=== PATIENT | female | born 1945 | race Caucasian/White ===

== ENCOUNTER 2018-06-10 01:47 | Inpatient (IN) | payer OTHER, MEDICARE ==
--- NOTE | 2018-06-04 13:11 | PN- Neurosurgical ---
Surgical Brief Attending Note Brief Attending Note: Narda carrington is seen back pain and bilateral sacroiliac areas worse with activity bending standing and walking improved a complaint of weakness in her leg. She cannot walk associated block. His a positive shopping cart sign. She has had physical therapy without improvement. 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 She does not have sleep apnea smoking 20 years ago. She drinks oh. Family history arthritis hypertension neuropathy cardiac is examination she stands with a was 197 pounds She is nontender patient back. Sacroiliac she is increased with bending but some limitation of hyperextension. Within normal limits and she is a pleasant posterior no sensory changes.Knee jerks absent. Toes are downgoing. She has negative straight leg raise Last MRI confirms space collapse at L3 4 L4 5 stenosis L3 4 L4 plan diagnosis is status post plan decompression L3 4 L4 5 L5-S1, hardware, insertion,
[~2018-06-10] VITALS: Ht 175.3 cm; Wt 86.2 kg
[~2018-06-10 01:47] MED LIST: AMLODIPINE BESYL5 M1 PO; ATORVASTATIN CA10 M1 PO; LEVOTHYROXINE100 MC1 PO; OMEPRAZOLE40 M1 PO; SERTRALINE HCL50 MG PO
[2018-06-10 13:40] LABS: ABSOLUTE BASOPHIL COUNT 0 /CUMM (0.0-0.2); ABSOLUTE EOSINOPHIL COUNT 0 /CUMM (0.0-0.7); ABSOLUTE GRANULOCYTE CT 6.7 /CUMM (1.4-6.5); ABSOLUTE LYMPH COUNT 1.2 /CUMM (1.2-3.4); ABSOLUTE MONOCYTE COUNT 0.1 /CUMM (0.10-0.60); BASOPHIL % 0.3 % (0.0-2.0); EOSINOPHIL % 0.4 % (0-5); HEMATOCRIT 33.6 % (37-47); MEAN CORPUSCULAR HGB 27.7 PG (27.0-31.0); MEAN CORPUSCULAR HGB CONC 33.8 G/DL (33.0-37.0); MEAN CORPUSCULAR VOLUME 81.8 FL (81.0-99.0); MEAN PLATELET VOLUME 9.3 FL (7.4-10.4); PLATELET COUNT 236 /CUMM (130-400); RBC DISTRIBUTION WIDTH 13.8 % (11.5-14.5); RED BLOOD CELL CT 4.11 /CUMM (4.20-5.40); WHITE BLOOD CELL COUNT 8.1 /CUMM (4.8-10.8)
[2018-06-10 13:47] LABS: GRANULOCYTE % 82.6 % (42.2-75.2)
--- NOTE | 2018-06-10 15:04 | Admission Core Measures ---
Acute Coronary Syndrome (CM) ACS Core Measures Acute Coronary Syndrome Diagnosis No Congestive Heart Failure (NEW) CHF Core Measures Congestive Heart Failure Diagnosis No Cerebrovascular Accident CVA Core Measures CVA/TIA Diagnosis No Venous Thromboembolism VTE Core Norm (View Protocol) VTE Risk Factors Surgery No Mechanical VTE Prophylaxis d/t N/A MechProphylax Ordered No VTE Pharm Prophylaxis d/t NA PharmProphylax ordered Problem List As ranked by this Provider includes Assessment & Plan 1. Spinal stenosis of lumbar region at multiple levels HOME MEDS Home Med List Amlodipine Besylate 5 MG TABLET 1 TAB PO DAILY HTN (Reported) Atorvastatin Calcium 10 MG TABLET 1 TAB PO DAILY CHOLESTEROL (Reported) Docusate Sodium 100 MG CAPSULE 100 MG PO BID PRN CONSTIPATION Gabapentin 100 MG CAPSULE 1 TAB PO QHS PRN neuropathy Levothyroxine Sodium 100 MCG TABLET 1 TAB PO DAILY REPLACEMENT (Reported) Nephro-Vitamins (Nephro-Mainor Tablet) 0.8 MG TABLET 1 TAB PO DAILY NEPHRO VITAMIN Nystatin 100,000 UNIT/GRAM CREAM..G. 1 KERLINE TOP BID rash Omeprazole 40 MG CAPSULE.DR 1 CAP PO DAILY GERD (Reported) Oxycodone HCl/Acetaminophen (Percocet 5-325 MG Tablet) 5 MG-325 MG TABLET 1 TAB PO Q6P PRN PAIN SCALE 7-10 (SEVERE) Sertraline HCl 50 MG TABLET 1 TAB PO DAILY MOOD (Reported) Sevelamer Carbonate (Renvela) 800 MG TABLET 800 MG PO QHS PHOS BINDER
--- NOTE | 2018-06-10 15:04 | Patient Discharge Instructions ---
Discharge Instructions General Discharge Information You were seen/treated for: Back pain, spinal stenosis You had these procedures: L3-S1 hardware removal Revision L3-S1 hemilaminotomies, decompression lumbar soco L3-5 Watch for these problems: Fever over 100.4 Numbness and tingling in lower extremities Sudden increase in pain Drainage from wound Redness and swelling around wound Chest pain or shortness of breath No bath, but you may shower: Yes Other wound care: Keep incision clean and dry Special Instructions: Daily dry dressing change Diet Continue normal diet: Yes Activity Pounds, do NOT lift more than: 5 Other activity limits: No bending or twisting Acute Coronary Syndrome Inclusion Criteria At DC or during hospital stay patient has or had the following: ACS DIAGNOSIS No Discharge Core Measures Meds if any: Prescribed or Continued at Discharge Meds if any: NOT Prescribed or Continued at Discharge Congestive Heart Failure Inclusion Criteria At DC or during hospital stay patient has or had the following: CHF DIAGNOSIS No Discharge Core Measures Meds if any: Prescribed or Continued at Discharge Meds if any: NOT Prescribed or Continued at Discharge Cerebrovascular accident Inclusion Criteria At DC or during hospital stay patient has or had the following: CVA/TIA Diagnosis No Discharge Core Measures Meds if any: Prescribed or Continued at Discharge Meds if any: NOT Prescribed or Continued at Discharge Venous thromboembolism Inclusion Criteria VTE Diagnosis No VTE Type NONE VTE Confirmed by (Test) NONE Discharge Core Measures - Per Current guidelines, there needs to be overlap - treatment for the first 5 days of Warfarin therapy. - If discharged on Warfarin prior to 5 days of - overlap therapy, the patient will need to be - assessed for post discharge needs including - *Post discharge parental anticoagulation - *Warfarin and/or parental anticoagulation education - *Follow up date to check INR post discharge At least 5 days overlap therapy as Inpatient No Meds if any: Prescribed or Continued at Discharge Note: Overlap Therapy is Warfarin and Anticoagulant Meds if any: NOT Prescribed or Continued at Discharge
--- NOTE | 2018-06-10 15:41 | RADIOLOGY REPORT ---
EXAMINATION: X-RAY LUMBAR SPINE IN THE OR CLINICAL INFORMATION: L3-S1 laminectomies and fusion. COMPARISON: CT scan of the lumbar spine 11/23/2017. TECHNIQUE: 6 intraprocedural views of the lumbar spine were obtained. FINDINGS: AP and lateral views demonstrate placement of intervertebral disc devices at the levels of L3-L4, L4-L5 and L5-S1. The interspinous devices seen at L4 and L5 on the prior study are not visualized on the current study and have likely been removed. Number of images: 6. Fluoroscopy time: 1.04 minutes. IMPRESSION: 1. Multiple images during L3-S1 laminectomies and fusion. 2. Please see operative notes for further details.
--- NOTE | 2018-06-10 16:31 | RADIOLOGY REPORT ---
EXAMINATION: XR LUMBAR SPINE IN OR CLINICAL INDICATION: L3-S1 laminectomy and fusion in the OR. COMPARISON: Lumbar spine radiograph 06/10/2018. TECHNIQUE/FINDINGS: O-arm equipment was dedicated to the operating room for the performance of an intraoperative procedure. FLUOROSCOPY TIME: 15.9 seconds TOTAL DLP: 1372.64 mGy-cm2 IMPRESSION: Administrative dictation for intraoperative imaging guidance and image archiving in PACS. Please refer to operative notes for details.
[2018-06-10 16:40] LABS: ABSOLUTE BASOPHIL COUNT 0 /CUMM (0.0-0.2); ABSOLUTE EOSINOPHIL COUNT 0 /CUMM (0.0-0.7); ABSOLUTE GRANULOCYTE CT 11.4 /CUMM (1.4-6.5); ABSOLUTE LYMPH COUNT 0.7 /CUMM (1.2-3.4); ABSOLUTE MONOCYTE COUNT 0.3 /CUMM (0.10-0.60); BASOPHIL % 0 % (0.0-2.0); EOSINOPHIL % 0.2 % (0-5); GRANULOCYTE % 91.9 % (42.2-75.2); MEAN PLATELET VOLUME 9.6 FL (7.4-10.4); PLATELET COUNT 131 /CUMM (130-400); RBC DISTRIBUTION WIDTH 13.9 % (11.5-14.5)
[2018-06-10 16:48] LABS: WHITE BLOOD CELL COUNT 12.4 /CUMM (4.8-10.8)
[2018-06-10 17:50] LABS: HEMATOCRIT 30 % (37-47)
--- NOTE | 2018-06-10 18:25 | Operative Report ---
Operative/Inv Procedure Report Surgery Date: 06/10/18 Name of Procedure: As primary #1 right hemilaminotomy L4 5 L5-S1 with medial facetectomy and foraminotomy #2 preparation of space for fusion L4 5 L5-S1 #3 graft reconstruction DBF graft on #4 TL ORIF F USD cage insertion L4 5 right #5 TL ORIF fuse cage insertion L5-S1 right As secondary #6 removal of X-Stop hardware L3 4 L4 5 and #7 left hemilaminotomy L3 4 with foraminotomy and facetectomy #8 preparation of space for fusion L3 4 left #9 insertion of TL ORIF fuse cage L3 4 left #10 left hemilaminotomy L4 5 with medial facetectomy and foraminotomy #11 installation of Depo-Medrol left L4 5 #12 stealth registration #13 pedicle screw insertion L3-L4 L5-S1 bilateral #14 arthrodesis O2 and allograft bilateral L3-L4 L5-S1 Pre-Operative Diagnosis: #1 status post X-Stop insertion L3 4 L4 5 #2 lumbar spinal stenosis L3 4 L4 5 L5-S1 Post-Operative Diagnosis: Same Estimated Blood Loss: 3500 mL Surgeon/Barrel Assembler Helper: Mohan HAN,Jonathan Guo (cosurgeon) Damien Palmer Anesthesia: general endotracheal tube Monitors: Neurophysiology IV Fluids: See anesthesia note Implants: At L4 5 fuse cage 10 x 24 x 8 At L5-S1 fuse cage 10 x 24 x 8 At L3 4 fuse cage 9 x 24 x 4 Pedicle screws as per Jonathan Preston MD's note Urine Output: See anesthesia note Drains: 2 Ion-Collins Specimens: Disc Microbiology: None Tourniquet: None Complications: Blood loss as mentioned above Intermittent presence and then absence of left anterior tibial recordings Condition: Stable Operative Indication: 73-year-old woman with long-standing history of spinal stenosis who did well for approximately 5 years with X-Stop devices but whose symptoms worsened over time. Indication for surgery alternative risks and possible complication were discussed at length once was cleared of physical and subcutaneous conservative measures where insufficient patient elected to have surgery performed O guarantees given all questions answered risks including disfigurement and paralysis Operative/Procedure Note Note: Patient was brought into the operating room supine intubated and then placed prone on the Ion table with all surfaces padded. 2 g of intravenous antibiotics were given and the back was prepped in usual standard fashion and infiltrated with Xylocaine and epinephrine Sharp dissection was carried down to the aponeurosis which was taken down on both sides of the midline and onto the lamina and onto the transverse processes of 34 and 5 and the alae of the sacrum The to X-Stop devices were quite readily identified and using a 2.5 screwdriver where released and removed. The supraspinous ligament had been preserved Starting on the right side after C-arm verified position a hemilaminotomy was accomplished on at L4 5 and L5-S1 with medial facetectomy and foraminotomy and takedown of ligamentum flavum On the left side the same procedure was accomplished L3 4 Following this the spaces were identified and entered and starting at L5-S1 annulus being openly digging disc material being removed with straight and up- biting pituitary and the remainder of the space prepared with aggressive curettes. The dilators were brought up and enlarged to 10 mm and felt to be stable. This was accomplished as well as L4 5 IV disc material was removed with the space appeared to be more spondylotic The contralateral L3 4 space was likewise prepared in stable fashion Following this under the direct imaging of C-arm and continuous SSEP monitoring a 10 x 24 x 8 cage was inserted first at L5-S1 without any changes a recording then at L4 5 with transient changes in recording which normalized apart from a persistent anterior tibial loss which had been absent prior to the case but had appeared secondarily before cage insertion Attention was then directed towards the left-hand side and a smaller cage was inserted after the same procedure Given the changes in the anterior tibial recordings was decided then to perform a hemilaminotomy on the left side at L4 5 with a medial facetectomy and foraminotomy and verified that indeed the nerve roots were actually decompressed Following this the O arm was brought in and stealth registration was accomplished. Following this the pedicle screws were inserted at L3 L4 L5 and S1 bilaterally and the details on this will be followed Jonathan Preston MD's note Following this the soft tissue and bone was prepared for fusion bilaterally and a combination of autologous bone and DBF graft on and pro Genex were placed in the gutters Is to be noted that the disc spaces were filled with DBF and autologous bone and both L3 cages were filled with autologous bone Significant amount of time was then spent controlling bleeding with Gelfoam and thrombin FloSeal and hydrogen peroxide Following this 500 mg of vancomycin were placed over the graft material 2 Ion Isiah were left in the epidural space muscle and aponeurosis were sutured closed with 0 Dexon onto this spinous processes subcutaneous tissue was closed with 2-0 Dexon and subcuticular tissue with 3-0 Dexon and cliff were used to close skin Findings: Severe spondylosis Bleeding from the venous channels Discharge Disposition: Critical Care Unit Additional Comments: Neurophysiological monitoring was back to baseline considering that the baseline recording had a loss of T8 on the left originally CC: Mohan HAN,Jonathan Guo
[2018-06-10 18:49] LABS: ABSOLUTE EOSINOPHIL COUNT 0 /CUMM (0.0-0.7); ABSOLUTE LYMPH COUNT 1.6 /CUMM (1.2-3.4); MEAN CORPUSCULAR VOLUME 83.5 FL (81.0-99.0); MEAN PLATELET VOLUME 9.1 FL (7.4-10.4)
[2018-06-10 18:55] LABS: ABSOLUTE BASOPHIL COUNT 0.1 /CUMM (0.0-0.2); ABSOLUTE MONOCYTE COUNT 1.1 /CUMM (0.10-0.60); BASOPHIL % 0.3 % (0.0-2.0); EOSINOPHIL % 0.1 % (0-5); MEAN CORPUSCULAR HGB CONC 33.6 G/DL (33.0-37.0); PLATELET COUNT 153 /CUMM (130-400); RBC DISTRIBUTION WIDTH 14.1 % (11.5-14.5); RED BLOOD CELL CT 4.48 /CUMM (4.20-5.40)
[2018-06-10 18:56] LABS: HEMATOCRIT 37.4 % (37-47); WHITE BLOOD CELL COUNT 18.7 /CUMM (4.8-10.8)
[2018-06-10 19:11] LABS: GRANULOCYTE % 85.4 % (42.2-75.2)
--- NOTE | 2018-06-10 20:27 | Cons- CRCU ---
Deb HAN,Estrella [birth year]1950: General Information and HPI Consulting Request Date of Consult: 06/10/18 Requested By: Tiara HAN,Damien Antonio Reason for Consult: Postop management Source of Information: old records Exam Limitations: clinical condition History of Present Illness: Patient is a 73-year-old female, admitted to the ICU for postop care.She underwent X-Stop insertion L3 4 L4 5, on 06/10/2018. Because of pain in back she is not active since 5 yrs; long standing and bending movements. She had surgery in 2012 and spacers were putted without much benefit. Denies for any incontinence of the stool in the urine or any kind of weakness in the leg. Past medical history- Hyperlipidemia Hypothyroidism Lumber fusion surgery 2012 Gastritis 2001 History of tonsillectomy History of D&C 2000 Hysterectomy Allergies-no known drug allergies Personal history -She can do all her household work with difficulty especially in the bending and lifting, she quit smoking around 20 years ago, drinks wine 1- 2 glasses a day. Lives with the family including . Allergies/Medications Allergies: Coded Allergies: No Known Allergies (06/04/18) Home Med List: Amlodipine Besylate 5 MG TABLET 1 TAB PO DAILY HTN (Reported) Atorvastatin Calcium 10 MG TABLET 1 TAB PO DAILY CHOLESTEROL (Reported) Levothyroxine Sodium 100 MCG TABLET 1 TAB PO DAILY REPLACEMENT (Reported) Omeprazole 40 MG CAPSULE.DR 1 CAP PO DAILY GERD (Reported) Sertraline HCl 50 MG TABLET 1 TAB PO DAILY MOOD (Reported) Review of Systems Review of Systems Constitutional: Reports: no symptoms. Comments Cannot comment as patient is under sedation Past History Surgical History Surgical History: unobtainable Psychosocial History Smoking Status: Unknown If Ever Smoked Exam & Diagnostic Data Last 24 Hrs of Vital Signs/I&O Vital Signs Date Time Temp Pulse Resp B/P B/P Pulse O2 O2 Flow FiO2 Mean Ox Delivery Rate 06/10 2000 99 Nasal 4.0L Cannula Physical Exam General Appearance: sedated Respiratory: wheezing Cardiovascular: regular rate/rhythm Peripheral Pulses: 2+ brachial (L), 2+ radial (R), 2+ radial (L), 2+ ulnar (L), 2+ femoral (R), 2+ femoral (L), 2+ dorsalis pedis (R), 2+ dorsalis pedis (L) Gastrointestinal: soft, non-tender Extremities: normal inspection, normal capillary refill, no edema Other Physical Findings: Patient was in under sedation. Her face looked very puffy with swollen eyes and the lids. Pupils were dilated 5 mm bilaterally partially reactive. Lungs bilaterally air entry present with slight wheezing. She was having unpurposeful movement and upper limbs and slight in the left lower limb. Plantar reflex is indeterminate. Last 48 Hrs of Labs/Simone: Laboratory Tests 06/10/18 1920: PT 14.0 H, INR 1.28 H, D-Dimer High Sensitivty 09981 H 06/10/18 1835: CBC w Diff NO MAN DIFF REQ, RBC 4.48, MCV 83.5, MCH 28.0, MCHC 33.6, RDW 14.1, MPV 9.1, Gran % 85.4 H, Lymphocytes % 8.6 L, Monocytes % 5.6, Eosinophils % 0.1, Basophils % 0.3, Absolute Granulocytes 16.0 H, Absolute Lymphocytes 1.6, Absolute Monocytes 1.1 H, Absolute Eosinophils 0, Absolute Basophils 0.1 06/10/18 1628: CBC w Diff NO MAN DIFF REQ, RDW 13.9, MPV 9.6, Gran % 91.9 H, Lymphocytes % 5.5 L, Monocytes % 2.4, Eosinophils % 0.2, Basophils % 0, Absolute Granulocytes 11.4 H, Absolute Lymphocytes 0.7 L, Absolute Monocytes 0.3, Absolute Eosinophils 0, Absolute Basophils 0 06/10/18 1319: CBC w Diff NO MAN DIFF REQ, RBC 4.11 L, MCV 81.8, MCH 27.7, MCHC 33.8, RDW 13.8 , MPV 9.3, Gran % 82.6 H, Lymphocytes % 15.2 L, Monocytes % 1.5 L, Eosinophils % 0.4, Basophils % 0.3, Absolute Granulocytes 6.7 H, Absolute Lymphocytes 1.2, Absolute Monocytes 0.1, Absolute Eosinophils 0, Absolute Basophils 0 Assessment/Plan CRCU Impression/Plan: Patient is a 73-year-old female, admitted to the ICU for postop care.She underwent X-Stop insertion L3 4 L4 5, on 06/10/2018. Procedure was around 9 hour long during which patient lost around 3600 cc of blood, and her blood pressure dropped down to 80. She was given, 4 L of Ringer lactate, 3200 cc of Cell Saver and 2 units of PRBC.Hemovac was placed at the site. It drained around 250CC. She had 400 cc of urine output during procedure. She was resuscitated and was extubated successfully. Postoperatively, her blood pressure was 120/80. Preop blood workup showed - 05/31/2018- WBC 6.5, hemoglobin 13.5, hematocrit 42.3, MCV 84, sodium 142, potassium 4.2, carbon dioxide 27, BUN 14, creatinine 0.8,PT/INR-10.7/0.98, PTT 30, EKG showed-normal sinus rhythm, heart rate 114, no ST-T wave changes. Postop blood workup -WBC 18.7, hemoglobin 12.6, hematocrit 37.4, granulocyte 85.4, d-dimer-12,505, PT/INR 14.0/1.20. Intake -4000+ 3200+2 x 350 = 7900 output-400 cc Assessment and plan- Status post laminectomy;removal of X-Stop hardware L3 4 L4 5 and left hemilaminotomy L3 4, L4-L5 with foraminotomy and facetectomy; decompression L3/ S1, multi-columner instrumentation fusion L3 through S1 - * Admitted to ICU * CRC consult * Neuro check every shift * Watch for the bleeding * CBC and ICU bundle every 4 hourly until stabilize * Target hemoglobin more than 8. * TRC/nebulization * IV fluid normal saline 50 cc/h * Inj pantoprazole 40 mg IV OD * Continue inj Encef 1 g IV daily as per surgery * Continue Hurley catheter * Strict intake output charting * PT/OT after discussing with the surgical * Keep n.p.o. till tomorrow Hypothyroidism - * Inj levothyroxine 50 mcg IV daily until patient start oral intake. Chronic medical condition-hypertension, hyperlipidemia * We will hold amlodipine and atorvastatin for now. CODE STATUS-full code DVT prophylaxis-ALP S; hold the heparin for now as patient is bleeding Diet-keep n.p.o. till further surgical recommendations Problem List: 1. Status post laminectomy Consult Acknowledgment - Thank you for your consult request. Hussain HAN,Diana Long 06/11/18 7543: General Information and HPI Allergies/Medications Current Medications: Current Medications Sig/Kristin Start time Last Medication Dose Route Stop Time Status Admin Acetaminophen 0 .STK-MED ONE 06/11 0030 DC IV Acetaminophen 1,000 MG Q6P PRN 06/11 0015 AC 06/11 N/A 1 UNIT IV 0030 Cefazolin Sodium 2 GM IQ8 06/11 0000 AC 06/11 N/A 1 UNIT IV 0837 Ceftriaxone Sodium 1,000 MG DAILY 06/11 900 CAN IV Hydromorphone HCl 0 .STK-MED ONE 06/10 1720 DC .ROUTE Lactated Ringer's 1,000 ML Q6H 06/11 08 AC 06/11 IV 0754 Levothyroxine Sodium 50 MCG DAILY 06/11 900 AC IV Magnesium Sulfate 1 GM Q2H 06/11 0030 DC 06/11 Dextrose/Water 100 ML IV 06/11 0429 0229 Morphine Sulfate 2 MG Q6P PRN 06/11 0015 AC 06/11 IV 0441 Morphine Sulfate 4 MG Q6P PRN 06/11 0015 AC IV Pantoprazole Sodium 40 MG DAILY 06/11 900 AC IV Sodium Chloride 1,000 ML Q20H 06/10 2015 DC 06/10 IV 2025 Assessment/Plan CRCU Other Findings/Comments: I have personally seen and examined the patient, and agree with the resident's assessment and plan as detailed above. I discussed the case and plan of care with Dr. Noble, anesthesia. Briefly, the patient is a 73-year-old female with a past medical history significant for hyperlipidemia, hypothyroidism, gastritis, and chronic back pain status post lumbar fusion surgery in 2012. The patient underwent a X-Stop insertion L3-4, L4-5, 4 severe lumbar spinal stenosis on 06/10/2018. The patient's intraoperative course was complicated by significant blood loss anemia, and hemodynamic instability. The patient was resuscitated in the OR by surgery and anesthesia. The patient was extubated postprocedure without issue. The patient was transferred to the critical care unit for monitoring and supportive care. The patient was sedated postoperatively, comfortable, and hemodynamically stable. She is not able to answer questions due to sedation. For now, we will continue all postoperative supportive care. We will monitor the patient in the critical care unit overnight and make changes as necessary. I asked the housestaff to contact me should the patient's condition change or if they have any questions about the patient. Consult Acknowledgment - Thank you for your consult request.
[2018-06-10 22:52] LABS: ABSOLUTE BASOPHIL COUNT 0 /CUMM (0.0-0.2); ABSOLUTE EOSINOPHIL COUNT 0 /CUMM (0.0-0.7); ABSOLUTE GRANULOCYTE CT 15.2 /CUMM (1.4-6.5); ABSOLUTE LYMPH COUNT 1.5 /CUMM (1.2-3.4); ABSOLUTE MONOCYTE COUNT 1.3 /CUMM (0.10-0.60); BASOPHIL % 0 % (0.0-2.0); EOSINOPHIL % 0 % (0-5); GRANULOCYTE % 84.8 % (42.2-75.2); HEMATOCRIT 36.1 % (37-47); MEAN CORPUSCULAR HGB 27.7 PG (27.0-31.0); MEAN CORPUSCULAR HGB CONC 32.9 G/DL (33.0-37.0); MEAN CORPUSCULAR VOLUME 84.2 FL (81.0-99.0); MEAN PLATELET VOLUME 9.3 FL (7.4-10.4); PLATELET COUNT 165 /CUMM (130-400); RED BLOOD CELL CT 4.28 /CUMM (4.20-5.40); WHITE BLOOD CELL COUNT 17.9 /CUMM (4.8-10.8)
[2018-06-10 23:11] LABS: PT 12.5 SEC (9.4-12.5); PTT 33 SEC (25-37)
[2018-06-11] VITALS: BP 120/80
[2018-06-11 05:29] LABS: ABSOLUTE BASOPHIL COUNT 0 /CUMM (0.0-0.2); ABSOLUTE EOSINOPHIL COUNT 0 /CUMM (0.0-0.7); BASOPHIL % 0 % (0.0-2.0); EOSINOPHIL % 0 % (0-5); RBC DISTRIBUTION WIDTH 14.1 % (11.5-14.5)
--- NOTE | 2018-06-11 05:30 | Operative Report ---
Operative/Inv Procedure Report Surgery Date: 06/10/18 Name of Procedure: 1) L3-L4 And L4-L5 Removal Of Two Distinct And Separate Level Interspinous Distractive Stabilization And Arthrodesis Devices (Mohan/Tiara) 2) L3-L5 Posterior Midline And Posterobilateral Lumbar Region Fusion Mass Exploration With Visual, Palpation And Mechanical Evaluation To Evaluate For And Ultimately Confirm Pseudoarthrosis Which Could Not Be Otherwise Definitively Determined By Other Noninvasive Methods (Faithner/Amrikk) 3) L3-L4 Single Column Osteotomy Of Midline And Left Posterolateral Pseudoarthrosis Required To Safely Achieve Clinically Necessary Left Posterolateral Lateral Recess And Unroofing Foraminal Decompression And Without Which The Remainder Of The Procedure Could Not Have Been Performed. (Mohan/ Amrikk) 4) L4-L5 Single Column Osteotomy Of Midline And Right Posterolateral Pseudoarthrosis Required To Safely Achieve Clinically Necessary Right Posterolateral Lateral Recess And Unroofing Foraminal Decompression And Without Which The Remainder Of The Procedure Could Not Have Been Performed. (Bleandrewner/ Amrikk) 5) L3 Left Hemilaminotomy With L3-L4 Decompressive Posterolateral Osseous Element Resection (Including Decompressive Subtotal Facetectomy And Decompressive Unroofing Foraminotomy), Intraforaminal Osteophytectomies, Epidural Neurolysis, Neurodecompressive Discectomy Of Extruded Intracanal And Intraforaminal Herniated Disk Fragment And 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 ([place]/Blechner) 6) L4 Bilateral Hemilaminotomies With L4-L5 Decompressive Posterolateral Osseous Element Resection (Including Decompressive Right Subtotal And Left Partial Medial Facetectomies As Well As Decompressive Right Unroofing And Left Medial Expanding Foraminotomies), Intraforaminal Osteophytectomies, Moderate Epidural Neurolysis, Neurodecompressive Discectomy Of Bilateral Extruded And Impinging Intracanal And Intraforaminal Herniated Disk Fragment And 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 ([place]/Blechner ) 7) L5 Right Hemilaminotomy With L5-S1 Decompressive Posterolateral Osseous Element Resection (Including Decompressive Subtotal Facetectomy And Decompressive Unroofing Foraminotomy), Intraforaminal Osteophytectomies, Epidural Neurolysis, Neurodecompressive Discectomy Of Extruded Intracanal And Intraforaminal Herniated Disk Fragment And 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 (Tiara/Mohan) 8) L3-L4 Revision Multicolumn (New Anterior Column Interbody And Revision Posterobilateral Column Osteoarticular Element And Intertransverse Process) Instrumented Fusion (Mohan-[facility]) 9) L4-L5 Revision Multicolumn (New Anterior Column Interbody And Revision Posterobilateral Column Osteoarticular Element And Intertransverse Process) Instrumented Fusion ([facility]) 10) L5-S1 Multicolumn (Anterior Column Interbody And Posterobilateral Column Osteoarticular Element And Intertransverse Process) Instrumented Fusion ( [facility]) 11) L3-L4 Left Posterolateral Implantation Of Left Paramedian To Midline Oblique Interbody Cage Instrumentation (Mohan/Tiara) 12) L4-L5 Right Posterolateral Implantation Of Right Paramedian To Left Paramedian Midline Oblique Interbody Cage Instrumentation (Mohan/Tiara) 13) L5-S1 Right Posterolateral Implantation Of Right Paramedian To Midline Oblique Interbody Cage Instrumentation (Mohan/Amrikk) 14) L3-S1 Implantation Of Posterobilateral Cfyztug-Lfwmd-Hma Segmental Instrumentation (Mohan/Amrikk) 15) L3-S1 Stealth Frameless Stereotactic Computer-Assisted Spinal Navigational Placement Of Posterobilateral Pedicle Screw Instrumentation (Mohan) 16) Preparation, Reconstitution And Implantation Of L3-S1 Interbody And Posterobilateral Intertransverse Process Nonstructural Allograft Substitute Osteopromotive Material (Mohan) 17) [place], Preparation, Reconstitution And Implantation Of L3-S1 Interbody And Posterobilateral Intertransverse Process Nonstructural Morselized Local Autograft (Faithner) Pre-Operative Diagnosis: 1) 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 2) L5-S1 Bilateral Lumbosacral Intervertebral Disc Disorder With Radiculopathy 3) L3-L4 And L4-L5 Bilateral Lumbar Spondylosis With Radiculopathy 4) L5-S1 Bilateral Lumbosacral Spondylosis With Radiculopathy 5) L3-L4 And L4-L5 Bilateral Lumbar Region Foraminal Spinal Stenosis 6) L5-S1 Bilateral Lumbosacral Region Foraminal Spinal Stenosis 7) L5 Bilateral Midlumbar Distribution Radiculopathy 8) L3-L4 And L4-L5 Bilateral Broad Based Central And Intraforaminal Neurocompressive Intraforaminal Displacement Of Lumbar Intervertebral Discs 9) L3-L4 And L4-L5 Degeneration Of Lumbar Intervertebral Discs 10) L5-S1 Degeneration Of Lumbosacral Intervertebral Disc 11) L3-L4 And L4-L5 Lumbar Spondylosis 12) L5-S1 Lumbosacral Spondylosis 13) L3-L4 And L4-L5 Pseudoarthrosis 14) L3-S1 Diffuse Multi-Segmental Lumbar And Lumbosacral Spinal Degenerative Arthritis (Spondyloarthropathy) 15) L3-S1 Bilateral Degenerative Lumbar And Lumbosacral Spinal Facet Arthropathy 16) Severe, Activity And Functionally Limiting Lumbar And Lumbosacral Region Lower Back Pain 17) Presence Of L3-L4 And L4-L5 Retained Interspinous Lumbar Spinal Stabilization Instrumentation Implants 18) Status Post L3-L4 And L4-L5 Midline Lumbar Attempted Surgical Arthrodesis Procedure With Suggestion Of Nonunion 19) Borderline Obesity Based On World Health Organization (WHO) Criteria 20) Very High Body Mass Index (BMI = 30.4) Potentially Adversely Affecting Acute And Skilled Nursing Lumbar And Lumbosacral Spine General And Surgical Orthopaedic Treatment As Well As Spine Surgical And Overall Health Outcomes Post-Operative Diagnosis: Same as preop Estimated Blood Loss: 3600 cc EBL, 3000 cell saver and PRBC (4U) return Surgeon/Faculty Instructor: KEVIN LAMB MD - Primary Admitting Orthopaedic Spine Co-Surgeon DAMIEN MENJIVAR MD - Primary Consulting Neurological Spine Co-Surgeon Surgical Providers: Regarding Orthopaedic Spine Portion Of Procedure Dictated Here: Kevin Lamb M.D. - Orthopaedic Spine Surgeon (Co-Surgeon/Primary Admitting Surgeon) Damien Menjivar M.D. - Neurosurgeon (Co-Surgeon/Faculty Instructor Surgeon) See Neurosurgical Operative Report Regarding Surgical Provider Designation For Neurosurgical Spine Portion Of Procedure Anesthesia: general endotracheal tube Operative/Procedure Note Note: Preoperative Holding Area Assessment/Preparation: The patient was evaluated in the preoperative holding area prior to the administration of any preoperative sedating medications and shortly prior to transporting her to the operating room for surgery. No significant clinical changes or contraindications to the scheduled surgical procedure were documented compared to the stable longstanding preoperative baseline mechanical axial and radicular lumbar painful symptoms and reported exacerbation with provocative activity without gross physiologic examination deficit or abnormality which was documented on primary orthopaedic office, neurosurgical consultation and medical clearance general, neurovascular and musculoskeletal evaluations. Specifically, her preoperative moderate lower back pain and lower extremity anterolateral thigh radiation are unchanged from preoperative orthopaedic spine service admission and primary care clearance examinations. As in the office, the patient was otherwise grossly neurovascularly and musculoskeletally intact in both lower extremities at the time of immediate preoperative assessment and standard testing. The surgical plan and site were confirmed with the patient and preoperative paperwork was finalized. The region of the intended surgical site was cleansed, prepped and marked per protocol. The surgeons, anesthesia care team members and operating room staff verified the patient identity, surgical procedure, and operative site as well as other clinical details with the patient in an initial documented preoperative confirmation (awake time out) prior to the administration of significant sedation or anesthesia. Prior to receiving any preoperative medications, she also confirmed her NPO status since midnight. Surgical Procedure: Dr. Lamb and Dr. Menjivar were both present for and participated equally as co-surgeons in all clinically significant phases of the surgical procedure documented below as well as for all critical intraoperative and perioperative decisions and interventions. The set-up, positioning, frameless CT-referenced stereotactic analysis and guidance, disk space and posterobilateral osseous element fusion surface preparation and decortication, stabilization with implantation of multicolumn (interbody cage and posterobilateral pedicle-screw- darleen construct) instrumentation, multicolumn (interbody and posterobilateral intertransverse-process space) arthrodesis and closure portions of the procedure are described in greatest detail in this operative report. Refer to Dr. Menjivar s Neurosurgical operative report for additional details particularly regarding the electrophysiological monitoring, exposure, osseous and soft tissue decompressive hemilaminotomies, facetectomies and foraminotomies, discectomies, and neural element decompression portions of the procedure. The patient's body habitus and borderline obesity (based on World Health Organization criteria with BMI = 30.4) with very deep soft tissue layers increased the complexity, duration , difficulty and risk of the procedure and intraoperative care as well as all perioperative (pre-operative and post-operative, inpatient and outpatient) care. This increase was significant but estimated to be less than 50% and slightly less than two standard deviations from the mean in all categories even for similar clinical presentations in the more complex range for this type of procedure. This additional care was not felt to yet warrant distinct and separate procedural services related to this procedure as designated by modifier coding but may require additional separately designated services later depending on her postoperative course. Set-Up/Positioning/Exposure - The patient was brought to the operating room in stable condition and underwent uncomplicated induction of general anesthesia, intubation, and placement of all appropriate monitors, lines, tubes and catheters without difficulty. Administration of 2 grams of IV Ancef based on patient body mass was given for surgical prophylaxis and was completed at least 30 and less than 60 minutes prior to making an incision. This antibiotic dose was repeated at four hour intervals throughout the procedure per standard operative protocols. The patient was positioned prone on the Ion operating table in standard fashion for a lower and mid-lumbar decompression, discectomy and multicolumn instrumented fusion procedure taking care to protect and stabilize the spine during transfer, avoid positions of nerve stretch, pad all pressure points, and support the head without any pressure on the eyes using a foam head rest and head-holding frame. The patient's obese body habitus required several areas of additional foam padding to minimize pressure both at the chest, iliac crest and thigh supports as well as between these supports particularly at the lower chest wall and abdomen where there was some unavoidable contact with the frame of the Ion table. This additional padding was successful in minimizing pressure in these areas as much as was possible in this circumstance. Electrophysiological monitoring electrodes were applied per standard neuromonitoring protocol. The arms were abducted less than 90 degrees at the shoulders, flexed less than 90 degrees at the elbows and supported on well-padded arm-boards with additional foam padding from the axillary regions to the hands. All pressure points were either fully padded or suspended without any contact at all between pads. Baseline preoperative electrophysiological monitoring readings were obtained and no gross abnormalities were noted with no asymmetry or other finding identified, however baseline amplitudes were found to be difficult to detect and inconsistent in certain distributions. These limitations were minimized as much as possible with anesthetic and lead modifications but, despite optimized conditions, persisted throughout the procedure. There was no indication that postponement or change of operative plan would improve monitoring in this case, nor any suggestion that improved monitoring, even if it could be achieved, would likely change overall prognosis for the procedure. Once conditions were optimized, this suboptimal monitoring condition was still felt to provide adequate beneficial information and overall improved prognosis to continue monitoring and surgery as planned. A cross-table lateral fluoroscopic image was obtained with a skin marker in place to determine the optimal level for incision , to document optimized intraoperative lumbar alignment, and to confirm acceptable radiologic visualization as well as definitive numerical identification of the intended operative levels with sufficient detail down to the lumbosacral junction region throughout the procedure. The approach, exposure, hemostasis and retractor placement are dictated in greatest detail by Dr. Menjivar in his Neurosurgery operative report and are only briefly summarized here. The exploration of previous fusion and mechanical testing at the L3-L4 and L4-L5 levels as well as the unilateral posterolateral fusion mass osteotomies at those levels on the sides of decompression (to provide safe access to the canal for wide decompression, discectomy and interbody instrumentation) are detailed in this operative report. The fluoroscopic identification of intended operative levels, laminar and posterolateral osseous and soft tissue resection, epidural neurolysis (as needed ), decompressive discectomy and final central canal, lateral recess and foraminal neural element decompression portions of the procedure are then also described in greatest detail in the Neurosurgery operative report. Refer to that document for additional details. The surgical field was prepped and draped using standard sterile technique with Duraprep, sterile towels, an Ioband incise drape and an edge-adhesive rectangular surgical field drape. Prior to beginning the procedure, the surgeons, anesthesia care team, and operating room staff again documented the patient identity, surgical procedure, and operative site in a final confirmation ("final time out") per standard hospital and [facility] protocol. In brief summary of the primary neurosurgical portion of the procedure, after sterile prep and drape using standard technique as described above, the patient's previous midline surgical site incision was marked with a sterile surgical marker, infiltrated with local anesthetic and opened using a #10 scalpel blade extending longitudinally from the palpated superior tip of the L2 spinous process to the inferior tip of the S1 spinous process overlying the intended L3-L4, L4-L5 and L5-S1 operative interlaminar levels and L3-S1 operative arthrodesis structures as well as the entire S1 spinous process for optimal safe and stable revision dissection, exposure and reference frame fixation. Hemostasis was achieved using Bovie and Bipolar electrocautery as well as Aquamantys bipolar radiofrequency hydrothermal hemostatic vascular cautery beginning with the incision and continuing throughout the procedure with settings appropriate to each progressive level. The lumbosacral fascia was divided on both sides of the previously palpated and preoperatively fluoroscopically localized presumptive L3, L4 and L5 spinous process tips as well as the bridging [place] or reconstituted interspinous ligament segments between them using the Bovie electrocautery which was also used to maintain hemostasis throughout the exposure. Care was taken to preserve the midline interspinous ligamentous tissue complexes as much as possible at all levels so as to maintain postoperative ligamentous tension and overall stability for optimal support of fusion formation This dissection was then carried down both sides of the presumptive L3, L4 and L5 spinous processes to expose the distractive devices at the L3-L4 and L4-L5 interspinous spaces. Identification of these devices correlated with preoperative radiologic findings and therefore adequately confirmed the numeric identification of operative levels for this initial phase of the procedure. These devices were fully exposed and removed per their design by releasing distraction and sliding the implant out of the interspinous interval toward the side of the locking mechanism which allowed preservation of the interspinous ligament segments above. Both level implant devices were sent to pathology for documentation per hospital protocol. With the implants removed and operative levels confirmed by preoperative radiograph correlation, the dissection was continued down both sides of the spinous processes to the medial laminar interface at the base of each process and finally extended laterally to expose the corresponding L3, L4 and L5 lamina as well as the intervening bilateral L3-L4, L4-L5 and L5-S1 interlaminar spaces.This interlaminar dissection was extended laterally out to the medial margin of the facet capsules which were preserved initially on each side at each level. This dissection in the paraspinous and retrolaminar space was made somewhat more difficult by the revision nature of this portion of the procedure which was associated with moderately adherent fibrous scar tissue. Ultimately this dissection was uncomplicated and could be performed with techniques, skill level and time similar to and within two standard deviations of a non-revision decompression and therefore did not warrant separate or modified procedural service designation. Since the previous surgical procedure had not involved a laminar or sublaminar dissection, once the more superficial paraspinal fibrosis had been addressed, the remainder of the procedure could be performed without requirement for revision techniques. Once the lamina and interlaminar intervals were fully exposed and before laminotomy and sublaminar intracanal dissection and decompression was performed, the posterobilateral dissection was extended over the facet complex, down the lateral faceteal wall and along the dorsal surfaces of the L3, L4 and L5 transverse processes as well as the sacral ala out to their most lateral extent to fully expose and prepare the multilevel posterolateral gutters for fusion. These bilateral areas were packed with moist counted sponges and attention was then returned to the canal region where the level was confirmed prior to beginning the decompression. Superior and inferior deep Gelpi retractors were placed with the deep retractor ends placed beneath the deep muscular layer just superficial to the transverse processes in the posterolateral spaces so as to provide optimal retraction and visualization. With the posterior elements exposed optimally, the L3-L4 and L4-L5 levels were mechanically tested and found to have toggling motion at both levels confirming pseudoarthrosis of the attempted arthrodeses at both levels. Unilateral hemilaminotomies and posterolateral osseous resections (subtotal facetectomies and foraminotomies) were performed on the right at L5-S1 and L4-L5 and on the left at L3-L4 with side chosen at each level in an attempt to optimize the decompression of the most stenotic nerve root exit zones while also optimizing fusion alignment so that the L3 upper endplate alignment was at least partially corrected to the horizontal alignment. These osseous decompressions were performed using standard techniques and without complication or abnormal electrophysiological signals. In order to place the interbody cages and distract the disk spaces for optimal foraminal decompression and correction, each osseous opening was expanded laterally and an osteotomy was required of the pseudoarthrosed posterior elements at L3-L4 and L4-L5. Once the posterolateral canal osseous resections and osteotomies were completed , the neural elements were found to be fully decompressed within the lateral recess and foraminal zones with only mild epidural fibrosis secondary to the severe dorsal and ventral degenerative changes on those sides at those levels. This epidural fibrosis required a significantly greater degree of epidural neurolysis than is typically associated with an intracanal space that has not been previously dissected but was still overall consistent with (and within two standard deviations of) the extent of dissection which can be required for severely degenerative but previously unoperated levels. Therefore no distinct and additional procedural service was designated for neurolysis. The nerve at each level on the exposed sides (noted above) were thus safely mobilized and retracted to expose the compressive disk herniations below. There herniations were resected using standard technique and the central portions of the corresponding disk spaces were removed using pituitary rongeurs. The disk material was found to be extremely degenerative at each level. All disk material was sent to pathology for documentation per hospital protocols. The endplates at each level were decorticated using standard technique with rotating samir followed by serrated curettes down to punctate bleeding subchondral bone. Medtronic FUSE Titanium cages were placed at each level using standard technique of templating, selecting appropriate sized implant, packing the anterior, medial and lateral disk space with autograft and DBF allograft, filling the central implant chamber with morselized autograft, impacting the implant into the disk space and rotating it into lordotic position per its design. 10 mm height x 24 mm depth x 8 degree lordotic cages were placed on the right at L5-S1 and L4-L5 followed by placement of 9 mm height x 24 mm depth x 4 degree lordotic cage at L3-L4. All cages achieved optimal stabilization of their respective level. Shortly after the L4-L5 cage was placed and before proceeding to the L3-L4 level, the left sided anterior tibialis electrophysiological motor evoked potential monitoring signals were lost. Although they had been inconsistent throughout the case in this distribution, their change warranted further exploration. The cage at that level was rigidly fixed in place and, despite multiple attempts, the impacting handle could not be reapplied to attempt any change of position. The signal change opposite to the side of interbody implantation was difficult to explain with no sign of L3-L4 level traversing thecal sac impingement to account for any change and so a left L4-L5 hemilaminotomy and complete exiting and traversing neural element decompression was performed. Shortly after this decompression the left anterior tibialis signal partially returned but was not maintained and was lost again on future MEP runs. After careful consideration by both surgeons, no further intervention was felt to be potentially beneficial in this case. The L3-L4 cage was then placed without any further electrophysiologic change. Following decompression and cage placement epidural bleeding was noted from several of the hemilaminotomy openings which took serial placement of FloSeal and packing with thrombinized Gelfoam to control. This resulted in a moderate increase in blood loss from the lower to the upper range for this extent of underlying pathology and revision multilevel procedure. The bleeding appeared to be from the severely degenerative disk spaces which is frequently the case upon distraction by the interbody implant. The bleeding was well controlled without further breakthrough bleeding and the remainder of the procedure was completed without notable bleeding until just prior to closure as discussed below. With the cages in place attention was turned to posterobilateral pedicle screw fixation. Standard stereotactic techniques were used for pedicle screw navigation and placement. Initial O-Arm scan performed using standard technique with registration grid in place and localized showed good placement of the anterior cages and full osseous decompression of the lateral recess and foraminal openings. There was nothing found on this intraoperative scan to account for the left sided anterior tibialis electrophysiological asymmetry and signal loss. No additional decompression was felt to be needed based on these findings. Appropriately sized pedicle screws were placed at each site ( bilateral S1, L5, L4 and L3) using standard stereotactic technique with the navigated awl, pedicle dissector and tap to prepare each screw site. Prior to screw placement the posterolateral structures were decorticated for optimal arthrodesis graft ingrowth. The posterolateral spaces were well irrigated with 500 cc of antibiotic irrigant prior to screw and graft placement. The navigating screwdriver was then used to place all screws of appropriate length (based on multiple correlating measurement techniques) in optimal position. Each screw was well fixed with excellent insertional and final torque as well as no motion detectable on application of moderate posteriorly directed "pull-out" force. Each screw was tested electrophysiologically with very low conductance to the nearby neural structures well within appropriate levels confirming intact pedicle cortex surrounding the screws at each site. Secondary O-Arm scan confirmed optimal placement of all screws with no change in the findings form the initial scan otherwise. The posterolateral spaces and entire surgical site (including the side edwards behind the retractors) were again thoroughly irrigated and graft was placed lateral to the screw and compressed against the decorticated osseous surfaces of the posterior elements. Morselized autograft was placed first, followed by DBF and finally Progenix. Interconnecting rods of appropriate length were placed within the screw heads on each side and fixed to the screws using cap nuts per implant system design. Vaybee implants were used for the posterobilateral instrumentation. The cap nuts were tightened maximally and once final preset torque was reached they sheared off flush with the saddle of the screw head per the implant design. Two large bore drains were carried out through the upper side wall of the surgical site on each side. Standard layered closure was performed and sterile dressing was placed. During closure there was some increased bleeding from all superficial soft tissues which was controlled with Bovie electrocautery but appeared to be spontaneous without significant tissue manipulation and was most consistent with an early DIC picture. There was no sign of epidural bleeding which had remained well controlled throughout screw placement, final instrumentation and grafting. Once closure was completed, the drains were activated by bulb suction and moderate early output was noted. This output began to slow down in the recovery room. DIC lab panel was drawn. The patient has been autotransfused throughout the procedure using cell saver and additional banked blood was given as needed to maintain adequate hematocrit without anemia. Both surgeons and the anesthesia team all agreed that the patient's age, medical issues and the extent of surgery with extensive but adequately replaced blood loss and some hypotension requiring some pressor support at the end of the procedure warranted ICU observation. The patient will follow standard postoperative protocols otherwise. Discharge Disposition: PACU CC: Mohan HAN,Kevin Guo; Tiara HAN,Damien Antonio
--- NOTE | 2018-06-11 05:46 | PN- Orthopedic ---
See Addendum Subjective Subjective: Patient sleeping but arousable. Answers questions and feels comfortable. Her pain is controlled she is able to turn side to side with minimal help. She has good sensation of her lower extremities Objective Vital Signs and I&Os Vital Signs Date Time Temp Pulse Resp B/P B/P Pulse O2 O2 Flow FiO2 Mean Ox Delivery Rate 06/11 0000 95 Nasal 4.0L Cannula 06/11 0000 96.6 106 19 120/80 95 Nasal 4.0L Cannula 06/10 2142 99 Nasal 4.0L Cannula 06/10 2000 99 Nasal 4.0L Cannula Intake & Output 06/11 0806/11 0000 06/10 1600 06/10 0806/10 0000 06/09 1600 Intake Total 100 Output Total 270 Balance -170 Intake, IV 100 Output, 240 Drainage Output, Urine 30 Patient 207 lb Weight Weight Bed scale Measurement Method Physical Exam: On physical exam patient is lying comfortably on her side without complaints of pain Chest is clear to auscultation symmetric without rales rhonchi or wheeze Heart tachy, regular rhythm without murmurs rubs gallops Abdomen is soft nontender no guarding no rebound Lumbar spine dressing is clean without saturation 2 TRINIDAD drains are placed, the first TIRNIDAD drain had 80 cc of blood loss the second had minimal Examination of her lower extremities shows good range of motion sensory is intact motor is 5 out of 5 except for left anterior tibialis. She is showing signs of a foot drop Calves are soft without edema alps are in place Current Medications: Current Medications Sig/Kristin Start time Last Medication Dose Route Stop Time Status Admin Acetaminophen 0 .STK-MED ONE 06/11 0030 DC IV Acetaminophen 1,000 MG Q6P PRN 06/11 0015 AC 06/11 N/A 1 UNIT IV 0030 Cefazolin Sodium 2 GM IQ8 06/11 0000 AC 06/11 N/A 1 UNIT IV 0057 Ceftriaxone Sodium 1,000 MG DAILY 06/11 09 CAN IV Fentanyl Citrate 0 .STK-MED ONE 06/10 0720 DC .ROUTE Hydromorphone HCl 0 .STK-MED ONE 06/10 1720 DC .ROUTE Levothyroxine Sodium 50 MCG DAILY 06/11 900 AC IV Magnesium Sulfate 1 GM Q2H 06/11 0030 DC 06/11 Dextrose/Water 100 ML IV 06/11 0429 0229 Midazolam HCl 0 .STK-MED ONE 06/10 0720 DC .ROUTE Morphine Sulfate 2 MG Q6P PRN 06/11 0015 AC 06/11 IV 0441 Morphine Sulfate 4 MG Q6P PRN 06/11 001 AC IV Pantoprazole Sodium 40 MG DAILY 06/11 09 AC IV Sodium Chloride 1,000 ML Q20H 06/10 2015 AC 06/10 IV 2025 Results Last 48 Hours of Labs: Laboratory Tests 06/11 06/10 06/10 0431 2240 1920 Chemistry Sodium (137 - 145 mmol/L) Pending 139 Potassium (3.5 - 5.1 mmol/L) Pending 4.4 Chloride (98 - 107 mmol/L) Pending 115 H Carbon Dioxide (22 - 30 mmol/L) Pending 15 L Anion Gap (5 - 16) Pending 9 BUN (7 - 17 mg/dL) Pending 17 Creatinine (0.5 - 1.0 mg/dL) Pending 1.4 H Estimated GFR (>60 ml/min) 37 L BUN/Creatinine Ratio (7 - 25 %) 12.1 Glucose (65 - 99 mg/dL) Pending 168 H Calcium (8.4 - 10.2 mg/dL) Pending 7.1 L Phosphorus (2.5 - 4.5 mg/dL) Pending 5.4 H Magnesium (1.6 - 2.3 mg/dL) Pending 1.4 L Total Bilirubin (0.2 - 1.3 mg/dL) Pending 1.0 AST (14 - 36 U/L) Pending 100 H ALT (9 - 52 U/L) Pending 36 Albumin (3.5 - 5.0 g/dL) Pending 2.4 L Coagulation PT (9.4 - 12.5 SEC) 12.5 14.0 H INR (0.90 - 1.19) 1.15 1.28 H APTT (25 - 37 SEC) 33 D-Dimer High Sensitivty (0 - 243 ng/ml) 35812 H Hematology CBC w Diff Pending MAN DIFF ORDERED WBC (4.8 - 10.8 /CUMM) Pending 17.9 H RBC (4.20 - 5.40 /CUMM) Pending 4.28 Hgb (12.0 - 16.0 G/DL) Pending 11.9 L Hct (37 - 47 %) Pending 36.1 L MCV (81.0 - 99.0 FL) Pending 84.2 MCH (27.0 - 31.0 PG) Pending 27.7 MCHC (33.0 - 37.0 G/DL) Pending 32.9 L RDW (11.5 - 14.5 %) Pending 14.0 Plt Count (130 - 400 /CUMM) Pending 165 MPV (7.4 - 10.4 FL) Pending 9.3 Gran % (42.2 - 75.2 %) 84.8 H Lymphocytes % (20.5 - 51.1 %) 8.2 L Monocytes % (1.7 - 9.3 %) 7.0 Eosinophils % (0 - 5 %) 0 Basophils % (0.0 - 2.0 %) 0 Absolute Granulocytes (1.4 - 6.5 /CUMM) 15.2 H Segmented Neutrophils (42.2 - 75.2 %) 82 H Absolute Lymphocytes (1.2 - 3.4 /CUMM) 1.5 Lymphocytes (20.5 - 51.1 %) 9 L Monocytes (1.7 - 9.3 %) 6 Absolute Monocytes (0.10 - 0.60 /CUMM) 1.3 H Absolute Eosinophils (0.0 - 0.7 /CUMM) 0 Absolute Basophils (0.0 - 0.2 /CUMM) 0 Metamyelocytes (0.0 - 1.0 %) 3 H Platelet Estimate (ADEQUATE) ADEQUATE Normocytic RBCs VERIFIED Normochromic RBCs VERIFIED 06/10 06/10 4110 6700 Hematology CBC w Diff NO MAN DIFF REQ NO MAN DIFF REQ WBC (4.8 - 10.8 /CUMM) 18.7 H 12.4 H RBC (4.20 - 5.40 /CUMM) 4.48 Hgb (12.0 - 16.0 G/DL) 12.6 8.9 L Hct (37 - 47 %) 37.4 30 L MCV (81.0 - 99.0 FL) 83.5 MCH (27.0 - 31.0 PG) 28.0 MCHC (33.0 - 37.0 G/DL) 33.6 RDW (11.5 - 14.5 %) 14.1 13.9 Plt Count (130 - 400 /CUMM) 153 131 MPV (7.4 - 10.4 FL) 9.1 9.6 Gran % (42.2 - 75.2 %) 85.4 H 91.9 H Lymphocytes % (20.5 - 51.1 %) 8.6 L 5.5 L Monocytes % (1.7 - 9.3 %) 5.6 2.4 Eosinophils % (0 - 5 %) 0.1 0.2 Basophils % (0.0 - 2.0 %) 0.3 0 Absolute Granulocytes (1.4 - 6.5 /CUMM) 16.0 H 11.4 H Absolute Lymphocytes (1.2 - 3.4 /CUMM) 1.6 0.7 L Absolute Monocytes (0.10 - 0.60 /CUMM) 1.1 H 0.3 Absolute Eosinophils (0.0 - 0.7 /CUMM) 0 0 Absolute Basophils (0.0 - 0.2 /CUMM) 0.1 0 06/10 1319 Hematology CBC w Diff NO MAN DIFF REQ WBC (4.8 - 10.8 /CUMM) 8.1 RBC (4.20 - 5.40 /CUMM) 4.11 L Hgb (12.0 - 16.0 G/DL) 11.4 L Hct (37 - 47 %) 33.6 L MCV (81.0 - 99.0 FL) 81.8 MCH (27.0 - 31.0 PG) 27.7 MCHC (33.0 - 37.0 G/DL) 33.8 RDW (11.5 - 14.5 %) 13.8 Plt Count (130 - 400 /CUMM) 236 MPV (7.4 - 10.4 FL) 9.3 Gran % (42.2 - 75.2 %) 82.6 H Lymphocytes % (20.5 - 51.1 %) 15.2 L Monocytes % (1.7 - 9.3 %) 1.5 L Eosinophils % (0 - 5 %) 0.4 Basophils % (0.0 - 2.0 %) 0.3 Absolute Granulocytes (1.4 - 6.5 /CUMM) 6.7 H Absolute Lymphocytes (1.2 - 3.4 /CUMM) 1.2 Absolute Monocytes (0.10 - 0.60 /CUMM) 0.1 Absolute Eosinophils (0.0 - 0.7 /CUMM) 0 Absolute Basophils (0.0 - 0.2 /CUMM) 0 Assessment/Plan Assessment/Plan Postop day 1 after L3-S1 hardware removal, revision laminectomy, TLIF Her pain is controlled and she feels well Moderate blood loss Intra-Op we are waiting postop labs this morning Urine output was low overnight she received continuous IV fluids we will continue to monitor Advance diet this morning Continue on Ancef until drains are removed Alps for DVT prophylaxis Core Measures Venous Thromboembolism VTE Risk Factors Surgery No Mechanical VTE Prophylaxis d/t N/A MechProphylax Ordered No VTE Pharm Prophylaxis d/t Other
[2018-06-11 05:49] LABS: ABSOLUTE GRANULOCYTE CT 11.4 /CUMM (1.4-6.5); ABSOLUTE MONOCYTE COUNT 1.1 /CUMM (0.10-0.60); MEAN CORPUSCULAR HGB 27.7 PG (27.0-31.0); MEAN CORPUSCULAR HGB CONC 33.2 G/DL (33.0-37.0); MEAN CORPUSCULAR VOLUME 83.6 FL (81.0-99.0); MEAN PLATELET VOLUME 10.2 FL (7.4-10.4); RED BLOOD CELL CT 3.59 /CUMM (4.20-5.40); WHITE BLOOD CELL COUNT 13.6 /CUMM (4.8-10.8)
[2018-06-11 06:07] LABS: GRANULOCYTE % 84.2 % (42.2-75.2); PLATELET COUNT 131 /CUMM (130-400)
--- NOTE | 2018-06-11 07:54 | RADIOLOGY REPORT ---
EXAMINATION: XR PORTABLE CHEST CLINICAL INFORMATION: Postoperative. Evaluate for fluid overload. Patient reports shortness of breath. COMPARISON: CT of the chest 07/27/2012. TECHNIQUE: Portable AP 85 degree upright view of the chest was obtained. FINDINGS: The heart is normal in size. The lungs are hypoexpanded. There is minor right base atelectasis. There is no congestion, edema, or consolidation. IMPRESSION: Hypoexpanded lungs with minor right base atelectasis. No evidence of congestion or edema.
[2018-06-11 08:00] VITALS: BP 110/52
--- NOTE | 2018-06-11 08:01 | PN- Resident CRCU ---
Subjective HPI/CRCU Issues: Patient was admitted to the ICU last evening after a 9 hour surgery complicated by blood loss and hypertension. This morning, she feels okay but was tired. She has some pain in her back but no chest pain or shortness of breath or abdominal issues. Objective Vital Signs & I&O Last 8 Hrs of Vitals and I&O: Intake & Output 06/11 0800 Intake Total 875 Output Total 160 Balance 715 Intake, IV 875 Output, 110 Drainage Output, Urine 50 Exam General Appearance: well developed/nourished, no apparent distress, comfortable Respiratory: normal breath sounds, no respiratory distress, lungs clear Cardiovascular: tachycardia Gastrointestinal: normal bowel sounds, soft, non-tender Extremities: no edema Cranial Nerves: normal hearing, normal speech, PERRL, Left foot has decreased sensation compared to right Back: bandage over lumbar spine with 2 TRINIDAD drains draining serosanguinous fluid Current Medications: Current Medications Sig/Kristin Start time Last Medication Dose Route Stop Time Status Admin Acetaminophen 0 .STK-MED ONE 06/11 003 DC IV Acetaminophen 1,000 MG Q6P PRN 06/11 0015 AC 06/11 N/A 1 UNIT IV 0030 Cefazolin Sodium 2 GM IQ8 06/11 0000 AC 06/11 N/A 1 UNIT IV 0057 Ceftriaxone Sodium 1,000 MG DAILY 06/11 09 CAN IV Hydromorphone HCl 0 .STK-MED ONE 06/10 1720 DC .ROUTE Levothyroxine Sodium 50 MCG DAILY 06/11 900 AC IV Magnesium Sulfate 1 GM Q2H 06/11 0030 DC 06/11 Dextrose/Water 100 ML IV 06/11 0429 0229 Morphine Sulfate 2 MG Q6P PRN 06/11 0015 AC 06/11 IV 0441 Morphine Sulfate 4 MG Q6P PRN 06/11 0015 AC IV Pantoprazole Sodium 40 MG DAILY 06/11 900 AC IV Sodium Chloride 1,000 ML Q20H 06/10 2015 AC 06/10 IV 2025 Impression/Plan Impression/Problem List Impression: Ms. Thornton is a 73-year-old female with past medical history of spinal stenosis, hypothyroidism, and hypertension who is postop day 1 laminectomy lasting 9 hours complicated by 3600 cc of blood loss, hypotension to 80 systolic, and postoperative oliguria. She was extubated successfully postoperatively and has remained stable overnight. Plan: Neurology: -Status post laminectomy, decreased sensation on left foot noted on exam -Neurochecks every shift -PT/OT -Pain control with morphine Pulmonology: -Patient was extubated successfully postoperatively -Patient is currently on 4 L oxygen nasal cannula and saturating well -Taper oxygen as needed -TRC/nebulization Cardiology: -Patient has sinus tachycardia, [id number] -No chest pain or EKG changes -Add troponin to morning labs -Noted to have hypotension to 80 systolic during the operation, postoperatively has been hemodynamically stable -Currently holding home amlodipine and atorvastatin GI: -Abdomen soft and nontender -Continue IV pantoprazole 40 mg daily Renal/Urology: -Patient with Hurley catheter -Strict intake and output measurements -Patient noted to have postoperative oliguria -10 cc/h -Fluids increased to 125 L/h LR -Postoperative TIFFANIE, creatinine 2.1, likely prerenal azotemia -Nephrology will consult today -Can consider renal ultrasound if fails to improve ID: -No fevers, leukocytosis likely related to stress of surgery -Patient receiving prophylactic cefazolin Hematology: -Patient lost 3.6 L of blood during the surgery -Postoperative hemoglobin has been downtrending status post 2 units PRBC transfusion -Continue to monitor CBC Endo: -History of hypothyroidism, continue levothyroxine DVT prophylaxis with Alps Heart healthy diet Full code Problem List: 1. Status post laminectomy Pain Ratin Tomorrow's Labs & Rationales: icu panel Plan DVT/Prophylaxis: mechanical
--- NOTE | 2018-06-11 09:13 | PN- CRCU ---
Subjective HPI/Critical Care Issues: The patient is awake and alert, and appears comfortable. She is in no distress. She reports that her pain is well controlled. She denies any shortness of breath, chest pain, chest congestion, abdominal pain, fever or chills. Her oxygen saturations are ranging between 90 and 100% on 2 L nasal cannula. Her only complaint at present is that she is feeling fatigued. Overnight, the patient had low urine output despite IV fluid administration. The patient was changed to lactated Ringer's at 125 mL/h. Because of her low urine output and worsening BUN and creatinine, a renal consult was requested and is pending. Objective Current Medications: Current Medications Sig/Kristin Start time Last Medication Dose Route Stop Time Status Admin Acetaminophen 0 .STK-MED ONE 06/11 003 DC IV Acetaminophen 1,000 MG Q6P PRN 06/11 0015 AC 06/11 N/A 1 UNIT IV 0030 Cefazolin Sodium 2 GM IQ8 06/11 0000 AC 06/11 N/A 1 UNIT IV 0837 Ceftriaxone Sodium 1,000 MG DAILY 06/11 09 CAN IV Hydromorphone HCl 0 .STK-MED ONE 06/10 1720 DC .ROUTE Lactated Ringer's 1,000 ML Q6H 06/11 08 AC 06/11 IV 0754 Levothyroxine Sodium 50 MCG DAILY 06/11 09 AC IV Magnesium Sulfate 1 GM Q2H 06/11 0030 DC 06/11 Dextrose/Water 100 ML IV 06/11 0429 0229 Morphine Sulfate 2 MG Q6P PRN 06/11 0015 AC 06/11 IV 0441 Morphine Sulfate 4 MG Q6P PRN 06/11 0015 AC IV Pantoprazole Sodium 40 MG DAILY 06/11 09 AC IV Sodium Chloride 1,000 ML Q20H 06/10 2015 DC 06/10 IV 2026 Vital Signs & I&O Last 24 Hrs of Vitals and I&O: Vital Signs Date Time Temp Pulse Resp B/P B/P Pulse O2 O2 Flow FiO2 Mean Ox Delivery Rate 06/11 08 97.3 99 20 110/52 100 Nasal 4.0L Cannula 06/11 0400 96 Nasal 4.0L Cannula 06/11 0000 95 Nasal 4.0L Cannula 06/11 0000 96.6 106 19 120/80 95 Nasal 4.0L Cannula 08/30 2142 99 Nasal 4.0L Cannula 06/10 2000 99 Nasal 4.0L Cannula Intake & Output 06/11 1600 06/11 0800 06/11 0000 Intake Total 875 100 Output Total 160 270 Balance 715 -170 Intake, IV 875 100 Output, 110 240 Drainage Output, Urine 50 30 Patient 207 lb Weight Weight Bed scale Measurement Method Physical Exam General Appearance: awake and alert, no distress, comfortable Respiratory: few faint wheezes scattered at the lung bases Cardiovascular: regular rate/rhythm Gastrointestinal: soft, non-tender, bowel sounds present Extremities: normal inspection, normal capillary refill, no edema, skin intact, warm and dry Results Last 24 Hrs of Lab Results: Laboratory Tests 06/11/18 0431: Anion Gap 7, Estimated GFR 23 L, Glucose 138 H, Calcium 7.1 L, Phosphorus 4.6 H, Magnesium 2.2, Total Bilirubin 0.3, AST 133 H, ALT 46, Troponin I 0.20 *H, Albumin 2.3 L, CBC w Diff NO MAN DIFF REQ, RBC 3.59 L, MCV 83.6, MCH 27.7, MCHC 33.2, RDW 14.1, MPV 10.2, Gran % 84.2 H, Lymphocytes % 7.4 L, Monocytes % 8.4, Eosinophils % 0, Basophils % 0, Absolute Granulocytes 11.4 H, Absolute Lymphocytes 1.0 L, Absolute Monocytes 1.1 H, Absolute Eosinophils 0, Absolute Basophils 0 06/10/18 2240: Anion Gap 9, Estimated GFR 37 L, BUN/Creatinine Ratio 12.1, Glucose 168 H, Calcium 7.1 L, Phosphorus 5.4 H, Magnesium 1.4 L, Total Bilirubin 1.0, AST 100 H, ALT 36, Albumin 2.4 L, PT 12.5, INR 1.15, APTT 33, CBC w Diff MAN DIFF ORDERED, RBC 4.28, MCV 84.2, MCH 27.7, MCHC 32.9 L, RDW 14.0, MPV 9.3, Gran % 84.8 H, Lymphocytes % 8.2 L, Monocytes % 7.0, Eosinophils % 0, Basophils % 0, Absolute Granulocytes 15.2 H, Segmented Neutrophils 82 H, Absolute Lymphocytes 1.5, Lymphocytes 9 L, Monocytes 6, Absolute Monocytes 1.3 H, Absolute Eosinophils 0, Absolute Basophils 0, Metamyelocytes 3 H, Platelet Estimate ADEQUATE, Normocytic RBCs VERIFIED, Normochromic RBCs VERIFIED 06/10/18 1920: PT 14.0 H, INR 1.28 H, D-Dimer High Sensitivty 55314 H 06/10/18 1835: CBC w Diff NO MAN DIFF REQ, RBC 4.48, MCV 83.5, MCH 28.0, MCHC 33.6, RDW 14.1, MPV 9.1, Gran % 85.4 H, Lymphocytes % 8.6 L, Monocytes % 5.6, Eosinophils % 0.1, Basophils % 0.3, Absolute Granulocytes 16.0 H, Absolute Lymphocytes 1.6, Absolute Monocytes 1.1 H, Absolute Eosinophils 0, Absolute Basophils 0.1 06/10/18 1628: CBC w Diff NO MAN DIFF REQ, RDW 13.9, MPV 9.6, Gran % 91.9 H, Lymphocytes % 5.5 L, Monocytes % 2.4, Eosinophils % 0.2, Basophils % 0, Absolute Granulocytes 11.4 H, Absolute Lymphocytes 0.7 L, Absolute Monocytes 0.3, Absolute Eosinophils 0, Absolute Basophils 0 06/10/18 1319: CBC w Diff NO MAN DIFF REQ, RBC 4.11 L, MCV 81.8, MCH 27.7, MCHC 33.8, RDW 13.8 , MPV 9.3, Gran % 82.6 H, Lymphocytes % 15.2 L, Monocytes % 1.5 L, Eosinophils % 0.4, Basophils % 0.3, Absolute Granulocytes 6.7 H, Absolute Lymphocytes 1.2, Absolute Monocytes 0.1, Absolute Eosinophils 0, Absolute Basophils 0 Impression/Plan Impression/Plan Impression/Plan: 1. Acute intraoperative blood loss anemia. 2. Acute kidney injury/ATN in the setting of hypotension. 3. Status post lumbar surgery on 06/10/2018 with an estimated blood loss of 3600 mL an intraoperative hypotension. The patient received 4 L of Ringer's lactate, 3200 mL of Cell Saver, and 2 units of packed red blood cells. Hemostasis has been obtained and there is no current evidence of bleeding at the present time. 4. History of hypothyroidism. 5. Mild elevation in troponin in the setting of hypotension and tachycardia. Recommendations: * Check renal ultrasound. * Continue IVFs per nephrology. * Strict I's and O's, continue Hurley catheter monitoring. * Monitor for signs of infection. * Panculture today. * Continue Keflex per surgery. * Wean oxygen down to off if able. * Agree with continuing nebulizer treatments as needed. * Advance to a regular diet. * Restart home dose of levothyroxine. * Antihypertensives on hold due to low blood pressure over the past 24 hours. * Check CBC q 8 hours today. Keep HCT > 27. * Trend troponin. Cardiology input if any abnormalities. * Monitor neurochecks. * DVT prophylaxis with Alps, avoid subcu heparin for now. * Continue to monitor in the critical care unit. * I discussed the plan of care with the house staff and asked them to contact me should they have any questions or if the patient's condition changes.
--- NOTE | 2018-06-11 09:21 | PN- Neurosurgical ---
Surgical Brief Attending Note Brief Attending Note: Postoperative day #2 Postoperative day #2Still complaining of significant back pain Still complaining of significant back pain There Is no sciatica Still needs some assistance for ambulating Incision clean and dry. Drains removed May well need rehabilitation Possible discharge or transfer tomorrowPossible discharge or transfer tomorrow
--- NOTE | 2018-06-11 09:37 | Cons- Nephrology ---
General Information and HPI Consulting Request Date of Consult: 06/11/18 Requested By: Mohan HAN,Jonathan Guo Reason for Consult: TIFFANIE History of Present Illness: 73 yo female with history of hypothyroidism, hyperlipidemia, hypertension, prior lumbar x-stop insertion. She underwent removal of the hardware yesterday and extensive reconstructive back surgery. EBL was over 3.5 liters and intraoperatively BP dropped into the 80s, she became oliguric. She is now in the ICU and remain oliguric although she has been volume resussitated and is no longer hypotensive. Serum creatinine which was 0.7 in October 2017 was 1.4 last night and 2.1 today. PMH: as above SH: ex-smoker, no ethanol abuse FH: negative for kidney disease. Allergies/Medications Allergies: Coded Allergies: No Known Allergies (06/04/18) Home Med List: Amlodipine Besylate 5 MG TABLET 1 TAB PO DAILY HTN (Reported) Atorvastatin Calcium 10 MG TABLET 1 TAB PO DAILY CHOLESTEROL (Reported) Levothyroxine Sodium 100 MCG TABLET 1 TAB PO DAILY REPLACEMENT (Reported) Omeprazole 40 MG CAPSULE.DR 1 CAP PO DAILY GERD (Reported) Sertraline HCl 50 MG TABLET 1 TAB PO DAILY MOOD (Reported) Current Medications: Current Medications Sig/Kristin Start time Last Medication Dose Route Stop Time Status Admin Acetaminophen 0 .STK-MED ONE 06/11 003 DC IV Acetaminophen 1,000 MG Q6P PRN 06/11 0015 AC 06/11 N/A 1 UNIT IV 0030 Cefazolin Sodium 2 GM IQ8 06/11 0000 AC 06/11 N/A 1 UNIT IV 0837 Ceftriaxone Sodium 1,000 MG DAILY 06/11 09 CAN IV Hydromorphone HCl 0 .STK-MED ONE 06/10 1720 DC .ROUTE Lactated Ringer's 1,000 ML Q6H 06/11 08 AC 06/11 IV 0754 Levothyroxine Sodium 50 MCG DAILY 06/11 900 AC IV Magnesium Sulfate 1 GM Q2H 06/11 0030 DC 06/11 Dextrose/Water 100 ML IV 06/11 0429 0229 Morphine Sulfate 2 MG Q6P PRN 06/11 0015 AC 06/11 IV 0441 Morphine Sulfate 4 MG Q6P PRN 06/11 0015 AC IV Pantoprazole Sodium 40 MG DAILY 06/11 900 AC IV Sodium Chloride 1,000 ML Q20H 06/10 2015 DC 06/10 IV 2025 Review of Systems Review of Systems: negative exept as noted above. Past History Medical History Blood Transfusion Hx: Yes Neurological: NONE EENT: NONE Cardiovascular: hypertension, hyperlipidemia Respiratory: NONE Gastrointestinal: NONE Hepatic: NONE Renal: NONE Musculoskeletal: chronic back pain, osteoarthritis, spinal stenosis Psychiatric: NONE Endocrine: hypothyroidism Blood Disorders: NONE Cancer(s): NONE MEAT SELECTOR/Reproductive: NONE Surgical History Surgical History: unobtainable Psychosocial History Where Do You Live? Home Services at Home: None Smoking Status: Unknown If Ever Smoked Exam & Diagnostic Data Vital Signs and I&O Vital Signs Date Time Temp Pulse Resp B/P B/P Pulse O2 O2 Flow FiO2 Mean Ox Delivery Rate 06/11 0800 97.3 99 20 110/52 100 Nasal 4.0L Cannula 06/11 0400 96 Nasal 4.0L Cannula 06/11 0000 95 Nasal 4.0L Cannula 06/11 0000 96.6 106 19 120/80 95 Nasal 4.0L Cannula 06/10 2142 99 Nasal 4.0L Cannula 06/10 2000 99 Nasal 4.0L Cannula Intake & Output 06/11 1600 06/11 0400 06/10 1600 06/10 0400 06/09 1600 06/09 0400 Intake Total 875 100 Output Total 160 270 Balance 715 -170 Intake, IV 875 100 Output, 110 240 Drainage Output, Urine 50 30 Patient 207 lb Weight Weight Bed scale Measurement Method Physical Exam: NAD VS as above. Eyes: anicteric, PERRLA Neck: no mass or thyromegally Nodes: negative cervical/inguinal Skin: no rash or induration CV: no rub or murmur Lungs: clear P&A Abd: non-tender, no organomegaly, BS positive, Exts: no edema , 1+ pedal pulses Neuro: A&O, CN intact, no asterixis. Results Imaging/Other Studies: CXR: Hypoexpanded lungs with minor right base atelectasis. No evidence of congestion or edema. Assessment/Plan Assessment/Recommendations Assessment: TIFFANIE from hypotension, volume loss during surgery. BP up but still oliguirc and may have ATN at this point. Recommendations: Needs UA, renal ultrasound. Continue LR at 100 cc per hour for now. Daily labs, avoid further nephrotoxic insults. Will follow.
[2018-06-11 10:29] LABS: ABSOLUTE BASOPHIL COUNT 0 /CUMM (0.0-0.2); ABSOLUTE EOSINOPHIL COUNT 0 /CUMM (0.0-0.7); ABSOLUTE GRANULOCYTE CT 9.7 /CUMM (1.4-6.5); ABSOLUTE LYMPH COUNT 1.5 /CUMM (1.2-3.4); ABSOLUTE MONOCYTE COUNT 1.5 /CUMM (0.10-0.60); BASOPHIL % 0 % (0.0-2.0); EOSINOPHIL % 0 % (0-5); GRANULOCYTE % 76.4 % (42.2-75.2); HEMATOCRIT 27.3 % (37-47); MEAN CORPUSCULAR HGB 27.8 PG (27.0-31.0); MEAN CORPUSCULAR HGB CONC 33.6 G/DL (33.0-37.0); MEAN CORPUSCULAR VOLUME 82.8 FL (81.0-99.0); MEAN PLATELET VOLUME 9.7 FL (7.4-10.4); PLATELET COUNT 128 /CUMM (130-400); RBC DISTRIBUTION WIDTH 14.4 % (11.5-14.5); WHITE BLOOD CELL COUNT 12.7 /CUMM (4.8-10.8)
[2018-06-11 10:38] LABS: PT 11.5 SEC (9.4-12.5)
--- NOTE | 2018-06-11 11:31 | PN- Neurosurgical ---
Surgical Brief Attending Note Brief Attending Note: Postoperative day #1 Still in intensive care Hematocrit 30 Urinary output is very poor Patient however is awake and alert Expected back pain no leg pain Strength in all areas except left anterior tibial which is 2 to 3 minus/ 5 Ion-Collins drainage decreasing Stable overall I encouraged to exercise her left foot as much as possible Agree with Nephrology consult and discussed with Dr. Lovell I will be no benefit including her on steroids at this point given the complexity of the medical picture and the results shown in literature in this matter Patient Seen and discussed with Jonathan Preston MD
[2018-06-11 16:00] VITALS: BP 126/74
--- NOTE | 2018-06-11 16:15 | ULTRASOUND REPORT ---
EXAMINATION: US RETROPERITONEAL COMPLETE (RENAL) CLINICAL INFORMATION: Acute kidney injury. COMPARISON: None TECHNIQUE: Real-time imaging of the kidneys and bladder. FINDINGS: RIGHT KIDNEY: 12.2 x 5.5 x 5.1 cm (SAG x AP x TRV). The kidney is normal in size, contour, and echogenicity. Renal cortical thickness is normal. No calculi or focal parenchymal lesions. No hydronephrosis. LEFT KIDNEY: 4.1 x 6.7 x 6.3 cm (SAG x AP x TRV). The kidney is normal in size, contour, and echogenicity. Renal cortical thickness is normal. No calculi or focal parenchymal lesions. No hydronephrosis. BLADDER: Hurley catheter present within the bladder. Ureteral jets are not identified. IMPRESSION: Unremarkable exam..
[2018-06-11 20:20] LABS: ABSOLUTE BASOPHIL COUNT 0 /CUMM (0.0-0.2); ABSOLUTE EOSINOPHIL COUNT 0 /CUMM (0.0-0.7); ABSOLUTE GRANULOCYTE CT 8.5 /CUMM (1.4-6.5); ABSOLUTE LYMPH COUNT 1.7 /CUMM (1.2-3.4); ABSOLUTE MONOCYTE COUNT 1.1 /CUMM (0.10-0.60); BASOPHIL % 0.3 % (0.0-2.0); EOSINOPHIL % 0.1 % (0-5); HEMATOCRIT 22.9 % (37-47); MEAN CORPUSCULAR HGB 27.6 PG (27.0-31.0); MEAN CORPUSCULAR HGB CONC 33.1 G/DL (33.0-37.0); MEAN CORPUSCULAR VOLUME 83.3 FL (81.0-99.0); MEAN PLATELET VOLUME 9.5 FL (7.4-10.4); PLATELET COUNT 116 /CUMM (130-400); RBC DISTRIBUTION WIDTH 14.4 % (11.5-14.5); RED BLOOD CELL CT 2.75 /CUMM (4.20-5.40); WHITE BLOOD CELL COUNT 11.4 /CUMM (4.8-10.8)
[2018-06-12] VITALS: BP 146/76
[2018-06-12 05:58] LABS: ABSOLUTE BASOPHIL COUNT 0 /CUMM (0.0-0.2); ABSOLUTE EOSINOPHIL COUNT 0.1 /CUMM (0.0-0.7); ABSOLUTE GRANULOCYTE CT 7.6 /CUMM (1.4-6.5); ABSOLUTE LYMPH COUNT 1.5 /CUMM (1.2-3.4); ABSOLUTE MONOCYTE COUNT 1.1 /CUMM (0.10-0.60); BASOPHIL % 0.3 % (0.0-2.0); EOSINOPHIL % 0.7 % (0-5); HEMATOCRIT 25.1 % (37-47); MEAN CORPUSCULAR HGB 28.3 PG (27.0-31.0); MEAN CORPUSCULAR HGB CONC 33.7 G/DL (33.0-37.0); MEAN CORPUSCULAR VOLUME 83.9 FL (81.0-99.0); MEAN PLATELET VOLUME 9.4 FL (7.4-10.4); PLATELET COUNT 111 /CUMM (130-400); RBC DISTRIBUTION WIDTH 14.5 % (11.5-14.5); WHITE BLOOD CELL COUNT 10.2 /CUMM (4.8-10.8)
[2018-06-12 08:00] VITALS: BP 140/80
--- NOTE | 2018-06-12 09:18 | PN- CRCU ---
Subjective HPI/Critical Care Issues: The patient is awake and alert. She is feeling much improved. She participated in physical therapy this morning without significant issue. She is doing incentive spirometry and is over 2000 mL. Overnight, she received 1 unit of packed red blood cells due to worsening hemoglobin level. She tolerated the transfusion well and has no evidence of active bleeding at present. She continues to have low urine output however this has increased over the last shift. The patient remains afebrile. Objective Current Medications: Current Medications Sig/Kristin Start time Last Medication Dose Route Stop Time Status Admin Acetaminophen 0 .STK-MED ONE 06/11 1511 DC IV Acetaminophen 1,000 MG Q6P PRN 06/11 0015 AC 06/11 N/A 1 UNIT IV 1511 Cefazolin Sodium 2 GM IQ8 06/11 0000 AC 06/12 N/A 1 UNIT IV 0805 Lactated Ringer's 1,000 ML Q6H 06/11 08 AC 06/12 IV 0136 Levothyroxine Sodium 50 MCG DAILY 06/11 09 AC 06/11 IV 1009 Morphine Sulfate 2 MG Q6P PRN 06/11 0015 AC 06/12 IV 0806 Morphine Sulfate 4 MG Q6P PRN 06/11 0015 AC IV Pantoprazole Sodium 40 MG DAILY 06/11 09 AC 06/12 IV 0805 Simethicone 80 MG Q4P PRN 06/11 1445 AC 06/11 PO 1454 Vital Signs & I&O Last 24 Hrs of Vitals and I&O: Vital Signs Date Time Temp Pulse Resp B/P B/P Pulse O2 O2 Flow FiO2 Mean Ox Delivery Rate 06/12 08 97.3 96 20 140/80 98 Nasal 2.0L Cannula 06/12 0400 96 Nasal 2.0L Cannula 06/12 0000 94 Nasal 2.0L Cannula 06/12 0000 97.6 108 16 146/76 94 Nasal 2.0L Cannula 06/11 2000 98 Nasal 2.0L Cannula 06/11 1757 Nasal 2.0L Cannula 06/11 1600 97.6 108 20 126/74 98 Nasal 2.0L Cannula 06/11 1600 98 Nasal 2.0L Cannula 06/11 1200 96 Nasal 2.0L Cannula 06/11 1056 Nasal 4.0L Cannula Intake & Output 06/12 1600 06/12 0806/12 0000 Intake Total 825 1240 Output Total 110 108 Balance 715 1132 Intake, IV 825 1150 Intake, Oral 90 Output, 50 90 Drainage Output, Urine 60 18 Patient 207 lb Weight Physical Exam General Appearance: awake and alert, no distress, comfortable Respiratory: few faint wheezes scattered at the lung bases Cardiovascular: regular rate/rhythm Gastrointestinal: soft, non-tender, bowel sounds present Extremities: normal inspection, normal capillary refill, no edema, skin intact, warm and dry Results Last 24 Hrs of Lab Results: Laboratory Tests 06/12/18 0530: Anion Gap 6, Estimated GFR 9 L, Glucose 107 H, Calcium 7.6 L, Phosphorus 5.0 H, Magnesium 2.1, Total Bilirubin 0.1 L, AST 138 H, ALT 25, Albumin 2.4 L, CBC w Diff NO MAN DIFF REQ, RBC 3.00 L, MCV 83.9, MCH 28.3, MCHC 33.7, RDW 14.5 , MPV 9.4, Gran % 74.0, Lymphocytes % 14.4 L, Monocytes % 10.6 H, Eosinophils % 0.7, Basophils % 0.3, Absolute Granulocytes 7.6 H, Absolute Lymphocytes 1.5, Absolute Monocytes 1.1 H, Absolute Eosinophils 0.1, Absolute Basophils 0 06/12/18 0330: Urinalysis MOD H, Urine Color YEL, Urine Clarity TURBD H, Urine pH 6.5, Ur Specific [place] 1.025, Urine Protein >=300 H, Urine Ketones NEG, Urine Nitrite POS H, Urine Bilirubin NEG@ICTO, Urine Urobilinogen 0.2, Ur Leukocyte Esterase TRACE H, Ur Microscopic SEDIMENT EXAMINED, Urine RBC 10-15 H, Urine WBC 1-3 H , Ur Epithelial Cells FEW, Urine Bacteria MOD H, Urine Hemoglobin LARGE H, Urine Glucose 100 H 06/11/18 1905: Troponin I 0.14 *H, CBC w Diff NO MAN DIFF REQ, RBC 2.75 L, MCV 83.3, MCH 27.6, MCHC 33.1, RDW 14.4, MPV 9.5, Gran % 75.0, Lymphocytes % 14.6 L, Monocytes % 10.0 H, Eosinophils % 0.1, Basophils % 0.3, Absolute Granulocytes 8.5 H, Absolute Lymphocytes 1.7, Absolute Monocytes 1.1 H, Absolute Eosinophils 0, Absolute Basophils 0 06/11/18 1000: Anion Gap 7, Estimated GFR 18 L, Glucose 122 H, Calcium 7.4 L, Phosphorus 4.7 H, Magnesium 2.0, Total Bilirubin 0.1 L, AST 158 H, ALT 46, Troponin I 0.22 * H, Albumin 2.3 L, PT 11.5, INR 1.05, CBC w Diff NO MAN DIFF REQ, RBC 3.30 L, MCV 82.8, MCH 27.8, MCHC 33.6, RDW 14.4, MPV 9.7, Gran % 76.4 H, Lymphocytes % 11.6 L, Monocytes % 12.0 H, Eosinophils % 0, Basophils % 0, Absolute Granulocytes 9.7 H, Absolute Lymphocytes 1.5, Absolute Monocytes 1.5 H, Absolute Eosinophils 0, Absolute Basophils 0 Impression/Plan Impression/Plan Impression/Plan: 1. Acute intraoperative blood loss anemia. 2. Acute kidney injury/ATN in the setting of hypotension with worsening renal function, noting the Cr has increased to 4.7. 3. S/P lumbar surgery on 06/10/2018 with an estimated blood loss of 3600 mL an intraoperative hypotension. The patient received 4 L of Ringer's lactate, 3200 mL of Cell Saver, and 2 units of packed red blood cells. Hemostasis has been obtained and there is no current evidence of bleeding at the present time. 4. History of hypothyroidism. 5. Mild elevation in troponin in the setting of hypotension and tachycardia. 6. Thrombocytopenia. Recommendations: * Monitor CBC and ICU bundle every 12 hours today. * Will transfuse as necessary. * Continue to follow nephrology's recommendations for fluid management and recommendations on ATN management. * Will continue lactated Ringer's at 100 mL/h for now. * Follow-up cultures, monitor for signs of infection. * Continue cefazolin pending results. * Morphine and Tylenol needed for pain control. Avoid oversedation. * DVT prophylaxis at all times with Alps. * I discussed the plan of care with the housestaff at the bedside. The patient' s was also updated. We will continue to follow the patient closely in the critical care unit today.
--- NOTE | 2018-06-12 09:29 | PN- Resident CRCU ---
Subjective HPI/CRCU Issues: Minimal urine output 20ccs overnight POD#1 s/p laminectomy requiring transfusions and intraoperative hypotension 24 Hour Events: POD#1, creatinine trended up to 4s today from 2.2, 20cc of urine overnight. S/p 1U pRBC transfused overnight. Subjectively feels better, denies back pain but complains of gas and bloating as well as heartburn. Feels like simethicone is helping but asks for maalox as well. Denies fevers/chills/night sweats/chest pain/sob/LE swelling Objective Vital Signs & I&O Last 8 Hrs of Vitals and I&O: No hypotension overnight, NSR+ST on monitor, saturating well on 2L NC Exam General Appearance: well developed/nourished, no apparent distress, alert, awake , comfortable Head: atraumatic Respiratory: normal breath sounds, lungs clear Cardiovascular: regular rate/rhythm Gastrointestinal: soft, non-tender Extremities: normal inspection, no edema Skin: intact, j/p drains in place serosanguinous drainage Skin Temp/Moisture Exam: Warm/Dry Sepsis Skin Exam (color): Normal for Ethnicity Back: bandage c/d/i Current Medications: Current Medications Sig/Kristin Start time Last Medication Dose Route Stop Time Status Admin Acetaminophen 0 .STK-MED ONE 06/11 1511 DC IV Acetaminophen 1,000 MG Q6P PRN 06/11 001 AC 06/11 N/A 1 UNIT IV 1511 Al Hydroxide/Mg 0 .STK-MED ONE 06/12 0931 DC Hydroxide PO Al Hydroxide/Mg 30 ML Q4-6 PRN PRN 06/12 0930 AC 06/12 Hydroxide PO 0932 Cefazolin Sodium 2 GM IQ8 06/11 0000 AC 06/12 N/A 1 UNIT IV 0805 Lactated Ringer's 1,000 ML Q6H 06/11 08 DC 06/12 IV 0932 Levothyroxine Sodium 50 MCG DAILY 06/11 900 AC 06/12 IV 0933 Morphine Sulfate 2 MG Q6P PRN 06/11 0015 AC 06/12 IV 0806 Morphine Sulfate 4 MG Q6P PRN 06/11 0015 AC IV Pantoprazole Sodium 40 MG DAILY 06/11 09 AC 06/12 IV 0805 Simethicone 80 MG Q4P PRN 08/31 1445 AC 06/11 PO 1454 Impression/Plan Impression/Problem List Impression: Ms. Thornton is a 73-year-old female with past medical history of spinal stenosis, hypothyroidism, and hypertension who is postop day 2 laminectomy lasting 9 hours complicated by 3600 cc of blood loss, hypotension to 80 systolic, and postoperative oliguria. She was extubated successfully postoperatively and has remained stable overnight. Plan: Neurology: -Status post laminectomy, decreased sensation on left foot noted on exam -Neurochecks every shift -PT/OT -Pain control with morphine Pulmonology: stable -Patient was extubated successfully postoperatively -Patient is currently on 2 L oxygen nasal cannula and saturating well -Taper oxygen as needed -TRC/nebulization Cardiology: stable -Patient has NSR + sinus tachycardia, [id number] -No chest pain or EKG changes -Trops trending down, likely demand ischemia -Noted to have hypotension to 80 systolic during the operation, postoperatively has been hemodynamically stable -Currently holding home amlodipine and atorvastatin GI: stable -Abdomen soft and nontender -Continue IV pantoprazole 40 mg daily -Maalox and Simethicone added on given complaints of gas -Antiemetics as needed Renal/Urology: creatinine increased today, likely ATN -Patient with Hurley catheter -Strict intake and output measurements -Patient noted to have postoperative oliguria -20cc total overnight, brown urine. -Renal US shows no abnormality. -Fluids decreased to 100 L/h LR -Postoperative TIFFANIE, creatinine 4.7 trending up from 2.6 yesterday, ?ATN given intraoperative hypotension -Appreciate nephro input ID: -No fevers, leukocytosis likely related to stress of surgery -Patient receiving prophylactic cefazolin, Day 3, received Vanco on day of surgery Hematology: recieved 1unit pRBC overnight -Patient lost 3.6 L of blood during the surgery -Postoperative hemoglobin downtrending status post 2 units PRBC transfusion -Continue to monitor CBC; currently 8.5/25.1 up from 7.6/22.9 yesterday appropriately s/p 1U pRBC transfusion Endo: stable -History of hypothyroidism, continue levothyroxine DVT prophylaxis with Alps Heart healthy diet Full code Problem List: 1. Status post laminectomy Pain Ratin Tomorrow's Labs & Rationales: ICU Bundle, CBC Plan DVT/Prophylaxis: mechanical
--- NOTE | 2018-06-12 12:47 | PN- Nephrology ---
Assessment/Plan Nephrology Assessment: TIFFANIE: ATN after major hemodynamic insult & surg. No recovery despite volume resuscitation but w/o dialysis need yet Suggestion: 1. stop IV fluids 2. two gram K diet restriction 3. limit narcotics 4. recheck labs in AM Subjective Subjective: No SOB Nausea --> on narcotics Hemodynamics improved but oliguric Objective Vital Signs and I&Os Vital Signs Date Time Temp Pulse Resp B/P B/P Pulse O2 O2 Flow FiO2 Mean Ox Delivery Rate 06/12 08 97.3 96 20 140/80 98 Nasal 2.0L Cannula 06/12 0800 98 Nasal 2.0L Cannula 06/12 0400 96 Nasal 2.0L Cannula 06/12 0000 94 Nasal 2.0L Cannula 06/12 0000 97.6 108 16 146/76 94 Nasal 2.0L Cannula 06/11 2000 98 Nasal 2.0L Cannula 06/11 1757 Nasal 2.0L Cannula 06/11 1600 97.6 108 20 126/74 98 Nasal 2.0L Cannula 06/11 1600 98 Nasal 2.0L Cannula Intake & Output 06/12 1600 06/12 0400 06/11 1600 06/11 0400 06/10 1600 06/10 0400 Intake Total 825 1240 2245 100 Output Total 110 108 175 270 Balance 715 1132 2070 -170 Intake, IV 825 1150 1885 100 Intake, Oral 90 360 Output, 50 90 110 240 Drainage Output, Urine 60 18 65 30 Patient 207 lb 207 lb Weight Weight Bed scale Measurement Method Physical Exam General Appearance: well developed/nourished, no apparent distress, alert Head: atraumatic, normal appearance Neck: normal inspection Respiratory: quiet respiration, lungs clear Cardiovascular: regular rate/rhythm, friction rub (none) Abdomen: soft, non-tender, no organomegaly Extremities: no edema Neurologic/Psychiatric: awake, alert, 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 Skin: intact, normal color Current Medications: Current Medications Sig/Kristin Start time Last Medication Dose Route Stop Time Status Admin Acetaminophen 0 .STK-MED ONE 06/11 1511 DC IV Acetaminophen 1,000 MG Q6P PRN 06/11 0015 AC 06/11 N/A 1 UNIT IV 1511 Al Hydroxide/Mg 0 .STK-MED ONE 06/12 931 DC Hydroxide PO Al Hydroxide/Mg 30 ML Q4-6 PRN PRN 06/12 930 AC 06/12 Hydroxide PO 0932 Cefazolin Sodium 2 GM IQ8 06/11 0000 AC 06/12 N/A 1 UNIT IV 0805 Lactated Ringer's 1,000 ML Q6H 06/11 0800 DC 06/12 IV 0932 Levothyroxine Sodium 50 MCG DAILY 06/11 900 AC 06/12 IV 0933 Morphine Sulfate 2 MG Q6P PRN 06/11 0015 AC 06/12 IV 0806 Morphine Sulfate 4 MG Q6P PRN 06/11 0015 AC IV Pantoprazole Sodium 40 MG DAILY 06/11 900 AC 06/12 IV 0805 Simethicone 80 MG Q4P PRN 06/11 1445 AC 06/11 PO 1454 Results Pertinent Lab Results: Laboratory Tests 06/12 06/12 0530 0330 Chemistry Sodium (137 - 145 mmol/L) 136 L Potassium (3.5 - 5.1 mmol/L) 4.7 Chloride (98 - 107 mmol/L) 108 H Carbon Dioxide (22 - 30 mmol/L) 22 Anion Gap (5 - 16) 6 BUN (7 - 17 mg/dL) 35 H Creatinine (0.5 - 1.0 mg/dL) 4.7 H Estimated GFR (>60 ml/min) 9 L Glucose (65 - 99 mg/dL) 107 H Calcium (8.4 - 10.2 mg/dL) 7.6 L Phosphorus (2.5 - 4.5 mg/dL) 5.0 H Magnesium (1.6 - 2.3 mg/dL) 2.1 Total Bilirubin (0.2 - 1.3 mg/dL) 0.1 L AST (14 - 36 U/L) 138 H ALT (9 - 52 U/L) 25 Albumin (3.5 - 5.0 g/dL) 2.4 L Hematology CBC w Diff NO MAN DIFF REQ WBC (4.8 - 10.8 /CUMM) 10.2 RBC (4.20 - 5.40 /CUMM) 3.00 L Hgb (12.0 - 16.0 G/DL) 8.5 L Hct (37 - 47 %) 25.1 L MCV (81.0 - 99.0 FL) 83.9 MCH (27.0 - 31.0 PG) 28.3 MCHC (33.0 - 37.0 G/DL) 33.7 RDW (11.5 - 14.5 %) 14.5 Plt Count (130 - 400 /CUMM) 111 L MPV (7.4 - 10.4 FL) 9.4 Gran % (42.2 - 75.2 %) 74.0 Lymphocytes % (20.5 - 51.1 %) 14.4 L Monocytes % (1.7 - 9.3 %) 10.6 H Eosinophils % (0 - 5 %) 0.7 Basophils % (0.0 - 2.0 %) 0.3 Absolute Granulocytes (1.4 - 6.5 /CUMM) 7.6 H Absolute Lymphocytes (1.2 - 3.4 /CUMM) 1.5 Absolute Monocytes (0.10 - 0.60 /CUMM) 1.1 H Absolute Eosinophils (0.0 - 0.7 /CUMM) 0.1 Absolute Basophils (0.0 - 0.2 /CUMM) 0 Urines Urinalysis MOD H Urine Color (YEL,AMB,STR) YEL Urine Clarity (CLEAR) TURBD H Urine pH (5.0 - 8.0) 6.5 Ur Specific [place] (1.001 - 1.035) 1.025 Urine Protein (NEG,<30 MG/DL) >=300 H Urine Ketones (NEG) NEG Urine Nitrite (NEG) POS H Urine Bilirubin (NEG) NEG@ICTO Urine Urobilinogen (0.1 - 1.0 EU/dl) 0.2 Ur Leukocyte Esterase (NEG) TRACE H Ur Microscopic SEDIMENT EXAMINED Urine RBC (0 - 5 /HPF) 10-15 H Urine WBC (0 - 2 /HPF) 1-3 H Ur Epithelial Cells (NONE,FEW) FEW Urine Bacteria (NEG/NONE) MOD H Urine Hemoglobin (NEG) LARGE H Urine Glucose (N MG/DL) 100 H 06/11 06/11 1905 1000 Chemistry Sodium (137 - 145 mmol/L) 139 Potassium (3.5 - 5.1 mmol/L) 4.5 Chloride (98 - 107 mmol/L) 110 H Carbon Dioxide (22 - 30 mmol/L) 22 Anion Gap (5 - 16) 7 BUN (7 - 17 mg/dL) 27 H Creatinine (0.5 - 1.0 mg/dL) 2.6 H Estimated GFR (>60 ml/min) 18 L Glucose (65 - 99 mg/dL) 122 H Calcium (8.4 - 10.2 mg/dL) 7.4 L Phosphorus (2.5 - 4.5 mg/dL) 4.7 H Magnesium (1.6 - 2.3 mg/dL) 2.0 Total Bilirubin (0.2 - 1.3 mg/dL) 0.1 L AST (14 - 36 U/L) 158 H ALT (9 - 52 U/L) 46 Troponin I (< 0.11 ng/ml) 0.14 *H 0.22 *H Albumin (3.5 - 5.0 g/dL) 2.3 L Coagulation PT (9.4 - 12.5 SEC) 11.5 INR (0.90 - 1.19) 1.05 Hematology CBC w Diff NO MAN DIFF REQ NO MAN DIFF REQ WBC (4.8 - 10.8 /CUMM) 11.4 H 12.7 H RBC (4.20 - 5.40 /CUMM) 2.75 L 3.30 L Hgb (12.0 - 16.0 G/DL) 7.6 L 9.2 L Hct (37 - 47 %) 22.9 L 27.3 L MCV (81.0 - 99.0 FL) 83.3 82.8 MCH (27.0 - 31.0 PG) 27.6 27.8 MCHC (33.0 - 37.0 G/DL) 33.1 33.6 RDW (11.5 - 14.5 %) 14.4 14.4 Plt Count (130 - 400 /CUMM) 116 L 128 L MPV (7.4 - 10.4 FL) 9.5 9.7 Gran % (42.2 - 75.2 %) 75.0 76.4 H Lymphocytes % (20.5 - 51.1 %) 14.6 L 11.6 L Monocytes % (1.7 - 9.3 %) 10.0 H 12.0 H Eosinophils % (0 - 5 %) 0.1 0 Basophils % (0.0 - 2.0 %) 0.3 0 Absolute Granulocytes (1.4 - 6.5 /CUMM) 8.5 H 9.7 H Absolute Lymphocytes (1.2 - 3.4 /CUMM) 1.7 1.5 Absolute Monocytes (0.10 - 0.60 /CUMM) 1.1 H 1.5 H Absolute Eosinophils (0.0 - 0.7 /CUMM) 0 0 Absolute Basophils (0.0 - 0.2 /CUMM) 0 0 06/11 06/10 0431 2240 Chemistry Sodium (137 - 145 mmol/L) 138 139 Potassium (3.5 - 5.1 mmol/L) 4.3 4.4 Chloride (98 - 107 mmol/L) 113 H 115 H Carbon Dioxide (22 - 30 mmol/L) 18 L 15 L Anion Gap (5 - 16) 7 9 BUN (7 - 17 mg/dL) 22 H 17 Creatinine (0.5 - 1.0 mg/dL) 2.1 H 1.4 H Estimated GFR (>60 ml/min) 23 L 37 L BUN/Creatinine Ratio (7 - 25 %) 12.1 Glucose (65 - 99 mg/dL) 138 H 168 H Calcium (8.4 - 10.2 mg/dL) 7.1 L 7.1 L Phosphorus (2.5 - 4.5 mg/dL) 4.6 H 5.4 H Magnesium (1.6 - 2.3 mg/dL) 2.2 1.4 L Total Bilirubin (0.2 - 1.3 mg/dL) 0.3 1.0 AST (14 - 36 U/L) 133 H 100 H ALT (9 - 52 U/L) 46 36 Troponin I (< 0.11 ng/ml) 0.20 *H Albumin (3.5 - 5.0 g/dL) 2.3 L 2.4 L Coagulation PT (9.4 - 12.5 SEC) 12.5 INR (0.90 - 1.19) 1.15 APTT (25 - 37 SEC) 33 Hematology CBC w Diff NO MAN DIFF REQ MAN DIFF ORDERED WBC (4.8 - 10.8 /CUMM) 13.6 H 17.9 H RBC (4.20 - 5.40 /CUMM) 3.59 L 4.28 Hgb (12.0 - 16.0 G/DL) 9.9 L 11.9 L Hct (37 - 47 %) 30.0 L 36.1 L MCV (81.0 - 99.0 FL) 83.6 84.2 MCH (27.0 - 31.0 PG) 27.7 27.7 MCHC (33.0 - 37.0 G/DL) 33.2 32.9 L RDW (11.5 - 14.5 %) 14.1 14.0 Plt Count (130 - 400 /CUMM) 131 165 MPV (7.4 - 10.4 FL) 10.2 9.3 Gran % (42.2 - 75.2 %) 84.2 H 84.8 H Lymphocytes % (20.5 - 51.1 %) 7.4 L 8.2 L Monocytes % (1.7 - 9.3 %) 8.4 7.0 Eosinophils % (0 - 5 %) 0 0 Basophils % (0.0 - 2.0 %) 0 0 Absolute Granulocytes (1.4 - 6.5 /CUMM) 11.4 H 15.2 H Segmented Neutrophils (42.2 - 75.2 %) 82 H Absolute Lymphocytes (1.2 - 3.4 /CUMM) 1.0 L 1.5 Lymphocytes (20.5 - 51.1 %) 9 L Monocytes (1.7 - 9.3 %) 6 Absolute Monocytes (0.10 - 0.60 /CUMM) 1.1 H 1.3 H Absolute Eosinophils (0.0 - 0.7 /CUMM) 0 0 Absolute Basophils (0.0 - 0.2 /CUMM) 0 0 Metamyelocytes (0.0 - 1.0 %) 3 H Platelet Estimate (ADEQUATE) ADEQUATE Normocytic RBCs VERIFIED Normochromic RBCs VERIFIED 06/10 06/10 1920 1835 Coagulation PT (9.4 - 12.5 SEC) 14.0 H INR (0.90 - 1.19) 1.28 H D-Dimer High Sensitivty (0 - 243 ng/ml) 24480 H Hematology CBC w Diff NO MAN DIFF REQ WBC (4.8 - 10.8 /CUMM) 18.7 H RBC (4.20 - 5.40 /CUMM) 4.48 Hgb (12.0 - 16.0 G/DL) 12.6 Hct (37 - 47 %) 37.4 MCV (81.0 - 99.0 FL) 83.5 MCH (27.0 - 31.0 PG) 28.0 MCHC (33.0 - 37.0 G/DL) 33.6 RDW (11.5 - 14.5 %) 14.1 Plt Count (130 - 400 /CUMM) 153 MPV (7.4 - 10.4 FL) 9.1 Gran % (42.2 - 75.2 %) 85.4 H Lymphocytes % (20.5 - 51.1 %) 8.6 L Monocytes % (1.7 - 9.3 %) 5.6 Eosinophils % (0 - 5 %) 0.1 Basophils % (0.0 - 2.0 %) 0.3 Absolute Granulocytes (1.4 - 6.5 /CUMM) 16.0 H Absolute Lymphocytes (1.2 - 3.4 /CUMM) 1.6 Absolute Monocytes (0.10 - 0.60 /CUMM) 1.1 H Absolute Eosinophils (0.0 - 0.7 /CUMM) 0 Absolute Basophils (0.0 - 0.2 /CUMM) 0.1 06/10 06/10 1628 1319 Hematology CBC w Diff NO MAN DIFF REQ NO MAN DIFF REQ WBC (4.8 - 10.8 /CUMM) 12.4 H 8.1 RBC (4.20 - 5.40 /CUMM) 4.11 L Hgb (12.0 - 16.0 G/DL) 8.9 L 11.4 L Hct (37 - 47 %) 30 L 33.6 L MCV (81.0 - 99.0 FL) 81.8 MCH (27.0 - 31.0 PG) 27.7 MCHC (33.0 - 37.0 G/DL) 33.8 RDW (11.5 - 14.5 %) 13.9 13.8 Plt Count (130 - 400 /CUMM) 131 236 MPV (7.4 - 10.4 FL) 9.6 9.3 Gran % (42.2 - 75.2 %) 91.9 H 82.6 H Lymphocytes % (20.5 - 51.1 %) 5.5 L 15.2 L Monocytes % (1.7 - 9.3 %) 2.4 1.5 L Eosinophils % (0 - 5 %) 0.2 0.4 Basophils % (0.0 - 2.0 %) 0 0.3 Absolute Granulocytes (1.4 - 6.5 /CUMM) 11.4 H 6.7 H Absolute Lymphocytes (1.2 - 3.4 /CUMM) 0.7 L 1.2 Absolute Monocytes (0.10 - 0.60 /CUMM) 0.3 0.1 Absolute Eosinophils (0.0 - 0.7 /CUMM) 0 0 Absolute Basophils (0.0 - 0.2 /CUMM) 0 0 Imaging/Other Studies: CXR: Hypoexpanded lungs with minor right base atelectasis. No evidence of congestion or edema. Renal US: RIGHT KIDNEY: 12.2 x 5.5 x 5.1 cm (SAG x AP x TRV). The kidney is normal in size, contour, and echogenicity. Renal cortical thickness is normal. No calculi or focal parenchymal lesions. No hydronephrosis. LEFT KIDNEY: 4.1 x 6.7 x 6.3 cm (SAG x AP x TRV). The kidney is normal in size, contour, and echogenicity. Renal cortical thickness is normal. No calculi or focal parenchymal lesions. No hydronephrosis.
[2018-06-12 16:00] VITALS: BP 148/68
[2018-06-13] VITALS: BP 160/60
[2018-06-13 05:26] LABS: ABSOLUTE BASOPHIL COUNT 0 /CUMM (0.0-0.2); ABSOLUTE EOSINOPHIL COUNT 0.1 /CUMM (0.0-0.7); ABSOLUTE GRANULOCYTE CT 6.6 /CUMM (1.4-6.5); ABSOLUTE LYMPH COUNT 1.2 /CUMM (1.2-3.4); ABSOLUTE MONOCYTE COUNT 0.8 /CUMM (0.10-0.60); BASOPHIL % 0.3 % (0.0-2.0); EOSINOPHIL % 1.7 % (0-5); GRANULOCYTE % 74.9 % (42.2-75.2); HEMATOCRIT 22.1 % (37-47); MEAN CORPUSCULAR HGB 28.2 PG (27.0-31.0); MEAN PLATELET VOLUME 9.3 FL (7.4-10.4); PLATELET COUNT 110 /CUMM (130-400); RBC DISTRIBUTION WIDTH 14.7 % (11.5-14.5); RED BLOOD CELL CT 2.66 /CUMM (4.20-5.40); WHITE BLOOD CELL COUNT 8.8 /CUMM (4.8-10.8)
--- NOTE | 2018-06-13 06:07 | PN- Neurosurgical ---
See Addendum Gavin Alcantar 06/13/18 0559: Subjective Subjective: pod#3 s/p lumbar fusion awake alert, in good spirits deneis cp, sob, no mild nausea no vomiting does c/o agida(PPI started by icu team), h/o gerd primary issues cont with worsening pilar now ATN per renal, with additional clinical adjustment to care of note now c/o new onseet of lower abdominal pain slow with PT yesterday with minimal ambulation due to dizziness Objective Vital Signs and I&Os Vital Signs Date Time Temp Pulse Resp B/P B/P Pulse O2 O2 Flow FiO2 Mean Ox Delivery Rate 06/13 0000 97 Nasal 2.0L Cannula 06/13 0000 98.8 100 20 160/60 97 Nasal 2.0L Cannula 06/12 2000 96 Nasal 2.0L Cannula 06/12 1600 96 Nasal 2.0L Cannula 06/12 1600 97.8 107 14 148/68 96 Nasal 2.0L Cannula 06/12 1200 97 Nasal 2.0L Cannula 06/12 0800 97.3 96 20 140/80 98 Nasal 2.0L Cannula 06/12 0800 98 Nasal 2.0L Cannula Intake & Output 06/13 0800 06/13 0000 06/12 1600 06/12 0800 06/12 0000 06/11 1600 Intake Total 170 214 956 8451 1370 Output Total 85 95 110 108 15 Balance 85 725 840 1576 1355 Intake, IV 50 617 951 8318 1010 Intake, Oral 120 240 90 360 Output, 75 65 50 90 Drainage Output, Urine 10 30 60 18 15 Patient 214 lb 207 lb Weight Weight Bed scale Measurement Method Physical Exam: cv: rrr lungs: good air movement abd: soft, ND low abd tenderness to deep palp, midline active bs no bm ext: warm, palp dp/pt pulses cms intact Assessment/Plan Assessment/Plan neuro stable plan f/u am labs oob with pt cont icu team care f/u with renal recs advance diet as tolerated Core Measures Venous Thromboembolism VTE Risk Factors Surgery No Mechanical VTE Prophylaxis d/t N/A MechProphylax Ordered Tita Mckeon 06/13/18 1240: Assessment/Plan Assessment/Plan Patient was seen and examined at bedside by Dr. Bergman and myself. Neurologic status appropriate at this point in recovery. Recommends continue ICU management, patient can get oob from neurosurg standpoint. Core Measures Venous Thromboembolism No VTE Pharm Prophylaxis d/t Surgical Contraindication Arjun HAN,Ignati 06/13/186: Subjective Subjective: agree with above Objective Vital Signs and I&Os Vital Signs Date Time Temp Pulse Resp B/P B/P Pulse O2 O2 Flow FiO2 Mean Ox Delivery Rate 06/13 1600 97.9 105 24 146/70 95 Room Air 06/13 08 98 Nasal 2.0L Cannula 06/13 08 97.5 94 16 144/70 98 Nasal 2.0L Cannula 06/13 0400 96 Nasal 2.0L Cannula 06/13 0000 97 Nasal 2.0L Cannula 06/13 0000 98.8 100 20 160/60 97 Nasal 2.0L Cannula 06/12 2000 96 Nasal 2.0L Cannula Intake & Output 06/13 1600 06/13 0800 06/13 0000 06/12 1600 06/12 0800 06/12 0000 Intake Total 1070 150 170 609 449 2286 Output Total 108 80 85 95 110 108 Balance 962 70 85 433 537 1495 Intake, Blood 400 Product Intake, IV 70 150 50 483 998 8275 Intake, Oral 600 120 240 90 Number 0 0 Bowel Movements Output, 60 45 75 65 50 90 Drainage Output, Urine 48 35 10 30 60 18 Patient 215 lb 214 lb 207 lb Weight Weight Bed scale Bed scale Measurement Method Assessment/Plan Assessment/Plan as above med/renal plan mobilize per plan
--- NOTE | 2018-06-13 07:25 | PN- Nephrology ---
Assessment/Plan Nephrology Assessment: TIFFANIE: ATN after major hemodynamic insult & surg. Still w/o recovery but no dialysis imperative yet Suggestion: OK to remove Hurley from renal perspective w strict I/O Recheck renal function in AM Subjective Subjective: No SOb No gross uremic sx this AM Still ologuric Objective Vital Signs and I&Os Vital Signs Date Time Temp Pulse Resp B/P B/P Pulse O2 O2 Flow FiO2 Mean Ox Delivery Rate 06/13 040 96 Nasal 2.0L Cannula 06/13 0000 97 Nasal 2.0L Cannula 06/13 0000 98.8 100 20 160/60 97 Nasal 2.0L Cannula 06/12 2000 96 Nasal 2.0L Cannula 06/12 1600 96 Nasal 2.0L Cannula 06/12 1600 97.8 107 14 148/68 96 Nasal 2.0L Cannula 06/12 1200 97 Nasal 2.0L Cannula 06/12 0800 97.3 96 20 140/80 98 Nasal 2.0L Cannula 06/12 0800 98 Nasal 2.0L Cannula Intake & Output 06/13 1600 06/13 0400 06/12 1600 06/12 0400 06/11 1600 06/11 0400 Intake Total 271 263 9090 1240 2245 100 Output Total 80 85 205 108 175 270 Balance 70 85 1525 1132 2070 -170 Intake, IV 813 02 5002 1150 1885 100 Intake, Oral 120 240 90 360 Number 0 Bowel Movements Output, 45 75 115 90 110 240 Drainage Output, Urine 35 10 90 18 65 30 Patient 214 lb 207 lb 207 lb Weight Weight Bed scale Bed scale Measurement Method Physical Exam General Appearance: no apparent distress, alert Head: atraumatic Ears, Nose, Throat: normal ENT inspection Neck: normal inspection Respiratory: quiet respiration, lungs clear Cardiovascular: regular rate/rhythm Abdomen: soft, non-tender Extremities: no edema Neurologic/Psychiatric: awake, alert, 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 Skin: intact, normal color Current Medications: Current Medications Sig/Kristin Start time Last Medication Dose Route Stop Time Status Admin Acetaminophen 0 .STK-MED ONE 06/13 31 DC IV Acetaminophen 1,000 MG Q6P PRN 06/11 0015 AC 06/13 N/A 1 UNIT IV 0034 Al Hydroxide/Mg 0 .STK-MED ONE 06/12 931 DC Hydroxide PO Al Hydroxide/Mg 30 ML Q4-6 PRN PRN 06/12 930 AC 06/12 Hydroxide PO 0932 Cefazolin Sodium 2 GM IQ8 06/11 0000 AC 06/12 N/A 1 UNIT IV 2345 Lactated Ringer's 1,000 ML Q6H 06/11 08 DC 06/12 IV 0932 Levothyroxine Sodium 50 MCG DAILY 06/11 900 AC 06/12 IV 0933 Morphine Sulfate 2 MG Q6P PRN 06/11 0015 AC 06/12 IV 1511 Morphine Sulfate 4 MG Q6P PRN 06/11 0015 AC IV Ondansetron HCl 0 .STK-MED ONE 06/12 1348 DC .ROUTE Ondansetron HCl 4 MG ONCE ONE 06/12 1345 DC 06/12 IV 06/12 1346 1350 Pantoprazole Sodium 40 MG ONCE ONE 06/13 0515 DC 06/13 IV 06/13 0516 0523 Pantoprazole Sodium 40 MG DAILY 06/11 09 AC 06/12 IV 0805 Simethicone 80 MG Q4P PRN 06/11 1445 AC 06/11 PO 1454 Results Pertinent Lab Results: Laboratory Tests 06/13 06/13 0530 0440 Chemistry Sodium (137 - 145 mmol/L) 133 L Potassium (3.5 - 5.1 mmol/L) 4.7 Chloride (98 - 107 mmol/L) 106 Carbon Dioxide (22 - 30 mmol/L) 19 L Anion Gap (5 - 16) 9 BUN (7 - 17 mg/dL) 48 H Creatinine (0.5 - 1.0 mg/dL) 6.5 *H Estimated GFR (>60 ml/min) 6 L Glucose (65 - 99 mg/dL) 96 Lactic Acid (0.7 - 2.1 mmol/L) 0.6 L Calcium (8.4 - 10.2 mg/dL) 7.5 L Phosphorus (2.5 - 4.5 mg/dL) 5.8 H Magnesium (1.6 - 2.3 mg/dL) 2.2 Total Bilirubin (0.2 - 1.3 mg/dL) < 0.1 L AST (14 - 36 U/L) 79 H ALT (9 - 52 U/L) 23 Albumin (3.5 - 5.0 g/dL) 2.2 L Hematology CBC w Diff NO MAN DIFF REQ WBC (4.8 - 10.8 /CUMM) 8.8 RBC (4.20 - 5.40 /CUMM) 2.66 L Hgb (12.0 - 16.0 G/DL) 7.5 L Hct (37 - 47 %) 22.1 L MCV (81.0 - 99.0 FL) 83.0 MCH (27.0 - 31.0 PG) 28.2 MCHC (33.0 - 37.0 G/DL) 34.0 RDW (11.5 - 14.5 %) 14.7 H Plt Count (130 - 400 /CUMM) 110 L MPV (7.4 - 10.4 FL) 9.3 Gran % (42.2 - 75.2 %) 74.9 Lymphocytes % (20.5 - 51.1 %) 14.0 L Monocytes % (1.7 - 9.3 %) 9.1 Eosinophils % (0 - 5 %) 1.7 Basophils % (0.0 - 2.0 %) 0.3 Absolute Granulocytes (1.4 - 6.5 /CUMM) 6.6 H Absolute Lymphocytes (1.2 - 3.4 /CUMM) 1.2 Absolute Monocytes (0.10 - 0.60 /CUMM) 0.8 H Absolute Eosinophils (0.0 - 0.7 /CUMM) 0.1 Absolute Basophils (0.0 - 0.2 /CUMM) 0 06/12 06/12 0530 0330 Chemistry Sodium (137 - 145 mmol/L) 136 L Potassium (3.5 - 5.1 mmol/L) 4.7 Chloride (98 - 107 mmol/L) 108 H Carbon Dioxide (22 - 30 mmol/L) 22 Anion Gap (5 - 16) 6 BUN (7 - 17 mg/dL) 35 H Creatinine (0.5 - 1.0 mg/dL) 4.7 H Estimated GFR (>60 ml/min) 9 L Glucose (65 - 99 mg/dL) 107 H Calcium (8.4 - 10.2 mg/dL) 7.6 L Phosphorus (2.5 - 4.5 mg/dL) 5.0 H Magnesium (1.6 - 2.3 mg/dL) 2.1 Total Bilirubin (0.2 - 1.3 mg/dL) 0.1 L AST (14 - 36 U/L) 138 H ALT (9 - 52 U/L) 25 Albumin (3.5 - 5.0 g/dL) 2.4 L Hematology CBC w Diff NO MAN DIFF REQ WBC (4.8 - 10.8 /CUMM) 10.2 RBC (4.20 - 5.40 /CUMM) 3.00 L Hgb (12.0 - 16.0 G/DL) 8.5 L Hct (37 - 47 %) 25.1 L MCV (81.0 - 99.0 FL) 83.9 MCH (27.0 - 31.0 PG) 28.3 MCHC (33.0 - 37.0 G/DL) 33.7 RDW (11.5 - 14.5 %) 14.5 Plt Count (130 - 400 /CUMM) 111 L MPV (7.4 - 10.4 FL) 9.4 Gran % (42.2 - 75.2 %) 74.0 Lymphocytes % (20.5 - 51.1 %) 14.4 L Monocytes % (1.7 - 9.3 %) 10.6 H Eosinophils % (0 - 5 %) 0.7 Basophils % (0.0 - 2.0 %) 0.3 Absolute Granulocytes (1.4 - 6.5 /CUMM) 7.6 H Absolute Lymphocytes (1.2 - 3.4 /CUMM) 1.5 Absolute Monocytes (0.10 - 0.60 /CUMM) 1.1 H Absolute Eosinophils (0.0 - 0.7 /CUMM) 0.1 Absolute Basophils (0.0 - 0.2 /CUMM) 0 Urines Urinalysis MOD H Urine Color (YEL,AMB,STR) YEL Urine Clarity (CLEAR) TURBD H Urine pH (5.0 - 8.0) 6.5 Ur Specific [place] (1.001 - 1.035) 1.025 Urine Protein (NEG,<30 MG/DL) >=300 H Urine Ketones (NEG) NEG Urine Nitrite (NEG) POS H Urine Bilirubin (NEG) NEG@ICTO Urine Urobilinogen (0.1 - 1.0 EU/dl) 0.2 Ur Leukocyte Esterase (NEG) TRACE H Ur Microscopic SEDIMENT EXAMINED Urine RBC (0 - 5 /HPF) 10-15 H Urine WBC (0 - 2 /HPF) 1-3 H Ur Epithelial Cells (NONE,FEW) FEW Urine Bacteria (NEG/NONE) MOD H Urine Hemoglobin (NEG) LARGE H Urine Glucose (N MG/DL) 100 H 06/11 06/11 1905 1000 Chemistry Sodium (137 - 145 mmol/L) 139 Potassium (3.5 - 5.1 mmol/L) 4.5 Chloride (98 - 107 mmol/L) 110 H Carbon Dioxide (22 - 30 mmol/L) 22 Anion Gap (5 - 16) 7 BUN (7 - 17 mg/dL) 27 H Creatinine (0.5 - 1.0 mg/dL) 2.6 H Estimated GFR (>60 ml/min) 18 L Glucose (65 - 99 mg/dL) 122 H Calcium (8.4 - 10.2 mg/dL) 7.4 L Phosphorus (2.5 - 4.5 mg/dL) 4.7 H Magnesium (1.6 - 2.3 mg/dL) 2.0 Total Bilirubin (0.2 - 1.3 mg/dL) 0.1 L AST (14 - 36 U/L) 158 H ALT (9 - 52 U/L) 46 Troponin I (< 0.11 ng/ml) 0.14 *H 0.22 *H Albumin (3.5 - 5.0 g/dL) 2.3 L Coagulation PT (9.4 - 12.5 SEC) 11.5 INR (0.90 - 1.19) 1.05 Hematology CBC w Diff NO MAN DIFF REQ NO MAN DIFF REQ WBC (4.8 - 10.8 /CUMM) 11.4 H 12.7 H RBC (4.20 - 5.40 /CUMM) 2.75 L 3.30 L Hgb (12.0 - 16.0 G/DL) 7.6 L 9.2 L Hct (37 - 47 %) 22.9 L 27.3 L MCV (81.0 - 99.0 FL) 83.3 82.8 MCH (27.0 - 31.0 PG) 27.6 27.8 MCHC (33.0 - 37.0 G/DL) 33.1 33.6 RDW (11.5 - 14.5 %) 14.4 14.4 Plt Count (130 - 400 /CUMM) 116 L 128 L MPV (7.4 - 10.4 FL) 9.5 9.7 Gran % (42.2 - 75.2 %) 75.0 76.4 H Lymphocytes % (20.5 - 51.1 %) 14.6 L 11.6 L Monocytes % (1.7 - 9.3 %) 10.0 H 12.0 H Eosinophils % (0 - 5 %) 0.1 0 Basophils % (0.0 - 2.0 %) 0.3 0 Absolute Granulocytes (1.4 - 6.5 /CUMM) 8.5 H 9.7 H Absolute Lymphocytes (1.2 - 3.4 /CUMM) 1.7 1.5 Absolute Monocytes (0.10 - 0.60 /CUMM) 1.1 H 1.5 H Absolute Eosinophils (0.0 - 0.7 /CUMM) 0 0 Absolute Basophils (0.0 - 0.2 /CUMM) 0 0 06/11 06/10 0431 2240 Chemistry Sodium (137 - 145 mmol/L) 138 139 Potassium (3.5 - 5.1 mmol/L) 4.3 4.4 Chloride (98 - 107 mmol/L) 113 H 115 H Carbon Dioxide (22 - 30 mmol/L) 18 L 15 L Anion Gap (5 - 16) 7 9 BUN (7 - 17 mg/dL) 22 H 17 Creatinine (0.5 - 1.0 mg/dL) 2.1 H 1.4 H Estimated GFR (>60 ml/min) 23 L 37 L BUN/Creatinine Ratio (7 - 25 %) 12.1 Glucose (65 - 99 mg/dL) 138 H 168 H Calcium (8.4 - 10.2 mg/dL) 7.1 L 7.1 L Phosphorus (2.5 - 4.5 mg/dL) 4.6 H 5.4 H Magnesium (1.6 - 2.3 mg/dL) 2.2 1.4 L Total Bilirubin (0.2 - 1.3 mg/dL) 0.3 1.0 AST (14 - 36 U/L) 133 H 100 H ALT (9 - 52 U/L) 46 36 Troponin I (< 0.11 ng/ml) 0.20 *H Albumin (3.5 - 5.0 g/dL) 2.3 L 2.4 L Coagulation PT (9.4 - 12.5 SEC) 12.5 INR (0.90 - 1.19) 1.15 APTT (25 - 37 SEC) 33 Hematology CBC w Diff NO MAN DIFF REQ MAN DIFF ORDERED WBC (4.8 - 10.8 /CUMM) 13.6 H 17.9 H RBC (4.20 - 5.40 /CUMM) 3.59 L 4.28 Hgb (12.0 - 16.0 G/DL) 9.9 L 11.9 L Hct (37 - 47 %) 30.0 L 36.1 L MCV (81.0 - 99.0 FL) 83.6 84.2 MCH (27.0 - 31.0 PG) 27.7 27.7 MCHC (33.0 - 37.0 G/DL) 33.2 32.9 L RDW (11.5 - 14.5 %) 14.1 14.0 Plt Count (130 - 400 /CUMM) 131 165 MPV (7.4 - 10.4 FL) 10.2 9.3 Gran % (42.2 - 75.2 %) 84.2 H 84.8 H Lymphocytes % (20.5 - 51.1 %) 7.4 L 8.2 L Monocytes % (1.7 - 9.3 %) 8.4 7.0 Eosinophils % (0 - 5 %) 0 0 Basophils % (0.0 - 2.0 %) 0 0 Absolute Granulocytes (1.4 - 6.5 /CUMM) 11.4 H 15.2 H Segmented Neutrophils (42.2 - 75.2 %) 82 H Absolute Lymphocytes (1.2 - 3.4 /CUMM) 1.0 L 1.5 Lymphocytes (20.5 - 51.1 %) 9 L Monocytes (1.7 - 9.3 %) 6 Absolute Monocytes (0.10 - 0.60 /CUMM) 1.1 H 1.3 H Absolute Eosinophils (0.0 - 0.7 /CUMM) 0 0 Absolute Basophils (0.0 - 0.2 /CUMM) 0 0 Metamyelocytes (0.0 - 1.0 %) 3 H Platelet Estimate (ADEQUATE) ADEQUATE Normocytic RBCs VERIFIED Normochromic RBCs VERIFIED 06/10 06/10 1920 1835 Coagulation PT (9.4 - 12.5 SEC) 14.0 H INR (0.90 - 1.19) 1.28 H D-Dimer High Sensitivty (0 - 243 ng/ml) 49380 H Hematology CBC w Diff NO MAN DIFF REQ WBC (4.8 - 10.8 /CUMM) 18.7 H RBC (4.20 - 5.40 /CUMM) 4.48 Hgb (12.0 - 16.0 G/DL) 12.6 Hct (37 - 47 %) 37.4 MCV (81.0 - 99.0 FL) 83.5 MCH (27.0 - 31.0 PG) 28.0 MCHC (33.0 - 37.0 G/DL) 33.6 RDW (11.5 - 14.5 %) 14.1 Plt Count (130 - 400 /CUMM) 153 MPV (7.4 - 10.4 FL) 9.1 Gran % (42.2 - 75.2 %) 85.4 H Lymphocytes % (20.5 - 51.1 %) 8.6 L Monocytes % (1.7 - 9.3 %) 5.6 Eosinophils % (0 - 5 %) 0.1 Basophils % (0.0 - 2.0 %) 0.3 Absolute Granulocytes (1.4 - 6.5 /CUMM) 16.0 H Absolute Lymphocytes (1.2 - 3.4 /CUMM) 1.6 Absolute Monocytes (0.10 - 0.60 /CUMM) 1.1 H Absolute Eosinophils (0.0 - 0.7 /CUMM) 0 Absolute Basophils (0.0 - 0.2 /CUMM) 0.1 06/10 06/10 1628 1319 Hematology CBC w Diff NO MAN DIFF REQ NO MAN DIFF REQ WBC (4.8 - 10.8 /CUMM) 12.4 H 8.1 RBC (4.20 - 5.40 /CUMM) 4.11 L Hgb (12.0 - 16.0 G/DL) 8.9 L 11.4 L Hct (37 - 47 %) 30 L 33.6 L MCV (81.0 - 99.0 FL) 81.8 MCH (27.0 - 31.0 PG) 27.7 MCHC (33.0 - 37.0 G/DL) 33.8 RDW (11.5 - 14.5 %) 13.9 13.8 Plt Count (130 - 400 /CUMM) 131 236 MPV (7.4 - 10.4 FL) 9.6 9.3 Gran % (42.2 - 75.2 %) 91.9 H 82.6 H Lymphocytes % (20.5 - 51.1 %) 5.5 L 15.2 L Monocytes % (1.7 - 9.3 %) 2.4 1.5 L Eosinophils % (0 - 5 %) 0.2 0.4 Basophils % (0.0 - 2.0 %) 0 0.3 Absolute Granulocytes (1.4 - 6.5 /CUMM) 11.4 H 6.7 H Absolute Lymphocytes (1.2 - 3.4 /CUMM) 0.7 L 1.2 Absolute Monocytes (0.10 - 0.60 /CUMM) 0.3 0.1 Absolute Eosinophils (0.0 - 0.7 /CUMM) 0 0 Absolute Basophils (0.0 - 0.2 /CUMM) 0 0 Imaging/Other Studies: CXR: Hypoexpanded lungs with minor right base atelectasis. No evidence of congestion or edema. Renal US: RIGHT KIDNEY: 12.2 x 5.5 x 5.1 cm (SAG x AP x TRV). The kidney is normal in size, contour, and echogenicity. Renal cortical thickness is normal. No calculi or focal parenchymal lesions. No hydronephrosis. LEFT KIDNEY: 4.1 x 6.7 x 6.3 cm (SAG x AP x TRV). The kidney is normal in size, contour, and echogenicity. Renal cortical thickness is normal. No calculi or focal parenchymal lesions. No hydronephrosis.
[2018-06-13 08:00] VITALS: BP 144/70
--- NOTE | 2018-06-13 09:15 | PN- Resident [facility] ---
Impression/Plan Plan DVT/Prophylaxis: mechanical
--- NOTE | 2018-06-13 09:40 | PN- Resident CRCU ---
Subjective HPI/CRCU Issues: Afebrile overnight. Patient was having some nausea and reflux and received pantoprazole orally this morning. Otherwise, she denies any chest pain or shortness of breath. Objective Vital Signs & I&O Last 8 Hrs of Vitals and I&O: Vital Signs Date Time Temp Pulse Resp B/P B/P Pulse O2 O2 Flow FiO2 Mean Ox Delivery Rate 06/13 08 98 Nasal 2.0L Cannula 06/13 08 97.5 94 16 144/70 98 Nasal 2.0L Cannula 06/13 0400 96 Nasal 2.0L Cannula 06/13 0000 97 Nasal 2.0L Cannula 06/13 0000 98.8 100 20 160/60 97 Nasal 2.0L Cannula 06/12 2000 96 Nasal 2.0L Cannula 06/12 1600 96 Nasal 2.0L Cannula 06/12 1600 97.8 107 14 148/68 96 Nasal 2.0L Cannula 06/12 1200 97 Nasal 2.0L Cannula Intake & Output 06/13 1600 06/13 0800 06/13 0000 Intake Total 150 170 Output Total 80 85 Balance 70 85 Intake, IV 150 50 Intake, Oral 120 Number 0 Bowel Movements Output, 45 75 Drainage Output, Urine 35 10 Patient 97.664 kg 96.87 kg Weight Weight Bed scale Bed scale Measurement Method Intake & Output 06/13 1600 Intake Total Output Total Balance Patient 97.664 kg Weight Weight Bed scale Measurement Method Exam General Appearance: well developed/nourished, no apparent distress, alert Respiratory: normal breath sounds, chest non-tender Cardiovascular: regular rate/rhythm Gastrointestinal: normal bowel sounds, soft, non-tender Extremities: no edema, Left ankle has foot drop Current Medications: Current Medications Sig/Kristin Start time Last Medication Dose Route Stop Time Status Admin Acetaminophen 0 .STK-MED ONE 06/13 003 DC IV Acetaminophen 1,000 MG Q6P PRN 06/11 0015 AC 06/13 N/A 1 UNIT IV 0034 Al Hydroxide/Mg 30 ML Q4-6 PRN PRN 06/12 930 AC 06/12 Hydroxide PO 32 Cefazolin Sodium 2 GM IQ8 06/11 0000 AC 06/13 N/A 1 UNIT IV 0802 Lactated Ringer's 1,000 ML Q6H 06/11 800 DC 06/12 IV 931 Levothyroxine Sodium 50 MCG DAILY 06/11 900 AC 06/13 IV 0927 Morphine Sulfate 2 MG Q6P PRN 06/11 0015 AC 06/12 IV 1511 Morphine Sulfate 4 MG Q6P PRN 06/11 0015 AC IV Omeprazole 40 MG 1/2H B/BREAKF/DINNER 06/13 1630 AC PO Ondansetron HCl 0 .STK-MED ONE 06/12 1348 DC .ROUTE Ondansetron HCl 4 MG ONCE ONE 06/12 1345 DC 06/12 IV 06/12 1346 1350 Pantoprazole Sodium 40 MG ONCE ONE 06/13 0515 DC 06/13 IV 06/13 0516 0523 Pantoprazole Sodium 40 MG DAILY 06/11 0900 DC 06/12 IV 0805 Simethicone 80 MG Q4P PRN 06/11 1445 AC 06/11 PO 1454 Impression/Plan Impression/Problem List Impression: Ms. Thornton is a 73-year-old female with past medical history of spinal stenosis, hypothyroidism, and hypertension who is postop day 3 laminectomy lasting 9 hours complicated by 3600 cc of blood loss, hypotension to 80 systolic, and postoperative acute tubular necrosis secondary to hypotension. His creatinine function is worsening but she remains hemodynamically stable. Plan: Neurology: -Status post laminectomy, has footdrop on the left -Neurochecks every shift -PT/OT -Pain control with morphine -TRINIDAD drains draining about 10-35 mL per shift serosanguineous fluid Pulmonology: -Patient was extubated successfully postoperatively -Patient is currently on 2 L oxygen nasal cannula and saturating well -Taper oxygen -TRC/nebulization Cardiology: -No chest pain or EKG changes -Postoperative type II ND in the setting of ATN and blood loss, troponin trended down with no EKG changes -Noted to have hypotension to 80 systolic during the operation, postoperatively has been hemodynamically stable -Currently holding home amlodipine and atorvastatin GI: -Abdomen soft and nontender -Omeprazole 40 mg twice daily Renal/Urology: -Patient with Hurley catheter -Strict intake and output measurements -Patient noted to have postoperative oliguria that is persistent -10 cc/h -Postoperative ATN secondary to hypotension, creatinine 6.5 uptrending -Nephrology following -Renal ultrasound normal -May need dialysis if kidneys failed to improve ID: -No fevers, leukocytosis likely related to stress of surgery -Patient receiving prophylactic cefazolin while drains are in Hematology: -Patient lost 3.6 L of blood during the surgery -Postoperative hemoglobin has been downtrending status post 2 units PRBC transfusion -Continue to monitor CBC -We will transfuse another unit of PRBC today for hemoglobin 7.5 Endo: -History of hypothyroidism, continue levothyroxine DVT prophylaxis with Alps Heart healthy diet Full code Problem List: 1. Status post laminectomy Pain Ratin Tomorrow's Labs & Rationales: icu panel Plan DVT/Prophylaxis: mechanical
--- NOTE | 2018-06-13 11:18 | PN- CRCU ---
Subjective HPI/Critical Care Issues: The patient is awake and alert. She reports feeling improved overall. Her pain is better controlled. She continues to have poor urine output. Her creatinine has increased to 6.5. She has no signs of congestive heart failure, noting her saturations are in the high 90s on room air. There were no overnight events reported. Objective Current Medications: Current Medications Sig/Kristin Start time Last Medication Dose Route Stop Time Status Admin Acetaminophen 0 .STK-MED ONE 06/13 0031 DC IV Acetaminophen 1,000 MG Q6P PRN 06/11 0015 AC 06/13 N/A 1 UNIT IV 0034 Al Hydroxide/Mg 30 ML Q4-6 PRN PRN 06/12 0930 AC 06/12 Hydroxide PO 0932 Cefazolin Sodium 2 GM IQ8 06/11 0000 AC 06/13 N/A 1 UNIT IV 0802 Lactated Ringer's 1,000 ML Q6H 06/11 08 DC 06/12 IV 0932 Levothyroxine Sodium 50 MCG DAILY 06/11 09 AC 06/13 IV 0927 Morphine Sulfate 2 MG Q6P PRN 06/11 0015 AC 06/12 IV 1511 Morphine Sulfate 4 MG Q6P PRN 06/11 0015 AC IV Omeprazole 40 MG 1/2H B/BREAKF/DINNER 06/13 1630 AC PO Ondansetron HCl 0 .STK-MED ONE 06/12 1348 DC .ROUTE Ondansetron HCl 4 MG ONCE ONE 06/12 1345 DC 06/12 IV 06/12 1346 1350 Pantoprazole Sodium 40 MG ONCE ONE 06/13 0515 DC 06/13 IV 06/13 0516 0523 Pantoprazole Sodium 40 MG DAILY 06/11 09 DC 06/12 IV 0805 Simethicone 80 MG Q4P PRN 06/11 1445 AC 06/11 PO 1454 Vital Signs & I&O Last 24 Hrs of Vitals and I&O: Vital Signs Date Time Temp Pulse Resp B/P B/P Pulse O2 O2 Flow FiO2 Mean Ox Delivery Rate 06/13 800 98 Nasal 2.0L Cannula 06/13 800 97.5 94 16 144/70 98 Nasal 2.0L Cannula 06/13 0400 96 Nasal 2.0L Cannula 06/13 0000 97 Nasal 2.0L Cannula 06/13 0000 98.8 100 20 160/60 97 Nasal 2.0L Cannula 06/12 2000 96 Nasal 2.0L Cannula 06/12 1600 96 Nasal 2.0L Cannula 06/12 1600 97.8 107 14 148/68 96 Nasal 2.0L Cannula 06/12 1200 97 Nasal 2.0L Cannula Intake & Output 06/13 1600 06/13 0800 06/13 0000 Intake Total 150 170 Output Total 80 85 Balance 70 85 Intake, IV 150 50 Intake, Oral 120 Number 0 Bowel Movements Output, 45 75 Drainage Output, Urine 35 10 Patient 215 lb 214 lb Weight Weight Bed scale Bed scale Measurement Method Physical Exam General Appearance: awake and alert, no distress, comfortable Respiratory: few faint wheezes scattered at the lung bases Cardiovascular: regular rate/rhythm Gastrointestinal: soft, non-tender, bowel sounds present Extremities: normal inspection, normal capillary refill, no edema, skin intact, warm and dry Results Last 24 Hrs of Lab Results: Laboratory Tests 06/13/18 0530: Lactic Acid 0.6 L 06/13/18 0440: Anion Gap 9, Estimated GFR 6 L, Glucose 96, Calcium 7.5 L, Phosphorus 5.8 H, Magnesium 2.2, Total Bilirubin < 0.1 L, AST 79 H, ALT 23, Albumin 2.2 L, CBC w Diff NO MAN DIFF REQ, RBC 2.66 L, MCV 83.0, MCH 28.2, MCHC 34.0, RDW 14.7 H, MPV 9.3, Gran % 74.9, Lymphocytes % 14.0 L, Monocytes % 9.1, Eosinophils % 1.7, Basophils % 0.3, Absolute Granulocytes 6.6 H, Absolute Lymphocytes 1.2, Absolute Monocytes 0.8 H, Absolute Eosinophils 0.1, Absolute Basophils 0 Impression/Plan Impression/Plan Impression/Plan: 1. Acute intraoperative blood loss anemia. 2. ATN in the setting of hypotension with worsening renal function, Cr. 6.5 today. 3. S/P lumbar surgery on 06/10/2018. 4. History of hypothyroidism. 5. Mild elevation in troponin in the setting of hypotension and tachycardia. 6. Thrombocytopenia. Recommendations: * Monitor CBC and ICU bundle every 12 hours today. * Will transfuse as necessary. * Continue to follow nephrology's recommendations for fluid management and recommendations on ATN management. Dialysis soon? * Avoid all nephrotoxic agents. * Follow-up cultures, monitor for signs of infection. * Continue cefazolin pending results. * Morphine and Tylenol needed for pain control. Avoid oversedation. * DVT prophylaxis at all times with Alps. * Physical therapy, out of bed to chair. * I discussed the plan of care with the housestaff. We will continue to follow the patient closely in the critical care unit today.
[2018-06-13 16:00] VITALS: BP 146/70
[2018-06-13 16:33] LABS: ABSOLUTE BASOPHIL COUNT 0 /CUMM (0.0-0.2); ABSOLUTE EOSINOPHIL COUNT 0.2 /CUMM (0.0-0.7); ABSOLUTE GRANULOCYTE CT 7.2 /CUMM (1.4-6.5); ABSOLUTE MONOCYTE COUNT 0.8 /CUMM (0.10-0.60); BASOPHIL % 0.1 % (0.0-2.0); EOSINOPHIL % 1.7 % (0-5); GRANULOCYTE % 78.2 % (42.2-75.2); HEMATOCRIT 24.7 % (37-47); MEAN CORPUSCULAR HGB 28.2 PG (27.0-31.0); MEAN CORPUSCULAR HGB CONC 33.6 G/DL (33.0-37.0); MEAN CORPUSCULAR VOLUME 84.1 FL (81.0-99.0); PLATELET COUNT 131 /CUMM (130-400); RBC DISTRIBUTION WIDTH 15.1 % (11.5-14.5); RED BLOOD CELL CT 2.94 /CUMM (4.20-5.40); WHITE BLOOD CELL COUNT 9.2 /CUMM (4.8-10.8)
[2018-06-14] VITALS: BP 136/72
[2018-06-14 05:01] LABS: ABSOLUTE BASOPHIL COUNT 0 /CUMM (0.0-0.2); ABSOLUTE EOSINOPHIL COUNT 0.3 /CUMM (0.0-0.7); ABSOLUTE GRANULOCYTE CT 6.1 /CUMM (1.4-6.5); ABSOLUTE LYMPH COUNT 1.2 /CUMM (1.2-3.4); ABSOLUTE MONOCYTE COUNT 0.8 /CUMM (0.10-0.60); BASOPHIL % 0.2 % (0.0-2.0); EOSINOPHIL % 3.1 % (0-5); HEMATOCRIT 24.3 % (37-47); MEAN CORPUSCULAR HGB 28.5 PG (27.0-31.0); MEAN PLATELET VOLUME 8.9 FL (7.4-10.4); PLATELET COUNT 136 /CUMM (130-400); RBC DISTRIBUTION WIDTH 14.9 % (11.5-14.5); RED BLOOD CELL CT 2.89 /CUMM (4.20-5.40); WHITE BLOOD CELL COUNT 8.3 /CUMM (4.8-10.8)
--- NOTE | 2018-06-14 05:53 | PN- Neurosurgical ---
Subjective Subjective: No acute overnight events reported. Pain has been fairly well controlled. Pt has been mainily in bed but has been able to roll from side to side with assistance, continues to have left LLE weakness but states that was present preoperatively, no new symptoms reported. Patient denies flank pain but does acknowlege some abdominal discomfort. States that she has not passed any flatus. Denies nausea and vomitting, has been tolerating diet, but notes that she has been belching on occasion. Objective Vital Signs and I&Os Vital Signs Date Time Temp Pulse Resp B/P B/P Pulse O2 O2 Flow FiO2 Mean Ox Delivery Rate 06/14 0400 Room Air 06/14 0000 97.6 82 16 136/72 92 Room Air 06/13 2000 Room Air 06/13 1600 97.9 105 24 146/70 95 Room Air 06/13 0800 98 Nasal 2.0L Cannula 06/13 08 97.5 94 16 144/70 98 Nasal 2.0L Cannula Intake & Output 06/14 0800 06/14 0000 06/13 1600 06/13 0800 06/13 0000 06/12 1600 Intake Total 510 1070 150 170 905 Output Total 72 108 80 85 95 Balance 438 962 70 85 810 Intake, Blood 400 Product Intake, IV 150 70 150 50 665 Intake, Oral 360 600 120 240 Number 0 0 Bowel Movements Output, 50 60 45 75 65 Drainage Output, Urine 22 48 35 10 30 Patient 215 lb 214 lb Weight Weight Bed scale Bed scale Measurement Method Physical Exam: General: Alert and oriented x3, no acute distress Cards: RRR, s1s2 Pulm: C T A bilaterally, diminished at bases, nonlabored respiratory effort Abdomen: Obese, softly distended, hypoactive bowel sounds auscultated, diffuse tenderness with palpaiton Extremities: Moves all extremities, lle limited due to foot drop, distal sensation grossly intact, skin warm and well perfused. Bilateral calves non- tender Surgical site: Low back, dressing changed one day ago, dry and intact, TRINIDAD x2 holding suction. Serosanguinous output. Assessment/Plan Assessment/Plan This is a 73 year old female POD 4 s/p L3-S1 hardware removal, revision laminectomy, TLIF. Intraoperative course noted to have acute blood loss, post operative course complicated byoligouria as well as a rising creatinine, 8.8 this morning. Now having decreased bowel function concerning for early post op ileus. -Appreciate nephrology recommendations, anticiapte possibilty for dialysis -Avoid nephrotoxic medications -Abdominal xray this am, begin bowel regimen, colace and miralax added -From surgical stand point can get oob, mobility encouraged -ALPS at all times for dvt ppx -Recommend discontinuing ancef due to poor renal performance, will discuss with Dr. Preston as med is in place for abx prophylaxis Core Measures Venous Thromboembolism VTE Risk Factors Surgery No Mechanical VTE Prophylaxis d/t N/A MechProphylax Ordered No VTE Pharm Prophylaxis d/t Surgical Contraindication
--- NOTE | 2018-06-14 06:13 | RADIOLOGY REPORT ---
EXAMINATION: ABDOMEN 1 VIEW CLINICAL INFORMATION: Abdominal distention. COMPARISON: None. TECHNIQUE: A supine view of the abdomen is provided. The examination is suboptimal in that the lateral aspect of the right hemiabdomen is excluded from view. FINDINGS: There are no dilated loops of small bowel. There are no air-fluid levels. There is no appendicolith. There is atelectasis demonstrable at the left lung base. Posterior spinal fusion hardware is intact within the lower lumbar spine. IMPRESSION: Unremarkable bowel gas pattern. Left lower lobe atelectasis.
[2018-06-14 08:00] VITALS: BP 150/74
--- NOTE | 2018-06-14 08:12 | PN- Resident CRCU ---
Subjective HPI/CRCU Issues: L3-S1 hardware removal, revision laminectomy, TLIF ATN 24 Hour Events: No overnight events reported. This morning patient's complains of mild lower abdominal discomfort. Feels like she would feel better after having a bowel movement. Reports no other complaints Objective Vital Signs & I&O Last 8 Hrs of Vitals and I&O: Intake & Output 06/14 1600 06/14 0800 06/14 0000 Intake Total 310 510 Output Total 80 72 Balance 230 438 Intake, IV 70 150 Intake, Oral 240 360 Output, 45 50 Drainage Output, Urine 35 22 Laboratory Tests 06/14 06/13 0420 1603 Chemistry Sodium (137 - 145 mmol/L) 134 L 133 L Potassium (3.5 - 5.1 mmol/L) 4.7 4.7 Chloride (98 - 107 mmol/L) 104 104 Carbon Dioxide (22 - 30 mmol/L) 17 L 17 L Anion Gap (5 - 16) 13 13 BUN (7 - 17 mg/dL) 64 H 56 H Creatinine (0.5 - 1.0 mg/dL) 8.8 *H 7.7 *H Estimated GFR (>60 ml/min) 4 L 5 L Glucose (65 - 99 mg/dL) 86 92 Calcium (8.4 - 10.2 mg/dL) 7.6 L 7.5 L Phosphorus (2.5 - 4.5 mg/dL) 7.2 H 6.0 H Magnesium (1.6 - 2.3 mg/dL) 2.4 H 2.3 Total Bilirubin (0.2 - 1.3 mg/dL) 0.2 0.1 L AST (14 - 36 U/L) 58 H 70 H ALT (9 - 52 U/L) 23 18 Albumin (3.5 - 5.0 g/dL) 2.4 L 2.4 L Hematology CBC w Diff NO MAN DIFF REQ NO MAN DIFF REQ WBC (4.8 - 10.8 /CUMM) 8.3 9.2 RBC (4.20 - 5.40 /CUMM) 2.89 L 2.94 L Hgb (12.0 - 16.0 G/DL) 8.2 L 8.3 L Hct (37 - 47 %) 24.3 L 24.7 L MCV (81.0 - 99.0 FL) 84.0 84.1 MCH (27.0 - 31.0 PG) 28.5 28.2 MCHC (33.0 - 37.0 G/DL) 34.0 33.6 RDW (11.5 - 14.5 %) 14.9 H 15.1 H Plt Count (130 - 400 /CUMM) 136 131 MPV (7.4 - 10.4 FL) 8.9 9.0 Gran % (42.2 - 75.2 %) 73.0 78.2 H Lymphocytes % (20.5 - 51.1 %) 14.4 L 11.4 L Monocytes % (1.7 - 9.3 %) 9.3 8.6 Eosinophils % (0 - 5 %) 3.1 1.7 Basophils % (0.0 - 2.0 %) 0.2 0.1 Absolute Granulocytes (1.4 - 6.5 /CUMM) 6.1 7.2 H Absolute Lymphocytes (1.2 - 3.4 /CUMM) 1.2 1.0 L Absolute Monocytes (0.10 - 0.60 /CUMM) 0.8 H 0.8 H Absolute Eosinophils (0.0 - 0.7 /CUMM) 0.3 0.2 Absolute Basophils (0.0 - 0.2 /CUMM) 0 0 Exam General Appearance: alert, awake, comfortable Respiratory: normal breath sounds Cardiovascular: regular rate/rhythm Gastrointestinal: soft, mild discomfort to palpation in lower abdomen Current Medications: Current Medications Sig/Kristin Start time Last Medication Dose Route Stop Time Status Admin Acetaminophen 1,000 MG Q6P PRN 06/11 0015 AC 06/13 N/A 1 UNIT IV 1835 Al Hydroxide/Mg 30 ML Q4-6 PRN PRN 06/12 930 AC 06/12 Hydroxide PO 0932 Bisacodyl 0 .STK-MED ONE 06/14 800 DC AZ Cefazolin Sodium 1,000 MG EVERY 24 HRS 06/14 2100 AC IV 06/15 2059 Cefazolin Sodium 2 GM IQ8 06/11 0000 DC 06/13 N/A 1 UNIT IV 2342 Docusate Sodium 100 MG BID 06/14 900 AC 06/14 PO 0806 Levothyroxine Sodium 0.1 MG DAILY AC 06/14 0700 AC 06/14 PO 0601 Levothyroxine Sodium 50 MCG DAILY 06/11 900 DC 06/13 IV 09 Morphine Sulfate 2 MG Q6P PRN 06/11 0015 AC 06/12 IV 1511 Morphine Sulfate 4 MG Q6P PRN 06/11 0015 DC IV Omeprazole 40 MG 1/2H B/BREAKF/DINNER 06/13 1630 AC 06/14 PO 0601 Polyethylene Glycol 17 GM DAILY 06/14 0900 AC 06/14 PO 0808 Simethicone 80 MG Q4P PRN 06/11 1445 AC 06/11 PO 1454 Impression/Plan Impression/Problem List Impression: 73-year-old woman with past medical history of spinal stenosis, hypothyroidism, and hypertension who is postop day 4 laminectomy complicated by 3600 cc of blood loss, intraoperative hypotension to 80 systolic,e acute tubular necrosis secondary to hypotension. plan: Respiratory: Stable on room air Infectious: Afebrile, currently on cefazolin Cardiology: -Currently holding home amlodipine and atorvastatin Hematology: - lost 3.6 L of blood during the surgery -status post 3 units PRBC transfusion -Continue to monitor CBC -h/h 8.2/24.3 today Metabolic: Worsening kidney function BUN 64, creatinine 8.8 -Nephrology following -Renal ultrasound normal -May need dialysis if kidneys failed to improve -History of hypothyroidism, continue levothyroxine Alimentary -Abdomen soft and nontender -Omeprazole 40 mg twice daily -Currently on Colace, MiraLAX -on renal dialysis diet Neurology: -Status post laminectomy, has footdrop on the left -Neurochecks every shift -PT/OT -Pain control with morphine -TRINIDAD drains draining about 45mL per shift serosanguineous fluid DVT prophylaxis with Alps Heart healthy diet Full code Problem List: 1. H/O laminectomy 2. Status post laminectomy Pain Ratin Tomorrow's Labs & Rationales: cbc/icu Plan DVT/Prophylaxis: mechanical
--- NOTE | 2018-06-14 11:16 | PN- CRCU ---
Subjective HPI/Critical Care Issues: Patient is awake and alert. She is oriented 3. She has no orthopnea or lower extremity swelling. She is feeling well overall. Unfortunately however she continues to have no significant urine output. Her creatinine continues to rise , and is now 8.8. Objective Current Medications: Current Medications Sig/Kristin Start time Last Medication Dose Route Stop Time Status Admin Acetaminophen 1,000 MG Q6P PRN 06/11 0015 AC 06/13 N/A 1 UNIT IV 1835 Al Hydroxide/Mg 30 ML Q4-6 PRN PRN 06/12 09 AC 06/12 Hydroxide PO 0932 Bisacodyl 0 .STK-MED ONE 06/14 08 DC CA Cefazolin Sodium 1,000 MG EVERY 24 HRS 06/14 2100 AC IV 06/15 205 Cefazolin Sodium 2 GM IQ8 06/11 0000 DC 06/13 N/A 1 UNIT IV 2342 Docusate Sodium 100 MG BID 06/14 09 AC 06/14 PO 0806 Levothyroxine Sodium 0.1 MG DAILY AC 06/14 0700 AC 06/14 PO 0601 Levothyroxine Sodium 50 MCG DAILY 06/11 0900 DC 06/13 IV 0927 Morphine Sulfate 2 MG Q6P PRN 06/11 0015 AC 06/12 IV 1511 Morphine Sulfate 4 MG Q6P PRN 06/11 0015 DC IV Omeprazole 40 MG 1/2H B/BREAKF/DINNER 06/13 1630 AC 06/14 PO 0601 Polyethylene Glycol 17 GM DAILY 06/14 0900 AC 06/14 PO 0808 Simethicone 80 MG Q4P PRN 06/11 1445 AC 06/11 PO 1454 Vital Signs & I&O Last 24 Hrs of Vitals and I&O: Vital Signs Date Time Temp Pulse Resp B/P B/P Pulse O2 O2 Flow FiO2 Mean Ox Delivery Rate 06/14 08 94 Room Air Room Air 06/14 0800 97.3 80 14 150/74 94 Room Air Room Air 06/14 0400 Room Air 06/14 0000 97.6 82 16 136/72 92 Room Air 06/13 2000 Room Air 06/13 1600 97.9 105 24 146/70 95 Room Air Intake & Output 06/14 1600 06/14 0800 06/14 0000 Intake Total 310 510 Output Total 80 72 Balance 230 438 Intake, IV 70 150 Intake, Oral 240 360 Output, 45 50 Drainage Output, Urine 35 22 Physical Exam General Appearance: awake and alert, no distress, comfortable Respiratory: few faint wheezes scattered at the lung bases Cardiovascular: regular rate/rhythm Gastrointestinal: soft, non-tender, bowel sounds present Extremities: normal inspection, normal capillary refill, no edema, skin intact, warm and dry Impression/Plan Impression/Plan Impression/Plan: 1. Acute intraoperative blood loss anemia. 2. ATN in the setting of hypotension with worsening renal function, Cr. 6.5 today. 3. S/P lumbar surgery on 06/10/2018. 4. History of hypothyroidism. 5. Mild elevation in troponin in the setting of hypotension and tachycardia. 6. Thrombocytopenia - resolved. Recommendations: * Monitor CBC daily. * Continue to follow nephrology's recommendations for fluid management and recommendations on ATN management. * Avoid all nephrotoxic agents. * Monitor for signs of infection. * Continue cefazolin per surgery. * Morphine and Tylenol needed for pain control. Avoid oversedation. * DVT prophylaxis at all times with Alps. * Physical therapy, out of bed to chair. * I discussed the plan of care with the housestaff. We will continue to follow the patient closely in the critical care unit today.
--- NOTE | 2018-06-14 12:39 | PN- Nephrology ---
Assessment/Plan Nephrology Assessment: 1. Acute oliguric renal failure. She is without uremic symptoms. She will not require dialysis today. This being said, it is of great concern that the creatinine continues to rise. We will ask interventional radiology to place an Roby catheter tomorrow. We will then plan to dialyze thereafterwards. She does not require a catheter today. She does not require dialysis today. 2. hyperphosphatemia please begin Renvela 2 with each meal. 3. Constipation. Please do not use any Phospho-Soda cathartics or magnesium containing cathartics. In addition, no Phospho-Soda enemas. MiraLAX, sorbitol, lactulose, Dulcolax and Colace are all safe to use in patients with renal failure. Suggestion: 1. I have obtained consent for dialytic intervention. The alternatives as well as the likelihood that she will become ill without dialysis were discussed in detail. She is agreeable to initiating dialytic intervention. 2. Would ask IR to place an Roby catheter tomorrow. Obviously she needs to be n.p.o. after midnight. 3. Also obtain hepatitis B surface antigen and surface antibody. Subjective Subjective: Patient sitting up in a chair with her visiting. We long discussion about dialysis and renal replacement therapy. She is remarkably without uremic symptoms. This being said, with a creatinine of 8.8, it is certain that unless she starts making urine within the next 24-48 hrs, she will certainly become uremic. Otherwise she denies any nausea or vomiting. She does not have a funny taste in her mouth. The only thing of which she complains is constipation. Objective Vital Signs and I&Os Vital Signs Date Time Temp Pulse Resp B/P B/P Pulse O2 O2 Flow FiO2 Mean Ox Delivery Rate 06/14 08 94 Room Air Room Air 06/14 0800 97.3 80 14 150/74 94 Room Air Room Air 06/14 0400 Room Air 06/14 0000 97.6 82 16 136/72 92 Room Air 06/13 2000 Room Air 06/13 1600 97.9 105 24 146/70 95 Room Air Intake & Output 06/14 1600 06/14 0400 06/13 1600 06/13 0400 06/12 0400 Intake Total 171 403 0275 170 1730 1240 Output Total 80 72 188 85 205 108 Balance 408 507 1841 85 1525 1132 Intake, Blood 400 Product Intake, IV 70 150 377 81 7202 1150 Intake, Oral 240 360 600 120 240 90 Number 0 Bowel Movements Output, 45 50 105 75 115 90 Drainage Output, Urine 35 22 83 10 90 18 Patient 215 lb 214 lb 207 lb Weight Weight Bed scale Bed scale Measurement Method Physical Exam General Appearance: well developed/nourished, no apparent distress, alert, awake Head: atraumatic Neck: normal inspection Respiratory: normal breath sounds, lungs clear Cardiovascular: regular rate/rhythm, edema Abdomen: normal bowel sounds, soft, non-tender Extremities: normal inspection, normal capillary refill Neurologic/Psychiatric: awake, alert, oriented x 3 Current Medications: Current Medications Sig/Kristin Start time Last Medication Dose Route Stop Time Status Admin Acetaminophen 0 .STK-MED ONE 06/14 1324 DC IV Acetaminophen 1,000 MG Q6P PRN 06/11 0015 AC 06/14 N/A 1 UNIT IV 1322 Al Hydroxide/Mg 30 ML Q4-6 PRN PRN 06/12 09 AC 06/12 Hydroxide PO 0932 Bisacodyl 0 .STK-MED ONE 06/14 0800 DC NE Cefazolin Sodium 1,000 MG EVERY 24 HRS 06/14 2100 AC IV 06/15 2059 Cefazolin Sodium 2 GM IQ8 06/11 0000 DC 06/13 N/A 1 UNIT IV 2342 Docusate Sodium 100 MG BID 06/14 09 AC 06/14 PO 0806 Levothyroxine Sodium 0.1 MG DAILY AC 06/14 0700 AC 06/14 PO 0601 Morphine Sulfate 2 MG Q6P PRN 06/11 0015 AC 06/12 IV 1511 Omeprazole 40 MG 1/2H B/BREAKF/DINNER 06/13 1630 AC 06/14 PO 0601 Polyethylene Glycol 17 GM DAILY 06/14 0900 AC 06/14 PO 0808 Simethicone 80 MG Q4P PRN 06/11 1445 AC 06/11 PO 1454 Results Pertinent Lab Results: Laboratory Tests 06/14 06/13 0420 1603 Chemistry Sodium (137 - 145 mmol/L) 134 L 133 L Potassium (3.5 - 5.1 mmol/L) 4.7 4.7 Chloride (98 - 107 mmol/L) 104 104 Carbon Dioxide (22 - 30 mmol/L) 17 L 17 L Anion Gap (5 - 16) 13 13 BUN (7 - 17 mg/dL) 64 H 56 H Creatinine (0.5 - 1.0 mg/dL) 8.8 *H 7.7 *H Estimated GFR (>60 ml/min) 4 L 5 L Glucose (65 - 99 mg/dL) 86 92 Calcium (8.4 - 10.2 mg/dL) 7.6 L 7.5 L Phosphorus (2.5 - 4.5 mg/dL) 7.2 H 6.0 H Magnesium (1.6 - 2.3 mg/dL) 2.4 H 2.3 Total Bilirubin (0.2 - 1.3 mg/dL) 0.2 0.1 L AST (14 - 36 U/L) 58 H 70 H ALT (9 - 52 U/L) 23 18 Albumin (3.5 - 5.0 g/dL) 2.4 L 2.4 L Hematology CBC w Diff NO MAN DIFF REQ NO MAN DIFF REQ WBC (4.8 - 10.8 /CUMM) 8.3 9.2 RBC (4.20 - 5.40 /CUMM) 2.89 L 2.94 L Hgb (12.0 - 16.0 G/DL) 8.2 L 8.3 L Hct (37 - 47 %) 24.3 L 24.7 L MCV (81.0 - 99.0 FL) 84.0 84.1 MCH (27.0 - 31.0 PG) 28.5 28.2 MCHC (33.0 - 37.0 G/DL) 34.0 33.6 RDW (11.5 - 14.5 %) 14.9 H 15.1 H Plt Count (130 - 400 /CUMM) 136 131 MPV (7.4 - 10.4 FL) 8.9 9.0 Gran % (42.2 - 75.2 %) 73.0 78.2 H Lymphocytes % (20.5 - 51.1 %) 14.4 L 11.4 L Monocytes % (1.7 - 9.3 %) 9.3 8.6 Eosinophils % (0 - 5 %) 3.1 1.7 Basophils % (0.0 - 2.0 %) 0.2 0.1 Absolute Granulocytes (1.4 - 6.5 /CUMM) 6.1 7.2 H Absolute Lymphocytes (1.2 - 3.4 /CUMM) 1.2 1.0 L Absolute Monocytes (0.10 - 0.60 /CUMM) 0.8 H 0.8 H Absolute Eosinophils (0.0 - 0.7 /CUMM) 0.3 0.2 Absolute Basophils (0.0 - 0.2 /CUMM) 0 0 06/13 06/13 0530 0440 Chemistry Sodium (137 - 145 mmol/L) 133 L Potassium (3.5 - 5.1 mmol/L) 4.7 Chloride (98 - 107 mmol/L) 106 Carbon Dioxide (22 - 30 mmol/L) 19 L Anion Gap (5 - 16) 9 BUN (7 - 17 mg/dL) 48 H Creatinine (0.5 - 1.0 mg/dL) 6.5 *H Estimated GFR (>60 ml/min) 6 L Glucose (65 - 99 mg/dL) 96 Lactic Acid (0.7 - 2.1 mmol/L) 0.6 L Calcium (8.4 - 10.2 mg/dL) 7.5 L Phosphorus (2.5 - 4.5 mg/dL) 5.8 H Magnesium (1.6 - 2.3 mg/dL) 2.2 Total Bilirubin (0.2 - 1.3 mg/dL) < 0.1 L AST (14 - 36 U/L) 79 H ALT (9 - 52 U/L) 23 Albumin (3.5 - 5.0 g/dL) 2.2 L Hematology CBC w Diff NO MAN DIFF REQ WBC (4.8 - 10.8 /CUMM) 8.8 RBC (4.20 - 5.40 /CUMM) 2.66 L Hgb (12.0 - 16.0 G/DL) 7.5 L Hct (37 - 47 %) 22.1 L MCV (81.0 - 99.0 FL) 83.0 MCH (27.0 - 31.0 PG) 28.2 MCHC (33.0 - 37.0 G/DL) 34.0 RDW (11.5 - 14.5 %) 14.7 H Plt Count (130 - 400 /CUMM) 110 L MPV (7.4 - 10.4 FL) 9.3 Gran % (42.2 - 75.2 %) 74.9 Lymphocytes % (20.5 - 51.1 %) 14.0 L Monocytes % (1.7 - 9.3 %) 9.1 Eosinophils % (0 - 5 %) 1.7 Basophils % (0.0 - 2.0 %) 0.3 Absolute Granulocytes (1.4 - 6.5 /CUMM) 6.6 H Absolute Lymphocytes (1.2 - 3.4 /CUMM) 1.2 Absolute Monocytes (0.10 - 0.60 /CUMM) 0.8 H Absolute Eosinophils (0.0 - 0.7 /CUMM) 0.1 Absolute Basophils (0.0 - 0.2 /CUMM) 0 06/12 06/12 0530 0330 Chemistry Sodium (137 - 145 mmol/L) 136 L Potassium (3.5 - 5.1 mmol/L) 4.7 Chloride (98 - 107 mmol/L) 108 H Carbon Dioxide (22 - 30 mmol/L) 22 Anion Gap (5 - 16) 6 BUN (7 - 17 mg/dL) 35 H Creatinine (0.5 - 1.0 mg/dL) 4.7 H Estimated GFR (>60 ml/min) 9 L Glucose (65 - 99 mg/dL) 107 H Calcium (8.4 - 10.2 mg/dL) 7.6 L Phosphorus (2.5 - 4.5 mg/dL) 5.0 H Magnesium (1.6 - 2.3 mg/dL) 2.1 Total Bilirubin (0.2 - 1.3 mg/dL) 0.1 L AST (14 - 36 U/L) 138 H ALT (9 - 52 U/L) 25 Albumin (3.5 - 5.0 g/dL) 2.4 L Hematology CBC w Diff NO MAN DIFF REQ WBC (4.8 - 10.8 /CUMM) 10.2 RBC (4.20 - 5.40 /CUMM) 3.00 L Hgb (12.0 - 16.0 G/DL) 8.5 L Hct (37 - 47 %) 25.1 L MCV (81.0 - 99.0 FL) 83.9 MCH (27.0 - 31.0 PG) 28.3 MCHC (33.0 - 37.0 G/DL) 33.7 RDW (11.5 - 14.5 %) 14.5 Plt Count (130 - 400 /CUMM) 111 L MPV (7.4 - 10.4 FL) 9.4 Gran % (42.2 - 75.2 %) 74.0 Lymphocytes % (20.5 - 51.1 %) 14.4 L Monocytes % (1.7 - 9.3 %) 10.6 H Eosinophils % (0 - 5 %) 0.7 Basophils % (0.0 - 2.0 %) 0.3 Absolute Granulocytes (1.4 - 6.5 /CUMM) 7.6 H Absolute Lymphocytes (1.2 - 3.4 /CUMM) 1.5 Absolute Monocytes (0.10 - 0.60 /CUMM) 1.1 H Absolute Eosinophils (0.0 - 0.7 /CUMM) 0.1 Absolute Basophils (0.0 - 0.2 /CUMM) 0 Urines Urinalysis MOD H Urine Color (YEL,AMB,STR) YEL Urine Clarity (CLEAR) TURBD H Urine pH (5.0 - 8.0) 6.5 Ur Specific [place] (1.001 - 1.035) 1.025 Urine Protein (NEG,<30 MG/DL) >=300 H Urine Ketones (NEG) NEG Urine Nitrite (NEG) POS H Urine Bilirubin (NEG) NEG@ICTO Urine Urobilinogen (0.1 - 1.0 EU/dl) 0.2 Ur Leukocyte Esterase (NEG) TRACE H Ur Microscopic SEDIMENT EXAMINED Urine RBC (0 - 5 /HPF) 10-15 H Urine WBC (0 - 2 /HPF) 1-3 H Ur Epithelial Cells (NONE,FEW) FEW Urine Bacteria (NEG/NONE) MOD H Urine Hemoglobin (NEG) LARGE H Urine Glucose (N MG/DL) 100 H 06/11 1905 Chemistry Troponin I (< 0.11 ng/ml) 0.14 *H Hematology CBC w Diff NO MAN DIFF REQ WBC (4.8 - 10.8 /CUMM) 11.4 H RBC (4.20 - 5.40 /CUMM) 2.75 L Hgb (12.0 - 16.0 G/DL) 7.6 L Hct (37 - 47 %) 22.9 L MCV (81.0 - 99.0 FL) 83.3 MCH (27.0 - 31.0 PG) 27.6 MCHC (33.0 - 37.0 G/DL) 33.1 RDW (11.5 - 14.5 %) 14.4 Plt Count (130 - 400 /CUMM) 116 L MPV (7.4 - 10.4 FL) 9.5 Gran % (42.2 - 75.2 %) 75.0 Lymphocytes % (20.5 - 51.1 %) 14.6 L Monocytes % (1.7 - 9.3 %) 10.0 H Eosinophils % (0 - 5 %) 0.1 Basophils % (0.0 - 2.0 %) 0.3 Absolute Granulocytes (1.4 - 6.5 /CUMM) 8.5 H Absolute Lymphocytes (1.2 - 3.4 /CUMM) 1.7 Absolute Monocytes (0.10 - 0.60 /CUMM) 1.1 H Absolute Eosinophils (0.0 - 0.7 /CUMM) 0 Absolute Basophils (0.0 - 0.2 /CUMM) 0
[2018-06-14 16:00] VITALS: BP 150/62
--- NOTE | 2018-06-14 21:14 | Transfer of Care Summary ---
Hospital Course Course Hospital Course: Ms. Thornton is a 73-year-old female with past medical history of spinal stenosis, hypothyroidism, and hypertension who is postop day 3 laminectomy lasting 9 hours complicated by 3600 cc of blood loss, hypotension to 80 systolic, and postoperative acute tubular necrosis secondary to hypotension. Her anemia has been stable after receiving blood but her creatinine function continues to worsen likely secondary to ATN in the setting of hypotension. She was extubated successfully postoperatively and her oxygen was subsequently tapered. The patient does have a persistent foot drop on the left is working with physical therapy. Her pain is being well controlled with morphine. TRINIDAD drains have low output at this time but will remain per surgery. She was receiving cefazolin for prophylaxis. Follow-up surgery recommendations. Patient was noted to have a postoperative type II KS in the setting of ATN and blood loss. Troponins were trended down and there were no EKG changes. We are currently holding her amlodipine and atorvastatin. Cardiology is consulting. Patient has complained of heartburn and she is on omeprazole twice daily. Patient has Hurley catheter and we are monitoring her intake and output measurements strictly. She does have oliguria postoperatively with ATN secondary to hypotension. Creatinine is uptrending. Renal ultrasound was normal. Follow nephrology recommendations regarding dialysis depending on clinical course. DVT prophylaxis with Alps Heart healthy diet Full code Assessment/Plan: See progress notes
[2018-06-14 23:28] VITALS: BP 150/80
[2018-06-15 05:09] LABS: ABSOLUTE BASOPHIL COUNT 0.1 /CUMM (0.0-0.2); ABSOLUTE EOSINOPHIL COUNT 0.3 /CUMM (0.0-0.7); BASOPHIL % 1.2 % (0.0-2.0); EOSINOPHIL % 3.5 % (0-5); GRANULOCYTE % 73.8 % (42.2-75.2); HEMATOCRIT 25.8 % (37-47); MEAN CORPUSCULAR HGB 28.5 PG (27.0-31.0); MEAN CORPUSCULAR HGB CONC 34.3 G/DL (33.0-37.0); MEAN PLATELET VOLUME 8.8 FL (7.4-10.4); PLATELET COUNT 171 /CUMM (130-400); RBC DISTRIBUTION WIDTH 14.6 % (11.5-14.5); WHITE BLOOD CELL COUNT 9.4 /CUMM (4.8-10.8)
--- NOTE | 2018-06-15 07:38 | PN- Neurosurgical ---
See Addendum Subjective Subjective: Patient doing fairly well this morning. She reports only taking Tylenol for pain. She has been out of bed to chair and the commode but reports getting very fatigued. She also complains of fogginess and slight confusion. She persists with weakness in the left foot. She otherwise denies any chest pain, shortness of breath, or palpitations. Objective Vital Signs and I&Os Vital Signs Date Time Temp Pulse Resp B/P B/P Pulse O2 O2 Flow FiO2 Mean Ox Delivery Rate 06/15 0000 92 Room Air 06/14 2328 97.3 86 14 150/80 92 Room Air 06/14 2000 95 Room Air 06/14 1600 94 Room Air Room Air 06/14 1600 97.8 78 18 150/62 94 Room Air Room Air 06/14 1200 93 Room Air Room Air 06/14 0800 94 Room Air Room Air 06/14 0800 97.3 80 14 150/74 94 Room Air Room Air Intake & Output 06/15 0800 06/15 0000 06/14 1600 06/14 0800 06/14 0000 06/13 1600 Intake Total 0 370 200 716 731 5866 Output Total 75 45 80 80 72 108 Balance -75 325 120 230 438 962 Intake, Blood 400 Product Intake, IV 70 150 70 Intake, Oral 0 370 200 240 360 600 Number 0 Bowel Movements Output, 35 35 55 45 50 60 Drainage Output, Urine 40 10 25 35 22 48 Patient 215 lb Weight Weight Bed scale Measurement Method Physical Exam: Gen.: Alert, awake, no acute distress Back: Dressing is clean, dry, and intact without any noted strikethrough, no surrounding signs of hematoma, seroma, edema, erythema, or ecchymosis, TRINIDAD drains Extremities: Right lower extremity motor and sensory intact, left lower extremity sensory intact 1 out of 5 strength with dorsiflexion Current Medications: Current Medications Sig/Kristin Start time Last Medication Dose Route Stop Time Status Admin Acetaminophen 650 MG Q4P PRN 06/14 1400 AC PO Acetaminophen 0 .STK-MED ONE 06/14 1324 DC IV Acetaminophen 1,000 MG Q6P PRN 06/11 0015 AC 06/14 N/A 1 UNIT IV 1322 Al Hydroxide/Mg 30 ML Q4-6 PRN PRN 06/12 0930 DC 06/12 Hydroxide PO 0932 Bisacodyl 0 .STK-MED ONE 06/14 0800 DC SD Cefazolin Sodium 1,000 MG EVERY 24 HRS 06/14 2100 AC 06/14 IV 06/15 Cefazolin Sodium 2 GM IQ8 06/11 0000 DC 06/13 N/A 1 UNIT IV 234 Docusate Sodium 100 MG BID 06/14 09 AC 06/14 PO 212 Levothyroxine Sodium 0.1 MG DAILY AC 06/14 0700 AC 06/15 PO 0606 Morphine Sulfate 2 MG Q6P PRN 06/11 0015 AC 06/12 IV 1511 Omeprazole 40 MG 1/2H B/BREAKF/DINNER 06/13 1630 AC 06/15 PO 0606 Polyethylene Glycol 17 GM DAILY 06/14 09 AC 06/14 PO 0808 Sevelamer Carbonate 1,600 MG WM 06/14 1700 AC 06/14 PO 1750 Simethicone 80 MG Q4P PRN 06/11 1445 AC 06/11 PO 1454 Results Last 48 Hours of Labs: Laboratory Tests 06/15 06/14 0403 1730 Chemistry Sodium (137 - 145 mmol/L) 132 L Potassium (3.5 - 5.1 mmol/L) 4.9 Chloride (98 - 107 mmol/L) 103 Carbon Dioxide (22 - 30 mmol/L) 13 L Anion Gap (5 - 16) 17 H BUN (7 - 17 mg/dL) 80 H Creatinine (0.5 - 1.0 mg/dL) 10.6 *H Estimated GFR (>60 ml/min) 4 L Glucose (65 - 99 mg/dL) 91 Calcium (8.4 - 10.2 mg/dL) 7.6 L Phosphorus (2.5 - 4.5 mg/dL) 9.1 H Magnesium (1.6 - 2.3 mg/dL) 2.5 H Total Bilirubin (0.2 - 1.3 mg/dL) 0.2 AST (14 - 36 U/L) 49 H ALT (9 - 52 U/L) 18 Albumin (3.5 - 5.0 g/dL) 2.5 L Hematology CBC w Diff NO MAN DIFF REQ WBC (4.8 - 10.8 /CUMM) 9.4 RBC (4.20 - 5.40 /CUMM) 3.10 L Hgb (12.0 - 16.0 G/DL) 8.8 L Hct (37 - 47 %) 25.8 L MCV (81.0 - 99.0 FL) 83.0 MCH (27.0 - 31.0 PG) 28.5 MCHC (33.0 - 37.0 G/DL) 34.3 RDW (11.5 - 14.5 %) 14.6 H Plt Count (130 - 400 /CUMM) 171 MPV (7.4 - 10.4 FL) 8.8 Gran % (42.2 - 75.2 %) 73.8 Lymphocytes % (20.5 - 51.1 %) 10.9 L Monocytes % (1.7 - 9.3 %) 10.6 H Eosinophils % (0 - 5 %) 3.5 Basophils % (0.0 - 2.0 %) 1.2 Absolute Granulocytes (1.4 - 6.5 /CUMM) 7.0 H Absolute Lymphocytes (1.2 - 3.4 /CUMM) 1.0 L Absolute Monocytes (0.10 - 0.60 /CUMM) 1.0 H Absolute Eosinophils (0.0 - 0.7 /CUMM) 0.3 Absolute Basophils (0.0 - 0.2 /CUMM) 0.1 Serology Hep Bs Antigen Pending Hep Bs Antibody Pending Hepatitis C Antibody Pending 06/14 06/13 0420 1603 Chemistry Sodium (137 - 145 mmol/L) 134 L 133 L Potassium (3.5 - 5.1 mmol/L) 4.7 4.7 Chloride (98 - 107 mmol/L) 104 104 Carbon Dioxide (22 - 30 mmol/L) 17 L 17 L Anion Gap (5 - 16) 13 13 BUN (7 - 17 mg/dL) 64 H 56 H Creatinine (0.5 - 1.0 mg/dL) 8.8 *H 7.7 *H Estimated GFR (>60 ml/min) 4 L 5 L Glucose (65 - 99 mg/dL) 86 92 Calcium (8.4 - 10.2 mg/dL) 7.6 L 7.5 L Phosphorus (2.5 - 4.5 mg/dL) 7.2 H 6.0 H Magnesium (1.6 - 2.3 mg/dL) 2.4 H 2.3 Total Bilirubin (0.2 - 1.3 mg/dL) 0.2 0.1 L AST (14 - 36 U/L) 58 H 70 H ALT (9 - 52 U/L) 23 18 Albumin (3.5 - 5.0 g/dL) 2.4 L 2.4 L Hematology CBC w Diff NO MAN DIFF REQ NO MAN DIFF REQ WBC (4.8 - 10.8 /CUMM) 8.3 9.2 RBC (4.20 - 5.40 /CUMM) 2.89 L 2.94 L Hgb (12.0 - 16.0 G/DL) 8.2 L 8.3 L Hct (37 - 47 %) 24.3 L 24.7 L MCV (81.0 - 99.0 FL) 84.0 84.1 MCH (27.0 - 31.0 PG) 28.5 28.2 MCHC (33.0 - 37.0 G/DL) 34.0 33.6 RDW (11.5 - 14.5 %) 14.9 H 15.1 H Plt Count (130 - 400 /CUMM) 136 131 MPV (7.4 - 10.4 FL) 8.9 9.0 Gran % (42.2 - 75.2 %) 73.0 78.2 H Lymphocytes % (20.5 - 51.1 %) 14.4 L 11.4 L Monocytes % (1.7 - 9.3 %) 9.3 8.6 Eosinophils % (0 - 5 %) 3.1 1.7 Basophils % (0.0 - 2.0 %) 0.2 0.1 Absolute Granulocytes (1.4 - 6.5 /CUMM) 6.1 7.2 H Absolute Lymphocytes (1.2 - 3.4 /CUMM) 1.2 1.0 L Absolute Monocytes (0.10 - 0.60 /CUMM) 0.8 H 0.8 H Absolute Eosinophils (0.0 - 0.7 /CUMM) 0.3 0.2 Absolute Basophils (0.0 - 0.2 /CUMM) 0 0 Assessment/Plan Assessment/Plan This is a 73 year old female POD#5 s/p L3-S1 hardware removal, revision laminectomy, and TLIF. Intraoperative course complicated by acute blood loss, post operative course complicated by oligouria as well as a rising creatinine, this morning. Now having decreased bowel function concerning for early post op ileus. -Appreciate nephrology recommendations, dialysis catheter today ?HD today vs tomorrow -Avoid nephrotoxic medications -Continue renal diet -PRN analgesics/antiemetics -Continue bowel regimen; colace and miralax -From a surgical stand point can get oob, mobility encouraged with PT likely will need STR at time of discharge -Back brace encouraged -Boot for Left lower extremity -ALPS at all times for dvt ppx, GI Px w/ PPI -Recommend discontinuing ancef due to poor renal performance, will discuss with Dr. Preston as med is in place for abx prophylaxis Core Measures Venous Thromboembolism VTE Risk Factors Surgery No Mechanical VTE Prophylaxis d/t N/A MechProphylax Ordered No VTE Pharm Prophylaxis d/t Surgical Contraindication
--- NOTE | 2018-06-15 07:55 | PN- Resident CRCU ---
Subjective HPI/CRCU Issues: L3-S1 hardware removal, revision laminectomy, TLIF ATN 24 Hour Events: Seen and examined patient. Complaining of heaviness in her legs. She had a small bowel movement yesterday however still continues to have some abdominal discomfort. Appears to be a bit short of breath. Objective Vital Signs & I&O Last 8 Hrs of Vitals and I&O: Intake & Output 06/15 1600 06/15 0800 06/15 0000 Intake Total 0 370 Output Total 75 45 Balance -75 325 Intake, Oral 0 370 Output, 35 35 Drainage Output, Urine 40 10 Laboratory Tests 06/15 06/14 0403 1730 Chemistry Sodium (137 - 145 mmol/L) 132 L Potassium (3.5 - 5.1 mmol/L) 4.9 Chloride (98 - 107 mmol/L) 103 Carbon Dioxide (22 - 30 mmol/L) 13 L Anion Gap (5 - 16) 17 H BUN (7 - 17 mg/dL) 80 H Creatinine (0.5 - 1.0 mg/dL) 10.6 *H Estimated GFR (>60 ml/min) 4 L Glucose (65 - 99 mg/dL) 91 Calcium (8.4 - 10.2 mg/dL) 7.6 L Phosphorus (2.5 - 4.5 mg/dL) 9.1 H Magnesium (1.6 - 2.3 mg/dL) 2.5 H Total Bilirubin (0.2 - 1.3 mg/dL) 0.2 AST (14 - 36 U/L) 49 H ALT (9 - 52 U/L) 18 Albumin (3.5 - 5.0 g/dL) 2.5 L Hematology CBC w Diff NO MAN DIFF REQ WBC (4.8 - 10.8 /CUMM) 9.4 RBC (4.20 - 5.40 /CUMM) 3.10 L Hgb (12.0 - 16.0 G/DL) 8.8 L Hct (37 - 47 %) 25.8 L MCV (81.0 - 99.0 FL) 83.0 MCH (27.0 - 31.0 PG) 28.5 MCHC (33.0 - 37.0 G/DL) 34.3 RDW (11.5 - 14.5 %) 14.6 H Plt Count (130 - 400 /CUMM) 171 MPV (7.4 - 10.4 FL) 8.8 Gran % (42.2 - 75.2 %) 73.8 Lymphocytes % (20.5 - 51.1 %) 10.9 L Monocytes % (1.7 - 9.3 %) 10.6 H Eosinophils % (0 - 5 %) 3.5 Basophils % (0.0 - 2.0 %) 1.2 Absolute Granulocytes (1.4 - 6.5 /CUMM) 7.0 H Absolute Lymphocytes (1.2 - 3.4 /CUMM) 1.0 L Absolute Monocytes (0.10 - 0.60 /CUMM) 1.0 H Absolute Eosinophils (0.0 - 0.7 /CUMM) 0.3 Absolute Basophils (0.0 - 0.2 /CUMM) 0.1 Serology Hep Bs Antigen (NONREACTIVE) NONREACTIVE Hep Bs Antibody (NONREACTIVE) NONREACTIVE Hepatitis C Antibody (NONREACTIVE) NONREACTIVE Exam General Appearance: well developed/nourished, alert, awake, mild distress Respiratory: quiet respiration Cardiovascular: regular rate/rhythm Gastrointestinal: soft, non-tender Extremities: no edema Current Medications: Current Medications Sig/Kristin Start time Last Medication Dose Route Stop Time Status Admin Acetaminophen 650 MG Q4P PRN 06/14 1400 AC 06/15 PO 1201 Acetaminophen 1,000 MG Q6P PRN 06/11 0015 AC 06/14 N/A 1 UNIT IV 1322 Cefazolin Sodium 1,000 MG EVERY 24 HRS 06/14 2100 DC 06/14 IV 06/15 2059 2124 Docusate Sodium 100 MG BID 06/14 0900 AC 06/14 PO 2124 Epoetin Jayce 2,000 UNIT ONCE ONE 06/15 1530 DC 06/15 IV 06/15 1531 1530 Fentanyl Citrate 0 .STK-MED ONE 06/15 1020 DC .ROUTE Fentanyl Citrate 0 .STK-MED ONE 06/15 1005 DC .ROUTE Flumazenil 0 .STK-MED ONE 06/15 1005 DC IV Heparin Sodium 0 .STK-MED ONE 06/15 956 DC (Porcine) IV Levothyroxine Sodium 0.1 MG DAILY AC 06/14 0700 AC 06/15 PO 0606 Lidocaine 0 .STK-MED ONE 06/15 956 DC .ROUTE Lidocaine/Epinephrine 0 .STK-MED ONE 09/04 0956 DC .ROUTE Midazolam HCl 0 .STK-MED ONE 06/15 1019 DC .ROUTE Midazolam HCl 0 .STK-MED ONE 06/15 1005 DC .ROUTE Morphine Sulfate 2 MG Q6P PRN 06/11 0015 AC 06/12 IV 1511 Multivitamins 1 TAB DAILY 06/15 1536 AC 06/15 PO 1844 Naloxone HCl 0 .STK-MED ONE 06/15 1005 DC .ROUTE Omeprazole 40 MG 1/2H B/BREAKF/DINNER 06/13 1630 AC 06/15 PO 1843 Polyethylene Glycol 17 GM DAILY 06/14 0900 AC 06/14 PO 0808 Senna/Docusate Sodium 2 TAB DAILY 06/15 1700 AC PO Sevelamer Carbonate 1,600 MG WM 06/14 1700 AC 06/15 PO 1843 Simethicone 80 MG Q4P PRN 06/11 1445 AC 06/11 PO 1454 Sodium Chloride 1,000 ML Q13H 06/15 0815 DC IV Impression/Plan Impression/Problem List Impression: 73-year-old woman with past medical history of spinal stenosis, hypothyroidism, and hypertension who is postop day 4 laminectomy complicated by 3600 cc of blood loss, intraoperative hypotension to 80 systolic,e acute tubular necrosis secondary to hypotension. plan: Respiratory: Stable on room air Infectious: Afebrile, per surgery ok to dc cefazolin hepatitis serology unreactive Cardiology: -Currently holding home amlodipine and atorvastatin Hematology: - lost 3.6 L of blood during the surgery -status post 3 units PRBC transfusion -Continue to monitor CBC -h/h 8.2/24.3 Metabolic: Worsening kidney function BUN 64, creatinine 8.8 , trending up 10.6/80 today -Nephro on board, appreciate recomendations -Renal ultrasound normal -Roby-cath to be placed today. -History of hypothyroidism, continue levothyroxine Alimentary -Abdomen soft and nontender -Omeprazole 40 mg twice daily -Currently on Colace, MiraLAX will add senna S -on renal dialysis diet Neurology: -Status post laminectomy, has footdrop on the left -Neurochecks every shift -PT/OT -Pain control with morphine -TRINIDAD drain removed today DVT prophylaxis with Alps Heart healthy diet Full code Problem List: 1. H/O laminectomy 2. Status post laminectomy Pain Ratin Tomorrow's Labs & Rationales: cbc/icu panel Plan DVT/Prophylaxis: mechanical
[2018-06-15 08:00] VITALS: BP 165/68
--- NOTE | 2018-06-15 08:48 | PN- CRCU ---
Subjective HPI/Critical Care Issues: The patient is awake and alert. She feels more short of breath with exerion this morning. The patient remains on room air. She is also complaining of ongoing constipation. She continues to have very low urine output. Patient is n.p.o. awaiting Roby cath placement this morning. Objective Current Medications: Current Medications Sig/Kristin Start time Last Medication Dose Route Stop Time Status Admin Acetaminophen 650 MG Q4P PRN 06/14 1400 AC PO Acetaminophen 0 .STK-MED ONE 06/14 1324 DC IV Acetaminophen 1,000 MG Q6P PRN 06/11 0015 AC 06/14 N/A 1 UNIT IV 1322 Al Hydroxide/Mg 30 ML Q4-6 PRN PRN 06/12 0930 DC 06/12 Hydroxide PO 0932 Cefazolin Sodium 1,000 MG EVERY 24 HRS 06/14 2100 AC 06/14 IV 06/15 2059 2124 Docusate Sodium 100 MG BID 06/14 0900 AC 06/14 PO 2124 Levothyroxine Sodium 0.1 MG DAILY AC 06/14 0700 AC 06/15 PO 0606 Morphine Sulfate 2 MG Q6P PRN 06/11 0015 AC 06/12 IV 1511 Omeprazole 40 MG 1/2H B/BREAKF/DINNER 06/13 1630 AC 06/15 PO 0606 Polyethylene Glycol 17 GM DAILY 06/14 0900 AC 06/14 PO 0808 Senna/Docusate Sodium 2 TAB DAILY 06/15 1700 AC PO Sevelamer Carbonate 1,600 MG WM 06/14 1700 AC 06/14 PO 1750 Simethicone 80 MG Q4P PRN 06/11 1445 AC 06/11 PO 1454 Sodium Chloride 1,000 ML Q13H 06/15 0815 AC IV Vital Signs & I&O Last 24 Hrs of Vitals and I&O: Vital Signs Date Time Temp Pulse Resp B/P B/P Pulse O2 O2 Flow FiO2 Mean Ox Delivery Rate 06/15 0758 Room Air 06/15 0000 92 Room Air 06/14 2328 97.3 86 14 150/80 92 Room Air 06/14 2000 95 Room Air 06/14 1600 94 Room Air Room Air 06/14 1600 97.8 78 18 150/62 94 Room Air Room Air 06/14 1200 93 Room Air Room Air Intake & Output 06/15 1600 06/15 0800 06/15 0000 Intake Total 0 370 Output Total 75 45 Balance -75 325 Intake, Oral 0 370 Output, 35 35 Drainage Output, Urine 40 10 Physical Exam General Appearance: awake and alert, no distress, comfortable Respiratory: few crackles scattered at the lung bases Cardiovascular: regular rate/rhythm Gastrointestinal: soft, non-tender, bowel sounds present Extremities: normal inspection, normal capillary refill, no edema, skin intact, warm and dry Results Last 24 Hrs of Lab Results: Laboratory Tests 06/15/18 0403: Anion Gap 17 H, Estimated GFR 4 L, Glucose 91, Calcium 7.6 L, Phosphorus 9.1 H, Magnesium 2.5 H, Total Bilirubin 0.2, AST 49 H, ALT 18, Albumin 2.5 L, CBC w Diff NO MAN DIFF REQ, RBC 3.10 L, MCV 83.0, MCH 28.5, MCHC 34.3, RDW 14.6 H, MPV 8.8, Gran % 73.8, Lymphocytes % 10.9 L, Monocytes % 10.6 H, Eosinophils % 3.5, Basophils % 1.2, Absolute Granulocytes 7.0 H, Absolute Lymphocytes 1.0 L, Absolute Monocytes 1.0 H, Absolute Eosinophils 0.3, Absolute Basophils 0.1 06/14/18 1730: Hep Bs Antigen Pending, Hep Bs Antibody NONREACTIVE, Hepatitis C Antibody Pending Impression/Plan Impression/Plan Impression/Plan: 1. Acute intraoperative blood loss anemia. 2. ATN in the setting of hypotension with worsening renal function. 3. S/P lumbar surgery on 06/10/2018. 4. History of hypothyroidism. 5. Mild elevation in troponin in the setting of hypotension and tachycardia. 6. Increased shortness of breath likely related to volume overload. 7. Constipation. 8. Electrolyte abnormalities. Recommendations: * Await tunneled catheter placement this morning. * Check a chest x-ray post catheter insertion to rule out CHF. * Will follow up nephrology recommendations regarding timing of possible dialysis. * Avoid all nephrotoxic agents. * Continue to follow I's and O's. * Follow-up hepatitis serologies. * Bowel regimen for relief of constipation. * Continue to monitor electrolytes and replace as necessary. * Also, continue Renvela for hyperphosphatemia. * Complete course of ceftezole and as per surgery. * DVT prophylaxis at all times. * Continue all supportive care.
--- NOTE | 2018-06-15 09:31 | PN- Neurosurgical ---
Surgical Brief Attending Note Brief Attending Note: Postoperative day #5 Vital signs are stable Persists with left foot drop and does appear to have grossly a weaker left leg compared to right but that motor testing of the little bit difficult at this point Creatinine of 8.8 Undergoing placement of Roby cath today Appreciate nephrology input an ICU care We will be needing rehabilitation for her
--- NOTE | 2018-06-15 12:43 | PN- Nephrology ---
Assessment/Plan Nephrology Assessment: 1. Acute oliguric kidney injury secondary to ATN - no recovery as yet 2. Hyperphosphatemia 3. Metabolic acidosis 4. Status post lumbar surgery 06/10/18 with significant intraoperative blood loss and resultant anemia Suggestion: 1. Hemodialysis later today for 2 hours with 1-2 L ultrafiltration as tolerated 2. Will hemodialyze daily for several days while monitoring closely for renal recovery 3. Continue sevelamer; start Nephro-Mainor 1 po daily 4. EPO ordered with dialysis Subjective Subjective: Patient continues to be free of uremic symptoms despite oliguria and creatinine being up to 10.6 today with a bicarbonate of only 13. She now has a right IJ tunneled dialysis catheter in place and is awaiting hemodialysis later today. Objective Vital Signs and I&Os Vital Signs Date Time Temp Pulse Resp B/P B/P Pulse O2 O2 Flow FiO2 Mean Ox Delivery Rate 06/15 0800 97.3 87 22 165/68 96 Room Air 06/15 0758 Room Air 06/15 0000 92 Room Air 06/14 2328 97.3 86 14 150/80 92 Room Air 06/14 2000 95 Room Air 06/14 1600 94 Room Air Room Air 06/14 1600 97.8 78 18 150/62 94 Room Air Room Air Intake & Output 06/15 1600 06/15 0400 06/14 1600 06/14 0400 06/13 1600 06/13 0400 Intake Total 0 370 711 105 7122 170 Output Total 75 45 160 72 188 85 Balance -75 325 449 356 5490 85 Intake, Blood 400 Product Intake, IV 70 150 220 50 Intake, Oral 0 370 440 360 600 120 Number 0 Bowel Movements Output, 35 35 100 50 105 75 Drainage Output, Urine 40 10 60 22 83 10 Patient 215 lb 214 lb Weight Weight Bed scale Bed scale Measurement Method Physical Exam: General: Well-developed, well-nourished white female in NAD Skin: No rash or jaundice HEENT: Conjunctivae pale, sclerae anicteric, mucous membranes moist Neck: Without masses or thyromegaly, no supraclavicular or cervical adenopathy Chest: Clear anterolaterally Heart: Regular rate and rhythm without S3 or rub Abdomen: Soft and nontender without palpable masses or organomegaly Extremities: Without cyanosis or edema Neuro: Cognitively intact, left foot drop, no asterixis or myoclonus Current Medications: Current Medications Sig/Kristin Start time Last Medication Dose Route Stop Time Status Admin Acetaminophen 650 MG Q4P PRN 06/14 1400 AC 06/15 PO 1201 Acetaminophen 0 .STK-MED ONE 06/14 1324 DC IV Acetaminophen 1,000 MG Q6P PRN 06/11 0015 AC 06/14 N/A 1 UNIT IV 1322 Al Hydroxide/Mg 30 ML Q4-6 PRN PRN 06/12 0930 DC 06/12 Hydroxide PO 0932 Cefazolin Sodium 1,000 MG EVERY 24 HRS 06/14 2100 DC 06/14 IV 06/15 2059 212 Docusate Sodium 100 MG BID 06/14 0900 AC 06/14 PO 2124 Fentanyl Citrate 0 .STK-MED ONE 06/15 1020 DC .ROUTE Fentanyl Citrate 0 .STK-MED ONE 06/15 1005 DC .ROUTE Flumazenil 0 .STK-MED ONE 06/15 1005 DC IV Heparin Sodium 0 .STK-MED ONE 06/15 0956 DC (Porcine) IV Levothyroxine Sodium 0.1 MG DAILY AC 06/14 0700 AC 06/15 PO 0606 Lidocaine 0 .STK-MED ONE 06/15 0956 DC .ROUTE Lidocaine/Epinephrine 0 .STK-MED ONE 06/15 0956 DC .ROUTE Midazolam HCl 0 .STK-MED ONE 06/15 1019 DC .ROUTE Midazolam HCl 0 .STK-MED ONE 06/15 1005 DC .ROUTE Morphine Sulfate 2 MG Q6P PRN 06/11 0015 AC 06/12 IV 1511 Naloxone HCl 0 .STK-MED ONE 06/15 1005 DC .ROUTE Omeprazole 40 MG 1/2H B/BREAKF/DINNER 06/13 1630 AC 06/15 PO 0606 Polyethylene Glycol 17 GM DAILY 06/14 0900 AC 06/14 PO 0808 Senna/Docusate Sodium 2 TAB DAILY 06/15 1700 AC PO Sevelamer Carbonate 1,600 MG WM 06/14 1700 AC 06/15 PO 1232 Simethicone 80 MG Q4P PRN 06/11 1445 AC 06/11 PO 1454 Sodium Chloride 1,000 ML Q13H 06/15 0815 DC IV Results Pertinent Lab Results: Laboratory Tests 06/15 06/14 0403 1730 Chemistry Sodium (137 - 145 mmol/L) 132 L Potassium (3.5 - 5.1 mmol/L) 4.9 Chloride (98 - 107 mmol/L) 103 Carbon Dioxide (22 - 30 mmol/L) 13 L Anion Gap (5 - 16) 17 H BUN (7 - 17 mg/dL) 80 H Creatinine (0.5 - 1.0 mg/dL) 10.6 *H Estimated GFR (>60 ml/min) 4 L Glucose (65 - 99 mg/dL) 91 Calcium (8.4 - 10.2 mg/dL) 7.6 L Phosphorus (2.5 - 4.5 mg/dL) 9.1 H Magnesium (1.6 - 2.3 mg/dL) 2.5 H Total Bilirubin (0.2 - 1.3 mg/dL) 0.2 AST (14 - 36 U/L) 49 H ALT (9 - 52 U/L) 18 Albumin (3.5 - 5.0 g/dL) 2.5 L Hematology CBC w Diff NO MAN DIFF REQ WBC (4.8 - 10.8 /CUMM) 9.4 RBC (4.20 - 5.40 /CUMM) 3.10 L Hgb (12.0 - 16.0 G/DL) 8.8 L Hct (37 - 47 %) 25.8 L MCV (81.0 - 99.0 FL) 83.0 MCH (27.0 - 31.0 PG) 28.5 MCHC (33.0 - 37.0 G/DL) 34.3 RDW (11.5 - 14.5 %) 14.6 H Plt Count (130 - 400 /CUMM) 171 MPV (7.4 - 10.4 FL) 8.8 Gran % (42.2 - 75.2 %) 73.8 Lymphocytes % (20.5 - 51.1 %) 10.9 L Monocytes % (1.7 - 9.3 %) 10.6 H Eosinophils % (0 - 5 %) 3.5 Basophils % (0.0 - 2.0 %) 1.2 Absolute Granulocytes (1.4 - 6.5 /CUMM) 7.0 H Absolute Lymphocytes (1.2 - 3.4 /CUMM) 1.0 L Absolute Monocytes (0.10 - 0.60 /CUMM) 1.0 H Absolute Eosinophils (0.0 - 0.7 /CUMM) 0.3 Absolute Basophils (0.0 - 0.2 /CUMM) 0.1 Serology Hep Bs Antigen (NONREACTIVE) NONREACTIVE Hep Bs Antibody (NONREACTIVE) NONREACTIVE Hepatitis C Antibody (NONREACTIVE) NONREACTIVE 06/14 06/13 0420 1603 Chemistry Sodium (137 - 145 mmol/L) 134 L 133 L Potassium (3.5 - 5.1 mmol/L) 4.7 4.7 Chloride (98 - 107 mmol/L) 104 104 Carbon Dioxide (22 - 30 mmol/L) 17 L 17 L Anion Gap (5 - 16) 13 13 BUN (7 - 17 mg/dL) 64 H 56 H Creatinine (0.5 - 1.0 mg/dL) 8.8 *H 7.7 *H Estimated GFR (>60 ml/min) 4 L 5 L Glucose (65 - 99 mg/dL) 86 92 Calcium (8.4 - 10.2 mg/dL) 7.6 L 7.5 L Phosphorus (2.5 - 4.5 mg/dL) 7.2 H 6.0 H Magnesium (1.6 - 2.3 mg/dL) 2.4 H 2.3 Total Bilirubin (0.2 - 1.3 mg/dL) 0.2 0.1 L AST (14 - 36 U/L) 58 H 70 H ALT (9 - 52 U/L) 23 18 Albumin (3.5 - 5.0 g/dL) 2.4 L 2.4 L Hematology CBC w Diff NO MAN DIFF REQ NO MAN DIFF REQ WBC (4.8 - 10.8 /CUMM) 8.3 9.2 RBC (4.20 - 5.40 /CUMM) 2.89 L 2.94 L Hgb (12.0 - 16.0 G/DL) 8.2 L 8.3 L Hct (37 - 47 %) 24.3 L 24.7 L MCV (81.0 - 99.0 FL) 84.0 84.1 MCH (27.0 - 31.0 PG) 28.5 28.2 MCHC (33.0 - 37.0 G/DL) 34.0 33.6 RDW (11.5 - 14.5 %) 14.9 H 15.1 H Plt Count (130 - 400 /CUMM) 136 131 MPV (7.4 - 10.4 FL) 8.9 9.0 Gran % (42.2 - 75.2 %) 73.0 78.2 H Lymphocytes % (20.5 - 51.1 %) 14.4 L 11.4 L Monocytes % (1.7 - 9.3 %) 9.3 8.6 Eosinophils % (0 - 5 %) 3.1 1.7 Basophils % (0.0 - 2.0 %) 0.2 0.1 Absolute Granulocytes (1.4 - 6.5 /CUMM) 6.1 7.2 H Absolute Lymphocytes (1.2 - 3.4 /CUMM) 1.2 1.0 L Absolute Monocytes (0.10 - 0.60 /CUMM) 0.8 H 0.8 H Absolute Eosinophils (0.0 - 0.7 /CUMM) 0.3 0.2 Absolute Basophils (0.0 - 0.2 /CUMM) 0 0 /06/13 0530 0440 Chemistry Sodium (137 - 145 mmol/L) 133 L Potassium (3.5 - 5.1 mmol/L) 4.7 Chloride (98 - 107 mmol/L) 106 Carbon Dioxide (22 - 30 mmol/L) 19 L Anion Gap (5 - 16) 9 BUN (7 - 17 mg/dL) 48 H Creatinine (0.5 - 1.0 mg/dL) 6.5 *H Estimated GFR (>60 ml/min) 6 L Glucose (65 - 99 mg/dL) 96 Lactic Acid (0.7 - 2.1 mmol/L) 0.6 L Calcium (8.4 - 10.2 mg/dL) 7.5 L Phosphorus (2.5 - 4.5 mg/dL) 5.8 H Magnesium (1.6 - 2.3 mg/dL) 2.2 Total Bilirubin (0.2 - 1.3 mg/dL) < 0.1 L AST (14 - 36 U/L) 79 H ALT (9 - 52 U/L) 23 Albumin (3.5 - 5.0 g/dL) 2.2 L Hematology CBC w Diff NO MAN DIFF REQ WBC (4.8 - 10.8 /CUMM) 8.8 RBC (4.20 - 5.40 /CUMM) 2.66 L Hgb (12.0 - 16.0 G/DL) 7.5 L Hct (37 - 47 %) 22.1 L MCV (81.0 - 99.0 FL) 83.0 MCH (27.0 - 31.0 PG) 28.2 MCHC (33.0 - 37.0 G/DL) 34.0 RDW (11.5 - 14.5 %) 14.7 H Plt Count (130 - 400 /CUMM) 110 L MPV (7.4 - 10.4 FL) 9.3 Gran % (42.2 - 75.2 %) 74.9 Lymphocytes % (20.5 - 51.1 %) 14.0 L Monocytes % (1.7 - 9.3 %) 9.1 Eosinophils % (0 - 5 %) 1.7 Basophils % (0.0 - 2.0 %) 0.3 Absolute Granulocytes (1.4 - 6.5 /CUMM) 6.6 H Absolute Lymphocytes (1.2 - 3.4 /CUMM) 1.2 Absolute Monocytes (0.10 - 0.60 /CUMM) 0.8 H Absolute Eosinophils (0.0 - 0.7 /CUMM) 0.1 Absolute Basophils (0.0 - 0.2 /CUMM) 0
[2018-06-15 16:00] VITALS: BP 152/70
--- NOTE | 2018-06-15 16:29 | INTERVENTIONAL RADIOLOGY RPT ---
PROCEDURE: ULTRASOUND AND FLUOROSCOPICALLY GUIDED RIGHT INTERNAL JUGULAR VEIN TUNNELED PERMACATHETER PLACEMENT Interventional radiologist: Jairo Bryant M.D. CLINICAL HISTORY: 73-year-old female with ATN with worsening creatinine. COMPARISON: Chest x-ray 06/14/2018 SEDATION: Intravenous conscious sedation was performed with full clinical nurse monitoring. An independent third-green party monitor nurse was utilized for full clinical nurse monitoring. The total sedation time was 15 minutes. A total of 0.5 mg of Versed and 25 mcg of fentanyl was utilized. FLUOROSCOPY TIME: 51 seconds DOSE AREA PRODUCT: 3 Gy-cm2 (sage-centimeter squared) TECHNIQUE: Informed consent was obtained from the patient prior to the procedure. During this process, the procedure and potential alternatives were explained along with the intended outcome and benefits. The risks of the procedure, including the possibility of an unsuccessful procedure, as well as the risk of not doing the procedure were discussed. The patient was given the opportunity to ask questions regarding the procedure and appeared competent to make medical decisions. A signed consent form which documents this discussion was placed in the medical record. A timeout procedure was performed. Following informed consent the patient was placed supine on the fluoroscopic table. The right neck and chest were prepped and draped in usual sterile fashion. All elements of maximal sterile barrier technique were followed including use of cap, mask, sterile gown, sterile gloves, a sterile full body drape and hand hygiene. The skin was prepared with 2% chlorhexidine for cutaneous antisepsis and sterile ultrasound preparation with sterile gel and probe cover was performed when applicable. Using ultrasound guidance the right internal jugular vein was localized. Ultrasound was utilized to assess the vascular structures for access. A standard puncture into the right internal jugular vein was performed with a Micro-Stick system. Measurements were taken and the wire advanced down the IVC to confirm venous placement. 1% lidocaine with epinephrine was placed along the anterior chest wall tunneling site. A linear incision was made. The 23 cm tip to cuff tunneled hemodialysis catheter was tunneled in the subcutaneous tissues, exiting at the venotomy site. Serial dilatation was performed over the 0.035 inches wire. A peel-away sheath was placed over the wire and the catheter advanced down the peel-away sheath. The peel-away sheath was removed. Fluoroscopic imaging confirmed location of the catheter tip within the right atrium. Dermabond was utilized to close the venotomy site. Silk suture was utilized for catheter securement. The catheter was flushed with 500 units of heparin split between the 2 lumens for dwell. The patient tolerated the procedure well. The patient was transferred to the recovery room in good condition. ULTRASOUND-GUIDED VASCULAR ACCESS: Ultrasound was used to identify the right internal jugular vein. The right internal jugular vein was confirmed to be patent. Real time imaging confirmed needle access into the right internal jugular vein. An image was saved for permanent recording in PACS. IMPRESSION: Successful placement of 23 cm tip to cuff tunneled hemodialysis catheter using fluoroscopic and ultrasound guidance.
[2018-06-16] VITALS: BP 134/80
--- NOTE | 2018-06-16 07:18 | PN- Resident CRCU ---
Subjective HPI/CRCU Issues: L3-S1 hardware removal, revision laminectomy, TLIF ATN 24 Hour Events: Seen and examined patient. had a bowel movement yesterday and another one today. no overnight events reported Objective Vital Signs & I&O Last 8 Hrs of Vitals and I&O: Intake & Output 06/16 1600 06/16 0800 06/16 0000 Intake Total 100 250 Output Total 50 Balance 100 200 Intake, IV 10 Intake, Oral 100 240 Output, Urine 50 Patient 212 lb Weight Weight Bed scale Measurement Method Exam General Appearance: alert, awake Respiratory: lungs clear Cardiovascular: regular rate/rhythm Extremities: no edema Current Medications: Current Medications Sig/Kristin Start time Last Medication Dose Route Stop Time Status Admin Acetaminophen 0 .STK-MED ONE 06/16 0730 DC PO Acetaminophen 650 MG Q4P PRN 06/14 1400 AC 06/16 PO 0731 Acetaminophen 1,000 MG Q6P PRN 06/11 0015 AC 06/14 N/A 1 UNIT IV 1322 Cefazolin Sodium 1,000 MG EVERY 24 HRS 06/14 2100 DC 06/14 IV 06/15 2059 2124 Docusate Sodium 100 MG BID PRN 06/16 0755 AC PO Docusate Sodium 100 MG BID 06/14 0900 DC 06/14 PO 2124 Epoetin Jayce 2,000 UNIT ONCE ONE 06/15 1530 DC 06/15 IV 06/15 1531 1530 Fentanyl Citrate 0 .STK-MED ONE 06/15 1020 DC .ROUTE Fentanyl Citrate 0 .STK-MED ONE 06/15 1005 DC .ROUTE Flumazenil 0 .STK-MED ONE 06/15 1005 DC IV Heparin Sodium 0 .STK-MED ONE 06/15 0956 DC (Porcine) IV Levothyroxine Sodium 0.1 MG DAILY AC 06/14 0700 AC 06/16 PO 0731 Lidocaine 0 .STK-MED ONE 06/15 0956 DC .ROUTE Lidocaine/Epinephrine 0 .STK-MED ONE 06/15 0956 DC .ROUTE Midazolam HCl 0 .STK-MED ONE 06/15 1019 DC .ROUTE Midazolam HCl 0 .STK-MED ONE 06/15 1005 DC .ROUTE Morphine Sulfate 2 MG Q6P PRN 06/11 0015 AC 06/12 IV 1511 Multivitamins 1 TAB DAILY 06/15 1536 AC 06/16 PO 0911 Naloxone HCl 0 .STK-MED ONE 06/15 1005 DC .ROUTE Omeprazole 40 MG 1/2H B/BREAKF/DINNER 06/13 1630 AC 06/16 PO 0731 Polyethylene Glycol 17 GM DAILY PRN 06/16 0755 AC PO Polyethylene Glycol 17 GM DAILY 06/14 0900 DC 06/14 PO 0808 Senna/Docusate Sodium 2 TAB DAILY PRN 06/16 0755 AC PO Senna/Docusate Sodium 2 TAB DAILY 06/15 1700 DC PO Sevelamer Carbonate 1,600 MG WM 06/14 1700 AC 06/16 PO 0731 Simethicone 80 MG Q4P PRN 06/11 1445 AC 06/11 PO 1454 Impression/Plan Impression/Problem List Impression: 73-year-old woman with past medical history of spinal stenosis, hypothyroidism, and hypertension who is postop day 4 laminectomy complicated by 3600 cc of blood loss, intraoperative hypotension to 80 systolic, acute tubular necrosis secondary to hypotension. plan: Respiratory: Stable on room air Infectious: Afebrile hepatitis serology unreactive Cardiology: Currently holding home amlodipine and atorvastatin Hematology: - lost 3.6 L of blood during the surgery -status post 3 units PRBC transfusion -Continue to monitor CBC -h/h 8.2/24.3 Metabolic: -s/p tunneled catheter placed 06/15, had dialyisis yesterday and will have dialyisis today -Nephro on board, appreciate recomendations -Renal ultrasound normal -History of hypothyroidism, continue levothyroxine Alimentary -Abdomen soft and nontender -Omeprazole 40 mg twice daily -Continue Colace, MiraLAX and senna S prn now -on renal dialysis diet Neurology: -Status post laminectomy, has footdrop on the left -Neurochecks every shift -PT/OT -Pain control with morphine -TRINIDAD drain removed 06/15 DVT prophylaxis with Alps Heart healthy diet Full code Problem List: 1. H/O laminectomy 2. Status post laminectomy Pain Ratin Tomorrow's Labs & Rationales: with dialyisis Plan DVT/Prophylaxis: mechanical
[2018-06-16 08:00] VITALS: BP 166/84
--- NOTE | 2018-06-16 08:03 | PN- Neurosurgical ---
See Addendum Subjective Subjective: Patient feeling fatigued, notes pain, but no distress. States that kim-cath placement one day ago was painful but site feels better today. She underwent 2.5 hours of HD yesterday and tolerated it well, she anticipates 2.5 additional hours today. She moved her bowels yesterday, her abdominal discomfort has resolved. She is tolerating diet, no c/o nausea or vomitting. TRINIDAD drains were removed yesterday. She still has back discomfort but no worsening of pain. She notes some continued discomfort in bilateral lower extremities but feels it is related to fluid retention, no new paresthesias, is tolerating podus boot for left footdrop. Objective Vital Signs and I&Os Vital Signs Date Time Temp Pulse Resp B/P B/P Pulse O2 O2 Flow FiO2 Mean Ox Delivery Rate 06/16 0000 95 Room Air 06/16 0000 98.0 90 20 134/80 95 Room Air 06/15 1600 Room Air 06/15 1600 97.3 90 18 152/70 98 Room Air 06/15 1200 Room Air 06/15 0800 97.3 87 22 165/68 96 Room Air 06/15 0758 Room Air Intake & Output 06/16 0800 / 0000 06/15 1600 06/15 0800 06/15 0000 06/14 1600 Intake Total 100 250 250 0 370 200 Output Total 50 80 75 45 80 Balance 100 200 170 -75 325 120 Intake, IV 10 10 Intake, Oral 100 240 240 0 370 200 Number 2 Bowel Movements Output, 35 35 55 Drainage Output, Urine 50 80 40 10 25 Patient 212 lb Weight Weight Bed scale Measurement Method Physical Exam: General: Alert and oriented x3, no acute distress Cards: RRR, s1s2 Pulm: CTA bilaterally, non-labored respiratory effort Abd: Non-tender, non-distneded Extremties: Moves all extremities, left foot drop persistes, podus boot in place, distal sensation grossly intact. Motor 5/5 in plantar/dorsiflexion of rle. Skin warm and well perfused bilaterally. 1+ pitting edema to bilateral foot/ankle, dp and pt pulses palpable bilaterally, skin warm and well perfused. Bilateral calves soft and non-tender. Surgical site: Lumbar spine, dressing dry and intact, old blood noted superior aspect, drains removed. No surrounding hematoma, no surrounding erythema. Assessment/Plan Assessment/Plan This is a 73 year old female, POD 6 s/p extensive lumbar spine surgery for stenosis. Post op course complicated by ATN likely due to hypotension/blood loss. Creatinine peaked at 10.6 one day ago, she has since received kim-cath placement and HD. Will continue to receive HD. From a neurosurgical standpoint , kidney injury aside, is physically progressing as expected. -Continue oob with brace, continue podus bood on left lower extremity while at rest -Daily dry dressing changes -Skin incision closed with cliff, they are to remain in place until POD 14 at a miniumum -Abx no longer needed -Follow up labs post HD -Continue strict I/O, watch for improved urine output -Discharge dispo when cleared from medical standpoint likely str Will discuss plan of care with Dr. Menjivar and Mohan Core Measures Venous Thromboembolism VTE Risk Factors Surgery No Mechanical VTE Prophylaxis d/t N/A MechProphylax Ordered No VTE Pharm Prophylaxis d/t Surgical Contraindication
--- NOTE | 2018-06-16 09:03 | PN- Neurosurgical ---
Surgical Brief Attending Note Brief Attending Note: POD#6 less swollen had BM yesterday and abdomen softer unchanged neuro exam,stronger L leg except foot which is in AFO dialysis today will need rehab d/w
--- NOTE | 2018-06-16 10:23 | PN- Pulmonary ---
Subjective HPI/Critical Care Issues: The patient is awake and alert. She feels fatigued. She also feels her legs continue to be heavy with increased edema. She denies shortness of breath. There were no overnight events. She is awaiting dialysis. Objective Current Medications: Current Medications Sig/Kristin Start time Last Medication Dose Route Stop Time Status Admin Acetaminophen 0 .STK-MED ONE 06/16 0730 DC PO Acetaminophen 650 MG Q4P PRN 06/14 1400 AC 06/16 PO 0731 Acetaminophen 1,000 MG Q6P PRN 06/11 0015 AC 06/14 N/A 1 UNIT IV 1322 Cefazolin Sodium 1,000 MG EVERY 24 HRS 06/14 2100 DC 06/14 IV 06/15 2059 2124 Docusate Sodium 100 MG BID PRN 06/16 0755 AC PO Docusate Sodium 100 MG BID 06/14 0900 DC 06/14 PO 2124 Epoetin Jayce 2,000 UNIT ONCE ONE 06/15 1530 DC 06/15 IV 06/15 1531 1530 Fentanyl Citrate 0 .STK-MED ONE 06/15 1020 DC .ROUTE Levothyroxine Sodium 0.1 MG DAILY AC 06/14 0700 AC 06/16 PO 0731 Midazolam HCl 0 .STK-MED ONE 06/15 1019 DC .ROUTE Morphine Sulfate 2 MG Q6P PRN 06/11 0015 AC 06/12 IV 1511 Multivitamins 1 TAB DAILY 06/15 1536 AC 06/16 PO 0911 Omeprazole 40 MG 1/2H B/BREAKF/DINNER 06/13 1630 AC 06/16 PO 0731 Polyethylene Glycol 17 GM DAILY PRN 06/16 0755 AC PO Polyethylene Glycol 17 GM DAILY 06/14 0900 DC 06/14 PO 0808 Senna/Docusate Sodium 2 TAB DAILY PRN 06/16 0755 AC PO Senna/Docusate Sodium 2 TAB DAILY 06/15 1700 DC PO Sevelamer Carbonate 1,600 MG WM 06/14 1700 AC 06/16 PO 0731 Simethicone 80 MG Q4P PRN 06/11 1445 AC 06/11 PO 1454 Vital Signs & I&O Last 24 Hrs of Vitals and I&O: Vital Signs Date Time Temp Pulse Resp B/P B/P Pulse O2 O2 Flow FiO2 Mean Ox Delivery Rate 06/16 800 97.9 86 18 166/84 95 Room Air / 0000 95 Room Air / 0000 98.0 90 20 134/80 95 Room Air 06/15 1600 Room Air 06/15 1600 97.3 90 18 152/70 98 Room Air 06/15 1200 Room Air Intake & Output 06/16 1600 / 0800 06/16 0000 Intake Total 100 250 Output Total 50 Balance 100 200 Intake, IV 10 Intake, Oral 100 240 Output, Urine 50 Patient 212 lb Weight Weight Bed scale Measurement Method Physical Exam General Appearance: awake and alert, no distress, comfortable Respiratory: few crackles scattered at the lung bases Cardiovascular: regular rate/rhythm Gastrointestinal: soft, non-tender, bowel sounds present Extremities: normal inspection, normal capillary refill, no edema, skin intact, warm and dry Results Last 24 Hrs of Lab Results: Pending Impression/Plan Impression/Plan Impression/Plan: 1. Acute intraoperative blood loss anemia. 2. ATN in the setting of hypotension with worsening renal function. 3. S/P lumbar surgery on 06/10/2018. 4. History of hypothyroidism. 5. Mild elevation in troponin in the setting of hypotension and tachycardia. 6. Increased shortness of breath likely related to volume overload. 7. Constipation. 8. Electrolyte abnormalities. Recommendations: * Continue dialysis per nephrology. * Avoid all nephrotoxic agents. * Continue to follow I's and O's. * Continue current medications. * Complete course of ceftezole and as per surgery. * DVT prophylaxis at all times. * Continue all supportive care. * Increase activity, out of bed to chair. Physical therapy for ambulation.
--- NOTE | 2018-06-16 11:07 | PN- Nephrology ---
Assessment/Plan Nephrology Assessment: Assessment: 1. Acute oliguric kidney injury secondary to ATN; no uremic symptomatology 2. Hyperphosphatemia 3. Metabolic acidosis 4. Status post lumbar surgery 06/10/18 with significant intraoperative blood loss and resultant anemia Suggestion: 1. We will dialyze again today and consider holding dialysis after today and observing 2. Today's labs to be drawn later with dialysis 3. Would discontinue Hurley tomorrow and then encourage avoiding Subjective Subjective: Patient looks and feels well. No complaints and specifically no shortness of breath, nausea or vomiting. Urine output remains poor. No labs as yet today. Objective Vital Signs and I&Os Vital Signs Date Time Temp Pulse Resp B/P B/P Pulse O2 O2 Flow FiO2 Mean Ox Delivery Rate 06/16 0800 97.9 86 18 166/84 95 Room Air 06/16 0000 95 Room Air 06/16 0000 98.0 90 20 134/80 95 Room Air 06/15 1600 Room Air 06/15 1600 97.3 90 18 152/70 98 Room Air 06/15 1200 Room Air Intake & Output 06/16 1600 06/16 0400 06/15 1600 06/15 0400 06/14 1600 06/14 0400 Intake Total 100 250 250 370 510 510 Output Total 50 155 45 160 72 Balance 100 200 95 325 350 438 Intake, IV 10 10 70 150 Intake, Oral 100 240 240 370 440 360 Number 2 Bowel Movements Output, 35 35 100 50 Drainage Output, Urine 50 120 10 60 22 Patient 212 lb Weight Weight Bed scale Measurement Method Physical Exam: General: Well-developed, well-nourished white female in NAD Skin: No rash or jaundice HEENT: Conjunctivae pale, sclerae anicteric, mucous membranes moist Neck: Without masses or thyromegaly, no supraclavicular or cervical adenopathy Chest: Clear with diminished breath sounds at bases Heart: Regular rate and rhythm without S3 or rub Abdomen: Soft and nontender without palpable masses or organomegaly Extremities: Without cyanosis or edema Neuro: Cognitively intact, left foot drop, no asterixis or myoclonus Results Pertinent Lab Results: Laboratory Tests 06/15 06/14 0403 1730 Chemistry Sodium (137 - 145 mmol/L) 132 L Potassium (3.5 - 5.1 mmol/L) 4.9 Chloride (98 - 107 mmol/L) 103 Carbon Dioxide (22 - 30 mmol/L) 13 L Anion Gap (5 - 16) 17 H BUN (7 - 17 mg/dL) 80 H Creatinine (0.5 - 1.0 mg/dL) 10.6 *H Estimated GFR (>60 ml/min) 4 L Glucose (65 - 99 mg/dL) 91 Calcium (8.4 - 10.2 mg/dL) 7.6 L Phosphorus (2.5 - 4.5 mg/dL) 9.1 H Magnesium (1.6 - 2.3 mg/dL) 2.5 H Total Bilirubin (0.2 - 1.3 mg/dL) 0.2 AST (14 - 36 U/L) 49 H ALT (9 - 52 U/L) 18 Albumin (3.5 - 5.0 g/dL) 2.5 L Hematology CBC w Diff NO MAN DIFF REQ WBC (4.8 - 10.8 /CUMM) 9.4 RBC (4.20 - 5.40 /CUMM) 3.10 L Hgb (12.0 - 16.0 G/DL) 8.8 L Hct (37 - 47 %) 25.8 L MCV (81.0 - 99.0 FL) 83.0 MCH (27.0 - 31.0 PG) 28.5 MCHC (33.0 - 37.0 G/DL) 34.3 RDW (11.5 - 14.5 %) 14.6 H Plt Count (130 - 400 /CUMM) 171 MPV (7.4 - 10.4 FL) 8.8 Gran % (42.2 - 75.2 %) 73.8 Lymphocytes % (20.5 - 51.1 %) 10.9 L Monocytes % (1.7 - 9.3 %) 10.6 H Eosinophils % (0 - 5 %) 3.5 Basophils % (0.0 - 2.0 %) 1.2 Absolute Granulocytes (1.4 - 6.5 /CUMM) 7.0 H Absolute Lymphocytes (1.2 - 3.4 /CUMM) 1.0 L Absolute Monocytes (0.10 - 0.60 /CUMM) 1.0 H Absolute Eosinophils (0.0 - 0.7 /CUMM) 0.3 Absolute Basophils (0.0 - 0.2 /CUMM) 0.1 Serology Hep Bs Antigen (NONREACTIVE) NONREACTIVE Hep Bs Antibody (NONREACTIVE) NONREACTIVE Hepatitis C Antibody (NONREACTIVE) NONREACTIVE 06/14 06/13 0420 1603 Chemistry Sodium (137 - 145 mmol/L) 134 L 133 L Potassium (3.5 - 5.1 mmol/L) 4.7 4.7 Chloride (98 - 107 mmol/L) 104 104 Carbon Dioxide (22 - 30 mmol/L) 17 L 17 L Anion Gap (5 - 16) 13 13 BUN (7 - 17 mg/dL) 64 H 56 H Creatinine (0.5 - 1.0 mg/dL) 8.8 *H 7.7 *H Estimated GFR (>60 ml/min) 4 L 5 L Glucose (65 - 99 mg/dL) 86 92 Calcium (8.4 - 10.2 mg/dL) 7.6 L 7.5 L Phosphorus (2.5 - 4.5 mg/dL) 7.2 H 6.0 H Magnesium (1.6 - 2.3 mg/dL) 2.4 H 2.3 Total Bilirubin (0.2 - 1.3 mg/dL) 0.2 0.1 L AST (14 - 36 U/L) 58 H 70 H ALT (9 - 52 U/L) 23 18 Albumin (3.5 - 5.0 g/dL) 2.4 L 2.4 L Hematology CBC w Diff NO MAN DIFF REQ NO MAN DIFF REQ WBC (4.8 - 10.8 /CUMM) 8.3 9.2 RBC (4.20 - 5.40 /CUMM) 2.89 L 2.94 L Hgb (12.0 - 16.0 G/DL) 8.2 L 8.3 L Hct (37 - 47 %) 24.3 L 24.7 L MCV (81.0 - 99.0 FL) 84.0 84.1 MCH (27.0 - 31.0 PG) 28.5 28.2 MCHC (33.0 - 37.0 G/DL) 34.0 33.6 RDW (11.5 - 14.5 %) 14.9 H 15.1 H Plt Count (130 - 400 /CUMM) 136 131 MPV (7.4 - 10.4 FL) 8.9 9.0 Gran % (42.2 - 75.2 %) 73.0 78.2 H Lymphocytes % (20.5 - 51.1 %) 14.4 L 11.4 L Monocytes % (1.7 - 9.3 %) 9.3 8.6 Eosinophils % (0 - 5 %) 3.1 1.7 Basophils % (0.0 - 2.0 %) 0.2 0.1 Absolute Granulocytes (1.4 - 6.5 /CUMM) 6.1 7.2 H Absolute Lymphocytes (1.2 - 3.4 /CUMM) 1.2 1.0 L Absolute Monocytes (0.10 - 0.60 /CUMM) 0.8 H 0.8 H Absolute Eosinophils (0.0 - 0.7 /CUMM) 0.3 0.2 Absolute Basophils (0.0 - 0.2 /CUMM) 0 0
[2018-06-16 13:42] LABS: ABSOLUTE BASOPHIL COUNT 0 /CUMM (0.0-0.2); ABSOLUTE EOSINOPHIL COUNT 0.3 /CUMM (0.0-0.7); ABSOLUTE GRANULOCYTE CT 6.4 /CUMM (1.4-6.5); ABSOLUTE LYMPH COUNT 0.9 /CUMM (1.2-3.4); ABSOLUTE MONOCYTE COUNT 1.1 /CUMM (0.10-0.60); BASOPHIL % 0.3 % (0.0-2.0); EOSINOPHIL % 3.6 % (0-5); GRANULOCYTE % 73.2 % (42.2-75.2); HEMATOCRIT 24.4 % (37-47); MEAN CORPUSCULAR HGB 28.2 PG (27.0-31.0); MEAN CORPUSCULAR HGB CONC 33.6 G/DL (33.0-37.0); MEAN CORPUSCULAR VOLUME 84.1 FL (81.0-99.0); PLATELET COUNT 205 /CUMM (130-400); RBC DISTRIBUTION WIDTH 15.1 % (11.5-14.5); WHITE BLOOD CELL COUNT 8.7 /CUMM (4.8-10.8)
[2018-06-16 16:00] VITALS: BP 152/84
[2018-06-17 02:48] VITALS: BP 151/65
[2018-06-17 06:48] VITALS: BP 140/80
--- NOTE | 2018-06-17 07:14 | PN- Housestaff ---
Iris HAN,Damien 06/17/18 0714: Subjective Follow-up For: L3-S1 hardware removal, revision laminectomy, TLIF ATN Subjective: patient was able to get out of bed with physical therapy no hemodialysis today no new complaints lower extremity swelling improved Review of Systems Constitutional: Reports: see HPI. Objective Last 24 Hrs of Vital Signs/I&O Vital Signs Date Time Temp Pulse Resp B/P B/P Pulse O2 O2 Flow FiO2 Mean Ox Delivery Rate 06/17 0800 Room Air 06/17 0648 98.5 90 20 140/80 95 Room Air 06/17 0248 98.8 88 20 151/65 96 Room Air 06/16 1600 97.5 95 18 152/84 97 Room Air Intake & Output 06/17 1600 06/17 0800 06/17 0000 Intake Total 150 50 Output Total 25 50 Balance -25 100 50 Intake, Oral 150 50 Output, Urine 25 50 Physical Exam General Appearance: Alert, Oriented X3, Cooperative, No Acute Distress Cardiovascular: Regular Rate, Normal S1, Normal S2, No Murmurs Lungs: Clear to Auscultation, Normal Air Movement Abdomen: Normal Bowel Sounds, Soft, No Tenderness, No Masses Neurological: chronic L foot drop, no new deficits or paresthesias Extremities: No Clubbing, No Cyanosis, No Edema, Normal Pulses Other Physical Findings: Back: dressing c/d/i, surgical jasvir, no drains or erythema at surgical site Current Medications: Current Medications Sig/Kristin Start time Last Medication Dose Route Stop Time Status Admin Acetaminophen 650 MG Q4P PRN 06/14 1400 AC 06/17 PO 1256 Acetaminophen 1,000 MG Q6P PRN 06/11 0015 AC 06/14 N/A 1 UNIT IV 1322 Amlodipine Besylate 5 MG 1830 06/17 1830 AC PO Amlodipine Besylate 5 MG DAILY 06/16 1625 DC 06/16 PO 1830 Atorvastatin Calcium 10 MG 1700 06/16 1625 AC 06/16 PO 1830 Docusate Sodium 100 MG BID PRN 06/16 0755 AC PO Levothyroxine Sodium 0.1 MG DAILY AC 06/14 0700 AC 06/17 PO 0632 Morphine Sulfate 2 MG Q6P PRN 06/11 0015 AC 06/12 IV 1511 Multivitamins 1 TAB DAILY 06/15 1536 AC 06/17 PO 0841 Omeprazole 40 MG 1/2H B/BREAKF/DINNER 06/13 1630 AC 06/17 PO 0632 Polyethylene Glycol 17 GM DAILY PRN 06/16 075 AC PO Senna/Docusate Sodium 2 TAB DAILY PRN 06/16 075 AC PO Sertraline HCl 50 MG DAILY 06/17 0900 AC 06/17 PO 0841 Sevelamer Carbonate 1,600 MG WM 06/14 1700 AC 06/17 PO 1254 Simethicone 80 MG Q4P PRN 06/11 1445 AC 06/16 PO 2156 Last 24 Hrs of Lab/Simone Results Last 24 Hrs of Labs/Mics: Laboratory Tests 06/17/18 0640: Anion Gap 9, Estimated GFR 5 L, Glucose 98, Calcium 8.0 L, Phosphorus 5.7 H, Magnesium 2.4 H, Total Bilirubin 0.3, AST 40 H, ALT 23, Albumin 2.5 L 06/16/18 1500: Estimated GFR 9 L, BUN/Creatinine Ratio 7.2 Assessment/Plan Assessment: 73 year old female with PMH signficant for HTN, hypothyroidism, and spinal stenosis admitted for spinal surgery (L3-S1 laminectomy with hardware removal and placement) with intraop EBL of 3500cc and hypotension, managed with peripheral phenylephrine and 3 unit pRBC transfusion, now hospital course complicated by ATN and TIFFANIE requiring hemodialysis for oliguria and volume overload. Acute blood loss anemia: CBC stable Last H/H ~8/24 s/p 2 units pRBCs Check iron studies Plan to start epogen with next hemodialysis TIFFANIE secondary to ATN from intraoperative EBL and hypotension s/p tunneled catheter placed 06/15, s/p hemodialysis 06/15, 06/16, not today Creatinine increased to ~10 at peak, worsened today without hemodialysis Patient remains oliguric, hyperphosphatemic and hypermagnesic Nephrology consulted, appreciate recomendations Renal ultrasound normal Discontinue Hurley catheter Strict I/O's Plan for hemodialysis again tomorrow Continue phosphate binders, renal dialysis diet, and nephrovitamins L3-S1 laminectomy with hardware removal and placement: Post op day 7 No evidence of surgical site infection Ambulating with PT Continue neurochecks, no new deficits Chronic left foot drop, continue AFO Continue analgesics Jasvir to remain in until at least POD 14 Follow up ortho and neurosurgical recommendations HTN: Amlodipine restarted HLD: Continue statin therapy Hypothyroidism: Continue levothyroxine Continue PO PPI and bowel regimen Renal diet DVT ppx-ALPs only Full code Problem List: 1. H/O laminectomy 2. Status post laminectomy 3. Acute blood loss anemia 4. ATN (acute tubular necrosis) 5. Delay kidney tx func d/t ATN and other reason requiring acute dialysis 6. Hyperphosphatemia 7. Hypermagnesemia Pain Ratin Pain Location: lumbar spine Pain Goal: Pain 4 or less Pain Plan: prn Tomorrow's Labs & Rationales: cbc, bep, mag, phos, calcium, iron studies Caron Fierro MD 06/17/18 1058: Attending MD Review Statement Attending Statement Attending MD Statement: examined this patient, discuss w/resident/PA/PARKING ATTENDANT, agreed w/resident/PA/PARKING ATTENDANT, reviewed EMR data (avail) Attending Assessment/Plan: 73F PMH spinal stenosis, hypothyroidism, and hypertension who is postop day 6 for laminectomy lasting 9 hours complicated by 3600 cc of blood loss with raven- operative hypotension complicated by ATN, with post-operative anemia now stable following transfusion of 3 units pRBC. Patient is now on peritoneal dialysis with oliguria. Patient also has persistent left foot drop. No complaints, doing well, vitals stable, labs reviewed. 1. ATN secondary to hypotension 2. Post-operative acute blood loss anemia 3. Spinal stenosis 4. Type 2 myocardial infarction 5. Left foot drop Plan - Discontinue telemetry - Follow nephrology, neurosurgery, orthopedic recommendations - Monitor renal function, urine output, electrolytes - Continue current medications - Continue to work with physical therapy - DVT PPx
--- NOTE | 2018-06-17 08:28 | Transfer of Care Summary ---
Hospital Course Course Hospital Course: 73 year old woman with past medical history of spinal stenosis, hypothyroidism, and hypertension status postop L3-S1 hardware removal, revision laminectomy lasting 9 hours complicated by 3600 cc of blood loss, hypotension to 80 systolic requiring pressors intraoperatively. ICU course: Acute tubular Necrosis/anuria Complicated by acute tubular necrosis and anuria secondary to hypotension. As kidney function was not improving Roby-cath was placed on placed 06/15. Dialysis Her anemia has been stable after receiving blood but her creatinine function continues to worsen likely secondary to ATN in the setting of hypotension. She was extubated successfully postoperatively and her oxygen was subsequently tapered. The patient does have a persistent foot drop on the left is working with physical therapy. Her pain is being well controlled with morphine. TRINIDAD drains have low output at this time but will remain per surgery. She was receiving cefazolin for prophylaxis. Follow-up surgery recommendations. Patient was noted to have a postoperative type II NE in the setting of ATN and blood loss. Troponins were trended down and there were no EKG changes. We are currently holding her amlodipine and atorvastatin. Cardiology is consulting. Patient has complained of heartburn and she is on omeprazole twice daily. Patient has Hurley catheter and we are monitoring her intake and output measurements strictly. She does have oliguria postoperatively with ATN secondary to hypotension. Creatinine is uptrending. Renal ultrasound was normal. Follow nephrology recommendations regarding dialysis depending on clinical course. DVT prophylaxis with Alps Heart healthy diet Full code Complications: intraoperative complications
--- NOTE | 2018-06-17 11:45 | PN- Nephrology ---
Assessment/Plan Nephrology Assessment: 1. Acute oliguric kidney injury secondary to ATN 2. Hyperphosphatemia -much improved 3. Metabolic acidosis -resolved 4. Status post lumbar surgery 06/10/18 with significant intraoperative blood loss and resultant anemia Suggestion: 1. No dialysis today but will resume tomorrow 2. Would discontinue Hurley but continue to monitor intake and output 3. Limit p.o. fluids to 1200 cc per day 4. Check iron studies 5. Will begin Epogen with dialysis sessions Subjective Subjective: Patient has no specific complaints today. She remains oliguric. Creatinine up to 8.1, electrolytes okay, phosphorus down to 5.7, hemoglobin 8.2. Objective Vital Signs and I&Os Vital Signs Date Time Temp Pulse Resp B/P B/P Pulse O2 O2 Flow FiO2 Mean Ox Delivery Rate 06/17 0800 Room Air 06/17 0648 98.5 90 20 140/80 95 Room Air 06/17 0248 98.8 88 20 151/65 96 Room Air 06/16 1600 97.5 95 18 152/84 97 Room Air 06/16 1201 Nasal 2.0L Cannula Intake & Output 06/17 0400 06/16 1600 06/16 0400 06/15 1600 06/15 0400 Intake Total 150 50 500 250 250 370 Output Total 75 2000 50 155 45 Balance 75 50 -1500 200 95 325 Intake, IV 0 10 10 Intake, Oral 150 50 500 240 240 370 Number 1 2 Bowel Movements Output, 2000 Dialysate Output, 35 35 Drainage Output, Urine 75 0 50 120 10 Patient 212 lb Weight Weight Bed scale Measurement Method Physical Exam: General: Well-developed, well-nourished white female in NAD Skin: No rash or jaundice HEENT: Conjunctivae pale, sclerae anicteric, mucous membranes moist Neck: Without masses or thyromegaly, no supraclavicular or cervical adenopathy Chest: Clear to P&A Heart: Regular rate and rhythm without S3 or rub Abdomen: Soft and nontender without palpable masses or organomegaly Extremities: Without cyanosis; trace edema LLE Neuro: Cognitively intact, left foot drop, no asterixis or myoclonus Results Pertinent Lab Results: Laboratory Tests 06/17 06/16 06/16 0640 1500 1230 Chemistry Sodium (137 - 145 mmol/L) 136 L 133 L Potassium (3.5 - 5.1 mmol/L) 4.3 4.0 Chloride (98 - 107 mmol/L) 103 103 Carbon Dioxide (22 - 30 mmol/L) 24 20 L Anion Gap (5 - 16) 9 11 BUN (7 - 17 mg/dL) 56 H 36 H 80 H Creatinine (0.5 - 1.0 mg/dL) 8.1 *H 5.0 H 10.1 *H Estimated GFR (>60 ml/min) 5 L 9 L 4 L BUN/Creatinine Ratio (7 - 25 %) 7.2 Glucose (65 - 99 mg/dL) 98 108 H Calcium (8.4 - 10.2 mg/dL) 8.0 L 7.8 L Phosphorus (2.5 - 4.5 mg/dL) 5.7 H 7.6 H Magnesium (1.6 - 2.3 mg/dL) 2.4 H 2.6 H Total Bilirubin (0.2 - 1.3 mg/dL) 0.3 0.2 AST (14 - 36 U/L) 40 H 47 H ALT (9 - 52 U/L) 23 20 Albumin (3.5 - 5.0 g/dL) 2.5 L 2.7 L Hematology CBC w Diff NO MAN DIFF REQ WBC (4.8 - 10.8 /CUMM) 8.7 RBC (4.20 - 5.40 /CUMM) 2.90 L Hgb (12.0 - 16.0 G/DL) 8.2 L Hct (37 - 47 %) 24.4 L MCV (81.0 - 99.0 FL) 84.1 MCH (27.0 - 31.0 PG) 28.2 MCHC (33.0 - 37.0 G/DL) 33.6 RDW (11.5 - 14.5 %) 15.1 H Plt Count (130 - 400 /CUMM) 205 MPV (7.4 - 10.4 FL) 9.0 Gran % (42.2 - 75.2 %) 73.2 Lymphocytes % (20.5 - 51.1 %) 9.9 L Monocytes % (1.7 - 9.3 %) 13.0 H Eosinophils % (0 - 5 %) 3.6 Basophils % (0.0 - 2.0 %) 0.3 Absolute Granulocytes (1.4 - 6.5 /CUMM) 6.4 Absolute Lymphocytes (1.2 - 3.4 /CUMM) 0.9 L Absolute Monocytes (0.10 - 0.60 /CUMM) 1.1 H Absolute Eosinophils (0.0 - 0.7 /CUMM) 0.3 Absolute Basophils (0.0 - 0.2 /CUMM) 0 06/15 06/14 0403 1730 Chemistry Sodium (137 - 145 mmol/L) 132 L Potassium (3.5 - 5.1 mmol/L) 4.9 Chloride (98 - 107 mmol/L) 103 Carbon Dioxide (22 - 30 mmol/L) 13 L Anion Gap (5 - 16) 17 H BUN (7 - 17 mg/dL) 80 H Creatinine (0.5 - 1.0 mg/dL) 10.6 *H Estimated GFR (>60 ml/min) 4 L Glucose (65 - 99 mg/dL) 91 Calcium (8.4 - 10.2 mg/dL) 7.6 L Phosphorus (2.5 - 4.5 mg/dL) 9.1 H Magnesium (1.6 - 2.3 mg/dL) 2.5 H Total Bilirubin (0.2 - 1.3 mg/dL) 0.2 AST (14 - 36 U/L) 49 H ALT (9 - 52 U/L) 18 Albumin (3.5 - 5.0 g/dL) 2.5 L Hematology CBC w Diff NO MAN DIFF REQ WBC (4.8 - 10.8 /CUMM) 9.4 RBC (4.20 - 5.40 /CUMM) 3.10 L Hgb (12.0 - 16.0 G/DL) 8.8 L Hct (37 - 47 %) 25.8 L MCV (81.0 - 99.0 FL) 83.0 MCH (27.0 - 31.0 PG) 28.5 MCHC (33.0 - 37.0 G/DL) 34.3 RDW (11.5 - 14.5 %) 14.6 H Plt Count (130 - 400 /CUMM) 171 MPV (7.4 - 10.4 FL) 8.8 Gran % (42.2 - 75.2 %) 73.8 Lymphocytes % (20.5 - 51.1 %) 10.9 L Monocytes % (1.7 - 9.3 %) 10.6 H Eosinophils % (0 - 5 %) 3.5 Basophils % (0.0 - 2.0 %) 1.2 Absolute Granulocytes (1.4 - 6.5 /CUMM) 7.0 H Absolute Lymphocytes (1.2 - 3.4 /CUMM) 1.0 L Absolute Monocytes (0.10 - 0.60 /CUMM) 1.0 H Absolute Eosinophils (0.0 - 0.7 /CUMM) 0.3 Absolute Basophils (0.0 - 0.2 /CUMM) 0.1 Serology Hep Bs Antigen (NONREACTIVE) NONREACTIVE Hep Bs Antibody (NONREACTIVE) NONREACTIVE Hepatitis C Antibody (NONREACTIVE) NONREACTIVE
[2018-06-17 15:22] VITALS: BP 154/74
[2018-06-17 22:18] VITALS: BP 162/94
[2018-06-18 06:41] VITALS: BP 156/82
[2018-06-18 08:13] LABS: ABSOLUTE BASOPHIL COUNT 0 /CUMM (0.0-0.2); ABSOLUTE EOSINOPHIL COUNT 0.5 /CUMM (0.0-0.7); ABSOLUTE GRANULOCYTE CT 8.9 /CUMM (1.4-6.5); ABSOLUTE LYMPH COUNT 1.5 /CUMM (1.2-3.4); ABSOLUTE MONOCYTE COUNT 1.4 /CUMM (0.10-0.60); BASOPHIL % 0.1 % (0.0-2.0); EOSINOPHIL % 3.8 % (0-5); GRANULOCYTE % 72.4 % (42.2-75.2); HEMATOCRIT 24.9 % (37-47); MEAN CORPUSCULAR HGB 28.4 PG (27.0-31.0); MEAN CORPUSCULAR HGB CONC 33.7 G/DL (33.0-37.0); MEAN CORPUSCULAR VOLUME 84.3 FL (81.0-99.0); PLATELET COUNT 263 /CUMM (130-400); RBC DISTRIBUTION WIDTH 15.3 % (11.5-14.5); RED BLOOD CELL CT 2.96 /CUMM (4.20-5.40); WHITE BLOOD CELL COUNT 12.3 /CUMM (4.8-10.8)
--- NOTE | 2018-06-18 08:19 | PN- Housestaff ---
Julien HAN,[place] 06/18/18 0818: Subjective Follow-up For: ATN HD Subjective: Seen at bedside josh getting ready to start dialysis session She reports "I feel fine", denies dizzines,sob, cp/palpitation. She was able to participate in PT session in the past few days. Review of Systems Constitutional: Reports: see HPI. Objective Last 24 Hrs of Vital Signs/I&O Vital Signs Date Time Temp Pulse Resp B/P B/P Pulse O2 O2 Flow FiO2 Mean Ox Delivery Rate 06/18 641 98.3 92 18 156/82 98 Room Air 06/17 2233 89 162/94 06/17 2218 98.3 89 18 162/94 96 06/17 1522 98.7 94 20 154/74 95 Room Air Intake & Output 06/18 1600 06/18 0800 06/18 0000 Intake Total 200 300 Output Total 20 Balance 180 300 Intake, Oral 200 300 Number 0 Bowel Movements Output, Urine 20 Patient 97.239 kg Weight Physical Exam General Appearance: Alert, Oriented X3, Cooperative Other Physical Findings: Respiratory: lungs clear Cardiovascular: regular rate/rhythm Extremities: no edema Current Medications: Current Medications Sig/Kristin Start time Last Medication Dose Route Stop Time Status Admin Acetaminophen 650 MG Q4P PRN 06/14 1400 AC 06/18 PO 1845 Acetaminophen 1,000 MG Q6P PRN 06/11 0015 AC 06/18 N/A 1 UNIT IV 1422 Amlodipine Besylate 5 MG 1830 06/17 1830 AC 06/18 PO 1845 Atorvastatin Calcium 10 MG 1700 06/16 1625 AC 06/18 PO 1638 Docusate Sodium 100 MG BID PRN 06/16 0755 AC PO Epoetin Jayce 2,000 UNIT MoWeFr PRN 06/18 0745 AC IV Epoetin Jayce 3,000 UNIT MoWeFr PRN 06/18 0730 AC IV Levothyroxine Sodium 0.1 MG DAILY AC 06/14 07 AC 06/18 PO 0527 Morphine Sulfate 2 MG Q6P PRN 06/11 0015 AC 06/18 IV 1549 Multivitamins 1 TAB DAILY 06/15 1536 AC 06/18 PO 1135 Omeprazole 40 MG 1/2H B/BREAKF/DINNER 06/13 1630 AC 06/18 PO 1638 Polyethylene Glycol 17 GM DAILY PRN 06/16 0755 AC PO Senna/Docusate Sodium 2 TAB DAILY PRN 06/16 0755 AC PO Sertraline HCl 50 MG DAILY 06/17 0900 AC 06/18 PO 1135 Sevelamer Carbonate 1,600 MG WM 06/14 1700 AC 06/18 PO 1638 Simethicone 80 MG Q4P PRN 06/11 1445 AC 06/16 PO 2156 Last 24 Hrs of Lab/Simone Results Last 24 Hrs of Labs/Mics: Laboratory Tests 06/18/18 0730: Anion Gap 13, Estimated GFR 4 L, BUN/Creatinine Ratio 7.2, Calcium 7.8 L, CBC w Diff NO MAN DIFF REQ, RBC 2.86 L, MCV 84.2, MCH 28.0, MCHC 33.2, RDW 15.2 H, MPV 9.4, Gran % 73.2, Lymphocytes % 10.9 L, Monocytes % 11.8 H, Eosinophils % 3.6, Basophils % 0.5, Absolute Granulocytes 8.8 H, Absolute Lymphocytes 1.3, Absolute Monocytes 1.4 H, Absolute Eosinophils 0.4, Absolute Basophils 0.1 06/18/18 0641: Anion Gap 11, Estimated GFR 4 L, BUN/Creatinine Ratio 7.1, Calcium 8.0 L, Phosphorus 6.7 H, Magnesium 2.4 H, Iron 35 L, TIBC 278, Ferritin 147.0, CBC w Diff NO MAN DIFF REQ, RBC 2.96 L, MCV 84.3, MCH 28.4, MCHC 33.7, RDW 15.3 H, MPV 9.0, Gran % 72.4, Lymphocytes % 12.1 L, Monocytes % 11.6 H, Eosinophils % 3.8, Basophils % 0.1, Absolute Granulocytes 8.9 H, Absolute Lymphocytes 1.5, Absolute Monocytes 1.4 H, Absolute Eosinophils 0.5, Absolute Basophils 0 Assessment/Plan Assessment: 73 year old female with PMH signficant for HTN, hypothyroidism, and spinal stenosis admitted for spinal surgery (L3-S1 laminectomy with hardware removal and placement) with intraop EBL of 3500cc and hypotension, managed with peripheral phenylephrine and 3 unit pRBC transfusion, now hospital course complicated by ATN and TIFFANIE requiring hemodialysis for oliguria and volume overload. Acute blood loss anemia: CBC stable Last H/H ~8.2/24 s/p 2 units pRBCs Plan to start epogen with next hemodialysis TIFFANIE secondary to ATN from intraoperative EBL and hypotension s/p tunneled catheter placed 06/15, s/p hemodialysis 06/15, 06/16, and today Creatinine increased to ~10 at peak, worsened today without hemodialysis Patient remains oliguric, hyperphosphatemic and hypermagnesic Nephrology consulted, appreciate recomendations Renal ultrasound normal Discontinue Hurley catheter Strict I/O's Plan for hemodialysis again tomorrow Continue phosphate binders, renal dialysis diet, and nephrovitamins L3-S1 laminectomy with hardware removal and placement: Post op day 8 No evidence of surgical site infection Ambulating with PT Continue neurochecks, no new deficits Chronic left foot drop, continue AFO Continue analgesics Jasvir to remain in until at least POD 14 Follow up ortho and neurosurgical recommendations HTN: Amlodipine restarted HLD: Continue statin therapy Hypothyroidism: Continue levothyroxine Continue PO PPI and bowel regimen Renal diet DVT ppx-ALPs only Problem List: 1. Delay kidney tx func d/t ATN and other reason requiring acute dialysis Pain Ratin Pain Location: back Pain Goal: Remain pain free Pain Plan: per pathway Tomorrow's Labs & Rationales: cbc bep Vadim HAN,[facility] 06/18/18 1139: Attending MD Review Statement Attending Statement Attending MD Statement: examined this patient, discuss w/resident/PA/PARTS CONSULTANT, agreed w/resident/PA/PARTS CONSULTANT, reviewed EMR data (avail) Attending Assessment/Plan: 73F PMH spinal stenosis, hypothyroidism, and hypertension who is postop day 6 for laminectomy lasting 9 hours complicated by 3600 cc of blood loss with raven- operative hypotension complicated by ATN, with post-operative anemia now stable following transfusion of 3 units pRBC. Patient is now on peritoneal dialysis with oliguria. Patient also has persistent left foot drop. No complaints, doing well, vitals stable, labs reviewed. Making slightly more urine but still oliguric. 1. ATN secondary to hypotension 2. Post-operative acute blood loss anemia 3. Spinal stenosis 4. Type 2 myocardial infarction 5. Left foot drop Plan - Discontinue telemetry - Follow nephrology, neurosurgery, orthopedic recommendations - Monitor renal function, urine output, electrolytes - Continue current medications - Continue to work with physical therapy - DVT PPx
[2018-06-18 08:53] LABS: ABSOLUTE BASOPHIL COUNT 0.1 /CUMM (0.0-0.2); ABSOLUTE EOSINOPHIL COUNT 0.4 /CUMM (0.0-0.7); ABSOLUTE GRANULOCYTE CT 8.8 /CUMM (1.4-6.5); ABSOLUTE LYMPH COUNT 1.3 /CUMM (1.2-3.4); ABSOLUTE MONOCYTE COUNT 1.4 /CUMM (0.10-0.60); BASOPHIL % 0.5 % (0.0-2.0); EOSINOPHIL % 3.6 % (0-5); GRANULOCYTE % 73.2 % (42.2-75.2); HEMATOCRIT 24.1 % (37-47); MEAN CORPUSCULAR HGB CONC 33.2 G/DL (33.0-37.0); MEAN CORPUSCULAR VOLUME 84.2 FL (81.0-99.0); MEAN PLATELET VOLUME 9.4 FL (7.4-10.4); PLATELET COUNT 267 /CUMM (130-400); RBC DISTRIBUTION WIDTH 15.2 % (11.5-14.5); RED BLOOD CELL CT 2.86 /CUMM (4.20-5.40)
--- NOTE | 2018-06-18 09:10 | PN- Neurosurgical ---
Surgical Brief Attending Note Brief Attending Note: POD#8 has ambulated feels stronger 1-2/5 AT left still needing dialysis though did urinate yesterday could go to SNF at any time as determined by Medical team
--- NOTE | 2018-06-18 11:24 | PN- Nephrology ---
Assessment/Plan Nephrology Assessment: 1. Acute oliguric kidney injury secondary to ATN -no recovery as yet 2. Hyperphosphatemia -much improved 3. Metabolic acidosis -resolved 4. Status post lumbar surgery 06/10/18 with significant intraoperative blood loss and resultant anemia Suggestion: 1. Hemodialysis today in progress with 1-2 L ultrafiltration over 3 hours as tolerated 2. Epogen with dialysis -started 3. On phosphate binder 4. Continue to monitor intake and output, chemistries 5. Next dialysis will be from Thursday 06/21 for 3.5 hours Subjective Subjective: Patient seen with hemodialysis and feeling reasonably well with no specific complaints other than wanting to go home. Appetite has improved. No nausea or vomiting and no shortness of breath or chest pain. Unfortunately, she remains oliguric with serum creatinine of 9.7. Electrolytes okay. Hemoglobin low but relatively stable. Epogen started today. Objective Vital Signs and I&Os Vital Signs Date Time Temp Pulse Resp B/P B/P Pulse O2 O2 Flow FiO2 Mean Ox Delivery Rate 06/18 641 98.3 92 18 156/82 98 Room Air 06/17 2233 89 162/94 06/17 2218 98.3 89 18 162/94 96 06/17 1522 98.7 94 20 154/74 95 Room Air Intake & Output 06/18 1600 06/18 0400 06/17 1600 06/17 0400 06/16 1600 06/16 0400 Intake Total 200 300 650 50 500 250 Output Total 20 75 2000 50 Balance 180 300 575 50 -1500 200 Intake, IV 20 0 10 Intake, Oral 200 300 630 50 500 240 Number 0 1 Bowel Movements Output, 2000 Dialysate Output, Urine 20 75 0 50 Patient 214 lb 212 lb Weight Weight Bed scale Measurement Method Physical Exam: General: Well-developed, well-nourished white female in NAD Skin: No rash or jaundice HEENT: Conjunctivae pale, sclerae anicteric, mucous membranes moist Neck: Without masses or thyromegaly, no supraclavicular or cervical adenopathy Chest: Clear to P&A Heart: Regular rate and rhythm without S3 or rub Abdomen: Soft and nontender without palpable masses or organomegaly Extremities: Without cyanosis; trace edema LLE Neuro: Cognitively intact, left foot drop, no asterixis or myoclonus Results Pertinent Lab Results: Laboratory Tests 06/18 06/18 0730 0641 Chemistry Sodium (137 - 145 mmol/L) 135 L 136 L Potassium (3.5 - 5.1 mmol/L) 4.4 4.7 Chloride (98 - 107 mmol/L) 102 102 Carbon Dioxide (22 - 30 mmol/L) 21 L 23 Anion Gap (5 - 16) 13 11 BUN (7 - 17 mg/dL) 70 H 70 H Creatinine (0.5 - 1.0 mg/dL) 9.7 *H 9.9 *H Estimated GFR (>60 ml/min) 4 L 4 L BUN/Creatinine Ratio (7 - 25 %) 7.2 7.1 Calcium (8.4 - 10.2 mg/dL) 7.8 L 8.0 L Phosphorus (2.5 - 4.5 mg/dL) 6.7 H Magnesium (1.6 - 2.3 mg/dL) 2.4 H Iron (37 - 170 ug/dL) 35 L TIBC (265 - 497 ug/dL) 278 Ferritin (11.1 - 264 ng/mL) 147.0 Hematology CBC w Diff NO MAN DIFF REQ NO MAN DIFF REQ WBC (4.8 - 10.8 /CUMM) 12.0 H 12.3 H RBC (4.20 - 5.40 /CUMM) 2.86 L 2.96 L Hgb (12.0 - 16.0 G/DL) 8.0 L 8.4 L Hct (37 - 47 %) 24.1 L 24.9 L MCV (81.0 - 99.0 FL) 84.2 84.3 MCH (27.0 - 31.0 PG) 28.0 28.4 MCHC (33.0 - 37.0 G/DL) 33.2 33.7 RDW (11.5 - 14.5 %) 15.2 H 15.3 H Plt Count (130 - 400 /CUMM) 267 263 MPV (7.4 - 10.4 FL) 9.4 9.0 Gran % (42.2 - 75.2 %) 73.2 72.4 Lymphocytes % (20.5 - 51.1 %) 10.9 L 12.1 L Monocytes % (1.7 - 9.3 %) 11.8 H 11.6 H Eosinophils % (0 - 5 %) 3.6 3.8 Basophils % (0.0 - 2.0 %) 0.5 0.1 Absolute Granulocytes (1.4 - 6.5 /CUMM) 8.8 H 8.9 H Absolute Lymphocytes (1.2 - 3.4 /CUMM) 1.3 1.5 Absolute Monocytes (0.10 - 0.60 /CUMM) 1.4 H 1.4 H Absolute Eosinophils (0.0 - 0.7 /CUMM) 0.4 0.5 Absolute Basophils (0.0 - 0.2 /CUMM) 0.1 0 06/17 06/16 06/16 0640 1500 1230 Chemistry Sodium (137 - 145 mmol/L) 136 L 133 L Potassium (3.5 - 5.1 mmol/L) 4.3 4.0 Chloride (98 - 107 mmol/L) 103 103 Carbon Dioxide (22 - 30 mmol/L) 24 20 L Anion Gap (5 - 16) 9 11 BUN (7 - 17 mg/dL) 56 H 36 H 80 H Creatinine (0.5 - 1.0 mg/dL) 8.1 *H 5.0 H 10.1 *H Estimated GFR (>60 ml/min) 5 L 9 L 4 L BUN/Creatinine Ratio (7 - 25 %) 7.2 Glucose (65 - 99 mg/dL) 98 108 H Calcium (8.4 - 10.2 mg/dL) 8.0 L 7.8 L Phosphorus (2.5 - 4.5 mg/dL) 5.7 H 7.6 H Magnesium (1.6 - 2.3 mg/dL) 2.4 H 2.6 H Total Bilirubin (0.2 - 1.3 mg/dL) 0.3 0.2 AST (14 - 36 U/L) 40 H 47 H ALT (9 - 52 U/L) 23 20 Albumin (3.5 - 5.0 g/dL) 2.5 L 2.7 L Hematology CBC w Diff NO MAN DIFF REQ WBC (4.8 - 10.8 /CUMM) 8.7 RBC (4.20 - 5.40 /CUMM) 2.90 L Hgb (12.0 - 16.0 G/DL) 8.2 L Hct (37 - 47 %) 24.4 L MCV (81.0 - 99.0 FL) 84.1 MCH (27.0 - 31.0 PG) 28.2 MCHC (33.0 - 37.0 G/DL) 33.6 RDW (11.5 - 14.5 %) 15.1 H Plt Count (130 - 400 /CUMM) 205 MPV (7.4 - 10.4 FL) 9.0 Gran % (42.2 - 75.2 %) 73.2 Lymphocytes % (20.5 - 51.1 %) 9.9 L Monocytes % (1.7 - 9.3 %) 13.0 H Eosinophils % (0 - 5 %) 3.6 Basophils % (0.0 - 2.0 %) 0.3 Absolute Granulocytes (1.4 - 6.5 /CUMM) 6.4 Absolute Lymphocytes (1.2 - 3.4 /CUMM) 0.9 L Absolute Monocytes (0.10 - 0.60 /CUMM) 1.1 H Absolute Eosinophils (0.0 - 0.7 /CUMM) 0.3 Absolute Basophils (0.0 - 0.2 /CUMM) 0
--- NOTE | 2018-06-18 14:19 | Discharge Summary ---
Visit Information Visit Dates Admission Date: 06/10/18 Hospital Course Course Attending Physician: Caron Fierro MD Primary Care Physician: Tristin Peck MD Hospital Course: 73 year old woman with past medical history of spinal stenosis, hypothyroidism, and hypertension admitted to [facility] for L3-S1 hardware removal, revision laminectomy. Her surgery was complicated by 3600 cc of blood loss and was transfused with 2 units PRBC, hypotension to 80 systolic requiring pressors intraoperatively. She was extubated successfully postoperatively and her oxygen was subsequently tapered. She was admitted to the ICU postoperatively. She remained hemodynamically stable however she had minimal to no urine output. Renal ultrasound was normal. Nephrology was consulted as her kidney function continue to worsen likely secondary to ATN in the setting of hypotension. As kidney function was not improving Roby-cath was placed on placed 06/15 and patient was started on dialysis with Epogen. Her H&H remained stable after her transfusions. Patient was noted to have a postoperative type II MS in the setting of ATN and blood loss. Troponins were trended down and there were no EKG changes. Neurologically she had left persistent foot drop on the left is working with physical therapy. Follow-up surgery recommendations is to continue with short- term rehab, and removal of cliff after postop day 14 DVT prophylaxis with Alps Heart healthy diet Full code Complications: ATN Allergies: Coded Allergies: No Known Allergies (06/04/18) Discharge Instructions Medications at Discharge Discharge Medications: Continue taking these medications: Sertraline HCl (Sertraline HCl) 50 MG TABLET 1 Tablet ORAL DAILY Levothyroxine Sodium (Levothyroxine Sodium) 100 MCG TABLET 1 Tablet ORAL DAILY Omeprazole (Omeprazole) 40 MG CAPSULE.DR 1 Capsule ORAL DAILY Atorvastatin Calcium (Atorvastatin Calcium) 10 MG TABLET 1 Tablet ORAL DAILY Amlodipine Besylate (Amlodipine Besylate) 5 MG TABLET 1 Tablet ORAL DAILY Start taking the following new medications: Sevelamer Carbonate (Renvela) 800 MG TABLET 800 Milligram ORAL WITH MEALS Qty = 30 No Refills Oxycodone HCl/Acetaminophen (Percocet 5-325 MG Tablet) 5 MG-325 MG TABLET 1 Tablet ORAL EVERY SIX HOURS NEEDED as needed for PAIN SCALE 7-10 ( SEVERE) Qty = 10 No Refills Nephro-Vitamins (Nephro-Mainor Tablet) 0.8 MG TABLET 1 Tablet ORAL DAILY Qty = 30 No Refills
[2018-06-18 14:59] VITALS: BP 150/74
[2018-06-18 22:26] VITALS: BP 140/60
[2018-06-19 06:20] VITALS: BP 148/74
--- NOTE | 2018-06-19 08:31 | PN- Housestaff ---
See Addendum Subjective Follow-up For: ATN Subjective: seen and examined at bedside. Reports no fever/chills, sob/ cp/palpitation Leukocytosis notedthat has persisted in 3 days No acute o/n event reported by nursing staff. Review of Systems Constitutional: Reports: see HPI. Objective Last 24 Hrs of Vital Signs/I&O Vital Signs Date Time Temp Pulse Resp B/P B/P Pulse O2 O2 Flow FiO2 Mean Ox Delivery Rate 06/19 800 Room Air 06/19 0620 98.4 95 18 148/74 94 Room Air 06/18 2226 98.5 99 18 140/60 95 06/18 1845 90 170/98 06/18 1459 98.3 96 18 150/74 97 Room Air Intake & Output 06/19 1600 06/19 0806/19 0000 Intake Total 300 50 Output Total 50 Balance 250 50 Intake, Oral 300 50 Output, Urine 50 Patient 97.182 kg Weight Weight Bed scale Measurement Method Physical Exam General Appearance: Alert, Oriented X3, Cooperative Other Physical Findings: Respiratory: lungs clear Cardiovascular: regular rate/rhythm Extremities: no edema Current Medications: Current Medications Sig/Kristin Start time Last Medication Dose Route Stop Time Status Admin Acetaminophen 650 MG Q4P PRN 06/14 1400 AC 06/19 PO 1049 Acetaminophen 1,000 MG Q6P PRN 06/11 0015 AC 06/18 N/A 1 UNIT IV 1422 Amlodipine Besylate 5 MG 1830 06/17 1830 AC 06/18 PO 1845 Atorvastatin Calcium 10 MG 1700 06/16 1625 AC 06/18 PO 1638 Docusate Sodium 100 MG BID PRN 06/16 0755 AC PO Epoetin Jayce 2,000 UNIT MoWeFr PRN 06/18 0745 AC IV Epoetin Jayce 3,000 UNIT MoWeFr PRN 06/18 0730 AC IV Levothyroxine Sodium 0.1 MG DAILY AC 06/14 0700 AC 06/19 PO 0515 Morphine Sulfate 2 MG Q6P PRN 06/11 0015 AC 06/19 IV 0518 Multivitamins 1 TAB DAILY 06/15 1536 AC 06/19 PO 0829 Omeprazole 40 MG 1/2H B/BREAKF/DINNER 06/13 1630 AC 06/19 PO 0515 Polyethylene Glycol 17 GM DAILY PRN 06/16 0755 AC PO Senna/Docusate Sodium 2 TAB DAILY PRN 06/16 0755 AC PO Sertraline HCl 50 MG DAILY 06/17 0900 AC 06/19 PO 08 Sevelamer Carbonate 1,600 MG WM 06/14 1700 AC 06/19 PO 0828 Simethicone 80 MG Q4P PRN 06/11 1445 AC 06/16 PO 2156 Last 24 Hrs of Lab/Simone Results Last 24 Hrs of Labs/Mics: Laboratory Tests 06/19/18 1005: Anion Gap 12, Estimated GFR 5 L, BUN/Creatinine Ratio 5.9 L, CBC w Diff NO MAN DIFF REQ, RBC 2.95 L, MCV 85.3, MCH 28.0, MCHC 32.8 L, RDW 15.1 H, MPV 8.9, Gran % 71.3, Lymphocytes % 13.5 L, Monocytes % 11.1 H, Eosinophils % 3.9, Basophils % 0.2, Absolute Granulocytes 9.2 H, Absolute Lymphocytes 1.7, Absolute Monocytes 1.4 H, Absolute Eosinophils 0.5, Absolute Basophils 0 Assessment/Plan Assessment: 73 year old female with PMH signficant for HTN, hypothyroidism, and spinal stenosis admitted for spinal surgery (L3-S1 laminectomy with hardware removal and placement) with intraop EBL of 3500cc and hypotension, managed with peripheral phenylephrine and 3 unit pRBC transfusion, now hospital course complicated by ATN and TIFFANIE requiring hemodialysis for oliguria and volume overload. Acute blood loss anemia: CBC stable Last H/H ~8.3/25.1 s/p 2 units pRBCs Now on epogen TIFFANIE secondary to ATN from intraoperative EBL and hypotension s/p tunneled catheter placed 06/15, s/p hemodialysis 06/15, 06/16, and 06/19 Creatinine increased to ~10 at peak, now improving with todays level 8.1 Patient remains oliguric, hyperphosphatemic and hypermagnesic Nephrology consulted, appreciate recomendations Renal ultrasound normal * Continue Strict I/O's Plan for hemodialysis again on [place] Continue phosphate binders, renal dialysis diet, and nephrovitamins L3-S1 laminectomy with hardware removal and placement: Post op day 9 No evidence of surgical site infection Ambulating with PT Continue neurochecks, no new deficits Chronic left foot drop, continue AFO Continue analgesics Jasvir to remain in until at least POD 14 Follow up ortho and neurosurgical recommendations HTN: Amlodipine restarted HLD: Continue statin therapy Hypothyroidism: Continue levothyroxine Continue PO PPI and bowel regimen Renal diet DVT ppx-ALPs only Problem List: 1. ATN (acute tubular necrosis) 2. Acute blood loss anemia Pain Ratin Pain Location: back Pain Goal: Remain pain free Pain Plan: per pathway Tomorrow's Labs & Rationales: cbc bep
[2018-06-19 11:10] LABS: ABSOLUTE BASOPHIL COUNT 0 /CUMM (0.0-0.2); ABSOLUTE EOSINOPHIL COUNT 0.5 /CUMM (0.0-0.7); ABSOLUTE GRANULOCYTE CT 9.2 /CUMM (1.4-6.5); ABSOLUTE LYMPH COUNT 1.7 /CUMM (1.2-3.4); ABSOLUTE MONOCYTE COUNT 1.4 /CUMM (0.10-0.60); BASOPHIL % 0.2 % (0.0-2.0); EOSINOPHIL % 3.9 % (0-5); GRANULOCYTE % 71.3 % (42.2-75.2); HEMATOCRIT 25.1 % (37-47); MEAN CORPUSCULAR HGB CONC 32.8 G/DL (33.0-37.0); MEAN CORPUSCULAR VOLUME 85.3 FL (81.0-99.0); MEAN PLATELET VOLUME 8.9 FL (7.4-10.4); PLATELET COUNT 318 /CUMM (130-400); RBC DISTRIBUTION WIDTH 15.1 % (11.5-14.5); RED BLOOD CELL CT 2.95 /CUMM (4.20-5.40); WHITE BLOOD CELL COUNT 12.9 /CUMM (4.8-10.8)
[2018-06-19 15:17] VITALS: BP 140/60
[2018-06-19 22:15] VITALS: BP 148/70
[2018-06-20 06:20] VITALS: BP 144/80
--- NOTE | 2018-06-20 08:40 | PN- Housestaff ---
Subjective Follow-up For: ATN Subjective: Seen and examined. Patient is resting comfortably. Does not report any complaints. Other than mild pain. States that pain is well controlled with morphine and Tylenol. Denies any fever chills nausea vomiting Review of Systems Constitutional: Reports: see HPI. Objective Last 24 Hrs of Vital Signs/I&O Vital Signs Date Time Temp Pulse Resp B/P B/P Pulse O2 O2 Flow FiO2 Mean Ox Delivery Rate 06/20 1217 98.4 06/20 08 Room Air 06/20 0620 98.5 93 18 144/80 94 Room Air 06/19 2215 98.3 99 19 148/70 95 Room Air 06/19 1820 100 140/60 06/19 1517 98.4 100 20 140/60 98 Intake & Output 06/20 1600 06/20 0806/20 0000 Intake Total 300 100 Output Total 100 Balance 200 100 Intake, Oral 300 100 Output, Urine 100 Patient 215 lb Weight Weight Bed scale Measurement Method Physical Exam General Appearance: Alert, Oriented X3 HEENT: Atraumatic Cardiovascular: Normal S1, Normal S2 Lungs: Clear to Auscultation Abdomen: Normal Bowel Sounds, Soft Current Medications: Current Medications Sig/Kristin Start time Last Medication Dose Route Stop Time Status Admin Acetaminophen 650 MG Q4P PRN 06/14 1400 AC 06/20 PO 1020 Acetaminophen 1,000 MG Q6P PRN 06/11 0015 AC 06/18 N/A 1 UNIT IV 1422 Amlodipine Besylate 5 MG 1830 06/17 1830 AC 06/19 PO 1820 Atorvastatin Calcium 10 MG 1700 06/16 1625 AC 06/19 PO 1628 Docusate Sodium 100 MG BID PRN 06/16 0755 PO Epoetin Jayce 2,000 UNIT MoWeFr PRN 06/18 0745 AC IV Epoetin Jayce 3,000 UNIT MoWeFr PRN 06/18 0730 AC IV Levothyroxine Sodium 0.1 MG DAILY AC 06/14 0700 AC 06/20 PO 0525 Morphine Sulfate 2 MG Q6P PRN 06/11 0015 AC 06/19 IV 1953 Multivitamins 1 TAB DAILY 06/15 1536 AC 06/20 PO 0817 Omeprazole 40 MG 1/2H B/BREAKF/DINNER 06/13 1630 AC 06/20 PO 0525 Polyethylene Glycol 17 GM DAILY PRN 06/16 0755 AC PO Senna/Docusate Sodium 2 TAB DAILY PRN 06/16 0755 AC PO Sertraline HCl 50 MG DAILY 06/17 0900 AC 06/20 PO 0817 Sevelamer Carbonate 1,600 MG WM 06/14 1700 AC 06/20 PO 1147 Simethicone 80 MG Q4P PRN 06/11 1445 AC 06/16 PO 2156 Last 24 Hrs of Lab/Simone Results Last 24 Hrs of Labs/Mics: Laboratory Tests 06/20/18 0830: Anion Gap 12, Estimated GFR 4 L, BUN/Creatinine Ratio 5.5 L, CBC w Diff NO MAN DIFF REQ, RBC 2.82 L, MCV 85.1, MCH 28.6, MCHC 33.6, RDW 15.5 H, MPV 8.7, Gran % 71.4, Lymphocytes % 15.5 L, Monocytes % 9.0, Eosinophils % 3.8, Basophils % 0.3, Absolute Granulocytes 8.7 H, Absolute Lymphocytes 1.9, Absolute Monocytes 1.1 H, Absolute Eosinophils 0.5, Absolute Basophils 0 Assessment/Plan Assessment: 73 year old female with PMH signficant for HTN, hypothyroidism, and spinal stenosis admitted for spinal surgery (L3-S1 laminectomy with hardware removal and placement) with intraop EBL of 3500cc and hypotension, managed with peripheral phenylephrine and 3 unit pRBC transfusion, now hospital course complicated by ATN and TIFFANIE requiring hemodialysis for oliguria and volume overload. #Acute blood loss anemia: -CBC stable -s/p 2 units pRBCs -Now on epogen #TIFFANIE secondary to ATN from intraoperative EBL and hypotension s/p tunneled catheter placed 06/15, s/p hemodialysis 06/15, 06/16, and 06/19 -Cr 9.8 -Continue Strict I/O's -Nephrology consulted, appreciate recomendations -Renal ultrasound normal -Plan for hemodialysis again on [place] -Continue phosphate binders, renal dialysis diet, and nephrovitamins #L3-S1 laminectomy with hardware removal and placement: -No evidence of surgical site infection -Ambulating with PT -Continue neurochecks, no new deficits -Chronic left foot drop, continue AFO -Continue analgesics -[place] to remain in until at least POD 14 -Follow up ortho and neurosurgical recommendations #Leukocytosis -Afebrile, No obvious source of infection -Monitor off antibiotic #HTN, HLD,Hypothyroidism Amlodipine, statin, levothyroxine Continue PO PPI and bowel regimen Renal diet DVT ppx-ALPs only Problem List: 1. Hypermagnesemia 2. Hyperphosphatemia 3. H/O laminectomy Pain Ratin Pain Location: back Pain Goal: Pain 4 or less Pain Plan: prn Tomorrow's Labs & Rationales: cbc bep
[2018-06-20 09:32] LABS: ABSOLUTE BASOPHIL COUNT 0 /CUMM (0.0-0.2); ABSOLUTE EOSINOPHIL COUNT 0.5 /CUMM (0.0-0.7); ABSOLUTE GRANULOCYTE CT 8.7 /CUMM (1.4-6.5); ABSOLUTE LYMPH COUNT 1.9 /CUMM (1.2-3.4); ABSOLUTE MONOCYTE COUNT 1.1 /CUMM (0.10-0.60); BASOPHIL % 0.3 % (0.0-2.0); EOSINOPHIL % 3.8 % (0-5); GRANULOCYTE % 71.4 % (42.2-75.2); MEAN CORPUSCULAR HGB 28.6 PG (27.0-31.0); MEAN CORPUSCULAR HGB CONC 33.6 G/DL (33.0-37.0); MEAN CORPUSCULAR VOLUME 85.1 FL (81.0-99.0); MEAN PLATELET VOLUME 8.7 FL (7.4-10.4); PLATELET COUNT 313 /CUMM (130-400); RBC DISTRIBUTION WIDTH 15.5 % (11.5-14.5); RED BLOOD CELL CT 2.82 /CUMM (4.20-5.40); WHITE BLOOD CELL COUNT 12.2 /CUMM (4.8-10.8)
--- NOTE | 2018-06-20 10:07 | PN- Att Addend ---
Attending Addendum Attending Brief Note Patient seen and examined, feels okay. She was combining of some pain last night therefore needed morphine and Tylenol. Vital Signs Date Time Temp Pulse Resp B/P B/P Pulse O2 O2 Flow FiO2 Mean Ox Delivery Rate 06/20 0800 Room Air 06/20 0620 98.5 93 18 144/80 94 Room Air 06/19 2215 98.3 99 19 148/70 95 Room Air 06/19 1820 100 140/60 06/19 1517 98.4 100 20 140/60 98 On exam; aox3, nad. cv; s1,s2, rrr resp; clear abd; soft, nt, bs+ ext; 2+ edema Laboratory Tests 06/20 830 Chemistry Sodium (137 - 145 mmol/L) 135 L Potassium (3.5 - 5.1 mmol/L) 4.8 Chloride (98 - 107 mmol/L) 100 Carbon Dioxide (22 - 30 mmol/L) 23 Anion Gap (5 - 16) 12 BUN (7 - 17 mg/dL) 54 H Creatinine (0.5 - 1.0 mg/dL) 9.8 *H Estimated GFR (>60 ml/min) 4 L BUN/Creatinine Ratio (7 - 25 %) 5.5 L Hematology CBC w Diff NO MAN DIFF REQ WBC (4.8 - 10.8 /CUMM) 12.2 H RBC (4.20 - 5.40 /CUMM) 2.82 L Hgb (12.0 - 16.0 G/DL) 8.1 L Hct (37 - 47 %) 24.0 L MCV (81.0 - 99.0 FL) 85.1 MCH (27.0 - 31.0 PG) 28.6 MCHC (33.0 - 37.0 G/DL) 33.6 RDW (11.5 - 14.5 %) 15.5 H Plt Count (130 - 400 /CUMM) 313 MPV (7.4 - 10.4 FL) 8.7 Gran % (42.2 - 75.2 %) 71.4 Lymphocytes % (20.5 - 51.1 %) 15.5 L Monocytes % (1.7 - 9.3 %) 9.0 Eosinophils % (0 - 5 %) 3.8 Basophils % (0.0 - 2.0 %) 0.3 Absolute Granulocytes (1.4 - 6.5 /CUMM) 8.7 H Absolute Lymphocytes (1.2 - 3.4 /CUMM) 1.9 Absolute Monocytes (0.10 - 0.60 /CUMM) 1.1 H Absolute Eosinophils (0.0 - 0.7 /CUMM) 0.5 Absolute Basophils (0.0 - 0.2 /CUMM) 0 A/P; 73 year old female with PMH signficant for HTN, hypothyroidism, and spinal stenosis admitted for spinal surgery (L3-S1 laminectomy with hardware removal and placement) with intraop EBL of 3500cc and hypotension, managed with peripheral phenylephrine and 3 unit pRBC transfusion, now hospital course complicated by ATN and TIFFANIE requiring hemodialysis for oliguria and volume overload. Next hemodialysis is planned for June 21, 2018 per nephrology. Leukocytosis remains in the 12 range. Patient remains afebrile. H&H remained stable. Patient has been washed off of antibiotics. Continue the current medications. It has not been decided if patient will require long-term dialysis or not. Once that is decided in discharge planning will be done. Patient is on mechanical DVT prophylaxis.
[2018-06-20 13:59] VITALS: BP 140/80
--- NOTE | 2018-06-20 21:18 | PN- Orthopedic ---
Surgical Brief Attending Note Brief Attending Note: 06/17/2018 - POD #7 Patient seen by Mohan Cabrera 06/17/2018 @ ~06:00 PM: Agree with medical team and PA evaluation and assessment. Primary and consultation management per general and specialty medical services greatly appreciated. Kalpana Thornton is a 73 year old white female now POD #7 S/P L3-S1 revision spinal surgery which included removal of hardware, takedown of pseudoarthrosis, neural decompression and revision multicolumn instrumented fusion (06/10/2018, Mohan/Tiara). See 06/11/2018 note, op note and preoperative documentation for additional surgical and perioperative details. Creatinine is now stable and has decreased sightly to under 10 but is still quite high. Urine output remains very low. Dialysis continues to be reasonably well tolerated. Patient is less fatigued and less swollen with each passing day. No other patient or nursing reported or observed clincal distress, instability, problem or concern overnight. Less tired and more converssational today. Less fatigued today than yesterday and less swollen in lower extremities making it easier for her to bend and move both proximally and distally. In fact, she appears to now be back to the lower extremity functional leve that she demonstrated early follwoing surgery before the swelling became a significant factor. She has made good progress with PT since yesterday. She is ambulating with a walker and moderate one person assistance. Her foot drop has not significantly impaired her progress but she is now at the stage where an AFO may improve her ambulation and, if she does not start generating at least some antigravity AT function over the next few days, we will order an AFO. Pain is reasonably well controlled on only low intermittent dose Tylenol. Back pain reported is mild at rest to moderate but still well tolerated with motion and continues to improve steadily despite significantly increased activity. The brace helps but has not been essential to control pain or accelerate functional improvement. Use is still encouraged unless it is increasing discomfort. Patient reports that her mild left foot numbness is improved and her subjective weakness (both objectively confirmed distal left and more fatigue weakness than true neurological deficit in bilateral proximal and right distal muscles) is also back to her original postoperative level and improving from there. This consistent with her decrease in swelling. Taking PO well. Tolerating meds. No N/V. More comfortable sitting for prolonged period today and has done well getting up to BR and even ambulating to a limited degree in the hallway. Will see how she progresses after dialysis addresses her acute renal changes. Plan is to ambulate and mobilize more in hallway over the next several days. AVSS. Less fatigued and more consistently awake today. Breathing unlabored. No objective manifestations of pain. No distress. Standard examination was well tolerated including comprehensive bilateral lower extremity manual motor testing without significant increase in pain or need for breakthrough medication. Left AT and EHL are back to where they were early postop (2/5 and 3+-4/5 respectively) and this appears to be directly related to decrease in lower extremity swelling. Otherwise motor strength 5/5 to detailed evaluation of IP/H /Q/AT/EHL/GS. Negative SLR. No abnormal or hyperreflexic responses. She reports less proximal subjectve weakness although she has difficulty raising legs in the seated position because she still reports the legs are "heavy" possibly still related to some residual swelling. She no longer requires encouragement to demonstrate full strength on exam. Dressing CD+I. Stable and more steadily improving now on POD #7 S/P L3-S1 removal of hardware, takedown of pseudoarthrosis, decompression and revision multicolumn instrumented fusion. Responding to dialysis although still evidence of significant ARF by urine output and lab criteria. Condition and treatment better tolerated over the last few days. Continue primary ICU team as well as general and consultation Medicine service management. Agree with plans for continued dialysis. Orthopaedic spine surgical perioperative plans unchanged except for alterations in speed of progression through the normal protocols given patient's acute medical conditions. Fluid and diet restricted per medicine recommendations. No change in plans. See 06/15/2018 note and other referenced sourced for last detailed description. Will defer to general and specialty Medicine teams re: medical management, medications and dialysis. Would be pleased to discuss these regarding perioperative orthopaedic spine considerations at any time if it would be helpful. Continue to mobilize per protocol. Likely ready to transfer to telemetry or surgical floor soon. Will defer transfer recommendations to ICU and Medicine teams. D/C planning for transfer to inpatient rehabilitation program to begin once patient stabilized and approaching criteria for transfer to floor.
--- NOTE | 2018-06-20 21:22 | PN- Orthopedic ---
Surgical Brief Attending Note Brief Attending Note: 06/18/2018 - POD #8 Patient seen by Mohan Cabrera 06/18/2018 @ ~05:30 PM: Agree with medical team and PA evaluation and assessment. Primary and consultation management per general and specialty medical services greatly appreciated. Patient now trasnferred out of ICU and on to telemetry floor without any critical care or significant acute care issues other than ARF and recent cardiac concerns which are optimally treated but warrant close monitoring. Kalpana Thornton is a 73 year old white female now POD #8 S/P L3-S1 revision spinal surgery which included removal of hardware, takedown of pseudoarthrosis, neural decompression and revision multicolumn instrumented fusion (06/10/2018, Mohan/Tiara). See 06/11/2018 note, op note and preoperative documentation for additional surgical and perioperative details. Creatinine is now stable but is still sightly under 10 without further decrease. Urine output remains very low. Dialysis continues to be reasonably well tolerated. Patient is continues to be less fatigued and less swollen since beginning of dialysis treatment. No other patient or nursing reported or observed clincal distress, instability, problem or concern overnight. Less tired and more converssational today. She has returned to her early postoperative motor and functional level and is now beginnign to progress upward from there. She has made good progress with PT including some short distance ambulation with a walker and moderate one person assistance. Her foot drop has not significantly impaired her progress but still may best be managed with early AFO if she does not start generating at least some antigravity AT function over the next few days. Pain is reasonably well controlled on only low intermittent dose Tylenol. Back pain is unchanged and is generally decreased by brace use. No leg radiation. Patient reports that her numbness is minimal, her motor fatigue is decreasing and mobilization tolerance is increasing. She is compliant with in-bed and on- chair exercises and is better able to tolerate these throughout the day with less fatigue as her swelling has decreased. Taking PO well. Tolerating meds. No N/V. Now making more rapid progress with PT and "catching up" with standard postoperative program and recovery consistent with age, overall health status, severity of preoperative conditiona and extent of surgery. Plan is to ambulate and mobilize more in hallway over the next several days particularly now that she is on the telemetry floor. Moderate anemia stable at HCT of 24. WBC elevated to 12 without clear etiology. Mild lymphocytosis, monocytosis and granulocytosis nonspecific and not, in and of themselves, concerning. AVSS. Sitting in chair. Awake, alert and quite conversational today without any fatigue or somnolence. Breathing unlabored. No objective manifestations of pain. No distress. Standard examination was well tolerated including comprehensive bilateral lower extremity manual motor testing without significant increase in pain. Left AT and EHL stable at 2/5 and 3+-4/5 respectively. Otherwise motor strength 5/5 to detailed evaluation of IP/H/Q/AT/EHL/GS. Negative SLR. No abnormal or hyperreflexic responses. She still has difficulty raising legs in the seated position but this is improving with consistent exercise and is more likely related to both pre and postoperative deconditioning than neurological deficit. She no longer requires encouragement to demonstrate full strength on exam. Dressing CD+I. Stable and more steadily improving now on POD #8 S/P L3-S1 removal of hardware, takedown of pseudoarthrosis, decompression and revision multicolumn instrumented fusion. Responding to dialysis although still evidence of significant ARF by urine output and lab criteria. Condition and treatment better tolerated over the last few days. Continue primary general and consultation Medicine service management as her reason for continued hospitalization is primarily medical. Agree with plans for continued dialysis. Orthopaedic spine surgical perioperative plans remain unchanged and can begin to accelerate back to the normal protocol level of rehabilitation for patient's at this stage following extensive fusion at her age. Patient remians fluid and diet restricted per medicine ARF and early dialysis protocols. No change in plans. See 06/15/2018 note and other referenced sources for last detailed description. Will defer to general and specialty Medicine teams re: medical management, assessment of elevated WBCC, medications and dialysis. In the abscence of fever or either systemic or surgical site symptoms or signs of infection would tend to follow closely and manage expectantly but continued need for dialysis may alter cormal considerations for evaluation and management. Would be pleased to discuss these regarding perioperative orthopaedic spine considerations at any time if it would be helpful. Continue to mobilize per protocol. D/C planning for transfer to inpatient rehabilitation program to begin today but patient will not likely be cleared for discharge by medicine until after Thursday dialysis. D/C [facility] on POD #14 which will likely be at rehab.
--- NOTE | 2018-06-20 21:24 | PN- Orthopedic ---
Surgical Brief Attending Note Brief Attending Note: 06/19/2018 - POD #9 Patient seen by Mohan Cabrera 06/19/2018 @ ~04:00 PM: Agree with medical team and PA evaluation and assessment. Primary and consultation management per general and specialty medical services greatly appreciated. Patient on telemetry per medicine recommendations. Kalpana Thornton is a 73 year old white female now POD #9 S/P L3-S1 revision spinal surgery which included removal of hardware, takedown of pseudoarthrosis, neural decompression and revision multicolumn instrumented fusion (06/10/2018, Mohan/Tiara). See 06/11/2018 note, op note and preoperative documentation for additional surgical and perioperative details. Creatinine is now stable but is still sightly under 10 without further decrease. Urine output remains low. Dialysis continues to be reasonably well tolerated. No other patient or nursing reported or observed clincal distress, instability, problem or concern overnight. No symptoms or signs to suggest infection or other cause for elevated WBCC. Energy level continues to improve. She has now rebounded and is beginning to progress beyond her early postoperative motor and functional level. She continues to make daily progress with PT and mobilization with nursing and slightly on her own (within protocols). Her foot drop has not significantly impaired her progress and she may be starting to generate slight antigravity AT function. If she continues to progress then we may hold off on AFO. Otherwise we will order it on Thursday. Pain is reasonably well controlled on only low intermittent dose Tylenol. Back pain is mild, decreasing and is generally controlled with brace use particularly when OOB and with ambulation. No leg radiation. Numbness is reportedly minimal in the left foot. Motor fatigue is decreasing even as her activity and self-directed endurance mode in-bed and on-chair exercise complaice is improving. Taking PO well. Tolerating meds. No N/V. Continues to make more rapid progress with PT and approaching standard postoperative recovery levels for her age and preoperative circumstances overcoming the slow progression imposed by some of her acute postoperative changes early in her course. Plan is to get her ready and ultimately optimize her for rehab transfer over the next several days until medicine clears her for D/C. Moderate anemia remains stable at HCT of 24. WBC still elevated to 12 without clear etiology. Mild lymphocytosis, monocytosis and granulocytosis nonspecific. Last U/A was 06/12 and may be worth repeating is elevated WBC persist even without clinical correlate. AVSS. Has been consistently afebrile throughout postoperative course. Sitting in chair. Awake, alert and quite conversational today without any fatigue or somnolence. Breathing unlabored. No objective manifestations of pain. No distress. Standard examination was well tolerated including comprehensive bilateral lower extremity manual motor testing without significant fatigue or increase in pain. Left AT and EHL are slightly improved today whic h is obviously encouraging. They are 3-/5 and 4/5 respectively. She still fatigues rapidly in these muscle groups and can only generate power in a short arc range and not through full range (e.g. active maintenance of passive positioning throughout arc even to 90 degrees at ankle). Her active power can only be generated through a few degrees from resting plantar flexed position but this may still be enough to improve ambulation and perhaps soon obviate the absolue need for AFO. Will reevaluate Thursday and decide about bracing. Otherwise motor strength 5/5 to detailed evaluation of IP/H/Q/AT/EHL/GS. Negative SLR. No abnormal or hyperreflexic responses. She is having less difficulty and fatigue with elevating thighs in the seated position and this is improving slowly with consistent exercise consistent with a deconditioned status which will require an inpatient and then a prolonged outpatient rehabilitation program. Dressing CD+I. Stable and more steadily improving now on POD #9 S/P L3-S1 removal of hardware, takedown of pseudoarthrosis, decompression and revision multicolumn instrumented fusion. Responding to dialysis although still evidence of significant ARF by urine output and lab criteria. Overall recovery otherwise returning closer to standard levels now over the last few days. Continue primary general and consultation Medicine service management as her reason for continued hospitalization is primarily medical. Agree with plans for continued dialysis. WBCC remains mildly elevated without fever or symptoms to suggest infectious etiology. U/A would certainly be reasonable. From surgical standpoint would manage this expectantly but will defer decisions about possible need fro workup from a medical standpoint to the medicine services. Orthopaedic spine surgical perioperative plans remain unchanged and can begin to accelerate back to the normal protocol level of rehabilitation for patients at this stage following extensive fusion at her age. Patient remians fluid and diet restricted per medicine ARF and early dialysis protocols. No change in plans. See 06/18/2018 and 06/15/2018 notes and other referenced sources for last detailed description. D/C planning for transfer to inpatient rehabilitation program per prtocol but patient will not likely be cleared for discharge by medicine until after Thursday dialysis. D/C [facility] on POD #14 which will likely be at rehab.
[2018-06-20 22:00] VITALS: BP 144/80
[2018-06-21 06:20] VITALS: BP 140/78
--- NOTE | 2018-06-21 07:11 | PN- Housestaff ---
Julien HAN,[place] 06/21/18 0711: Subjective Follow-up For: ATN Subjective: Seen and examined. Patient is resting comfortably. Does not report any complaints. Other than mild pain. States that pain is well controlled with morphine and Tylenol. Denies any fever chills nausea vomiting Review of Systems Constitutional: Reports: see HPI. Objective Last 24 Hrs of Vital Signs/I&O Vital Signs Date Time Temp Pulse Resp B/P B/P Pulse O2 O2 Flow FiO2 Mean Ox Delivery Rate 06/21 0620 98.6 92 18 140/78 95 Room Air 06/20 2200 98.3 96 20 144/80 94 Room Air 06/20 1829 88 140/80 06/20 1359 98.1 88 20 140/80 96 06/20 1217 98.4 Intake & Output 06/21 1600 06/21 0800 06/21 0000 Intake Total 250 100 Output Total Balance 250 100 Intake, Oral 250 100 Patient 97.551 kg Weight Weight Bed scale Measurement Method Physical Exam General Appearance: Alert, Oriented X3, Cooperative Cardiovascular: Regular Rate, Normal S1, Normal S2 Lungs: Clear to Auscultation, Normal Air Movement Abdomen: Normal Bowel Sounds, Soft, No Tenderness Assessment/Plan Assessment: 73 year old female with PMH signficant for HTN, hypothyroidism, and spinal stenosis admitted for spinal surgery (L3-S1 laminectomy with hardware removal and placement) with intraop EBL of 3500cc and hypotension, managed with peripheral phenylephrine and 3 unit pRBC transfusion, now hospital course complicated by ATN and TIFFANIE requiring hemodialysis for oliguria and volume overload. #Acute blood loss anemia: -CBC stable -s/p 2 units pRBCs -Now on epogen #TIFFANIE secondary to ATN from intraoperative EBL and hypotension s/p tunneled catheter placed 06/15, s/p hemodialysis 06/15, 06/16, and 06/19 -Cr 9.8 -Continue Strict I/O's -Nephrology consulted, appreciate recomendations -Renal ultrasound normal -Plan for hemodialysis again on [place] -Continue phosphate binders, renal dialysis diet, and nephrovitamins #L3-S1 laminectomy with hardware removal and placement: -No evidence of surgical site infection -Ambulating with PT -Continue neurochecks, no new deficits -Chronic left foot drop, continue AFO -Continue analgesics -[place] to remain in until at least POD 14 -Follow up ortho and neurosurgical recommendations #Leukocytosis -Afebrile, No obvious source of infection -Monitor off antibiotic #HTN, HLD,Hypothyroidism Amlodipine, statin, levothyroxine Continue PO PPI and bowel regimen Renal diet DVT ppx-ALPs only Problem List: 1. ATN (acute tubular necrosis) 2. Acute blood loss anemia Pain Ratin Pain Location: none Pain Goal: Remain pain free Pain Plan: per pathway Tomorrow's Labs & Rationales: destiny Cartwright MD,Vanessa 06/21/18 1438: Attending MD Review Statement Attending Statement Attending MD Statement: examined this patient, discuss w/resident/PA/ACCOUNTING SYSTEMS ANALYST, agreed w/resident/PA/ACCOUNTING SYSTEMS ANALYST, reviewed EMR data (avail), discussed with nursing, discussed with case mgmt, reviewed images, amended to note Attending Assessment/Plan: Patient seen and examined, overall doing okay. Creatinine remains in the high range. Patient is due for dialysis today. Vital Signs Date Time Temp Pulse Resp B/P B/P Pulse O2 O2 Flow FiO2 Mean Ox Delivery Rate 06/21 1428 98.0 93 20 148/80 96 06/21 0800 Room Air 06/21 0620 98.6 92 18 140/78 95 Room Air 06/20 2200 98.3 96 20 144/80 94 Room Air 06/20 1829 88 140/80 on exam; aox3, nad. cv; s1,s2, rrr resp; clear abd; soft, nt, bs+ ext; no edema back: cliff look clean. Laboratory Tests 06/21 1400 Chemistry Sodium Pending Potassium Pending Chloride Pending Carbon Dioxide Pending Anion Gap Pending BUN Pending Creatinine Pending BUN/Creatinine Ratio Pending Glucose Pending Calcium Pending Hematology CBC w Diff Pending WBC Pending RBC Pending Hgb Pending Hct Pending MCV Pending MCH Pending MCHC Pending RDW Pending Plt Count Pending MPV Pending A/P: 73 year old female with PMH signficant for HTN, hypothyroidism, and spinal stenosis admitted for spinal surgery (L3-S1 laminectomy with hardware removal and placement) with intraop EBL of 3500cc and hypotension, managed with peripheral phenylephrine and 3 unit pRBC transfusion, now hospital course complicated by ATN and TIFFANIE requiring hemodialysis for oliguria and volume overload. Hemodialysis per nephrology. Today's labs are still pending, will follow up. Continue the rest of the management. Patient work with physical therapy. Nephrology has still not decided about further plan for dialysis. Mechanical DVT prophylaxis.
--- NOTE | 2018-06-21 08:36 | PN- Nephrology ---
Assessment/Plan Nephrology Assessment: TIFFANIE: Clinically due to ischemic ATN. There is no evidence of renal recovery yet & she remains dialysis dependent. She is scheduled for dialysis this afternoon. Continue renvela for hyperphophatemia . She also receives epogen 3x/week with HD for anemia in setting of severe renal failure & recent acute blood loss. Suggestion: HD today continue inpatient monitoring avoid nephrotoxins daily renal labs, strict ins/outs, daily weights Subjective Subjective: No acute events UO remains low but she voided a couple times over the weekend, 300 cc recorded labs pending today although creat was 9 yesterday last dialyzed thursday Review of Systems: denies sob/chest pain po intake just fair Objective Vital Signs and I&Os Vital Signs Date Time Temp Pulse Resp B/P B/P Pulse O2 O2 Flow FiO2 Mean Ox Delivery Rate 06/21 620 98.6 92 18 140/78 95 Room Air 06/20 2200 98.3 96 20 144/80 94 Room Air 06/20 1829 88 140/80 06/20 1359 98.1 88 20 140/80 96 06/20 1217 98.4 Intake & Output 06/21 1600 06/21 0400 06/20 1600 06/20 0400 06/19 1600 06/19 0400 Intake Total 250 100 126 177 3576 50 Output Total 300 50 Balance 250 100 455 592 9063 50 Intake, IV 0 0 Intake, Oral 250 100 036 600 9960 50 Number 0 0 Bowel Movements Output, Urine 300 50 Patient 215 lb 215 lb 214 lb Weight Weight Bed scale Bed scale Bed scale Measurement Method Physical Exam: gen: NAD lungs: CTAB CV: S1 S2 abd: Soft NT ext: no edema neuro: no twitching/asterixis Current Medications: Current Medications Sig/Kristin Start time Last Medication Dose Route Stop Time Status Admin Acetaminophen 650 MG Q4P PRN 06/14 1400 AC 06/21 PO 0510 Acetaminophen 1,000 MG Q6P PRN 06/11 0015 AC 06/18 N/A 1 UNIT IV 1422 Amlodipine Besylate 5 MG 18306/17 1830 AC 06/20 PO 1829 Atorvastatin Calcium 10 MG 1700 06/16 1625 AC 06/20 PO 1644 Docusate Sodium 100 MG BID PRN 06/16 0755 AC PO Epoetin Jayce 2,000 UNIT MoWeFr PRN 06/18 0745 AC IV Epoetin Jayce 3,000 UNIT MoWeFr PRN 06/18 0730 AC IV Levothyroxine Sodium 0.1 MG DAILY AC 06/14 0700 AC 06/21 PO 0510 Morphine Sulfate 2 MG Q6P PRN 06/11 0015 AC 06/21 IV 0747 Multivitamins 1 TAB DAILY 06/15 1536 AC 06/20 PO 0817 Omeprazole 40 MG 1/2H B/BREAKF/DINNER 06/13 1630 AC 06/21 PO 0510 Polyethylene Glycol 17 GM DAILY PRN 06/16 0755 AC PO Senna/Docusate Sodium 2 TAB DAILY PRN 06/16 0755 AC PO Sertraline HCl 50 MG DAILY 06/17 0900 AC 06/20 PO 0817 Sevelamer Carbonate 1,600 MG WM 06/14 1700 AC 06/20 PO 1644 Simethicone 80 MG Q4P PRN 06/11 1445 AC 06/16 PO 2156 Results Pertinent Lab Results: Laboratory Tests 06/20 06/19 0830 1005 Chemistry Sodium (137 - 145 mmol/L) 135 L 136 L Potassium (3.5 - 5.1 mmol/L) 4.8 4.7 Chloride (98 - 107 mmol/L) 100 101 Carbon Dioxide (22 - 30 mmol/L) 23 24 Anion Gap (5 - 16) 12 12 BUN (7 - 17 mg/dL) 54 H 48 H Creatinine (0.5 - 1.0 mg/dL) 9.8 *H 8.1 *H Estimated GFR (>60 ml/min) 4 L 5 L BUN/Creatinine Ratio (7 - 25 %) 5.5 L 5.9 L Hematology CBC w Diff NO MAN DIFF REQ NO MAN DIFF REQ WBC (4.8 - 10.8 /CUMM) 12.2 H 12.9 H RBC (4.20 - 5.40 /CUMM) 2.82 L 2.95 L Hgb (12.0 - 16.0 G/DL) 8.1 L 8.3 L Hct (37 - 47 %) 24.0 L 25.1 L MCV (81.0 - 99.0 FL) 85.1 85.3 MCH (27.0 - 31.0 PG) 28.6 28.0 MCHC (33.0 - 37.0 G/DL) 33.6 32.8 L RDW (11.5 - 14.5 %) 15.5 H 15.1 H Plt Count (130 - 400 /CUMM) 313 318 MPV (7.4 - 10.4 FL) 8.7 8.9 Gran % (42.2 - 75.2 %) 71.4 71.3 Lymphocytes % (20.5 - 51.1 %) 15.5 L 13.5 L Monocytes % (1.7 - 9.3 %) 9.0 11.1 H Eosinophils % (0 - 5 %) 3.8 3.9 Basophils % (0.0 - 2.0 %) 0.3 0.2 Absolute Granulocytes (1.4 - 6.5 /CUMM) 8.7 H 9.2 H Absolute Lymphocytes (1.2 - 3.4 /CUMM) 1.9 1.7 Absolute Monocytes (0.10 - 0.60 /CUMM) 1.1 H 1.4 H Absolute Eosinophils (0.0 - 0.7 /CUMM) 0.5 0.5 Absolute Basophils (0.0 - 0.2 /CUMM) 0 0
[2018-06-21 14:28] VITALS: BP 148/80
[2018-06-21 14:39] LABS: ABSOLUTE BASOPHIL COUNT 0 /CUMM (0.0-0.2); ABSOLUTE EOSINOPHIL COUNT 0.5 /CUMM (0.0-0.7); ABSOLUTE GRANULOCYTE CT 10.7 /CUMM (1.4-6.5); ABSOLUTE LYMPH COUNT 1.5 /CUMM (1.2-3.4); BASOPHIL % 0.2 % (0.0-2.0); EOSINOPHIL % 3.6 % (0-5); GRANULOCYTE % 77.5 % (42.2-75.2); HEMATOCRIT 22.8 % (37-47); MEAN CORPUSCULAR HGB 28.4 PG (27.0-31.0); MEAN CORPUSCULAR HGB CONC 33.6 G/DL (33.0-37.0); MEAN CORPUSCULAR VOLUME 84.5 FL (81.0-99.0); MEAN PLATELET VOLUME 8.5 FL (7.4-10.4); PLATELET COUNT 322 /CUMM (130-400); RBC DISTRIBUTION WIDTH 15.3 % (11.5-14.5); WHITE BLOOD CELL COUNT 13.8 /CUMM (4.8-10.8)
[2018-06-21 22:07] VITALS: BP 138/80
--- NOTE | 2018-06-22 04:28 | PN- Orthopedic ---
Surgical Brief Attending Note Brief Attending Note: 06/21/2018 - POD #11 Patient seen by Mohan Cabrera 06/21/2018 @ ~06:30 PM: Agree with medical team and PA evaluation and assessment. Primary and consultation management as well as discharge planning per general and specialty medical services. Patient now on unmonitored floor after clearance by medicine team to be off telemetry. Kalpana Thornton is a 73 year old white female now POD #11 S/P L3-S1 revision spinal surgery which included removal of hardware, takedown of pseudoarthrosis, neural decompression and revision multicolumn instrumented fusion (06/10/2018, Mohan/Tiara). See 06/11/2018 note, op note and preoperative documentation for additional surgical and perioperative details. Creatinine is higher today at 11.3 with BUN also elevated at 70. WBCC slightly increased to 13.8. HCT = 22.8 although patient is sitting up and conversational without overt signs of anemia. Urine output remains low but improved over the last few days. Dialysis continues to be reasonably well tolerated. No other patient or nursing reported or observed clincal distress, instability, problem or concern overnight. No symptoms or signs to suggest infection or other cause for elevated WBCC. Energy level continues to improve. She is progressing with PT and ambulating well (lap on 1/2 floor today). Rapidly approaching normal postoperative levels for rehab from extensive spinal fusion procedure for age. Her foot drop has not significantly impaired her progress and may be improving slightly with some initial antigravity return. Will likely still benefit from AFO for ambulation but would encourage active ROM exercises without AFO throughout the day when not ambulating. Pain is well controlled on only low intermittent dose Tylenol. Back pain is mild, decreasing and is generally controlled with brace use particularly when OOB and with ambulation. No leg radiation. Numbness is reportedly minimal in the left foot. Motor fatigue is decreasing even as her activity and self-directed endurance mode in-bed and on-chair exercise complaince is improving. Taking PO well. Tolerating meds. No N/V. More independent with mobilization and able to stand at edge of bed without assistance but still requiring some upper body support. Significant new labs noted above. For trend see previous notes and EMR lab results section. Last U/A was 06/12 and may be worth repeating is elevated WBC persist even without clinical correlate. AVSS. Has been consistently afebrile throughout postoperative course. Sitting at side of bed and conversing with family while having dinner. Awake, alert and quite conversational today without any objective fatigue or somnolence. Reports subjective fatigue related to prolonged dialysis today. Breathing unlabored. No objective manifestations of pain. No distress. Standard examination was well tolerated including comprehensive bilateral lower extremity manual motor testing without significant fatigue or increase in pain. Left AT and EHL continue slight daily improvement which is encouraging although not yet sufficient to improve motor grade or overall ambulatory function. AFO will still likely be helpful. They are still 3-/5 and 4/5 respectively. She still fatigues rapidly in these muscle groups and can only generate power in a short arc range and not through full range however ankle motion is more distinct and independent of EHL motion today. Otherwise motor strength 5/5 to detailed evaluation of IP/H/Q/AT/EHL/GS. Negative SLR. No abnormal or hyperreflexic responses. She is having less difficulty and fatigue with elevating thighs in the seated position and this is improving slowly with exercise consistent with her overall improved tolernce with mobilization. Incision CD+I. Stable and steadily improving now on POD #11 S/P L3-S1 removal of hardware, takedown of pseudoarthrosis, decompression and revision multicolumn instrumented fusion. Still requiring dialysis with evidence of significant ARF by urine output and lab criteria. Overall recovery otherwise returning closer to standard levels. Continue primary general and consultation Medicine service management as her reason for continued hospitalization is primarily medical. Agree with plans for continued dialysis. WBCC remains mildly elevated without fever or symptoms to suggest infectious etiology. Straight cath U/A will be discussed with primary medical team. Given possible delayed healing due to ARF and other earlier acute postoperative medical issues, and given that the incision looks good without erythema, would keep cliff until Thursday and remove at POD #18. Orthopaedic spine surgical perioperative plans remain unchanged and can begin to accelerate back to the normal protocol level of rehabilitation for patients at this stage following extensive fusion at her age. Patient remians fluid and diet restricted per medicine ARF and early dialysis protocols. No change in plans. See 06/18/2018 and 06/15/2018 notes and other referenced sources for last detailed description. Will discuss possible W/U for elevated WBCC with primary team. D/C planning for transfer to inpatient rehabilitation program once cleared for outpatient dialysis and long-term plan made for rneal and medicine followup by primary team. D/C cliff on Thursday POD #18 which will likely be at rehab. If staple sites become significantly erythematous before that, contact Dr. Preston.
[2018-06-22 06:44] VITALS: BP 140/60
--- NOTE | 2018-06-22 07:57 | PN- Neurosurgical ---
Surgical Brief Attending Note Brief Attending Note: Postoperative day #12 Able to void small amounts today Dialysis yesterday Much more comfortable Ambulating with greater ease Jasvir probably out Thursday
--- NOTE | 2018-06-22 07:59 | PN- Housestaff ---
Julien HAN,[place] 06/22/18 0759: Subjective Follow-up For: ATN ABLA Subjective: No acute o/n events. Remains afebrile Pain adeqautely controlled with IV APAP. denies sob/cp/abdominal pain or dysuria Review of Systems Constitutional: Reports: see HPI. Objective Last 24 Hrs of Vital Signs/I&O Vital Signs Date Time Temp Pulse Resp B/P B/P Pulse O2 O2 Flow FiO2 Mean Ox Delivery Rate 06/24 1014 Nasal 2.0L Cannula 06/24 0623 98.1 87 18 132/80 94 Room Air 06/23 2219 98.5 99 18 126/60 93 06/23 1800 98.7 97 20 160/74 06/23 1700 97.8 94 20 160/74 97 Room Air Intake & Output 06/24 1600 06/24 0800 06/24 0000 Intake Total 300 350 Output Total 300 300 Balance 0 50 Intake, Oral 300 350 Output, Urine 300 300 Patient 94.943 kg Weight Weight Bed scale Measurement Method Physical Exam General Appearance: Alert, Oriented X3, Cooperative Neck: No JVD Lymphatic: Cervical nl Cardiovascular: Regular Rate, Normal S1, Normal S2 Lungs: Clear to Auscultation, Normal Air Movement Assessment/Plan Assessment: 73 year old female with PMH signficant for HTN, hypothyroidism, and spinal stenosis admitted for spinal surgery (L3-S1 laminectomy with hardware removal and placement) with intraop EBL of 3500cc and hypotension, managed with peripheral phenylephrine and 3 unit pRBC transfusion, now hospital course complicated by ATN and TIFFANIE requiring hemodialysis for oliguria and volume overload. #Acute blood loss anemia: -Hgb 7.7 today -s/p 2 units pRBCs -Now on epogen -Will continue trend and transfuse if below 7 #TIFFANIE secondary to ATN from intraoperative EBL and hypotension s/p tunneled catheter placed 06/15, last HD 06/21 -Cr 6.5 -Continue Strict I/O's -Next dilaysis session tomorrow -Continue phosphate binders, renal dialysis diet, and nephrovitamins #L3-S1 laminectomy with hardware removal and placement: -No evidence of surgical site infection -Ambulating with PT -Continue neurochecks, no new deficits -Chronic left foot drop, continue AFO -Continue analgesics -[place] to remain in until at least POD 14 -Follow up ortho and neurosurgical recommendations #Leukocytosis -Afebrile, No obvious source of infection -Will f/u on UA. -Monitor off antibiotic #HTN, HLD,Hypothyroidism Amlodipine, statin, levothyroxine Continue PO PPI and bowel regimen Renal diet DVT ppx-ALPs only Problem List: 1. ATN (acute tubular necrosis) Pain Ratin Pain Location: per pathway Pain Goal: Remain pain free Pain Plan: per pathway Tomorrow's Labs & Rationales: BEP-Vanessa Mancera MD 06/22/18 1127: Attending MD Review Statement Attending Statement Attending MD Statement: examined this patient, discuss w/resident/PA/SPOOL SALVAGER, agreed w/resident/PA/SPOOL SALVAGER, reviewed EMR data (avail), discussed with nursing, discussed with case mgmt, reviewed images, amended to note Attending Assessment/Plan: Patient seen and examined, feels okay. White blood cell count is slightly increased compared to yesterday. H&H is slightly lower compared to yesterday. Vital Signs Date Time Temp Pulse Resp B/P B/P Pulse O2 O2 Flow FiO2 Mean Ox Delivery Rate 06/22 0644 97.5 89 20 140/60 95 06/21 2207 98.4 96 20 138/80 94 Room Air 06/21 1826 93 148/80 06/21 1428 98.0 93 20 148/80 96 on exam; aox3, nad. cv; s1,s2, rrr resp; clear abd; soft, nt, bs+ ext; no edema back: cliff look clean. Laboratory Tests 06/22 06/21 0605 1400 Chemistry Sodium (137 - 145 mmol/L) 136 L 133 L Potassium (3.5 - 5.1 mmol/L) 4.8 5.1 Chloride (98 - 107 mmol/L) 101 97 L Carbon Dioxide (22 - 30 mmol/L) 27 23 Anion Gap (5 - 16) 8 13 BUN (7 - 17 mg/dL) 29 H 70 H Creatinine (0.5 - 1.0 mg/dL) 6.5 *H 11.3 *H Estimated GFR (>60 ml/min) 6 L 3 L BUN/Creatinine Ratio (7 - 25 %) 4.5 L 6.2 L Glucose (65 - 99 mg/dL) 105 H Calcium (8.4 - 10.2 mg/dL) 7.8 L Hematology CBC w Diff NO MAN DIFF REQ WBC (4.8 - 10.8 /CUMM) 13.8 H RBC (4.20 - 5.40 /CUMM) 2.70 L Hgb (12.0 - 16.0 G/DL) 7.7 L Hct (37 - 47 %) 22.8 L MCV (81.0 - 99.0 FL) 84.5 MCH (27.0 - 31.0 PG) 28.4 MCHC (33.0 - 37.0 G/DL) 33.6 RDW (11.5 - 14.5 %) 15.3 H Plt Count (130 - 400 /CUMM) 322 MPV (7.4 - 10.4 FL) 8.5 Gran % (42.2 - 75.2 %) 77.5 H Lymphocytes % (20.5 - 51.1 %) 11.2 L Monocytes % (1.7 - 9.3 %) 7.5 Eosinophils % (0 - 5 %) 3.6 Basophils % (0.0 - 2.0 %) 0.2 Absolute Granulocytes (1.4 - 6.5 /CUMM) 10.7 H Absolute Lymphocytes (1.2 - 3.4 /CUMM) 1.5 Absolute Monocytes (0.10 - 0.60 /CUMM) 1.0 H Absolute Eosinophils (0.0 - 0.7 /CUMM) 0.5 Absolute Basophils (0.0 - 0.2 /CUMM) 0 A/P; 73 year old female with PMH signficant for HTN, hypothyroidism, and spinal stenosis admitted for spinal surgery (L3-S1 laminectomy with hardware removal and placement) with intraop EBL of 3500cc and hypotension, managed with peripheral phenylephrine and 3 unit pRBC transfusion, now hospital course complicated by ATN and TIFFANIE requiring hemodialysis for oliguria and volume overload. As noted white blood cell count is slightly increased today and H&H is slightly down. Will check a urinalysis urine culture and blood cultures. The back wound looks clean. Will follow up on those cultures but for now we will watch her off of antibiotics. Further hemodialysis per nephrology. They have not decided about the future plan of care for this patient in terms of continued need for dialysis. Continue all other current medications. Patient on mechanical DVT prophylaxis secondary to anemia and history of spine surgery.
[2018-06-22 13:46] VITALS: BP 162/88
--- NOTE | 2018-06-22 14:14 | PN- Nephrology ---
Assessment/Plan Nephrology Assessment: 1. Acute oliguric kidney injury secondary to ATN -no recovery as yet 2. Hyperphosphatemia 3. Metabolic acidosis -resolved 4. Status post lumbar surgery 06/10/18 with significant intraoperative blood loss and resultant anemia Suggestion: 1. We will continue dialysis support; next hemodialysis scheduled for tomorrow and will then continue her on a MWF schedule this week. 2. If renal function does not show signs of recovery by the end of the week, I will arrange for outpatient dialysis with the designation of "TIFFANIE" (as opposed to ESRD). 3. Continue to mobilize. Subjective Subjective: Patient has no specific complaints other than wanting the cliff removed from her surgical wounds and wanting to go home (or to [facility]) as soon as feasible. She appears to still be oliguric and this is confirmed by the fact that her predialysis creatinine yesterday was still quite high (11.3) showing no signs of improvement as yet. Objective Vital Signs and I&Os Vital Signs Date Time Temp Pulse Resp B/P B/P Pulse O2 O2 Flow FiO2 Mean Ox Delivery Rate 06/22 1346 9.2 100 20 162/88 98 06/22 0644 97.5 89 20 140/60 95 06/21 2207 98.4 96 20 138/80 94 Room Air 06/21 1826 93 148/80 06/21 1428 98.0 93 20 148/80 96 Intake & Output 06/22 1600 06/22 0400 06/21 1600 06/21 0400 06/20 1600 06/20 0400 Intake Total 180 100 740 100 600 100 Output Total 100 250 0 300 Balance 80 -150 740 100 300 100 Intake, IV 0 0 Intake, Oral 180 100 740 100 600 100 Number 0 0 Bowel Movements Output, Urine 100 250 0 300 Patient 219 lb 209 lb 212 lb 215 lb Weight Weight Standing Scale Bed scale Measurement Method Physical Exam: General: Well-developed, well-nourished white female in NAD Skin: No rash or jaundice HEENT: Conjunctivae pale, sclerae anicteric, mucous membranes moist Neck: Without masses or thyromegaly, no supraclavicular or cervical adenopathy Chest: Clear to P&A Heart: Regular rate and rhythm without S3 or rub Abdomen: Soft and nontender without palpable masses or organomegaly Extremities: Without cyanosis; trace edema LLE Neuro: Cognitively intact, left foot drop, no asterixis or myoclonus Results Pertinent Lab Results: Laboratory Tests 06/22 06/22 06/21 1300 0605 1400 Chemistry Sodium (137 - 145 mmol/L) 136 L 133 L Potassium (3.5 - 5.1 mmol/L) 4.8 5.1 Chloride (98 - 107 mmol/L) 101 97 L Carbon Dioxide (22 - 30 mmol/L) 27 23 Anion Gap (5 - 16) 8 13 BUN (7 - 17 mg/dL) 29 H 70 H Creatinine (0.5 - 1.0 mg/dL) 6.5 *H 11.3 *H Estimated GFR (>60 ml/min) 6 L 3 L BUN/Creatinine Ratio (7 - 25 %) 4.5 L 6.2 L Glucose (65 - 99 mg/dL) 105 H Calcium (8.4 - 10.2 mg/dL) 7.8 L Hematology CBC w Diff NO MAN DIFF REQ WBC (4.8 - 10.8 /CUMM) 13.8 H RBC (4.20 - 5.40 /CUMM) 2.70 L Hgb (12.0 - 16.0 G/DL) 7.7 L Hct (37 - 47 %) 22.8 L MCV (81.0 - 99.0 FL) 84.5 MCH (27.0 - 31.0 PG) 28.4 MCHC (33.0 - 37.0 G/DL) 33.6 RDW (11.5 - 14.5 %) 15.3 H Plt Count (130 - 400 /CUMM) 322 MPV (7.4 - 10.4 FL) 8.5 Gran % (42.2 - 75.2 %) 77.5 H Lymphocytes % (20.5 - 51.1 %) 11.2 L Monocytes % (1.7 - 9.3 %) 7.5 Eosinophils % (0 - 5 %) 3.6 Basophils % (0.0 - 2.0 %) 0.2 Absolute Granulocytes (1.4 - 6.5 /CUMM) 10.7 H Absolute Lymphocytes (1.2 - 3.4 /CUMM) 1.5 Absolute Monocytes (0.10 - 0.60 /CUMM) 1.0 H Absolute Eosinophils (0.0 - 0.7 /CUMM) 0.5 Absolute Basophils (0.0 - 0.2 /CUMM) 0 Urines Urine Color Pending Urine Clarity Pending Urine pH Pending Ur Specific [place] Pending Urine Protein Pending Urine Ketones Pending Urine Nitrite Pending Urine Bilirubin Pending Urine Urobilinogen Pending Ur Leukocyte Esterase Pending Ur Microscopic Pending Urine Hemoglobin Pending Urine Glucose Pending 06/21 06/20 0600 0830 Chemistry Sodium (137 - 145 mmol/L) Cancelled 135 L Potassium (3.5 - 5.1 mmol/L) Cancelled 4.8 Chloride (98 - 107 mmol/L) Cancelled 100 Carbon Dioxide (22 - 30 mmol/L) Cancelled 23 Anion Gap (5 - 16) Cancelled 12 BUN (7 - 17 mg/dL) Cancelled 54 H Creatinine (0.5 - 1.0 mg/dL) Cancelled 9.8 *H Estimated GFR (>60 ml/min) 4 L BUN/Creatinine Ratio (7 - 25 %) Cancelled 5.5 L Calcium Cancelled Phosphorus Cancelled Magnesium Cancelled Albumin Cancelled Hematology CBC w Diff Cancelled NO MAN DIFF REQ WBC (4.8 - 10.8 /CUMM) Cancelled 12.2 H RBC (4.20 - 5.40 /CUMM) Cancelled 2.82 L Hgb (12.0 - 16.0 G/DL) Cancelled 8.1 L Hct (37 - 47 %) Cancelled 24.0 L MCV (81.0 - 99.0 FL) Cancelled 85.1 MCH (27.0 - 31.0 PG) Cancelled 28.6 MCHC (33.0 - 37.0 G/DL) Cancelled 33.6 RDW (11.5 - 14.5 %) Cancelled 15.5 H Plt Count (130 - 400 /CUMM) Cancelled 313 MPV (7.4 - 10.4 FL) Cancelled 8.7 Gran % (42.2 - 75.2 %) 71.4 Lymphocytes % (20.5 - 51.1 %) 15.5 L Monocytes % (1.7 - 9.3 %) 9.0 Eosinophils % (0 - 5 %) 3.8 Basophils % (0.0 - 2.0 %) 0.3 Absolute Granulocytes (1.4 - 6.5 /CUMM) 8.7 H Absolute Lymphocytes (1.2 - 3.4 /CUMM) 1.9 Absolute Monocytes (0.10 - 0.60 /CUMM) 1.1 H Absolute Eosinophils (0.0 - 0.7 /CUMM) 0.5 Absolute Basophils (0.0 - 0.2 /CUMM) 0
[2018-06-22 21:57] VITALS: BP 160/82
[2018-06-23 06:29] VITALS: BP 148/80
--- NOTE | 2018-06-23 08:36 | PN- Housestaff ---
Dayron HAN,Lizzy 06/23/18 0836: Subjective Follow-up For: ATN Subjective: saw pt at bedside this AM. No acute overnight events or complaints. She was able to go on a walk around the floors today. Eating well with good bladde and bowel mvmt. Review of Systems Constitutional: Denies: chills, malaise. EENTM: Reports: no symptoms. Cardiovascular: Denies: chest pain. Respiratory: Reports: no symptoms. Gastrointestinal: Reports: no symptoms. Genitourinary: Reports: no symptoms. Musculoskeletal: Reports: back pain, muscle stiffness. Skin: Reports: no symptoms. Objective Last 24 Hrs of Vital Signs/I&O Vital Signs Date Time Temp Pulse Resp B/P B/P Pulse O2 O2 Flow FiO2 Mean Ox Delivery Rate 06/23 0629 98.4 88 18 148/80 94 Room Air 06/22 2157 98.2 95 18 160/82 95 Room Air 06/22 1346 9.2 100 20 162/88 98 Intake & Output 06/23 1600 06/23 0800 06/23 0000 Intake Total 100 100 Output Total 200 Balance -100 100 Intake, Oral 100 100 Output, Urine 200 Patient 94.404 kg Weight Weight Bed scale Measurement Method Physical Exam General Appearance: Alert, Oriented X3, Cooperative, No Acute Distress Skin: No Significant Lesion HEENT: Atraumatic, PERRLA, EOMI Cardiovascular: Regular Rate, Normal S1, Normal S2, No Murmurs Lungs: Normal Air Movement Abdomen: Soft, No Tenderness, jasvir in back are intact. incision is clean with no drainage. no bandage placed. Extremities: No Edema Current Medications: Current Medications Sig/Kristin Start time Last Medication Dose Route Stop Time Status Admin Acetaminophen 650 MG Q4P PRN 06/14 1400 AC 06/23 PO 1105 Acetaminophen 1,000 MG Q6P PRN 06/11 0015 AC 06/18 N/A 1 UNIT IV 1422 Amlodipine Besylate 5 MG 1830 06/17 1830 AC 06/22 PO 1739 Atorvastatin Calcium 10 MG 1700 06/16 1625 AC 06/22 PO 1739 Docusate Sodium 100 MG BID PRN 06/16 0755 AC PO Epoetin Jayce 2,000 UNIT MoWeFr PRN 06/18 0745 AC IV Epoetin Jayce 3,000 UNIT MoWeFr PRN 06/18 0730 AC IV Levothyroxine Sodium 0.1 MG DAILY AC 06/14 0700 AC 06/23 PO 0503 Morphine Sulfate 2 MG Q6P PRN 06/11 0015 AC 06/22 IV 0331 Multivitamins 1 TAB DAILY 06/15 1536 AC 06/23 PO 0900 Omeprazole 40 MG 1/2H B/BREAKF/DINNER 06/13 1630 AC 06/23 PO 0503 Patient Medication 1 ED ONE ONE 06/23 1115 DC Teaching ED 06/23 1116 Polyethylene Glycol 17 GM DAILY PRN 06/16 075 AC PO Senna/Docusate Sodium 2 TAB DAILY PRN 06/16 0755 AC PO Sertraline HCl 50 MG DAILY 06/17 0900 AC 06/23 PO 0901 Sevelamer Carbonate 1,600 MG WM 06/14 1700 AC 06/23 PO 0900 Simethicone 80 MG Q4P PRN 06/11 1445 AC 06/16 PO 2156 Last 24 Hrs of Lab/Simone Results Last 24 Hrs of Labs/Mics: Laboratory Tests 06/22/18 1300: Urine Color YEL, Urine Clarity HAZY H, Urine pH 7.5, Ur Specific [place] 1.020, Urine Protein 100 H, Urine Ketones NEG, Urine Nitrite NEG, Urine Bilirubin NEG, Urine Urobilinogen 0.2, Ur Leukocyte Esterase SMALL H, Ur Microscopic SEDIMENT EXAMINED, Urine RBC 5-10 H, Urine WBC 10-15 H, Ur Epithelial Cells MANY H, Urine Bacteria MOD H, Micro UA Comment MORE INFO: H, Urine Hemoglobin LARGE H , Urine Glucose NEG Microbiology 06/22 1250 BLOOD: Blood Culture - RECD 06/22 1235 BLOOD: Blood Culture - RECD Assessment/Plan Assessment: This is a 73 year old female with PMH of HTN, hypothyroidism, and spinal stenosis admitted for spinal surgery (L3-S1 laminectomy with hardware removal and placement) on 06/10 with intraop EBL of 3500cc and subsequent hypotension. She was managed with peripheral phenylephrine and 2 unit pRBC transfusion, now hospital course complicated by ATN and TIFFANIE requiring hemodialysis for oliguria and volume overload. PLAN: Acute blood loss anemia: -Hgb PENDING -s/p 2 units pRBCs -Now on epogen -Will continue trend and transfuse if below 7 TIFFANIE secondary to ATN from intraoperative EBL and hypotension s/p tunneled catheter placed 06/15, last HD 06/21, on l. chest -Cr PENDING today -Continue Strict I/O's -Next dilaysis session today -Continue phosphate binders, renal dialysis diet, and nephrovitamins L3-S1 laminectomy with hardware removal and placement: -No evidence of surgical site infection -Ambulating with PT -Continue neurochecks, no new deficits -Chronic left foot drop, continue AFO -Continue analgesics -Jasvir to remain in until at least POD 14 -Follow up ortho and neurosurgical recommendations Leukocytosis -Afebrile, No obvious source of infection -Will f/u on UA. -Monitor off antibiotic HTN * Amlodipine HLD: * statin, Hypothyroidism * levothyroxine Continue PO PPI and bowel regimen Renal diet DVT ppx-ALPs only Problem List: 1. Acute blood loss anemia 2. ATN (acute tubular necrosis) Pain Ratin Pain Location: none Pain Goal: Remain pain free Pain Plan: current reg Tomorrow's Labs & Rationales: cbc bep DVT/Prophylaxis: mechanical Arely Valderrama 06/23/18 1000: Attending MD Review Statement Attending Statement Attending MD Statement: examined this patient, discuss w/resident/PA/[employer], agreed w/resident/PA/[employer], discussed with family, reviewed EMR data (avail), discussed with nursing, discussed with case mgmt, reviewed images, amended to note Attending Assessment/Plan: A/P; 73 year old female with PMH signficant for HTN, hypothyroidism, and spinal stenosis admitted for spinal surgery (L3-S1 laminectomy with hardware removal and placement) with intraop EBL of 3500cc and hypotension, managed with peripheral phenylephrine and 3 unit pRBC transfusion, now hospital course complicated by ATN and TIFFANIE requiring hemodialysis for oliguria and volume overload. will watch her off of antibiotics. Follow labs from today. Remained afebrile overnight. Further hemodialysis per nephrology. They have not decided about the future plan of care for this patient in terms of continued need for dialysis. Continue all other current medications. Patient on mechanical DVT prophylaxis secondary to anemia and history of spine surgery.
--- NOTE | 2018-06-23 13:37 | PN- Nephrology ---
Assessment/Plan Nephrology Assessment: 1. Acute oliguric kidney injury secondary to ATN -no recovery as yet 2. Hyperphosphatemia 3. Metabolic acidosis -resolved 4. Status post lumbar surgery 06/10/18 with significant intraoperative blood loss and resultant anemia Suggestion: 1. Hemodialysis today in progress with plan for 2.5 L fluid removal over 3.5 hours as tolerated 2. If renal function does not show signs of recovery by the end of the week, I will arrange for outpatient dialysis with the designation of "TIFFANIE" (as opposed to ESRD). 3. Continue to mobilize. Subjective Subjective: Seen with hemodialysis. Continues to do well with walking in the almanzar. No specific complaints. Urine output only 100 cc yesterday, 200 cc thus far today. Today's labs pending. Objective Vital Signs and I&Os Vital Signs Date Time Temp Pulse Resp B/P B/P Pulse O2 O2 Flow FiO2 Mean Ox Delivery Rate 06/23 0629 98.4 88 18 148/80 94 Room Air 06/22 2157 98.2 95 18 160/82 95 Room Air 06/22 1346 9.2 100 20 162/88 98 Intake & Output 06/23 1600 06/23 0400 06/22 1600 06/22 0400 06/21 1600 06/21 0400 Intake Total 100 100 780 100 740 100 Output Total 200 100 250 0 Balance -100 100 680 -150 740 100 Intake, IV 0 Intake, Oral 100 100 780 100 740 100 Number 0 Bowel Movements Output, Urine 200 100 250 0 Patient 208 lb 219 lb 209 lb 212 lb Weight Weight Bed scale Standing Scale Measurement Method Physical Exam: General: Well-developed, well-nourished white female in NAD Skin: No rash or jaundice HEENT: Conjunctivae pale, sclerae anicteric, mucous membranes moist Neck: Without masses or thyromegaly, no supraclavicular or cervical adenopathy Chest: Clear to P&A Heart: Regular rate and rhythm without S3 or rub Abdomen: Soft and nontender without palpable masses or organomegaly Extremities: Without cyanosis; 1+edema L>R Neuro: Cognitively intact, left foot drop, no asterixis or myoclonus Results Pertinent Lab Results: Laboratory Tests 06/23 06/22 06/22 0600 1300 0605 Chemistry Sodium (137 - 145 mmol/L) 136 L Potassium (3.5 - 5.1 mmol/L) 4.8 Chloride (98 - 107 mmol/L) 101 Carbon Dioxide (22 - 30 mmol/L) 27 Anion Gap (5 - 16) 8 BUN (7 - 17 mg/dL) 29 H Creatinine (0.5 - 1.0 mg/dL) 6.5 *H Estimated GFR (>60 ml/min) 6 L BUN/Creatinine Ratio (7 - 25 %) 4.5 L Hematology CBC w Diff Cancelled WBC Cancelled RBC Cancelled Hgb Cancelled Hct Cancelled MCV Cancelled MCH Cancelled MCHC Cancelled RDW Cancelled Plt Count Cancelled MPV Cancelled Urines Urine Color (YEL,AMB,STR) YEL Urine Clarity (CLEAR) HAZY H Urine pH (5.0 - 8.0) 7.5 Ur Specific [place] (1.001 - 1.035) 1.020 Urine Protein (NEG,<30 MG/DL) 100 H Urine Ketones (NEG) NEG Urine Nitrite (NEG) NEG Urine Bilirubin (NEG) NEG Urine Urobilinogen (0.1 - 1.0 EU/dl) 0.2 Ur Leukocyte Esterase (NEG) SMALL H Ur Microscopic SEDIMENT EXAMINED Urine RBC (0 - 5 /HPF) 5-10 H Urine WBC (0 - 2 /HPF) 10-15 H Ur Epithelial Cells (NONE,FEW) MANY H Urine Bacteria (NEG/NONE) MOD H Micro UA Comment MORE INFO: H Urine Hemoglobin (NEG) LARGE H Urine Glucose (N MG/DL) NEG 06/21 09 1400 0600 Chemistry Sodium (137 - 145 mmol/L) 133 L Cancelled Potassium (3.5 - 5.1 mmol/L) 5.1 Cancelled Chloride (98 - 107 mmol/L) 97 L Cancelled Carbon Dioxide (22 - 30 mmol/L) 23 Cancelled Anion Gap (5 - 16) 13 Cancelled BUN (7 - 17 mg/dL) 70 H Cancelled Creatinine (0.5 - 1.0 mg/dL) 11.3 *H Cancelled Estimated GFR (>60 ml/min) 3 L BUN/Creatinine Ratio (7 - 25 %) 6.2 L Cancelled Glucose (65 - 99 mg/dL) 105 H Calcium (8.4 - 10.2 mg/dL) 7.8 L Cancelled Phosphorus Cancelled Magnesium Cancelled Albumin Cancelled Hematology CBC w Diff NO MAN DIFF REQ Cancelled WBC (4.8 - 10.8 /CUMM) 13.8 H Cancelled RBC (4.20 - 5.40 /CUMM) 2.70 L Cancelled Hgb (12.0 - 16.0 G/DL) 7.7 L Cancelled Hct (37 - 47 %) 22.8 L Cancelled MCV (81.0 - 99.0 FL) 84.5 Cancelled MCH (27.0 - 31.0 PG) 28.4 Cancelled MCHC (33.0 - 37.0 G/DL) 33.6 Cancelled RDW (11.5 - 14.5 %) 15.3 H Cancelled Plt Count (130 - 400 /CUMM) 322 Cancelled MPV (7.4 - 10.4 FL) 8.5 Cancelled Gran % (42.2 - 75.2 %) 77.5 H Lymphocytes % (20.5 - 51.1 %) 11.2 L Monocytes % (1.7 - 9.3 %) 7.5 Eosinophils % (0 - 5 %) 3.6 Basophils % (0.0 - 2.0 %) 0.2 Absolute Granulocytes (1.4 - 6.5 /CUMM) 10.7 H Absolute Lymphocytes (1.2 - 3.4 /CUMM) 1.5 Absolute Monocytes (0.10 - 0.60 /CUMM) 1.0 H Absolute Eosinophils (0.0 - 0.7 /CUMM) 0.5 Absolute Basophils (0.0 - 0.2 /CUMM) 0
[2018-06-23 15:50] LABS: ABSOLUTE BASOPHIL COUNT 0.1 /CUMM (0.0-0.2); ABSOLUTE EOSINOPHIL COUNT 0.3 /CUMM (0.0-0.7); ABSOLUTE GRANULOCYTE CT 11.2 /CUMM (1.4-6.5); ABSOLUTE LYMPH COUNT 1.7 /CUMM (1.2-3.4); ABSOLUTE MONOCYTE COUNT 1.2 /CUMM (0.10-0.60); BASOPHIL % 0.6 % (0.0-2.0); EOSINOPHIL % 2.1 % (0-5); GRANULOCYTE % 77.3 % (42.2-75.2); HEMATOCRIT 23.3 % (37-47); MEAN CORPUSCULAR HGB 28.1 PG (27.0-31.0); MEAN CORPUSCULAR HGB CONC 32.8 G/DL (33.0-37.0); MEAN CORPUSCULAR VOLUME 85.5 FL (81.0-99.0); MEAN PLATELET VOLUME 8.7 FL (7.4-10.4); PLATELET COUNT 344 /CUMM (130-400); RBC DISTRIBUTION WIDTH 15.5 % (11.5-14.5); RED BLOOD CELL CT 2.73 /CUMM (4.20-5.40); WHITE BLOOD CELL COUNT 14.5 /CUMM (4.8-10.8)
[2018-06-23 17:00] VITALS: BP 160/74
[2018-06-23 22:19] VITALS: BP 126/60
--- NOTE | 2018-06-24 00:05 | PN- Orthopedic ---
Surgical Brief Attending Note Brief Attending Note: 06/22/2018 - POD #12 Patient seen by Mohan Cabrera 06/22/2018 @ ~06:30 PM: Primary and consultation management as well as discharge planning per general and specialty medical services. Kalpana Thornton is a 73 year old white female now POD #12 S/P L3-S1 revision spinal surgery which included removal of hardware, takedown of pseudoarthrosis, neural decompression and revision multicolumn instrumented fusion (06/10/2018, Mohan/Tiara). See 06/11/2018 note, op note and preoperative documentation for additional surgical and perioperative details. BUN and Creatinine are lower today at 29 and 6.5 respectively. WBCC and HCT pending. Patient is sitting up and conversational without overt signs of anemia. Urine output remains low but slowly improving. Dialysis continues to be reasonably well tolerated. No other patient or nursing reported or observed clincal distress, instability, problem or concern overnight. No symptoms or signs to suggest infection or other cause for elevated WBCC. Had ordered sterilely prepped cath U/A and C/S to definitively rule out (or C/S identify) UTI. Not yet performed. Will discuss with primary team. All other parameters are steadily improving including energy level, mobilization , PO intake, sleep, etc. Back pain is mild, decreasing and is generally controlled with brace use particularly when OOB and with ambulation. No leg radiation. Patient cannot yet tell whether preoperative pain is improved which is not unusual at this early stage particularly with other medical concerns slowing rehab. She is however rapidly rebounding and approaching normal rehab course. Only requiring occasional low dose narcotics. Most discomfort is adequately responding to Tylenol. No clinical changes otherwise and assessment otherise unchanged from 06/21/2018 note. See that document for details. Exam also unchanged from 06/21/2018 assessment (see note for details). AT and EHL may be slightly stronger today at 3/5 and 4+/5 respectively. Incision CD+I. Stable and steadily improving now on POD #12 S/P L3-S1 removal of hardware, takedown of pseudoarthrosis, decompression and revision multicolumn instrumented fusion. Still requiring dialysis with evidence of significant ARF by urine output and lab criteria. Overall recovery otherwise returning closer to standard levels. Continue primary general and consultation Medicine service management as her reason for continued hospitalization is primarily medical. Agree with plans for continued dialysis. WBCC remains mildly elevated without fever or symptoms to suggest infectious etiology. Straight cath U/A will again be discussed with primary medical team. Plan staple removal on Thursday POD #18. No change in other pland and protocols. See 06/18/2018 and 06/15/2018 notes and other referenced sources for last detailed description. D/C planning mostly dependent on dialysis plans and so pending nephrology clearance for transfer to rehab for which she is otherwise cleared from a surgical and perioperative medical standpoint (assuming other labs normalize and U/A/C/S is negative or findings can be treated as outpatient).
--- NOTE | 2018-06-24 00:30 | PN- Orthopedic ---
Surgical Brief Attending Note Brief Attending Note: 06/23/2018 - POD #13 Patient seen by Mohan Cabrera 06/23/2018 @ ~06:30 PM: Primary and consultation management as well as discharge planning per general and specialty medical services. Kalpana Thornton is a 73 year old white female now POD #13 S/P L3-S1 revision spinal surgery which included removal of hardware, takedown of pseudoarthrosis, neural decompression and revision multicolumn instrumented fusion (06/10/2018, Mohan/Tiara). See 06/11/2018 note, op note and preoperative documentation for additional surgical and perioperative details. BUN and Creatinine slightly increased today compared to significant drop yesterday and are now 40 and 8.6 respectively. WBCC continues to slowly climb and is now 14.5. HCT is slowly improving and is now 23.3 with no associated symptoms except perhaps early fatigue which is well tolerated overall. No obvious need for transfusion at this point. Urine output remains low but slowly improving. Dialysis continues to be reasonably well tolerated. No other patient or nursing reported or observed clincal distress, instability, problem or concern overnight. No symptoms or signs to suggest infection or other cause for elevated WBCC. Had ordered sterilely prepped cath U/A and C/S to definitively rule out (or C/S identify) UTI. It appears that a clean catch U/A was performed which showed urine protein of 100, small LE, 5-19 RBC, 10-15 WBC, many epi, moderate bacteruria, few budding yeast, large hematuria and negative glucose. Still feel strongly that definitive specimen should be obtained (particularly given oliguria) for U/A/C/S and so sterilely prepped cath urine was ordered at this point as much to minimize the risk of surgical site seeding as for workup of leukocytosis and medical management. All other parameters are steadily improving including energy level, mobilization , PO intake, sleep, etc. Back pain is well controlled for this postoperative stage. No leg radiation. Requiring occasional low dose narcotics. Most discomfort is adequately responding to Tylenol. Otherwise, no changes in clinical subjective or objective status or assessments compared to 06/22/2018 note. See that and other earlier documents for details and comparative assessment of progress. Exam also unchanged from 06/21/2018 assessment (see note for details). AT and EHL stable at 3/5 and 4+/5 respectively. AT power decreases closer to neutral plantagrade position and she does not yet have antigravity function to fully actively achieve or maintain this position. Incision CD+I. Mild staple-associated erythema. Patient also describing iincreasing pruritis. No spreading or dehiscence. Will therefore return to original plan for staple removal and application of steristrips with Benzoin or Mastisol tomorrow (POD #14) or Heladio (POD #15). Stable and steadily improving now on POD #13 S/P L3-S1 removal of hardware, takedown of pseudoarthrosis, decompression and revision multicolumn instrumented fusion. Still requiring dialysis with evidence of significant ARF by urine output and lab criteria. BUN and Creatinine have decreased overall with better urine output over the last few days although the improvement was significant yesterday and then partially worsened again today. Overall recovery otherwise returning closer to standard levels. Continue primary general and consultation Medicine service management as her reason for continued hospitalization is primarily medical. Agree with plans for continued dialysis. WBCC remains mildly elevated without fever or symptoms to suggest infectious etiology. Straight cath U/A/C/S ordered by surgical team. Plan staple removal tomorrow or Thursday. No change in other plans and protocols. D/C planning mostly dependent on dialysis plans and so pending nephrology clearance for transfer to rehab for which she is otherwise cleared from a surgical and perioperative medical standpoint (assuming no significant medical changes or lab findings).
[2018-06-24 06:23] VITALS: BP 132/80
[2018-06-24 08:30] LABS: ABSOLUTE BASOPHIL COUNT 0 /CUMM (0.0-0.2); ABSOLUTE EOSINOPHIL COUNT 0.3 /CUMM (0.0-0.7); ABSOLUTE GRANULOCYTE CT 10.3 /CUMM (1.4-6.5); ABSOLUTE MONOCYTE COUNT 1.3 /CUMM (0.10-0.60); BASOPHIL % 0.3 % (0.0-2.0); EOSINOPHIL % 2.2 % (0-5); GRANULOCYTE % 73.8 % (42.2-75.2); HEMATOCRIT 23.7 % (37-47); MEAN CORPUSCULAR HGB 28.2 PG (27.0-31.0); MEAN CORPUSCULAR HGB CONC 32.7 G/DL (33.0-37.0); MEAN CORPUSCULAR VOLUME 86.1 FL (81.0-99.0); MEAN PLATELET VOLUME 8.1 FL (7.4-10.4); PLATELET COUNT 366 /CUMM (130-400); RBC DISTRIBUTION WIDTH 15.6 % (11.5-14.5); RED BLOOD CELL CT 2.75 /CUMM (4.20-5.40); WHITE BLOOD CELL COUNT 13.9 /CUMM (4.8-10.8)
--- NOTE | 2018-06-24 12:02 | PN- Att Addend ---
Attending Addendum Attending Brief Note Patient seen and examined, doing okay. Denies any complaints. Pt did get the staright cath this am to collect the urine sample. Vital Signs Date Time Temp Pulse Resp B/P B/P Pulse O2 O2 Flow FiO2 Mean Ox Delivery Rate 06/24 1014 Nasal 2.0L Cannula 06/24 0623 98.1 87 18 132/80 94 Room Air 06/23 2219 98.5 99 18 126/60 93 06/23 1800 98.7 97 20 160/74 06/23 1700 97.8 94 20 160/74 97 Room Air on exam; aox3, nad. cv; s1,s2, rrr resp; clear abd; soft, nt, bs+ ext; no edema back: cliff look clean. Laboratory Tests 06/24 06/24 0615 0600 Chemistry Sodium (137 - 145 mmol/L) 137 Potassium (3.5 - 5.1 mmol/L) 4.8 Chloride (98 - 107 mmol/L) 101 Carbon Dioxide (22 - 30 mmol/L) 29 Anion Gap (5 - 16) 7 BUN (7 - 17 mg/dL) 18 H Creatinine (0.5 - 1.0 mg/dL) 5.3 *H Estimated GFR (>60 ml/min) 8 L BUN/Creatinine Ratio (7 - 25 %) 3.4 L Hematology CBC w Diff NO MAN DIFF REQ WBC (4.8 - 10.8 /CUMM) 13.9 H RBC (4.20 - 5.40 /CUMM) 2.75 L Hgb (12.0 - 16.0 G/DL) 7.8 L Hct (37 - 47 %) 23.7 L MCV (81.0 - 99.0 FL) 86.1 MCH (27.0 - 31.0 PG) 28.2 MCHC (33.0 - 37.0 G/DL) 32.7 L RDW (11.5 - 14.5 %) 15.6 H Plt Count (130 - 400 /CUMM) 366 MPV (7.4 - 10.4 FL) 8.1 Gran % (42.2 - 75.2 %) 73.8 Lymphocytes % (20.5 - 51.1 %) 14.5 L Monocytes % (1.7 - 9.3 %) 9.2 Eosinophils % (0 - 5 %) 2.2 Basophils % (0.0 - 2.0 %) 0.3 Absolute Granulocytes (1.4 - 6.5 /CUMM) 10.3 H Absolute Lymphocytes (1.2 - 3.4 /CUMM) 2.0 Absolute Monocytes (0.10 - 0.60 /CUMM) 1.3 H Absolute Eosinophils (0.0 - 0.7 /CUMM) 0.3 Absolute Basophils (0.0 - 0.2 /CUMM) 0 Urines Urine Color (YEL,AMB,STR) YEL Urine Clarity (CLEAR) CLEAR Urine pH (5.0 - 8.0) 7.5 Ur Specific [place] (1.001 - 1.035) 1.015 Urine Protein (NEG,<30 MG/DL) 30 H Urine Ketones (NEG) NEG Urine Nitrite (NEG) NEG Urine Bilirubin (NEG) NEG Urine Urobilinogen (0.1 - 1.0 EU/dl) 0.2 Ur Leukocyte Esterase (NEG) TRACE H Ur Microscopic SEDIMENT EXAMINED Urine RBC (0 - 5 /HPF) 10-15 H Urine WBC (0 - 2 /HPF) 3-5 H Ur Epithelial Cells (NONE,FEW) FEW Urine Bacteria (NEG/NONE) FEW H Urine Hemoglobin (NEG) MOD H Urine Glucose (N MG/DL) NEG 06/23 1308 Chemistry Sodium (137 - 145 mmol/L) 136 L Potassium (3.5 - 5.1 mmol/L) 4.5 Chloride (98 - 107 mmol/L) 99 Carbon Dioxide (22 - 30 mmol/L) 27 Anion Gap (5 - 16) 10 BUN (7 - 17 mg/dL) 40 H Creatinine (0.5 - 1.0 mg/dL) 8.6 *H Estimated GFR (>60 ml/min) 5 L BUN/Creatinine Ratio (7 - 25 %) 4.7 L Hematology CBC w Diff NO MAN DIFF REQ WBC (4.8 - 10.8 /CUMM) 14.5 H RBC (4.20 - 5.40 /CUMM) 2.73 L Hgb (12.0 - 16.0 G/DL) 7.6 L Hct (37 - 47 %) 23.3 L MCV (81.0 - 99.0 FL) 85.5 MCH (27.0 - 31.0 PG) 28.1 MCHC (33.0 - 37.0 G/DL) 32.8 L RDW (11.5 - 14.5 %) 15.5 H Plt Count (130 - 400 /CUMM) 344 MPV (7.4 - 10.4 FL) 8.7 Gran % (42.2 - 75.2 %) 77.3 H Lymphocytes % (20.5 - 51.1 %) 11.9 L Monocytes % (1.7 - 9.3 %) 8.1 Eosinophils % (0 - 5 %) 2.1 Basophils % (0.0 - 2.0 %) 0.6 Absolute Granulocytes (1.4 - 6.5 /CUMM) 11.2 H Absolute Lymphocytes (1.2 - 3.4 /CUMM) 1.7 Absolute Monocytes (0.10 - 0.60 /CUMM) 1.2 H Absolute Eosinophils (0.0 - 0.7 /CUMM) 0.3 Absolute Basophils (0.0 - 0.2 /CUMM) 0.1 A/P: 73 year old female with PMH signficant for HTN, hypothyroidism, and spinal stenosis admitted for spinal surgery (L3-S1 laminectomy with hardware removal and placement) with intraop EBL of 3500cc and hypotension, managed with peripheral phenylephrine and 3 unit pRBC transfusion, now hospital course complicated by ATN and TIFFANIE requiring hemodialysis for oliguria and volume overload. Patient still getting dialysis. Per nephrology, if renal function does not improve by the end of this week, patient will likely need outpatient dialysis. Will discuss with pourer buggy ladle about outpatient dialysis plan. Urinalysis from this morning that was obtained after the straight cath, is not significant for possible infection as there is only 3-5 WBCs. Leukocytosis is stable. Patient has been watched off of antibiotics. Patient has chronic anemia and H&H stable. Continue the rest of the management. Patient on mechanical DVT prophylaxis secondary to spine surgery as well as anemia.
--- NOTE | 2018-06-24 13:01 | PN- Housestaff ---
Subjective Follow-up For: ATN Subjective: Saw pt at bedside this AM. She stated that seh had some leg pain and didn't want to walk with PT this AM. Said she would try in the afternoon. no cute ovenight events or complaints. Review of Systems Constitutional: Denies: chills, fever. EENTM: Reports: no symptoms. Cardiovascular: Denies: chest pain, palpitations. Respiratory: Reports: no symptoms. Gastrointestinal: Reports: no symptoms. Genitourinary: Reports: no symptoms. Musculoskeletal: Reports: no symptoms. Objective Last 24 Hrs of Vital Signs/I&O Vital Signs Date Time Temp Pulse Resp B/P B/P Pulse O2 O2 Flow FiO2 Mean Ox Delivery Rate 06/24 1014 Nasal 2.0L Cannula 06/24 0623 98.1 87 18 132/80 94 Room Air 06/23 2219 98.5 99 18 126/60 93 06/23 1800 98.7 97 20 160/74 06/23 1700 97.8 94 20 160/74 97 Room Air Intake & Output 06/24 1600 06/24 0800 06/24 0000 Intake Total 300 350 Output Total 300 300 Balance 0 50 Intake, Oral 300 350 Output, Urine 300 300 Patient 94.943 kg Weight Weight Bed scale Measurement Method Physical Exam General Appearance: Alert, Oriented X3, Cooperative, No Acute Distress Skin: No Significant Lesion HEENT: Atraumatic, PERRLA Neck: Supple Cardiovascular: Regular Rate, Normal S1, Normal S2 Lungs: Normal Air Movement Abdomen: Soft, No Tenderness Extremities: cliff in back are intact. no erythema or drainage. looks to be healing well Assessment/Plan Assessment: This is a 73 year old female with PMH of HTN, hypothyroidism, and spinal stenosis admitted for spinal surgery (L3-S1 laminectomy with hardware removal and placement) on 06/10 with intraop EBL of 3500cc and subsequent hypotension. She was managed with peripheral phenylephrine and 2 unit pRBC transfusion, now hospital course complicated by ATN and TIFFANIE requiring hemodialysis for oliguria and volume overload. PLAN: Acute blood loss anemia: Stable at 9.6 today. -s/p 2 units pRBCs -Now on epogen -Will continue trend and transfuse if below 7 ATN 2/2 hemorrhagic shock and intra op blood loss: Her Cr looks good today at 5.3 but she had dialysis yesterday. Will likely have to monitor her Cr tomorrow to see if she is actually regaining kidney function or if this is just the effect of dialysis from the day before. Notably she had more Uop (500 cc recorded yesterday) and already 300 cc since this AM. s/p tunneled catheter placed 06/15. -Continue Strict I/O's -Next dilaysis session tomorrow -Continue phosphate binders, renal dialysis diet, and nephrovitamins L3-S1 laminectomy with hardware removal and placement: -No evidence of surgical site infection -Ambulating with PT -Continue neurochecks, no new deficits -Chronic left foot drop, continue AFO -Continue analgesics -[place] to remain in until tomorrow or thursday -Follow up ortho and neurosurgical recommendations Leukocytosis -Afebrile, No obvious source of infection -Straight cath done this AM is not remarkable for obvious infection. -Monitor off antibiotic HTN * Con't Amlodipine HLD: * Con't statin Hypothyroidism * Con't levothyroxine Continue PO PPI and bowel regimen Renal diet DVT ppx-ALPs only Problem List: 1. Acute blood loss anemia 2. ATN (acute tubular necrosis) Pain Ratin Pain Location: none Pain Goal: Remain pain free Pain Plan: current reg Tomorrow's Labs & Rationales: cbc bep
--- NOTE | 2018-06-24 13:04 | Patient Discharge Instructions ---
Discharge Instructions General Discharge Information You were seen/treated for: Back pain, spinal stenosis, ATN and acute renal failure You had these procedures: L3-S1 hardware removal Revision L3-S1 hemilaminotomies, decompression lumbar soco L3-5 Dialysis Watch for these problems: Fever over 100.4 Numbness and tingling in lower extremities Sudden increase in pain Drainage from wound Redness and swelling around wound Chest pain or shortness of breath No bath, but you may shower: Yes Other wound care: Keep incision clean and dry Special Instructions: Daily dry dressing change Follow up with renal doctor upon discharge Follow up with dialysis as scheduled Diet Continue normal diet: Yes Activity Pounds, do NOT lift more than: 5 Other activity limits: No bending or twisting Acute Coronary Syndrome Inclusion Criteria At DC or during hospital stay patient has or had the following: ACS DIAGNOSIS No Discharge Core Measures Meds if any: Prescribed or Continued at Discharge Meds if any: NOT Prescribed or Continued at Discharge Congestive Heart Failure Inclusion Criteria At DC or during hospital stay patient has or had the following: CHF DIAGNOSIS No Discharge Core Measures Meds if any: Prescribed or Continued at Discharge Meds if any: NOT Prescribed or Continued at Discharge Cerebrovascular accident Inclusion Criteria At DC or during hospital stay patient has or had the following: CVA/TIA Diagnosis No Discharge Core Measures Meds if any: Prescribed or Continued at Discharge Meds if any: NOT Prescribed or Continued at Discharge Venous thromboembolism Inclusion Criteria VTE Diagnosis No VTE Type NONE VTE Confirmed by (Test) NONE Discharge Core Measures - Per Current guidelines, there needs to be overlap - treatment for the first 5 days of Warfarin therapy. - If discharged on Warfarin prior to 5 days of - overlap therapy, the patient will need to be - assessed for post discharge needs including - *Post discharge parental anticoagulation - *Warfarin and/or parental anticoagulation education - *Follow up date to check INR post discharge At least 5 days overlap therapy as Inpatient No Meds if any: Prescribed or Continued at Discharge Note: Overlap Therapy is Warfarin and Anticoagulant Meds if any: NOT Prescribed or Continued at Discharge
[2018-06-24 14:53] VITALS: BP 140/80
[2018-06-24 22:35] VITALS: BP 154/60
[2018-06-25 06:24] VITALS: BP 150/88
--- NOTE | 2018-06-25 08:01 | PN- Housestaff ---
Dayron HAN,Lizzy 06/25/18 0801: Subjective Follow-up For: atn Subjective: No acute overnight events or complaints. Pt states that she feels very good adn that the burning sensation in her feet has some what decreased. She was excited to report that volume or urine has increased incrementally on a daily basis. Review of Systems Constitutional: Denies: chills. EENTM: Reports: no symptoms. Cardiovascular: Reports: no symptoms. Respiratory: Reports: no symptoms. Gastrointestinal: Reports: no symptoms. Objective Last 24 Hrs of Vital Signs/I&O Vital Signs Date Time Temp Pulse Resp B/P B/P Pulse O2 O2 Flow FiO2 Mean Ox Delivery Rate 06/25 1049 Nasal 2.0L Cannula 06/25 0624 98.3 103 20 150/88 95 Room Air 06/25 0000 103 06/24 2235 98.7 107 20 154/60 96 Room Air 06/24 1453 98.3 95 20 140/80 93 Intake & Output 06/25 1600 06/25 0800 06/25 0000 Intake Total 200 100 Output Total 200 650 301 Balance -200 -450 -201 Intake, Oral 200 100 Number 0 Bowel Movements Output, Stool 1 Output, Urine 200 650 300 Patient 93.44 kg Weight Weight Bed scale Measurement Method Physical Exam General Appearance: Oriented X3, Cooperative, No Acute Distress HEENT: Atraumatic, PERRLA, EOMI Neck: Supple Cardiovascular: Regular Rate, Normal S1, Normal S2 Lungs: Normal Air Movement Abdomen: Soft, jasvir intact in lower back. incision looks clean and healing well Current Medications: Current Medications Sig/Kristin Start time Last Medication Dose Route Stop Time Status Admin Acetaminophen 650 MG Q4P PRN 06/14 1400 AC 06/25 PO 0622 Acetaminophen 1,000 MG Q6P PRN 06/11 0015 AC 06/18 N/A 1 UNIT IV 1422 Amlodipine Besylate 5 MG 1830 06/17 1830 AC 06/24 PO 1720 Atorvastatin Calcium 10 MG 1700 06/16 1625 AC 06/24 PO 1719 Docusate Sodium 100 MG BID PRN 06/16 0755 AC PO Epoetin Jayce 2,000 UNIT MoWeFr PRN 06/18 0745 AC IV Epoetin Jayce 3,000 UNIT MoWeFr PRN 06/18 0730 AC IV Levothyroxine Sodium 0.1 MG DAILY AC 06/14 0700 AC 06/25 PO 0617 Multivitamins 1 TAB DAILY 06/15 1536 AC 06/25 PO 0805 Omeprazole 40 MG 1/2H B/BREAKF/DINNER 06/13 1630 AC 06/25 PO 0617 Oxycodone/ 1 TAB Q6P PRN 06/23 1545 AC 06/24 Acetaminophen PO 2059 Oxycodone/ 1 TAB ONCE PRN 06/23 1530 AC 06/24 Acetaminophen PO 0815 Polyethylene Glycol 17 GM DAILY PRN 06/16 0755 AC PO Senna/Docusate Sodium 2 TAB DAILY PRN 06/16 0755 AC PO Sertraline HCl 50 MG DAILY 06/17 0900 AC 06/25 PO 08 Sevelamer Carbonate 1,600 MG WM 06/14 1700 AC 06/25 PO 08 Simethicone 80 MG Q4P PRN 06/11 1445 AC 06/16 PO 2156 Last 24 Hrs of Lab/Simone Results Last 24 Hrs of Labs/Mics: Laboratory Tests 06/25/18 0607: Anion Gap 12, Estimated GFR 6 L, BUN/Creatinine Ratio 4.2 L, CBC w Diff NO MAN DIFF REQ, RBC 2.90 L, MCV 85.7, MCH 28.1, MCHC 32.8 L, RDW 15.6 H, MPV 8.1, Gran % 76.4 H, Lymphocytes % 11.9 L, Monocytes % 9.3, Eosinophils % 1.9, Basophils % 0.5, Absolute Granulocytes 10.8 H, Absolute Lymphocytes 1.7, Absolute Monocytes 1.3 H, Absolute Eosinophils 0.3, Absolute Basophils 0.1 Assessment/Plan Assessment: Assessment: This is a 73 year old female with PMH of HTN, hypothyroidism, and spinal stenosis admitted for spinal surgery (L3-S1 laminectomy with hardware removal and placement) on 06/10 with intraop EBL of 3500cc and subsequent hypotension. She was managed with peripheral phenylephrine and 2 unit pRBC transfusion, now hospital course complicated by ATN/TIFFANIE requiring hemodialysis for oliguria and volume overload. -- PLAN: Acute blood loss anemia: Hb 8.2 today. -s/p 2 units pRBCs -Now on epogen -Will continue trend and transfuse if below 7 ATN 2/2 hemorrhagic shock and intra op blood loss: Her Cr is 6.6 today from 5.3 yesterday. Due for dialysis today. Her Uop is improving with up to 850cc already today and total 700cc yesterday. s/p tunneled catheter placed 06/15. -Continue Strict I/O's -Next dilaysis session today. -Continue phosphate binders, renal dialysis diet, and nephrovitamins L3-S1 laminectomy with hardware removal and placement: -No evidence of surgical site infection -Ambulating with PT -Continue neurochecks, no new deficits -Chronic left foot drop, continue AFO -Continue analgesics -[place] to remain in until today or thursday -Follow up ortho and neurosurgical recommendations Leukocytosis -Afebrile,went up to 14.2 today. No obvious source of infection -Straight cath done this AM is not remarkable for obvious infection. -Monitor off antibiotic -Ucx is negative HTN * Con't Amlodipine HLD: * Con't statin Hypothyroidism * Con't levothyroxine Continue PO PPI and bowel regimen Renal diet DVT ppx-ALPs only Problem List: 1. ATN (acute tubular necrosis) Pain Ratin Pain Location: none Pain Goal: Remain pain free Pain Plan: current reg Tomorrow's Labs & Rationales: cbc bep Chay HAN,Vanessa 06/25/18 1051: Attending MD Review Statement Attending Statement Attending MD Statement: examined this patient, discuss w/resident/PA/HEAD WRESTLING COACH, agreed w/resident/PA/HEAD WRESTLING COACH, reviewed EMR data (avail), discussed with nursing, discussed with case mgmt, reviewed images, amended to note Attending Assessment/Plan: Patient seen and examined, doing well. States that she had a good night sleep last night and she is feeling good today. She is due for dialysis today. Vital Signs Date Time Temp Pulse Resp B/P B/P Pulse O2 O2 Flow FiO2 Mean Ox Delivery Rate 06/25 0624 98.3 103 20 150/88 95 Room Air 06/25 0000 103 06/24 2235 98.7 107 20 154/60 96 Room Air 06/24 1453 98.3 95 20 140/80 93 on exam; aox3, nad. cv; s1, s2, rrr resp; clear abd; soft, nt, bs+ ext; 1+ edema Jasvir look clean. Laboratory Tests 06/25 0607 Chemistry Sodium (137 - 145 mmol/L) 139 Potassium (3.5 - 5.1 mmol/L) 4.7 Chloride (98 - 107 mmol/L) 100 Carbon Dioxide (22 - 30 mmol/L) 27 Anion Gap (5 - 16) 12 BUN (7 - 17 mg/dL) 28 H Creatinine (0.5 - 1.0 mg/dL) 6.6 *H Estimated GFR (>60 ml/min) 6 L BUN/Creatinine Ratio (7 - 25 %) 4.2 L Hematology CBC w Diff NO MAN DIFF REQ WBC (4.8 - 10.8 /CUMM) 14.2 H RBC (4.20 - 5.40 /CUMM) 2.90 L Hgb (12.0 - 16.0 G/DL) 8.2 L Hct (37 - 47 %) 24.9 L MCV (81.0 - 99.0 FL) 85.7 MCH (27.0 - 31.0 PG) 28.1 MCHC (33.0 - 37.0 G/DL) 32.8 L RDW (11.5 - 14.5 %) 15.6 H Plt Count (130 - 400 /CUMM) 400 MPV (7.4 - 10.4 FL) 8.1 Gran % (42.2 - 75.2 %) 76.4 H Lymphocytes % (20.5 - 51.1 %) 11.9 L Monocytes % (1.7 - 9.3 %) 9.3 Eosinophils % (0 - 5 %) 1.9 Basophils % (0.0 - 2.0 %) 0.5 Absolute Granulocytes (1.4 - 6.5 /CUMM) 10.8 H Absolute Lymphocytes (1.2 - 3.4 /CUMM) 1.7 Absolute Monocytes (0.10 - 0.60 /CUMM) 1.3 H Absolute Eosinophils (0.0 - 0.7 /CUMM) 0.3 Absolute Basophils (0.0 - 0.2 /CUMM) 0.1 A/P: 73 year old female with PMH signficant for HTN, hypothyroidism, and spinal stenosis admitted for spinal surgery (L3-S1 laminectomy with hardware removal and placement) with intraop EBL of 3500cc and hypotension, managed with peripheral phenylephrine and 3 unit pRBC transfusion, now hospital course complicated by ATN and TIFFANIE requiring hemodialysis for oliguria and volume overload. Discussed with medical receptionist assistant. Patient due for dialysis today. Patient will be kept over the weekend. The medical receptionist assistant will decide if patient will require dialysis on Thursday. She does have a dialysis start for the next week. After Thursday she can likely be discharged for outpatient dialysis if she needs it. If her creatinine continues to improve and she continues to make urine, she might not even need outpatient dialysis. [place] will be coming out today per surgery. We are monitoring her white count but watching off of antibiotics. Continue the rest of the management. Patient working with physical therapy.
[2018-06-25 08:17] LABS: ABSOLUTE BASOPHIL COUNT 0.1 /CUMM (0.0-0.2); ABSOLUTE EOSINOPHIL COUNT 0.3 /CUMM (0.0-0.7); ABSOLUTE GRANULOCYTE CT 10.8 /CUMM (1.4-6.5); ABSOLUTE LYMPH COUNT 1.7 /CUMM (1.2-3.4); ABSOLUTE MONOCYTE COUNT 1.3 /CUMM (0.10-0.60); BASOPHIL % 0.5 % (0.0-2.0); EOSINOPHIL % 1.9 % (0-5); GRANULOCYTE % 76.4 % (42.2-75.2); HEMATOCRIT 24.9 % (37-47); MEAN CORPUSCULAR HGB 28.1 PG (27.0-31.0); MEAN CORPUSCULAR HGB CONC 32.8 G/DL (33.0-37.0); MEAN CORPUSCULAR VOLUME 85.7 FL (81.0-99.0); MEAN PLATELET VOLUME 8.1 FL (7.4-10.4); PLATELET COUNT 400 /CUMM (130-400); RBC DISTRIBUTION WIDTH 15.6 % (11.5-14.5); WHITE BLOOD CELL COUNT 14.2 /CUMM (4.8-10.8)
[2018-06-25] MEDS ORDERED: PERCOCET 5-3251 EACH PO (08:58)
[2018-06-25] MEDS ORDERED: NEPHRO-VITE TA0.8 MG PO (09:02)
[2018-06-25] MEDS ORDERED: RENVELA800 M1 PO (09:02)
[2018-06-25 14:04] VITALS: BP 142/90; BP 150/80
--- NOTE | 2018-06-25 15:23 | PN- Nephrology ---
Assessment/Plan Nephrology Assessment: 1. Acute kidney injury secondary to ATN -now nonoliguric with increasing urine output suggesting that she may be on the verge of recovering renal function 2. Status post lumbar surgery 06/10/18 with significant intraoperative blood loss and resultant anemia Suggestion: 1. Hemodialysis today in progress with 1 L ultrafiltration planned over 3.5 hours as tolerated 2. Will observe over the weekend and reassess dialysis need on Thursday. If no dialysis needed at that time then she can be discharged with outpatient renal follow-up 3. If she does still require dialysis on Thursday, she can be discharged after dialysis that day with plans for outpatient dialysis at [facility] to start on 07/01 at 3 PM Subjective Subjective: She feels well with no complaints and is making progress with her physical therapy sessions. Of note is the fact that her urine output was up to 700 cc yesterday, 1250 cc thus far today. Predialysis creatinine also appears to be coming down: 6.6 today compared to 8.6 predialysis 2 days ago. Today's creatinine is higher than her level of 5.3 yesterday. Objective Vital Signs and I&Os Vital Signs Date Time Temp Pulse Resp B/P B/P Pulse O2 O2 Flow FiO2 Mean Ox Delivery Rate 06/25 1404 98.1 100 20 150/80 96 Room Air 06/25 1049 Nasal 2.0L Cannula 06/25 0624 98.3 103 20 150/88 95 Room Air 06/25 0000 103 06/24 2235 98.7 107 20 154/60 96 Room Air Intake & Output 06/25 1600 06/25 0400 06/24 0400 06/23 1600 06/23 0400 Intake Total 200 100 400 350 470 100 Output Total 1250 301 400 300 200 Balance -1050 -201 0 50 270 100 Intake, IV 20 Intake, Oral 200 100 400 350 450 100 Number 0 Bowel Movements Output, Stool 1 Output, Urine 1250 300 400 300 200 Patient 206 lb 209 lb 208 lb Weight Weight Bed scale Bed scale Bed scale Measurement Method Physical Exam: General: Well-developed, well-nourished white female in NAD Skin: No rash or jaundice HEENT: Conjunctivae pale, sclerae anicteric, mucous membranes moist Neck: Without masses or thyromegaly, no supraclavicular or cervical adenopathy Chest: Clear to P&A Heart: Regular rate and rhythm without S3 or rub Abdomen: Soft and nontender without palpable masses or organomegaly Extremities: Without cyanosis; 1+edema L>R Neuro: Cognitively intact, left foot drop much improved, no asterixis or myoclonus Results Pertinent Lab Results: Laboratory Tests 06/25 06/24 0607 0615 Chemistry Sodium (137 - 145 mmol/L) 139 137 Potassium (3.5 - 5.1 mmol/L) 4.7 4.8 Chloride (98 - 107 mmol/L) 100 101 Carbon Dioxide (22 - 30 mmol/L) 27 29 Anion Gap (5 - 16) 12 7 BUN (7 - 17 mg/dL) 28 H 18 H Creatinine (0.5 - 1.0 mg/dL) 6.6 *H 5.3 *H Estimated GFR (>60 ml/min) 6 L 8 L BUN/Creatinine Ratio (7 - 25 %) 4.2 L 3.4 L Hematology CBC w Diff NO MAN DIFF REQ NO MAN DIFF REQ WBC (4.8 - 10.8 /CUMM) 14.2 H 13.9 H RBC (4.20 - 5.40 /CUMM) 2.90 L 2.75 L Hgb (12.0 - 16.0 G/DL) 8.2 L 7.8 L Hct (37 - 47 %) 24.9 L 23.7 L MCV (81.0 - 99.0 FL) 85.7 86.1 MCH (27.0 - 31.0 PG) 28.1 28.2 MCHC (33.0 - 37.0 G/DL) 32.8 L 32.7 L RDW (11.5 - 14.5 %) 15.6 H 15.6 H Plt Count (130 - 400 /CUMM) 400 366 MPV (7.4 - 10.4 FL) 8.1 8.1 Gran % (42.2 - 75.2 %) 76.4 H 73.8 Lymphocytes % (20.5 - 51.1 %) 11.9 L 14.5 L Monocytes % (1.7 - 9.3 %) 9.3 9.2 Eosinophils % (0 - 5 %) 1.9 2.2 Basophils % (0.0 - 2.0 %) 0.5 0.3 Absolute Granulocytes (1.4 - 6.5 /CUMM) 10.8 H 10.3 H Absolute Lymphocytes (1.2 - 3.4 /CUMM) 1.7 2.0 Absolute Monocytes (0.10 - 0.60 /CUMM) 1.3 H 1.3 H Absolute Eosinophils (0.0 - 0.7 /CUMM) 0.3 0.3 Absolute Basophils (0.0 - 0.2 /CUMM) 0.1 0 06/24 06/23 0600 1308 Chemistry Sodium (137 - 145 mmol/L) 136 L Potassium (3.5 - 5.1 mmol/L) 4.5 Chloride (98 - 107 mmol/L) 99 Carbon Dioxide (22 - 30 mmol/L) 27 Anion Gap (5 - 16) 10 BUN (7 - 17 mg/dL) 40 H Creatinine (0.5 - 1.0 mg/dL) 8.6 *H Estimated GFR (>60 ml/min) 5 L BUN/Creatinine Ratio (7 - 25 %) 4.7 L Hematology CBC w Diff NO MAN DIFF REQ WBC (4.8 - 10.8 /CUMM) 14.5 H RBC (4.20 - 5.40 /CUMM) 2.73 L Hgb (12.0 - 16.0 G/DL) 7.6 L Hct (37 - 47 %) 23.3 L MCV (81.0 - 99.0 FL) 85.5 MCH (27.0 - 31.0 PG) 28.1 MCHC (33.0 - 37.0 G/DL) 32.8 L RDW (11.5 - 14.5 %) 15.5 H Plt Count (130 - 400 /CUMM) 344 MPV (7.4 - 10.4 FL) 8.7 Gran % (42.2 - 75.2 %) 77.3 H Lymphocytes % (20.5 - 51.1 %) 11.9 L Monocytes % (1.7 - 9.3 %) 8.1 Eosinophils % (0 - 5 %) 2.1 Basophils % (0.0 - 2.0 %) 0.6 Absolute Granulocytes (1.4 - 6.5 /CUMM) 11.2 H Absolute Lymphocytes (1.2 - 3.4 /CUMM) 1.7 Absolute Monocytes (0.10 - 0.60 /CUMM) 1.2 H Absolute Eosinophils (0.0 - 0.7 /CUMM) 0.3 Absolute Basophils (0.0 - 0.2 /CUMM) 0.1 Urines Urine Color (YEL,AMB,STR) YEL Urine Clarity (CLEAR) CLEAR Urine pH (5.0 - 8.0) 7.5 Ur Specific [place] (1.001 - 1.035) 1.015 Urine Protein (NEG,<30 MG/DL) 30 H Urine Ketones (NEG) NEG Urine Nitrite (NEG) NEG Urine Bilirubin (NEG) NEG Urine Urobilinogen (0.1 - 1.0 EU/dl) 0.2 Ur Leukocyte Esterase (NEG) TRACE H Ur Microscopic SEDIMENT EXAMINED Urine RBC (0 - 5 /HPF) 10-15 H Urine WBC (0 - 2 /HPF) 3-5 H Ur Epithelial Cells (NONE,FEW) FEW Urine Bacteria (NEG/NONE) FEW H Urine Hemoglobin (NEG) MOD H Urine Glucose (N MG/DL) NEG
[2018-06-25 18:57] VITALS: BP 180/80
[2018-06-25 22:02] VITALS: BP 156/89
[2018-06-26 06:00] VITALS: BP 132/86
[2018-06-26 08:43] LABS: ABSOLUTE BASOPHIL COUNT 0.1 /CUMM (0.0-0.2); ABSOLUTE EOSINOPHIL COUNT 0.4 /CUMM (0.0-0.7); ABSOLUTE GRANULOCYTE CT 9.1 /CUMM (1.4-6.5); ABSOLUTE LYMPH COUNT 2.1 /CUMM (1.2-3.4); ABSOLUTE MONOCYTE COUNT 1.1 /CUMM (0.10-0.60); BASOPHIL % 0.5 % (0.0-2.0); GRANULOCYTE % 71.2 % (42.2-75.2); MEAN CORPUSCULAR HGB 28.1 PG (27.0-31.0); MEAN CORPUSCULAR HGB CONC 32.9 G/DL (33.0-37.0); MEAN CORPUSCULAR VOLUME 85.5 FL (81.0-99.0); MEAN PLATELET VOLUME 7.9 FL (7.4-10.4); PLATELET COUNT 466 /CUMM (130-400); RBC DISTRIBUTION WIDTH 16.2 % (11.5-14.5); RED BLOOD CELL CT 3.05 /CUMM (4.20-5.40); WHITE BLOOD CELL COUNT 12.8 /CUMM (4.8-10.8)
--- NOTE | 2018-06-26 08:49 | PN- Housestaff ---
Hung HAN,Magali 06/26/18 0849: Subjective Follow-up For: ATN Subjective: She is seeing examined. Resting comfortably. No acute distress noted. No overnight acute events reported. Patient denies any complaints denies fevers chills nausea vomiting or diarrhea. Reports improvement burning sensation in her feet Review of Systems Constitutional: Reports: see HPI. Objective Last 24 Hrs of Vital Signs/I&O Vital Signs Date Time Temp Pulse Resp B/P B/P Pulse O2 O2 Flow FiO2 Mean Ox Delivery Rate 06/26 06 98.3 95 20 132/86 96 Room Air 06/25 2202 98.5 100 20 156/89 96 06/25 1900 180/80 06/25 1857 98.2 80 180/80 96 Room Air 06/25 1404 98.1 100 20 150/80 96 Room Air Intake & Output 06/26 1600 06/26 0800 06/26 0000 Intake Total 120 240 Output Total 600 850 Balance -600 -730 240 Intake, Oral 120 240 Output, Urine 600 850 Patient 208 lb 201 lb Weight Weight Bed scale Measurement Method Physical Exam General Appearance: Alert, Oriented X3 Other Physical Findings: HEENT: Atraumatic, PERRLA, EOMI Neck: Supple Cardiovascular: Regular Rate, Normal S1, Normal S2 Lungs: Normal Air Movement Abdomen: Soft, jasvir intact in lower back. incision looks clean and healing well Current Medications: Current Medications Sig/Kristin Start time Last Medication Dose Route Stop Time Status Admin Acetaminophen 650 MG Q4P PRN 06/14 1400 AC 06/26 PO 0814 Acetaminophen 1,000 MG Q6P PRN 06/11 0015 AC 06/18 N/A 1 UNIT IV 1422 Amlodipine Besylate 5 MG 1830 06/17 1830 AC 06/25 PO 1900 Atorvastatin Calcium 10 MG 1700 06/16 1625 AC 06/25 PO 1859 Docusate Sodium 100 MG BID PRN 06/16 0755 AC PO Epoetin Jayce 2,000 UNIT MoWeFr PRN 06/18 0745 AC IV Epoetin Jayce 3,000 UNIT MoWeFr PRN 06/18 0730 AC IV Levothyroxine Sodium 0.1 MG DAILY AC 06/14 0700 AC 06/26 PO 0653 Multivitamins 1 TAB DAILY 06/15 1536 AC 06/26 PO 0809 Omeprazole 40 MG 1/2H B/BREAKF/DINNER 06/13 1630 AC 06/26 PO 0653 Oxycodone/ 1 TAB Q6P PRN 06/23 1545 AC 06/26 Acetaminophen PO 0216 Oxycodone/ 1 TAB ONCE PRN 06/23 1530 AC 06/24 Acetaminophen PO 0815 Polyethylene Glycol 17 GM DAILY PRN 06/16 0755 AC PO Senna/Docusate Sodium 2 TAB DAILY PRN 06/16 0755 AC PO Sertraline HCl 50 MG DAILY 06/17 0900 AC 06/26 PO 0810 Sevelamer Carbonate 1,600 MG WM 06/14 1700 AC 06/26 PO 0809 Simethicone 80 MG Q4P PRN 06/11 1445 AC 06/16 PO 2156 Last 24 Hrs of Lab/Simone Results Last 24 Hrs of Labs/Mics: Laboratory Tests 06/26/18 0730: Anion Gap 11, Estimated GFR 11 L, BUN/Creatinine Ratio 3.4 L, CBC w Diff NO MAN DIFF REQ, RBC 3.05 L, MCV 85.5, MCH 28.1, MCHC 32.9 L, RDW 16.2 H, MPV 7.9, Gran % 71.2, Lymphocytes % 16.4 L, Monocytes % 8.9, Eosinophils % 3.0, Basophils % 0.5, Absolute Granulocytes 9.1 H, Absolute Lymphocytes 2.1, Absolute Monocytes 1.1 H, Absolute Eosinophils 0.4, Absolute Basophils 0.1 Assessment/Plan Assessment: This is a 73 year old female with PMH of HTN, hypothyroidism, and spinal stenosis admitted for spinal surgery (L3-S1 laminectomy with hardware removal and placement) on 06/10 with intraop EBL of 3500cc and subsequent hypotension. She was managed with peripheral phenylephrine and 2 unit pRBC transfusion, now hospital course complicated by ATN/TIFFANIE requiring hemodialysis for oliguria and volume overload. -- PLAN: Acute blood loss anemia: Hb 8.2 today. -s/p 2 units pRBCs -Now on epogen -Will continue trend and transfuse if below 7 ATN 2/2 hemorrhagic shock and intra op blood loss: Her Cr is 6.6 today from 5.3 yesterday. Due for dialysis today. Her Uop is improving with up to 850cc already today and total 700cc yesterday. s/p tunneled catheter placed 06/15. -Continue Strict I/O's -Next dilaysis session -Continue phosphate binders, renal dialysis diet, and nephrovitamins L3-S1 laminectomy with hardware removal and placement: -No evidence of surgical site infection -Ambulating with PT -Continue neurochecks, no new deficits -Chronic left foot drop, continue AFO -Continue analgesics -[place]as[place] to remain in until today or thursday -Follow up ortho and neurosurgical recommendations Leukocytosis -Afebrile,went up to 14.2 today. No obvious source of infection -Straight cath done this AM is not remarkable for obvious infection. -Monitor off antibiotic -Ucx is negative HTN * Con't Amlodipine HLD: * Con't statin Hypothyroidism * Con't levothyroxine Continue PO PPI and bowel regimen Renal diet DVT ppx-ALPs only Problem List: 1. Acute blood loss anemia 2. ATN (acute tubular necrosis) Pain Ratin Pain Location: PRN Pain Goal: Pain 4 or less Pain Plan: ORDERD Tomorrow's Labs & Rationales: NIMA Armando MD,Taylor 06/26/18 0944: Attending MD Review Statement Attending Statement Attending MD Statement: examined this patient, discuss w/resident/PA/FACETER, agreed w/resident/PA/FACETER, reviewed EMR data (avail), discussed with nursing, reviewed images Attending Assessment/Plan: Overall patient is doing okay. She is a 73-year-old status post spinal surgery who is here with Tiffanie secondary to ATN in the setting of shock and volume loss. At this point the thought is that she is becoming nonoliguric and may recover her renal function. We are watching her BUN and creatinine closely. Following her urine output. Her white count is coming down to 12 and follow-up.
[2018-06-26 13:42] VITALS: BP 160/90
[2018-06-26 22:16] VITALS: BP 140/70
[2018-06-27 06:20] VITALS: BP 154/68
--- NOTE | 2018-06-27 08:44 | PN- Housestaff ---
Antonia HAN,Concepcion 06/27/18 0844: Subjective Follow-up For: MARISOL on dialysis Subjective: Resting comfortably in her chair. No acute distress noted. No overnight acute events reported. Reports signfiicant urine output and sleepy. Review of Systems Constitutional: Reports: see HPI. Objective Last 24 Hrs of Vital Signs/I&O Vital Signs Date Time Temp Pulse Resp B/P B/P Pulse O2 O2 Flow FiO2 Mean Ox Delivery Rate 06/27 06 98.0 101 20 154/68 96 Room Air 06/26 2216 98.9 100 20 140/70 95 06/26 1834 98.8 95 20 160/90 06/26 1342 98.8 95 20 160/90 96 Room Air Intake & Output 06/27 1600 06/27 0800 06/27 0000 Intake Total 240 240 Output Total 1000 400 Balance -760 -160 Intake, Oral 240 240 Output, Urine 1000 400 Patient 93.468 kg Weight Weight Bed scale Measurement Method Physical Exam General Appearance: Alert, Oriented X3, Cooperative Skin: No Rashes, No Breakdown Skin Temp/Moisture Exam: Warm/Dry HEENT: Atraumatic, PERRLA, EOMI Neck: Supple, No JVD Cardiovascular: Regular Rate, Normal S1, Normal S2 Lungs: Clear to Auscultation, Normal Air Movement Current Medications: Current Medications Sig/Kristin Start time Last Medication Dose Route Stop Time Status Admin Acetaminophen 650 MG Q4P PRN 06/14 1400 AC 06/27 PO 0233 Acetaminophen 1,000 MG Q6P PRN 06/11 0015 AC 06/18 N/A 1 UNIT IV 1422 Amlodipine Besylate 5 MG 1830 06/17 1830 AC 06/27 PO 1854 Atorvastatin Calcium 10 MG 1700 06/16 1625 AC 06/27 PO 1641 Docusate Sodium 100 MG BID PRN 06/16 0755 AC PO Epoetin Jayce 2,000 UNIT MoWeFr PRN 06/18 0745 AC IV Epoetin Jayce 3,000 UNIT MoWeFr PRN 06/18 0730 AC IV Levothyroxine Sodium 0.1 MG DAILY AC 06/14 0700 AC 06/27 PO 0531 Multivitamins 1 TAB DAILY 06/15 1536 AC 06/27 PO 0752 Omeprazole 40 MG 1/2H B/BREAKF/DINNER 06/13 1630 AC 06/27 PO 1641 Oxycodone/ 1 TAB Q6P PRN 06/23 1545 AC 06/27 Acetaminophen PO 0531 Oxycodone/ 1 TAB ONCE PRN 06/23 1530 AC 06/24 Acetaminophen PO 0815 Polyethylene Glycol 17 GM DAILY PRN 06/16 075 AC PO Senna/Docusate Sodium 2 TAB DAILY PRN 06/16 075 AC PO Sertraline HCl 50 MG DAILY 06/17 0900 AC 06/27 PO 075 Sevelamer Carbonate 1,600 MG WM 06/14 1700 AC 06/27 PO 1641 Simethicone 80 MG Q4P PRN 06/11 1445 AC 06/16 PO 2156 Last 24 Hrs of Lab/Simone Results Last 24 Hrs of Labs/Mics: Laboratory Tests 06/27/18 0630: Anion Gap 8, Estimated GFR 8 L, BUN/Creatinine Ratio 3.9 L, CBC w Diff NO MAN DIFF REQ, RBC 2.82 L, MCV 86.2, MCH 28.3, MCHC 32.8 L, RDW 15.2 H, MPV 7.9, Gran % 71.5, Lymphocytes % 14.7 L, Monocytes % 9.5 H, Eosinophils % 3.8, Basophils % 0.5, Absolute Granulocytes 7.5 H, Absolute Lymphocytes 1.5, Absolute Monocytes 1.0 H, Absolute Eosinophils 0.4, Absolute Basophils 0 Assessment/Plan Assessment: This is a 73 year old female with PMH of HTN, hypothyroidism, and spinal stenosis admitted for spinal surgery (L3-S1 laminectomy with hardware removal and placement) on 06/10 with intraop EBL of 3500cc and subsequent hypotension. She was managed with peripheral phenylephrine and 2 unit pRBC transfusion, now hospital course complicated by ATN/TIFFANIE requiring hemodialysis for oliguria and volume overload. -- PLAN: Acute blood loss anemia: Hb 8 today. -s/p 2 units pRBCs -Now on epogen -Will continue trend and transfuse if below 7 ATN 2/2 hemorrhagic shock and intra op blood loss: Her Cr is 5.1 today from 4.1 yesterday. Due for dialysis today. Her Uop is improving with up to 850cc already today and total 700cc yesterday. s/p tunneled catheter placed 06/15. -Continue Strict I/O's -Next dilaysis session -Continue phosphate binders, renal dialysis diet, and nephrovitamins L3-S1 laminectomy with hardware removal and placement: -No evidence of surgical site infection -Ambulating with PT -Continue neurochecks, no new deficits -Chronic left foot drop, continue AFO -Continue analgesics -Jasvir to remain in until today or thursday -Follow up ortho and neurosurgical recommendations Leukocytosis -Afebrile,went up to 14.2 today. No obvious source of infection -Straight cath done this AM is not remarkable for obvious infection. -Monitor off antibiotic -Ucx is negative HTN * Con't Amlodipine HLD: * Con't statin Hypothyroidism * Con't levothyroxine Continue PO PPI and bowel regimen Renal diet DVT ppx-ALPs only Problem List: 1. ATN (acute tubular necrosis) 2. Delay kidney tx func d/t ATN and other reason requiring acute dialysis Pain Ratin Pain Location: n/a Pain Goal: Pain 4 or less Pain Plan: tylenol prn Tomorrow's Labs & Rationales: cbc destiny Armando MD,Taylor 06/27/18 1026: Attending MD Review Statement Attending Statement Attending MD Statement: examined this patient, discuss w/resident/PA/GI ASST, agreed w/resident/PA/GI ASST, reviewed EMR data (avail), discussed with nursing, reviewed images Attending Assessment/Plan: She is doing well overall and her creatinine appears to be coming down. She has Tiffanie with ATN secondary to volume loss and shock state. We are awaiting for her renal function to normalize.
[2018-06-27 09:24] LABS: ABSOLUTE BASOPHIL COUNT 0 /CUMM (0.0-0.2); ABSOLUTE EOSINOPHIL COUNT 0.4 /CUMM (0.0-0.7); ABSOLUTE GRANULOCYTE CT 7.5 /CUMM (1.4-6.5); ABSOLUTE LYMPH COUNT 1.5 /CUMM (1.2-3.4); BASOPHIL % 0.5 % (0.0-2.0); EOSINOPHIL % 3.8 % (0-5); GRANULOCYTE % 71.5 % (42.2-75.2); HEMATOCRIT 24.3 % (37-47); MEAN CORPUSCULAR HGB 28.3 PG (27.0-31.0); MEAN CORPUSCULAR HGB CONC 32.8 G/DL (33.0-37.0); MEAN CORPUSCULAR VOLUME 86.2 FL (81.0-99.0); MEAN PLATELET VOLUME 7.9 FL (7.4-10.4); PLATELET COUNT 390 /CUMM (130-400); RBC DISTRIBUTION WIDTH 15.2 % (11.5-14.5); RED BLOOD CELL CT 2.82 /CUMM (4.20-5.40); WHITE BLOOD CELL COUNT 10.5 /CUMM (4.8-10.8)
[2018-06-27 14:21] VITALS: BP 122/70
--- NOTE | 2018-06-27 17:06 | PN- Orthopedic ---
Surgical Brief Attending Note Brief Attending Note: 06/25/2018 - POD #15 Patient seen by Mohan Cabrera 06/25/2018 @ ~06:30 PM: Primary and consultation management as well as discharge planning per general and specialty (Nephrology) medical services. Kalpana Thornton is a 73 year old white female now POD #15 S/P L3-S1 revision spinal surgery which included removal of hardware, takedown of pseudoarthrosis, neural decompression and revision multicolumn instrumented fusion (06/10/2018, Mohan/Tiara). See 06/11/2018 note, op note and preoperative documentation for additional surgical and perioperative details. BUN and Creatinine continue to trend downward but not consistently. Now 28 (decreased from 40 on 06/23 but increased from 18 yesterday) and 6.6 (decreased from 8.6 on 06/23 but increased from 5.3 yesterday) respectively. WBCC still slightly elevated at 14.3 but stable without further upward trend. Mild associated granulocytosis, monocytosis and lymphocytopenia is unchanged and stable along with WBCC. HCT is slowly improving and is now 24.9 with no associated symptoms. No need for transfusion at this point. Urine output steadily increasing and was 700 yesterday with more than that already today. Dialysis continues to be reasonably well tolerated. No other patient or nursing reported or observed clincal distress, instability, problem or concern overnight. No symptoms or signs to suggest infection or other cause for elevated WBCC. Cath U/A and C/S were negative for UTI and sufficiently definitive (as opposed to the previous clean catch U/A which raised some questions) that no further urine testing will likely be needed as long as she does not develop other symptoms or concerns. She does still have microhematuria and few bacteria, WBC and low LE and so reevaluation several days from now would be reasonable if elevated WBCC persists. Blood cultures from 06/22 are negative as well. Patient is doing well otherwise with improving energy level, mobilization, PO intake, sleep, etc. Back pain is well controlled. No leg radiation. Most discomfort is adequately responding to Tylenol. Otherwise, no changes in clinical subjective or objective status or assessments compared to 06/23/2018 note. See that and other earlier documents for details and comparative assessment of progress. Exam also unchanged from 06/23/2018 assessment (see note for details). AT continues to show progressively increasing antigravity function at 3-3+/5 and EHL is stable at 4+/5. AT power still decreases closer to neutral plantagrade position. Incision CD+I. [place] removed. No erythema or pruritis. No spreading or dehiscence. Stable and steadily improving now on POD #15 S/P L3-S1 removal of hardware, takedown of pseudoarthrosis, decompression and revision multicolumn instrumented fusion. Still requiring dialysis with evidence of significant ARF by urine output and lab criteria. BUN and Creatinine have decreased overall with better urine output over the last few days although improvements have been slow and nonlinear suggesting that she will need dialysis at least into the subacute phase. She understands that chronic dialysis may be necessary but cannot be determined at this time. Outpatient dialysis has been arranged to start next Thursday. Per Nephrology she will need to stay in the hospital over the weekend as she will likely need to be dialyzed before that. Overall recovery otherwise returning closer to standard levels. Ambulating well with walker and brace. Pain controlled. Plan is to try stairs next. Depending on her status Thursday she will likely be ready for trasnfer to inpatient rehab. Although home D/C and daily outpatient rehab program might be a consideration, I suspect that her continued need for dialysis will fatique her sufficiently that she would be a better candidate for a short-term (1 week or so) inpatient program with twice daily PT so that she can get a more intensive program while resting and recovering each day in between. This will also make any monitoring that she might need easier. If she does go home then she will need a daily outptient rehab program in a rehab facility similarly equiped for both outpatient and inpatient program. In this circumstance she would also need daily home nursing for at least the first week and possibly two. Continue primary general and consultation Medicine service management as her reason for continued hospitalization is primarily medical. Agree with plans for continued dialysis. WBCC remains mildly elevated without fever or symptoms to suggest infectious etiology. Will continue to monitor. No change in other plans and protocols.
--- NOTE | 2018-06-27 17:16 | PN- Orthopedic ---
Surgical Brief Attending Note Brief Attending Note: 06/26/2018 - POD #16 Patient seen by Mohan Cabrera 06/26/2018 @ ~09:30 AM: Primary and consultation management as well as discharge planning per general and specialty (Nephrology) medical services. Kalpana Thornton is a 73 year old white female now POD #16 S/P L3-S1 revision spinal surgery which included removal of hardware, takedown of pseudoarthrosis, neural decompression and revision multicolumn instrumented fusion (06/10/2018, Mohan/Tiara). See 06/11/2018 note, op note and preoperative documentation for additional surgical and perioperative details. BUN and Creatinine continue to trend downward and today in the nbest it has been (14 and 4.1 respectively). WBCC still slightly elevated but also decreasing at 12.8. Mild shift also correcting. HCT is slowly improving and is now 26.0 with no associated symptoms. Final urine output was 1475 yesterday which is a significant improvement. Dialysis continues to be reasonably well tolerated. No other patient or nursing reported or observed clincal distress, instability, problem or concern overnight. No symptoms or signs to suggest infection. Final urine C /S was negative. Blood cultures from 06/22 are negative so far and nearly final. Patient continues to improve slowly overall. She is mobilizing and taking PO with normal bowel and improving bladder function each day. Back pain is well controlled. No leg radiation. Most discomfort is adequately responding to Tylenol. Using brace with benefit. Otherwise, no changes in clinical subjective or objective status or assessments compared to 06/25/2018 note. See that and other earlier documents for details and comparative assessment of progress. Exam also unchanged from 06/25/2018 assessment (see note for details). AT continues to show progressively increasing antigravity function at 3-3+/5 and EHL is stable at 4+/5. AT power still decreases closer to neutral plantagrade position. Does not seem to interfere with ambulation. Incision CD+I. No erythema or pruritis. No spreading, dehiscence or other abnormality. Stable and steadily improving now on POD #16 S/P L3-S1 removal of hardware, takedown of pseudoarthrosis, decompression and revision multicolumn instrumented fusion. Still requiring dialysis with evidence of significant ARF and likely subacute persistence of RF by urine output and lab criteria. BUN and Creatinine have decreased overall with better urine output and this improvement seems to be more consistent and more rapid over the last few days. Will follow Nephrology recommendations re: outpatient dialysis and arrange D/C and rehab accordingly. Overall recovery otherwise returning closer to standard levels. Ambulating well with walker and brace. Pain controlled. Was able to do some stairs. Depending on her status Thursday she will likely be ready for transfer to inpatient rehab. If patient meets criteria for home D/C I would like to be contacted and participate in the decision before final plans are made given the extent of surgery and postoperative medical issues that will need to be monitored which I think will likely be easier to manage through inpartient rehab for a week. See 06/25/2018 note for discussion of considerations. Continue primary general and consultation Medicine service management as her reason for continued hospitalization is primarily medical. Will follow and try to help coordinate Nephrology recommendations for continued dialysis. WBCC remains mildly elevated without fever or symptoms to suggest infectious etiology. Will continue to monitor labs. No change in other plans and protocols.
[2018-06-27 23:01] VITALS: BP 162/86
[2018-06-28 06:12] VITALS: BP 154/84
[2018-06-28 09:19] LABS: ABSOLUTE BASOPHIL COUNT 0 /CUMM (0.0-0.2); ABSOLUTE EOSINOPHIL COUNT 0.4 /CUMM (0.0-0.7); ABSOLUTE GRANULOCYTE CT 6.3 /CUMM (1.4-6.5); ABSOLUTE LYMPH COUNT 1.4 /CUMM (1.2-3.4); ABSOLUTE MONOCYTE COUNT 0.9 /CUMM (0.10-0.60); BASOPHIL % 0.4 % (0.0-2.0); EOSINOPHIL % 4.6 % (0-5); GRANULOCYTE % 69.3 % (42.2-75.2); HEMATOCRIT 23.7 % (37-47); MEAN CORPUSCULAR HGB 27.7 PG (27.0-31.0); MEAN CORPUSCULAR HGB CONC 32.6 G/DL (33.0-37.0); MEAN CORPUSCULAR VOLUME 84.9 FL (81.0-99.0); MEAN PLATELET VOLUME 7.9 FL (7.4-10.4); PLATELET COUNT 388 /CUMM (130-400); RBC DISTRIBUTION WIDTH 15.1 % (11.5-14.5); RED BLOOD CELL CT 2.79 /CUMM (4.20-5.40); WHITE BLOOD CELL COUNT 9.1 /CUMM (4.8-10.8)
--- NOTE | 2018-06-28 09:34 | PN- Nephrology ---
Assessment/Plan Nephrology Assessment: 1. Acute kidney injury. Plans initially for this person was for her to be dialyzed with potential discharge. She does have an outpatient seat arranged. However, this should be, given the fact that her urine output seems to be returning rather rapidly, is an enormously bad idea. The risk that one takes in sending a person with acute kidney injury to an outpatient clinic is that injudicious ultrafiltration can lead to another episode of ATN when he ultimately to the person becoming end-stage. At this point, close, in-hospital observation is what ought to occur. At this point, given the fact that she is making urine, dialysis likely will be held today. The labs from this morning of course are still pending. 2. Volume status. She has some slight edema on the left. I would not give furosemide at this point. If anything, her fluid restriction needs to be lifted 3. Constipation. Suggestion: 1. Stop the fluid restriction. 2. Maintain strict intakes and outputs as well as daily weights. 3. Will likely hold dialysis today, and reassess for dialytic need tomorrow. If things proceed as one would hope, she may not require dialytic intervention. Subjective Subjective: Patient feels well. Reports that she is walking well with her walker. Review of Systems: The only thing of which she complains is constipation Objective Vital Signs and I&Os Vital Signs Date Time Temp Pulse Resp B/P B/P Pulse O2 O2 Flow FiO2 Mean Ox Delivery Rate 06/28 0800 Room Air 06/28 0612 98.4 97 20 154/84 95 Room Air 06/27 2301 98.4 102 18 162/86 98 Room Air 06/27 1854 102 150/80 06/27 1421 97.0 100 20 122/70 97 Room Air Intake & Output 06/28 1600 06/28 0400 06/27 1600 06/27 0400 06/26 1600 06/26 0400 Intake Total 120 240 900 240 720 240 Output Total 726 647 1002 400 1725 Balance -680 40 -700 -160 -1005 240 Intake, Oral 120 240 900 240 720 240 Number 0 0 Bowel Movements Output, Urine 648 621 3101 400 1725 Patient 190 lb 206 lb 208 lb 201 lb Weight Weight Bed scale Bed scale Measurement Method She actually has had 1200 cc out so far today. Physical Exam: General Appearance: well developed/nourished, no apparent distress, alert, awake Head: atraumatic, normocephalic Neck: normal inspection, no masses Respiratory: normal breath sounds, lungs clear, to auscultation and percussion Cardiovascular: regular rate/rhythm, no significant murmurs or rubs Abdomen: normal bowel sounds, soft, non-tender however she was examined sitting up Extremities: normal inspection, normal capillary refill. She does have some edema on the left greater than the right. Neurologic/Psychiatric: awake, alert, oriented x 3, moving all extremities. Current Medications: Current Medications Sig/Kristin Start time Last Medication Dose Route Stop Time Status Admin Acetaminophen 650 MG Q4P PRN 06/14 1400 AC 06/28 PO 0127 Acetaminophen 1,000 MG Q6P PRN 06/11 0015 AC 06/18 N/A 1 UNIT IV 1422 Amlodipine Besylate 5 MG 18306/17 1830 AC 06/27 PO 1854 Atorvastatin Calcium 10 MG 1700 06/16 1625 AC 06/27 PO 1641 Docusate Sodium 100 MG BID PRN 06/16 0755 AC PO Epoetin Jayce 2,000 UNIT MoWeFr PRN 06/18 0745 AC IV Epoetin Jayce 3,000 UNIT MoWeFr PRN 06/18 0730 AC IV Levothyroxine Sodium 0.1 MG DAILY AC 06/14 0700 AC 06/28 PO 0536 Multivitamins 1 TAB DAILY 06/15 1536 AC 06/28 PO 0757 Omeprazole 40 MG 1/2H B/BREAKF/DINNER 06/13 1630 AC 06/28 PO 0536 Oxycodone/ 1 TAB Q6P PRN 06/23 1545 AC 06/27 Acetaminophen PO 0531 Oxycodone/ 1 TAB ONCE PRN 06/23 1530 AC 06/24 Acetaminophen PO 0815 Polyethylene Glycol 17 GM DAILY PRN 06/16 0755 AC PO Senna/Docusate Sodium 2 TAB DAILY PRN 06/16 0755 AC PO Sertraline HCl 50 MG DAILY 06/17 0900 AC 06/28 PO 0757 Sevelamer Carbonate 1,600 MG WM 06/14 1700 AC 06/28 PO 0757 Simethicone 80 MG Q4P PRN 06/11 1445 AC 06/16 PO 2156 Results Pertinent Lab Results: Laboratory Tests 06/28 06/27 0616 0630 Chemistry Sodium (137 - 145 mmol/L) Pending 139 Potassium (3.5 - 5.1 mmol/L) Pending 4.0 Chloride (98 - 107 mmol/L) Pending 101 Carbon Dioxide (22 - 30 mmol/L) Pending 29 Anion Gap (5 - 16) Pending 8 BUN (7 - 17 mg/dL) Pending 20 H Creatinine (0.5 - 1.0 mg/dL) Pending 5.1 *H Estimated GFR (>60 ml/min) 8 L BUN/Creatinine Ratio (7 - 25 %) Pending 3.9 L Hematology CBC w Diff NO MAN DIFF REQ NO MAN DIFF REQ WBC (4.8 - 10.8 /CUMM) 9.1 10.5 RBC (4.20 - 5.40 /CUMM) 2.79 L 2.82 L Hgb (12.0 - 16.0 G/DL) 7.7 L 8.0 L Hct (37 - 47 %) 23.7 L 24.3 L MCV (81.0 - 99.0 FL) 84.9 86.2 MCH (27.0 - 31.0 PG) 27.7 28.3 MCHC (33.0 - 37.0 G/DL) 32.6 L 32.8 L RDW (11.5 - 14.5 %) 15.1 H 15.2 H Plt Count (130 - 400 /CUMM) 388 390 MPV (7.4 - 10.4 FL) 7.9 7.9 Gran % (42.2 - 75.2 %) 69.3 71.5 Lymphocytes % (20.5 - 51.1 %) 15.8 L 14.7 L Monocytes % (1.7 - 9.3 %) 9.9 H 9.5 H Eosinophils % (0 - 5 %) 4.6 3.8 Basophils % (0.0 - 2.0 %) 0.4 0.5 Absolute Granulocytes (1.4 - 6.5 /CUMM) 6.3 7.5 H Absolute Lymphocytes (1.2 - 3.4 /CUMM) 1.4 1.5 Absolute Monocytes (0.10 - 0.60 /CUMM) 0.9 H 1.0 H Absolute Eosinophils (0.0 - 0.7 /CUMM) 0.4 0.4 Absolute Basophils (0.0 - 0.2 /CUMM) 0 0 09/15 0730 Chemistry Sodium (137 - 145 mmol/L) 141 Potassium (3.5 - 5.1 mmol/L) 4.5 Chloride (98 - 107 mmol/L) 101 Carbon Dioxide (22 - 30 mmol/L) 30 Anion Gap (5 - 16) 11 BUN (7 - 17 mg/dL) 14 Creatinine (0.5 - 1.0 mg/dL) 4.1 H Estimated GFR (>60 ml/min) 11 L BUN/Creatinine Ratio (7 - 25 %) 3.4 L Hematology CBC w Diff NO MAN DIFF REQ WBC (4.8 - 10.8 /CUMM) 12.8 H RBC (4.20 - 5.40 /CUMM) 3.05 L Hgb (12.0 - 16.0 G/DL) 8.6 L Hct (37 - 47 %) 26.0 L MCV (81.0 - 99.0 FL) 85.5 MCH (27.0 - 31.0 PG) 28.1 MCHC (33.0 - 37.0 G/DL) 32.9 L RDW (11.5 - 14.5 %) 16.2 H Plt Count (130 - 400 /CUMM) 466 H MPV (7.4 - 10.4 FL) 7.9 Gran % (42.2 - 75.2 %) 71.2 Lymphocytes % (20.5 - 51.1 %) 16.4 L Monocytes % (1.7 - 9.3 %) 8.9 Eosinophils % (0 - 5 %) 3.0 Basophils % (0.0 - 2.0 %) 0.5 Absolute Granulocytes (1.4 - 6.5 /CUMM) 9.1 H Absolute Lymphocytes (1.2 - 3.4 /CUMM) 2.1 Absolute Monocytes (0.10 - 0.60 /CUMM) 1.1 H Absolute Eosinophils (0.0 - 0.7 /CUMM) 0.4 Absolute Basophils (0.0 - 0.2 /CUMM) 0.1
--- NOTE | 2018-06-28 11:27 | PN- Att Addend ---
Attending Addendum Attending Brief Note Patient seen and examined, feels well. Mobility nice she is doing much better. Her creatinine overall trend is improved. As discussed with Dr. Brown, no plan for dialysis today. Plan for any dialytic need will be determined tomorrow again. As noted in nephrology note, patient is not stable for discharge yet as we are still watching her creatinine. She might not even need outpatient dialysis. Vital Signs Date Time Temp Pulse Resp B/P B/P Pulse O2 O2 Flow FiO2 Mean Ox Delivery Rate 06/28 0800 Room Air 06/28 0612 98.4 97 20 154/84 95 Room Air 06/27 2301 98.4 102 18 162/86 98 Room Air 06/27 1854 102 150/80 06/27 1421 97.0 100 20 122/70 97 Room Air on exam; aox3, nad. cv; s1,s2, rrr resp; clear abd; soft, nt, bs+ ext; no edema Laboratory Tests 06/28 0616 Chemistry Sodium (137 - 145 mmol/L) 139 Potassium (3.5 - 5.1 mmol/L) 3.9 Chloride (98 - 107 mmol/L) 101 Carbon Dioxide (22 - 30 mmol/L) 29 Anion Gap (5 - 16) 9 BUN (7 - 17 mg/dL) 27 H Creatinine (0.5 - 1.0 mg/dL) 5.4 *H Estimated GFR (>60 ml/min) 8 L BUN/Creatinine Ratio (7 - 25 %) 5.0 L Hematology CBC w Diff NO MAN DIFF REQ WBC (4.8 - 10.8 /CUMM) 9.1 RBC (4.20 - 5.40 /CUMM) 2.79 L Hgb (12.0 - 16.0 G/DL) 7.7 L Hct (37 - 47 %) 23.7 L MCV (81.0 - 99.0 FL) 84.9 MCH (27.0 - 31.0 PG) 27.7 MCHC (33.0 - 37.0 G/DL) 32.6 L RDW (11.5 - 14.5 %) 15.1 H Plt Count (130 - 400 /CUMM) 388 MPV (7.4 - 10.4 FL) 7.9 Gran % (42.2 - 75.2 %) 69.3 Lymphocytes % (20.5 - 51.1 %) 15.8 L Monocytes % (1.7 - 9.3 %) 9.9 H Eosinophils % (0 - 5 %) 4.6 Basophils % (0.0 - 2.0 %) 0.4 Absolute Granulocytes (1.4 - 6.5 /CUMM) 6.3 Absolute Lymphocytes (1.2 - 3.4 /CUMM) 1.4 Absolute Monocytes (0.10 - 0.60 /CUMM) 0.9 H Absolute Eosinophils (0.0 - 0.7 /CUMM) 0.4 Absolute Basophils (0.0 - 0.2 /CUMM) 0 A/P; 73 year old female with PMH signficant for HTN, hypothyroidism, and spinal stenosis admitted for spinal surgery (L3-S1 laminectomy with hardware removal and placement) with intraop EBL of 3500cc and hypotension, managed with peripheral phenylephrine and 3 unit pRBC transfusion, hospital course complicated by ATN and TIFFANIE requiring hemodialysis for oliguria and volume overload. As noted in nephrology note, dialysis will not be done today. Need for dialysis for tomorrow will be determined tomorrow. Plan is to watch her creatinine and see if she even needs outpatient dialysis. Not medically stable for discharge yet. Jasvir were taken out from her back last week. Continue to avoid nephrotoxic medications. Mobility nice patient is doing better and does not require rehab. Contiue all present Mx. Will DC her fluid restriction as recommended by nephro.
--- NOTE | 2018-06-28 12:22 | PN- Housestaff ---
Subjective Follow-up For: ATN Subjective: Saw pt at bedside. No acute overnight events. Review of Systems Constitutional: Reports: see HPI, fever. Denies: chills. EENTM: Reports: no symptoms. Cardiovascular: Denies: chest pain, palpitations. Objective Last 24 Hrs of Vital Signs/I&O Vital Signs Date Time Temp Pulse Resp B/P B/P Pulse O2 O2 Flow FiO2 Mean Ox Delivery Rate 06/28 1406 98.0 100 20 140/70 98 Room Air 06/28 0800 Room Air 06/28 0612 98.4 97 20 154/84 95 Room Air 06/27 2301 98.4 102 18 162/86 98 Room Air 06/27 1854 102 150/80 Intake & Output 06/28 1600 06/28 0800 06/28 0000 Intake Total 380 360 240 Output Total 500 1200 200 Balance -120 -840 40 Intake, Oral 380 360 240 Number 1 Bowel Movements Output, Urine 500 1200 200 Patient 86.211 kg Weight Physical Exam General Appearance: Alert, Oriented X3, Cooperative, No Acute Distress HEENT: Atraumatic, PERRLA, EOMI Neck: Supple Cardiovascular: Regular Rate, Normal S1, Normal S2 Lungs: Normal Air Movement Abdomen: Soft, No Masses Extremities: No Edema Assessment/Plan Assessment: This is a 73 year old female with PMH of HTN, hypothyroidism, and spinal stenosis admitted for spinal surgery (L3-S1 laminectomy with hardware removal and placement) on 06/10 with intraop EBL of 3500cc and subsequent hypotension. She was managed with peripheral phenylephrine and 2 unit pRBC transfusion, now hospital course complicated by ATN/TIFFANIE requiring hemodialysis for oliguria and volume overload. -- PLAN: Acute blood loss anemia: Hb 7.7 today. -s/p 2 units pRBCs -Now on epogen -Will continue trend and transfuse if below 7 ATN 2/2 hemorrhagic shock and intra op blood loss: Her Cr is 5.4. Uop is improving. Holding off dialysis today to see if her renal fnxn is improving. s/p tunneled catheter placed 06/15. -Continue Strict I/O's -Next dilaysis session?? -Continue phosphate binders, renal dialysis diet, and nephrovitamins L3-S1 laminectomy with hardware removal and placement: -No evidence of surgical site infection -Ambulating with PT -Continue neurochecks, no new deficits -Chronic left foot drop, continue AFO -Continue analgesics -[place] to remain in until today or thursday -Follow up ortho and neurosurgical recommendations Leukocytosis -Afebrile. No obvious source of infection -Monitor off antibiotic -Ucx is negative HTN * Con't Amlodipine HLD: * Con't statin Hypothyroidism * Con't levothyroxine Continue PO PPI and bowel regimen Renal diet DVT ppx-ALPs only Problem List: 1. ATN (acute tubular necrosis) Pain Ratin Pain Location: none Pain Goal: Remain pain free Pain Plan: none Tomorrow's Labs & Rationales: cbc bep
[2018-06-28 14:06] VITALS: BP 140/70
[2018-06-28 19:23] LABS: ABSOLUTE BASOPHIL COUNT 0 /CUMM (0.0-0.2); ABSOLUTE EOSINOPHIL COUNT 0.3 /CUMM (0.0-0.7); ABSOLUTE GRANULOCYTE CT 6.2 /CUMM (1.4-6.5); ABSOLUTE LYMPH COUNT 1.7 /CUMM (1.2-3.4); ABSOLUTE MONOCYTE COUNT 1.1 /CUMM (0.10-0.60); BASOPHIL % 0.5 % (0.0-2.0); EOSINOPHIL % 3.5 % (0-5); GRANULOCYTE % 66.2 % (42.2-75.2); HEMATOCRIT 23.6 % (37-47); MEAN CORPUSCULAR HGB 28.2 PG (27.0-31.0); MEAN CORPUSCULAR HGB CONC 32.9 G/DL (33.0-37.0); MEAN CORPUSCULAR VOLUME 85.8 FL (81.0-99.0); MEAN PLATELET VOLUME 8.1 FL (7.4-10.4); PLATELET COUNT 424 /CUMM (130-400); RBC DISTRIBUTION WIDTH 15.3 % (11.5-14.5); RED BLOOD CELL CT 2.75 /CUMM (4.20-5.40); WHITE BLOOD CELL COUNT 9.4 /CUMM (4.8-10.8)
[2018-06-28 22:18] VITALS: BP 164/90
[2018-06-29 05:54] VITALS: BP 150/96
--- NOTE | 2018-06-29 06:41 | PN- Housestaff ---
Subjective Follow-up For: ATN Subjective: Saw pt at bedside this AM. No acute overnight events. SHe is voiding more spontaneously; over 1 L out. Review of Systems Constitutional: Denies: chills, fever, weakness. EENTM: Reports: no symptoms. Cardiovascular: Reports: no symptoms. Respiratory: Reports: no symptoms. Genitourinary: Reports: no symptoms. Musculoskeletal: Reports: no symptoms. Objective Last 24 Hrs of Vital Signs/I&O Vital Signs Date Time Temp Pulse Resp B/P B/P Pulse O2 O2 Flow FiO2 Mean Ox Delivery Rate 06/29 0800 96 Room Air 06/29 0554 99.1 103 22 150/96 96 Room Air 06/29 0000 Room Air 06/28 2218 99.2 109 20 164/90 96 Room Air 06/28 1818 100 140/70 06/28 1406 98.0 100 20 140/70 98 Room Air Intake & Output 06/29 1600 06/29 0800 06/29 0000 Intake Total 360 Output Total 1050 350 Balance -1050 10 Intake, Oral 360 Output, Urine 1050 350 Patient 85.275 kg Weight Physical Exam General Appearance: Alert, Oriented X3, Cooperative, No Acute Distress HEENT: Atraumatic, PERRLA Cardiovascular: Regular Rate, Normal S1, Normal S2 Lungs: Normal Air Movement Abdomen: Soft, No Tenderness Extremities: edema improving Current Medications: Current Medications Sig/Kristin Start time Last Medication Dose Route Stop Time Status Admin Acetaminophen 650 MG Q4P PRN 06/14 1400 AC 06/29 PO 0640 Acetaminophen 1,000 MG Q6P PRN 06/11 0015 AC 06/18 N/A 1 UNIT IV 1422 Amlodipine Besylate 5 MG 1830 06/17 1830 AC 06/28 PO 1818 Atorvastatin Calcium 10 MG 1700 06/16 1625 AC 06/28 PO 1705 Docusate Sodium 100 MG BID PRN 06/16 0755 PO Epoetin Jayce 2,000 UNIT MoWeFr PRN 06/18 0745 IV Epoetin Jayce 3,000 UNIT MoWeFr PRN 06/18 0730 IV Levothyroxine Sodium 0.1 MG DAILY AC 06/14 0700 AC 06/29 PO 0615 Multivitamins 1 TAB DAILY 06/15 1536 AC 06/29 PO 0900 Omeprazole 40 MG 1/2H B/BREAKF/DINNER 06/13 1630 AC 06/29 PO 0614 Oxycodone/ 1 TAB Q6P PRN 06/23 1545 AC 06/27 Acetaminophen PO 0531 Oxycodone/ 1 TAB ONCE PRN 06/23 1530 AC 06/24 Acetaminophen PO 0815 Patient Medication 1 ED ONE ONE 06/28 1330 DC 06/28 Teaching ED 06/28 1331 1704 Polyethylene Glycol 17 GM DAILY PRN 06/16 0755 AC PO Senna/Docusate Sodium 2 TAB DAILY PRN 06/16 0755 AC PO Sertraline HCl 50 MG DAILY 06/17 09 AC 06/29 PO 09 Sevelamer Carbonate 1,600 MG WM 06/14 1700 AC 06/28 PO 1704 Simethicone 80 MG Q4P PRN 06/11 1445 AC 06/16 PO 2156 Last 24 Hrs of Lab/Simone Results Last 24 Hrs of Labs/Mics: Laboratory Tests 06/29/18 0605: Anion Gap 10, Estimated GFR 9 L, BUN/Creatinine Ratio 6.7 L, CBC w Diff NO MAN DIFF REQ, RBC 2.86 L, MCV 85.3, MCH 28.1, MCHC 33.0, RDW 15.4 H, MPV 8.2, Gran % 60.6, Lymphocytes % 23.2, Monocytes % 10.5 H, Eosinophils % 4.8, Basophils % 0.9, Absolute Granulocytes 5.0, Absolute Lymphocytes 1.9, Absolute Monocytes 0.9 H, Absolute Eosinophils 0.4, Absolute Basophils 0.1 06/28/185: CBC w Diff NO MAN DIFF REQ, RBC 2.75 L, MCV 85.8, MCH 28.2, MCHC 32.9 L, RDW 15.3 H, MPV 8.1, Gran % 66.2, Lymphocytes % 18.1 L, Monocytes % 11.7 H, Eosinophils % 3.5, Basophils % 0.5, Absolute Granulocytes 6.2, Absolute Lymphocytes 1.7, Absolute Monocytes 1.1 H, Absolute Eosinophils 0.3, Absolute Basophils 0 Assessment/Plan Assessment: This is a 73 year old female with PMH of HTN, hypothyroidism, and spinal stenosis admitted for spinal surgery (L3-S1 laminectomy with hardware removal and placement) on 06/10 with intraop EBL of 3500cc and subsequent hypotension. She was managed with peripheral phenylephrine and 2 unit pRBC transfusion, now hospital course complicated by ATN/TIFFANIE requiring hemodialysis for oliguria and volume overload. -- PLAN: Acute blood loss anemia: Hb 8.0 today. -s/p 2 units pRBCs -Now on epogen -Will continue trend and transfuse if below 7 ATN 2/2 hemorrhagic shock and intra op blood loss: Her Cr is 4.5, which is much improved from 5.0 yesterday WITHOUT dialysis. Uop is improving; She has over 1 L output voiding today. Holding off dialysis today to see if her renal fnxn is improving. s/p tunneled catheter placed 06/15. -Continue Strict I/O's -Next dilaysis session?? -Continue phosphate binders, renal dialysis diet, and nephrovitamins L3-S1 laminectomy with hardware removal and placement: -No evidence of surgical site infection -Ambulating with PT -Continue neurochecks, no new deficits -Chronic left foot drop, continue AFO -Continue analgesics -Jasvir to remain in until today or thursday -Follow up ortho and neurosurgical recommendations Leukocytosis -Afebrile. No obvious source of infection -Monitor off antibiotic -Ucx is negative HTN * Con't Amlodipine HLD: * Con't statin Hypothyroidism * Con't levothyroxine Continue PO PPI and bowel regimen Renal diet DVT ppx-ALPs only Problem List: 1. ATN (acute tubular necrosis) Pain Ratin Pain Location: none Pain Goal: Remain pain free Pain Plan: none Tomorrow's Labs & Rationales: cbc bep
--- NOTE | 2018-06-29 08:14 | PN- Neurosurgical ---
Surgical Brief Attending Note Brief Attending Note: AVSS voiding spontaneously larger amounts ambulating stronger left foot incision clean cliff out cleared by PT off dialysis for now home when cleared by medicine she is of good cheer
[2018-06-29 10:04] LABS: ABSOLUTE BASOPHIL COUNT 0.1 /CUMM (0.0-0.2); ABSOLUTE EOSINOPHIL COUNT 0.4 /CUMM (0.0-0.7); ABSOLUTE LYMPH COUNT 1.9 /CUMM (1.2-3.4); ABSOLUTE MONOCYTE COUNT 0.9 /CUMM (0.10-0.60); BASOPHIL % 0.9 % (0.0-2.0); EOSINOPHIL % 4.8 % (0-5); GRANULOCYTE % 60.6 % (42.2-75.2); HEMATOCRIT 24.4 % (37-47); MEAN CORPUSCULAR HGB 28.1 PG (27.0-31.0); MEAN CORPUSCULAR VOLUME 85.3 FL (81.0-99.0); MEAN PLATELET VOLUME 8.2 FL (7.4-10.4); PLATELET COUNT 459 /CUMM (130-400); RBC DISTRIBUTION WIDTH 15.4 % (11.5-14.5); RED BLOOD CELL CT 2.86 /CUMM (4.20-5.40); WHITE BLOOD CELL COUNT 8.3 /CUMM (4.8-10.8)
--- NOTE | 2018-06-29 10:08 | PN- Att Addend ---
Attending Addendum Attending Brief Note Patient seen and examined, feels well. Offers no complaints. Continues to void large amounts of urine. Creatinine from this morning is pending. Fluid restriction was discontinued by nephrology yesterday. Vital Signs Date Time Temp Pulse Resp B/P B/P Pulse O2 O2 Flow FiO2 Mean Ox Delivery Rate 06/29 0554 99.1 103 22 150/96 96 Room Air 06/29 0000 Room Air 06/28 2218 99.2 109 20 164/90 96 Room Air 06/28 1818 100 140/70 06/28 1406 98.0 100 20 140/70 98 Room Air on exam; aox3, nad. cv; s1, s2, rrr resp; clear abd; soft, nt, bs+ ext; trace edema Laboratory Tests 06/29 06/28 0605 1815 Chemistry Sodium Pending Potassium Pending Chloride Pending Carbon Dioxide Pending Anion Gap Pending BUN Pending Creatinine Pending BUN/Creatinine Ratio Pending Hematology CBC w Diff Pending NO MAN DIFF REQ WBC (4.8 - 10.8 /CUMM) Pending 9.4 RBC (4.20 - 5.40 /CUMM) Pending 2.75 L Hgb (12.0 - 16.0 G/DL) Pending 7.8 L Hct (37 - 47 %) Pending 23.6 L MCV (81.0 - 99.0 FL) Pending 85.8 MCH (27.0 - 31.0 PG) Pending 28.2 MCHC (33.0 - 37.0 G/DL) Pending 32.9 L RDW (11.5 - 14.5 %) Pending 15.3 H Plt Count (130 - 400 /CUMM) Pending 424 H MPV (7.4 - 10.4 FL) Pending 8.1 Gran % (42.2 - 75.2 %) 66.2 Lymphocytes % (20.5 - 51.1 %) 18.1 L Monocytes % (1.7 - 9.3 %) 11.7 H Eosinophils % (0 - 5 %) 3.5 Basophils % (0.0 - 2.0 %) 0.5 Absolute Granulocytes (1.4 - 6.5 /CUMM) 6.2 Absolute Lymphocytes (1.2 - 3.4 /CUMM) 1.7 Absolute Monocytes (0.10 - 0.60 /CUMM) 1.1 H Absolute Eosinophils (0.0 - 0.7 /CUMM) 0.3 Absolute Basophils (0.0 - 0.2 /CUMM) 0 A/P; 73 year old female with PMH signficant for HTN, hypothyroidism, and spinal stenosis admitted for spinal surgery (L3-S1 laminectomy with hardware removal and placement) with intraop EBL of 3500cc and hypotension, managed with peripheral phenylephrine and 3 unit pRBC transfusion, hospital course complicated by ATN and TIFFANIE requiring hemodialysis for oliguria and volume overload. Creatinine is slowly improving. Today's labs are pending. As discussed with formula mixer Dr. Brown yesterday, dialysis was held. Further dialytic need will be determined pending today's blood work. Patient continues to urinate large amounts of urine. Fluid restriction was discontinued yesterday. Patient remains on Renvela for now but if her creatinine continues to improve, then this will likely not needed in near future. Motor Inspection Mechanic would be consulted for low potassium diet. Will continue to avoid any nephrotoxic medications. Patient is ambulating much better. Jasvir were taken out and the scar looks clean. Patient was followed by neurosurgery today. Continue current medications and will continue to follow her creatinine. If continues to improve and likely she will be discharged home by the end of this week.
--- NOTE | 2018-06-29 10:34 | PN- Nephrology ---
Assessment/Plan Nephrology Assessment: 1. Acute kidney injury. Her urine output remains excellent and her creatinine dropped to 4.9. This may not see monumental, however, this is a full 0.5 mg/dL drop. Her output seems to be exceeding her intake, therefore, continued close observation still needs to occur. 2. Volume status. She has some slight edema on the left. I would not give furosemide at this point. If anything, her fluid restriction needs to be lifted 3. Constipation. We did not discuss this this morning Suggestion: 1. No dialysis needed today 2. Continued observation in house. If the creatinine continues to fall, the Roby catheter may be able to be removed. Subjective Subjective: Sitting up. Feels well. Ambulating well. Objective Vital Signs and I&Os Vital Signs Date Time Temp Pulse Resp B/P B/P Pulse O2 O2 Flow FiO2 Mean Ox Delivery Rate 06/29 0554 99.1 103 22 150/96 96 Room Air 06/29 0000 Room Air 06/28 2218 99.2 109 20 164/90 96 Room Air 06/28 1818 100 140/70 06/28 1406 98.0 100 20 140/70 98 Room Air Intake & Output 06/29 1600 18 0400 06/28 1600 06/28 0400 06/27 1600 06/27 0400 Intake Total 360 740 240 900 240 Output Total 9346 174 4811 200 1600 400 Balance -1050 10 -960 40 -700 -160 Intake, Oral 360 740 240 900 240 Number 1 0 Bowel Movements Output, Urine 7696 739 3908 200 1600 400 Patient 188 lb 190 lb 206 lb Weight Weight Bed scale Measurement Method Physical Exam: General Appearance: well developed/nourished, no apparent distress, alert, awake Head: atraumatic, normocephalic Neck: normal inspection, no masses Respiratory: normal breath sounds, lungs clear, to auscultation and percussion Cardiovascular: regular rate/rhythm, no significant murmurs or rubs Abdomen: normal bowel sounds, soft, non-tender however she was examined sitting up Extremities: normal inspection, normal capillary refill. She does have some edema on the left greater than the right. Neurologic/Psychiatric: awake, alert, oriented x 3, moving all extremities. Current Medications: Current Medications Sig/Kristin Start time Last Medication Dose Route Stop Time Status Admin Acetaminophen 650 MG Q4P PRN 06/14 1400 AC 06/29 PO 0640 Acetaminophen 1,000 MG Q6P PRN 06/11 0015 AC 06/18 N/A 1 UNIT IV 1422 Amlodipine Besylate 5 MG 18306/17 1830 AC 06/28 PO 1818 Atorvastatin Calcium 10 MG 1700 06/16 1625 AC 06/28 PO 1705 Docusate Sodium 100 MG BID PRN 06/16 0755 AC PO Epoetin Jayce 2,000 UNIT MoWeFr PRN 06/18 0745 AC IV Epoetin Jayce 3,000 UNIT MoWeFr PRN 06/18 0730 AC IV Levothyroxine Sodium 0.1 MG DAILY AC 06/14 0700 AC 06/29 PO 0615 Multivitamins 1 TAB DAILY 06/15 1536 AC 06/29 PO 0900 Omeprazole 40 MG 1/2H B/BREAKF/DINNER 06/13 1630 AC 06/29 PO 0614 Oxycodone/ 1 TAB Q6P PRN 06/23 1545 AC 06/27 Acetaminophen PO 0531 Oxycodone/ 1 TAB ONCE PRN 06/23 1530 AC 06/24 Acetaminophen PO 0815 Patient Medication 1 ED ONE ONE 06/28 1330 DC 06/28 Teaching ED 06/28 1331 1704 Polyethylene Glycol 17 GM DAILY PRN 06/16 0755 AC PO Senna/Docusate Sodium 2 TAB DAILY PRN 06/16 0755 AC PO Sertraline HCl 50 MG DAILY 06/17 0900 AC 06/29 PO 0900 Sevelamer Carbonate 1,600 MG WM 06/14 1700 AC 06/28 PO 1704 Simethicone 80 MG Q4P PRN 06/11 1445 AC 06/16 PO 2156 Results Pertinent Lab Results: Laboratory Tests 06/29 06/28 0605 1815 Chemistry Sodium (137 - 145 mmol/L) 139 Potassium (3.5 - 5.1 mmol/L) 3.7 Chloride (98 - 107 mmol/L) 101 Carbon Dioxide (22 - 30 mmol/L) 28 Anion Gap (5 - 16) 10 BUN (7 - 17 mg/dL) 33 H Creatinine (0.5 - 1.0 mg/dL) 4.9 H Estimated GFR (>60 ml/min) 9 L BUN/Creatinine Ratio (7 - 25 %) 6.7 L Hematology CBC w Diff NO MAN DIFF REQ NO MAN DIFF REQ WBC (4.8 - 10.8 /CUMM) 8.3 9.4 RBC (4.20 - 5.40 /CUMM) 2.86 L 2.75 L Hgb (12.0 - 16.0 G/DL) 8.0 L 7.8 L Hct (37 - 47 %) 24.4 L 23.6 L MCV (81.0 - 99.0 FL) 85.3 85.8 MCH (27.0 - 31.0 PG) 28.1 28.2 MCHC (33.0 - 37.0 G/DL) 33.0 32.9 L RDW (11.5 - 14.5 %) 15.4 H 15.3 H Plt Count (130 - 400 /CUMM) 459 H 424 H MPV (7.4 - 10.4 FL) 8.2 8.1 Gran % (42.2 - 75.2 %) 60.6 66.2 Lymphocytes % (20.5 - 51.1 %) 23.2 18.1 L Monocytes % (1.7 - 9.3 %) 10.5 H 11.7 H Eosinophils % (0 - 5 %) 4.8 3.5 Basophils % (0.0 - 2.0 %) 0.9 0.5 Absolute Granulocytes (1.4 - 6.5 /CUMM) 5.0 6.2 Absolute Lymphocytes (1.2 - 3.4 /CUMM) 1.9 1.7 Absolute Monocytes (0.10 - 0.60 /CUMM) 0.9 H 1.1 H Absolute Eosinophils (0.0 - 0.7 /CUMM) 0.4 0.3 Absolute Basophils (0.0 - 0.2 /CUMM) 0.1 0 06/28 06/27 0616 0630 Chemistry Sodium (137 - 145 mmol/L) 139 139 Potassium (3.5 - 5.1 mmol/L) 3.9 4.0 Chloride (98 - 107 mmol/L) 101 101 Carbon Dioxide (22 - 30 mmol/L) 29 29 Anion Gap (5 - 16) 9 8 BUN (7 - 17 mg/dL) 27 H 20 H Creatinine (0.5 - 1.0 mg/dL) 5.4 *H 5.1 *H Estimated GFR (>60 ml/min) 8 L 8 L BUN/Creatinine Ratio (7 - 25 %) 5.0 L 3.9 L Hematology CBC w Diff NO MAN DIFF REQ NO MAN DIFF REQ WBC (4.8 - 10.8 /CUMM) 9.1 10.5 RBC (4.20 - 5.40 /CUMM) 2.79 L 2.82 L Hgb (12.0 - 16.0 G/DL) 7.7 L 8.0 L Hct (37 - 47 %) 23.7 L 24.3 L MCV (81.0 - 99.0 FL) 84.9 86.2 MCH (27.0 - 31.0 PG) 27.7 28.3 MCHC (33.0 - 37.0 G/DL) 32.6 L 32.8 L RDW (11.5 - 14.5 %) 15.1 H 15.2 H Plt Count (130 - 400 /CUMM) 388 390 MPV (7.4 - 10.4 FL) 7.9 7.9 Gran % (42.2 - 75.2 %) 69.3 71.5 Lymphocytes % (20.5 - 51.1 %) 15.8 L 14.7 L Monocytes % (1.7 - 9.3 %) 9.9 H 9.5 H Eosinophils % (0 - 5 %) 4.6 3.8 Basophils % (0.0 - 2.0 %) 0.4 0.5 Absolute Granulocytes (1.4 - 6.5 /CUMM) 6.3 7.5 H Absolute Lymphocytes (1.2 - 3.4 /CUMM) 1.4 1.5 Absolute Monocytes (0.10 - 0.60 /CUMM) 0.9 H 1.0 H Absolute Eosinophils (0.0 - 0.7 /CUMM) 0.4 0.4 Absolute Basophils (0.0 - 0.2 /CUMM) 0 0
[2018-06-29 13:43] VITALS: BP 138/70
[2018-06-29 22:40] VITALS: BP 160/62
[2018-06-30 06:30] VITALS: BP 144/80
--- NOTE | 2018-06-30 06:57 | PN- Orthopedic ---
Surgical Brief Attending Note Brief Attending Note: Kalpana Thornton is a 73 year old white female now POD #19 S/P L3-S1 revision spinal surgery which included removal of hardware, takedown of pseudoarthrosis, neural decompression and revision multicolumn instrumented fusion (06/10/2018, Mohan/Tiara). See 06/11/2018 note, op note and preoperative documentation for additional surgical and perioperative details. BUN and Creatinine slightly elevated today after stabilizing at decrease levels overall for the last several days but still fluctuating and not yet normalizing. WBCC normalized. H/H slowly normalizing. Urine output continues to improve and is now >2000 cc per day. Dialysis has been now been held to see how renal function continues to progress. No other patient or nursing reported or observed clincal distress, instability, problem or concern overnight. All blood and urine final cultures are negative. Patient continues to improve slowly overall. She is mobilizing and taking PO with normal bowel and improving bladder function each day. Back pain is well controlled. No leg radiation. Most discomfort is adequately responding to Tylenol. Using brace with benefit. Patient now definitively reports that ambulation-related pain is improved compared to preoperative levels. Otherwise, no changes compared to previous notes. See earlier documents for details and comparative assessment of progress. Exam also continues to improve (see prior notes for comparative details). AT continues to show progressively increasing antigravity function and is now 3+/5 and EHL is stable at 4+/5. AT power still decreases closer to neutral plantagrade position but is steadily increasing to 3/5 even when attempting to hold passively placed plantigrade position (which was 1/5 before). Weakness does not seem to interfere with unbraced ambulation. Incision CD+I. No erythema or pruritis. No spreading, dehiscence or other abnormality. Stable and steadily improving now on POD #19 S/P L3-S1 removal of hardware, takedown of pseudoarthrosis, decompression and revision multicolumn instrumented fusion. Improving urine output although renal function labs have not yet normalized or even completely stabilized. Dialysis on hold for now. Nephrology has recommended continues inpatient observation. Will follow peripherally and as requested by primary service. Pain well controlled and, in fact, already improved compared to preoperative subjective assessments. This is an excellent early result. Overall recovery otherwise returning closer to standard levels. Ambulating well with walker and brace. Pain controlled. Appears ready for home D/C once cleared by medicine. Would benefit from an outpatient rehab program if available in addition to home program. Continue lab monitoring. Continue other Ortho Spine protocols.
--- NOTE | 2018-06-30 07:19 | PN- Housestaff ---
[facility] 0659: Subjective Follow-up For: atn Subjective: Saw pt at bedside this AM. She is in good spirits. She is drinking more than the Ins and Outs are documenting. She is urinating almost 3L per day. Review of Systems Constitutional: Denies: chills, fever, weakness. EENTM: Reports: no symptoms. Cardiovascular: Denies: chest pain. Respiratory: Reports: no symptoms. Gastrointestinal: Reports: no symptoms. Genitourinary: Reports: no symptoms. Objective Last 24 Hrs of Vital Signs/I&O Vital Signs Date Time Temp Pulse Resp B/P B/P Pulse O2 O2 Flow FiO2 Mean Ox Delivery Rate 06/30 0630 97.5 87 20 144/80 97 Room Air 06/29 2240 98.7 97 20 160/62 98 Room Air 06/29 1903 80 138/70 06/29 1343 98.6 100 20 138/70 98 Room Air Intake & Output 06/30 1600 06/30 0800 06/30 0000 Intake Total 600 Output Total 500 700 Balance 100 -700 Intake, Oral 600 Output, Urine 500 700 Patient 86.183 kg Weight Physical Exam General Appearance: Alert, Oriented X3, Cooperative, No Acute Distress Skin: No Significant Lesion HEENT: Atraumatic, PERRLA, EOMI Cardiovascular: Regular Rate, Normal S1, Normal S2, No Murmurs Lungs: Normal Air Movement Extremities: l. food drop present. Assessment/Plan Assessment: This is a 73 year old female with PMH of HTN, hypothyroidism, and spinal stenosis admitted for spinal surgery (L3-S1 laminectomy with hardware removal and placement) on 06/10 with intraop EBL of 3500cc and subsequent hypotension. She was managed with peripheral phenylephrine and 2 unit pRBC transfusion, now hospital course complicated by ATN/TIFFANIE requiring hemodialysis for oliguria and volume overload. This POD 19; we are waiting for her renal function to stabilize. -- PLAN: Acute blood loss anemia: H/H stable. -s/p 2 units pRBCs -Now on epogen -Will continue trend and transfuse if below 7 ATN 2/2 hemorrhagic shock and intra op blood loss: Her Cr seems to be significantly improving sans dialylsis. We skipped her thursday regimen of dialysis and her Cr continued to improve; will monitor today for need for dialysis. Notably, her Uop is improving; yesterday she was -2300 overall of which 2900cc out was from urine. Holding off dialysis today to see if her renal fnxn is improving. - s/p tunneled catheter placed 06/15....if she continues to improve will look into removing kim cath before d/c -Continue Strict I/O's -Next dilaysis session?? -Continue phosphate binders, renal dialysis diet, and nephrovitamins - no fluid restriction L3-S1 laminectomy with hardware removal and placement: -No evidence of surgical site infection -Ambulating with PT -Continue neurochecks, no new deficits -Chronic left foot drop, continue AFO; improving. -Continue analgesics -Jasvir removed and pt ambulating well with walker -Follow up ortho and neurosurgical recommendations Leukocytosis -Afebrile. No obvious source of infection -Monitor off antibiotic -Ucx is negative HTN * Con't Amlodipine HLD: * Con't statin Hypothyroidism * Con't levothyroxine Continue PO PPI and bowel regimen Renal diet DVT ppx-ALPs only Problem List: 1. ATN (acute tubular necrosis) Pain Ratin Pain Location: none Pain Goal: Remain pain free Pain Plan: none Tomorrow's Labs & Rationales: cbc bep Chay HAN,Vanessa 06/30/18 1026: Attending MD Review Statement Attending Statement Attending MD Statement: examined this patient, discuss w/resident/PA/SIX PACK PACKER, agreed w/resident/PA/SIX PACK PACKER, reviewed EMR data (avail), discussed with nursing, discussed with case mgmt, amended to note Attending Assessment/Plan: Patient seen and examined, feels L. Offers no complaints. Today's labs are pending. Vital Signs Date Time Temp Pulse Resp B/P B/P Pulse O2 O2 Flow FiO2 Mean Ox Delivery Rate 06/30 0630 97.5 87 20 144/80 97 Room Air 06/29 2240 98.7 97 20 160/62 98 Room Air 06/29 1903 80 138/70 06/29 1343 98.6 100 20 138/70 98 Room Air on exam; aox3, nad. cv; s1, s2, rrr resp; clear abd; soft, nt, bs+ ext; trace edema Laboratory Tests 06/30 0610 Chemistry Sodium Pending Potassium Pending Chloride Pending Carbon Dioxide Pending Anion Gap Pending BUN Pending Creatinine Pending BUN/Creatinine Ratio Pending Hematology CBC w Diff Pending WBC Pending RBC Pending Hgb Pending Hct Pending MCV Pending MCH Pending MCHC Pending RDW Pending Plt Count Pending MPV Pending A/P; 73 year old female with PMH signficant for HTN, hypothyroidism, and spinal stenosis admitted for spinal surgery (L3-S1 laminectomy with hardware removal and placement) with intraop EBL of 3500cc and hypotension, managed with peripheral phenylephrine and 3 unit pRBC transfusion, hospital course complicated by ATN and TIFFANIE requiring hemodialysis for oliguria and volume overload. Patient did not receive any dialysis Thursday. Creatinine improving. She has significant amount of urine output. Her fluid restriction was discontinued and she is drinking fluids. I have told patient's nurse to record her intake and output accurately. Discussed with nephrology today. We are waiting for her labs from this morning. If creatinine continues to improve then likely her Kim cath will be taken out and she can likely be discharged home today. We will also check her phosphorus to see if she continues to need phosphate binder or not. Patient also had been seen by tack cleaner. Continue to avoid nephrotoxic medications. Patient will need a close follow-up as an outpatient in terms of her creatinine. She will follow-up with interior decorator as an outpatient. Continue all other current management.
[2018-06-30 10:38] LABS: ABSOLUTE BASOPHIL COUNT 0.1 /CUMM (0.0-0.2); ABSOLUTE EOSINOPHIL COUNT 0.4 /CUMM (0.0-0.7); ABSOLUTE GRANULOCYTE CT 4.4 /CUMM (1.4-6.5); ABSOLUTE LYMPH COUNT 1.6 /CUMM (1.2-3.4); ABSOLUTE MONOCYTE COUNT 0.9 /CUMM (0.10-0.60); BASOPHIL % 0.8 % (0.0-2.0); EOSINOPHIL % 5.7 % (0-5); GRANULOCYTE % 59.8 % (42.2-75.2); HEMATOCRIT 24.2 % (37-47); MEAN CORPUSCULAR HGB 27.2 PG (27.0-31.0); MEAN CORPUSCULAR HGB CONC 32.2 G/DL (33.0-37.0); MEAN CORPUSCULAR VOLUME 84.5 FL (81.0-99.0); MEAN PLATELET VOLUME 8.2 FL (7.4-10.4); PLATELET COUNT 418 /CUMM (130-400); RBC DISTRIBUTION WIDTH 15.1 % (11.5-14.5); RED BLOOD CELL CT 2.87 /CUMM (4.20-5.40); WHITE BLOOD CELL COUNT 7.4 /CUMM (4.8-10.8)
--- NOTE | 2018-06-30 11:11 | PN- Nephrology ---
Assessment/Plan Nephrology Assessment: 1. Acute kidney injury. Her urine output remains excellent and her creatinine dropped to 4.5. Clearly no dialysis need. 2. Volume status. She had some slight edema on the left. This has disappeared 3. Constipation. We did not discuss this this morning Suggestion: 1. No further dialysis need. 2. It may be reasonable to see if the catheter may be removed today or tomorrow. Subjective Subjective: Patient feels great. Ambulating in the almanzar. Objective Vital Signs and I&Os Vital Signs Date Time Temp Pulse Resp B/P B/P Pulse O2 O2 Flow FiO2 Mean Ox Delivery Rate 06/30 0630 97.5 87 20 144/80 97 Room Air 06/29 2240 98.7 97 20 160/62 98 Room Air 06/29 1903 80 138/70 06/29 1343 98.6 100 20 138/70 98 Room Air Intake & Output 06/30 1600 06/30 0400 06/29 1600 06/29 0400 06/28 1600 06/28 0400 Intake Total 600 600 360 740 240 Output Total 149 212 6798 350 1700 200 Balance 100 -700 -1600 10 -960 40 Intake, Oral 600 600 360 740 240 Number 1 1 Bowel Movements Output, Urine 572 051 6614 350 1700 200 Patient 190 lb 188 lb 190 lb Weight Physical Exam: General Appearance: well developed/nourished, no apparent distress, alert, awake Head: atraumatic, normocephalic Neck: normal inspection, no masses Respiratory: normal breath sounds, lungs clear, to auscultation and percussion Cardiovascular: regular rate/rhythm, no significant murmurs or rubs Abdomen: normal bowel sounds, soft, non-tender however she was examined sitting up Extremities: normal inspection, normal capillary refill. No edema Neurologic/Psychiatric: awake, alert, oriented x 3, moving all extremities. Current Medications: Current Medications Sig/Kristin Start time Last Medication Dose Route Stop Time Status Admin Acetaminophen 650 MG Q4P PRN 06/14 1400 AC 06/30 PO 0519 Acetaminophen 1,000 MG Q6P PRN 06/11 0015 AC 06/18 N/A 1 UNIT IV 1422 Amlodipine Besylate 5 MG 1830 06/17 1830 AC 06/29 PO 1903 Atorvastatin Calcium 10 MG 1700 06/16 1625 AC 06/29 PO 170 Docusate Sodium 100 MG BID PRN 06/16 0755 AC PO Epoetin Jayce 2,000 UNIT MoWeFr PRN 06/18 0745 AC IV Epoetin Jayce 3,000 UNIT MoWeFr PRN 06/18 0730 AC IV Levothyroxine Sodium 0.1 MG DAILY AC 06/14 0700 AC 06/30 PO 0519 Multivitamins 1 TAB DAILY 06/15 1536 AC 06/30 PO 0905 Omeprazole 40 MG 1/2H B/BREAKF/DINNER 06/13 1630 AC 06/30 PO 0519 Oxycodone/ 1 TAB Q6P PRN 06/23 1545 AC 06/27 Acetaminophen PO 0531 Oxycodone/ 1 TAB ONCE PRN 06/23 1530 AC 06/24 Acetaminophen PO 0815 Polyethylene Glycol 17 GM DAILY PRN 06/16 075 AC PO Senna/Docusate Sodium 2 TAB DAILY PRN 06/16 075 AC PO Sertraline HCl 50 MG DAILY 06/17 0900 AC 06/30 PO 0905 Sevelamer Carbonate 1,600 MG WM 06/14 1700 AC 06/30 PO 0906 Simethicone 80 MG Q4P PRN 06/11 1445 AC 06/16 PO 2156 Results Pertinent Lab Results: Laboratory Tests 06/30 06/29 0610 0605 Chemistry Sodium (137 - 145 mmol/L) 139 139 Potassium (3.5 - 5.1 mmol/L) 3.6 3.7 Chloride (98 - 107 mmol/L) 101 101 Carbon Dioxide (22 - 30 mmol/L) 27 28 Anion Gap (5 - 16) 11 10 BUN (7 - 17 mg/dL) 35 H 33 H Creatinine (0.5 - 1.0 mg/dL) 4.5 H 4.9 H Estimated GFR (>60 ml/min) 10 L 9 L BUN/Creatinine Ratio (7 - 25 %) 7.8 6.7 L Hematology CBC w Diff Pending NO MAN DIFF REQ WBC (4.8 - 10.8 /CUMM) Pending 8.3 RBC (4.20 - 5.40 /CUMM) Pending 2.86 L Hgb (12.0 - 16.0 G/DL) Pending 8.0 L Hct (37 - 47 %) Pending 24.4 L MCV (81.0 - 99.0 FL) Pending 85.3 MCH (27.0 - 31.0 PG) Pending 28.1 MCHC (33.0 - 37.0 G/DL) Pending 33.0 RDW (11.5 - 14.5 %) Pending 15.4 H Plt Count (130 - 400 /CUMM) Pending 459 H MPV (7.4 - 10.4 FL) Pending 8.2 Gran % (42.2 - 75.2 %) 60.6 Lymphocytes % (20.5 - 51.1 %) 23.2 Monocytes % (1.7 - 9.3 %) 10.5 H Eosinophils % (0 - 5 %) 4.8 Basophils % (0.0 - 2.0 %) 0.9 Absolute Granulocytes (1.4 - 6.5 /CUMM) 5.0 Absolute Lymphocytes (1.2 - 3.4 /CUMM) 1.9 Absolute Monocytes (0.10 - 0.60 /CUMM) 0.9 H Absolute Eosinophils (0.0 - 0.7 /CUMM) 0.4 Absolute Basophils (0.0 - 0.2 /CUMM) 0.1 06/28 06/28 1815 0616 Chemistry Sodium (137 - 145 mmol/L) 139 Potassium (3.5 - 5.1 mmol/L) 3.9 Chloride (98 - 107 mmol/L) 101 Carbon Dioxide (22 - 30 mmol/L) 29 Anion Gap (5 - 16) 9 BUN (7 - 17 mg/dL) 27 H Creatinine (0.5 - 1.0 mg/dL) 5.4 *H Estimated GFR (>60 ml/min) 8 L BUN/Creatinine Ratio (7 - 25 %) 5.0 L Hematology CBC w Diff NO MAN DIFF REQ NO MAN DIFF REQ WBC (4.8 - 10.8 /CUMM) 9.4 9.1 RBC (4.20 - 5.40 /CUMM) 2.75 L 2.79 L Hgb (12.0 - 16.0 G/DL) 7.8 L 7.7 L Hct (37 - 47 %) 23.6 L 23.7 L MCV (81.0 - 99.0 FL) 85.8 84.9 MCH (27.0 - 31.0 PG) 28.2 27.7 MCHC (33.0 - 37.0 G/DL) 32.9 L 32.6 L RDW (11.5 - 14.5 %) 15.3 H 15.1 H Plt Count (130 - 400 /CUMM) 424 H 388 MPV (7.4 - 10.4 FL) 8.1 7.9 Gran % (42.2 - 75.2 %) 66.2 69.3 Lymphocytes % (20.5 - 51.1 %) 18.1 L 15.8 L Monocytes % (1.7 - 9.3 %) 11.7 H 9.9 H Eosinophils % (0 - 5 %) 3.5 4.6 Basophils % (0.0 - 2.0 %) 0.5 0.4 Absolute Granulocytes (1.4 - 6.5 /CUMM) 6.2 6.3 Absolute Lymphocytes (1.2 - 3.4 /CUMM) 1.7 1.4 Absolute Monocytes (0.10 - 0.60 /CUMM) 1.1 H 0.9 H Absolute Eosinophils (0.0 - 0.7 /CUMM) 0.3 0.4 Absolute Basophils (0.0 - 0.2 /CUMM) 0 0
[2018-06-30 15:56] VITALS: BP 144/80
[2018-06-30 20:30] VITALS: BP 140/76
[2018-06-30] MEDS ORDERED: RENVELA800 M1 PO (23:29)
[2018-07-01 05:38] VITALS: BP 140/70
--- NOTE | 2018-07-01 07:59 | Transfer of Care Summary ---
Hospital Course Course Hospital Course: This is a 73 year old female with PMH of HTN, hypothyroidism, and spinal stenosis admitted for spinal surgery (L3-S1 laminectomy with hardware removal and placement) on 06/10 with intraop EBL of 3500cc and subsequent hypotension. She was managed with peripheral phenylephrine and 2 unit pRBC transfusion, then her hospital course was complicated by ATN/TIFFANIE requiring hemodialysis for oliguria and volume overload. Subsequently she had port placement and underwent HD MWF. She has missed the lst two dialysis sessions and her renal function continued to improve. From oliguria she now has > 3L of Uop. She is ambulating , the cliff from surgery have been removed and she is scheduled for dialysis port removal today. This is POD 20. -- PLAN: Acute blood loss anemia: H/H stable and is s/p 2 units pRBCs in hospital. * Now on epogen--Verify if she will con't to need this med while outpt. * Will continue trend and transfuse if below 7 ATN 2/2 hemorrhagic shock and intra op blood loss: Her Cr seems to be significantly improving sans dialylsis. We skipped her thursday regimen of dialysis and her Cr continued to improve; will monitor today for need for dialysis. * S/p tunneled catheter placed 06/15... Plan to remove it on 07/01/2018 with IR * Continue Strict I/O's; please follow up to ensure she does not dry herself out * Will need close f/u with nephro * Verify need for phosphate binders, renal dialysis diet, and nephrovitamins * No fluid restriction L3-S1 laminectomy with hardware removal and placement: No evidence of surgical site infection. SHe is ambulating with PT and has a walker. * Chronic left foot drop, continue AFO; improving. * Continue analgesics * Follow up ortho and neurosurgical recommendations Leukocytosis: Afebrile. No obvious source of infection. SHe has been successfully monitored off antibiotic HTN * Con't Amlodipine HLD: * Con't statin Hypothyroidism * Con't levothyroxine Continue PO PPI and bowel regimen Renal diet DVT ppx-ALPs only Assessment/Plan: see above
[2018-07-01] MEDS ORDERED: GABAPENTIN100 M2 PO ×3 (09:05→13:45)
[2018-07-01 09:13] LABS: ABSOLUTE BASOPHIL COUNT 0.1 /CUMM (0.0-0.2); ABSOLUTE EOSINOPHIL COUNT 0.5 /CUMM (0.0-0.7); ABSOLUTE GRANULOCYTE CT 4.9 /CUMM (1.4-6.5); ABSOLUTE LYMPH COUNT 1.7 /CUMM (1.2-3.4); BASOPHIL % 1.2 % (0.0-2.0); EOSINOPHIL % 5.6 % (0-5); GRANULOCYTE % 59.9 % (42.2-75.2); HEMATOCRIT 24.9 % (37-47); MEAN CORPUSCULAR HGB CONC 33.2 G/DL (33.0-37.0); MEAN CORPUSCULAR VOLUME 84.4 FL (81.0-99.0); MEAN PLATELET VOLUME 8.3 FL (7.4-10.4); PLATELET COUNT 471 /CUMM (130-400); RBC DISTRIBUTION WIDTH 14.9 % (11.5-14.5); RED BLOOD CELL CT 2.95 /CUMM (4.20-5.40); WHITE BLOOD CELL COUNT 8.1 /CUMM (4.8-10.8)
--- NOTE | 2018-07-01 09:43 | Discharge Summary ---
Visit Information Visit Dates Admission Date: 06/10/18 Discharge Date: 07/01/18 Hospital Course Course Attending Physician: Vanessa Cartwright MD Primary Care Physician: Tristin Peck MD. Other Care Providers: Dr Mohan Brown Consulting Request: 1 Consulting Specialty: Nephrology Consulting Request: 2 Consulting Specialty: Neurosurgery Consulting Request: 3 Consulting Specialty: Orthopedics Hospital Course: This is a 73 year old female with PMH of HTN, hypothyroidism, and spinal stenosis admitted for spinal surgery (L3-S1 laminectomy with hardware removal and placement) on 06/10 with intraop EBL of 3500cc and subsequent hypotension. She was managed with peripheral phenylephrine and 2 unit pRBC transfusion, then her hospital course was complicated by ATN/TIFFANIE requiring hemodialysis for oliguria and volume overload. Subsequently she had port placement and underwent HD MWF. She has missed the lst two dialysis sessions and her renal function continued to improve. From oliguria she now has > 3L of Uop. She is ambulating , the cliff from surgery have been removed and she is scheduled for dialysis port removal today. This is POD 21. PLAN: Acute blood loss anemia: H/H stable and is s/p 2 units pRBCs in hospital. * Received epogen last on 06/18 during HD --will not continue as outpatient * H&H was trended and had remain overall stable. Aneia is also partially due to her poor kidney function. ATN 2/2 hemorrhagic shock and intra op blood loss: Her Cr is significantly improving sans dialylsis. She did not receive regimen of HD this week and her Cr continued to improve daily; will remove EDD cath today as no further need for HD per Dr Brown * S/p tunneled catheter placed 06/15... Plan to remove it on 07/01/2018 with IR * Will need close f/u with nephro * Will continue phosphate binders QHS, continue renal dialysis diet, and nephrovitamins on d/c * No fluid restriction L3-S1 laminectomy with hardware removal and placement: No evidence of surgical site infection. SHe is ambulating with PT and has a walker. * Chronic left foot drop, continue AFO; improving. * Continue analgesics Will discharge with Home Health PT * Follow up ortho and neurosurgical recommendations BLE Neuropaty: Pt c/o burning sensation of lower extremities from anterior aspect of foot radiating anteriorly to knee at bedtime x 2 days - Start 100mg gabapentin Q HS x 7 days - Follow up with Dr Menjivar Leukocytosis: Resolved HTN * Con't Amlodipine HLD: * Con't statin Hypothyroidism * Con't levothyroxine Continue PO PPI and bowel regimen Renal diet Complications: TIFFANIE Allergies: Coded Allergies: No Known Allergies (06/04/18) Significant Procedures: As primary #1 right hemilaminotomy L4 5 L5-S1 with medial facetectomy and foraminotomy #2 preparation of space for fusion L4 5 L5-S1 #3 graft reconstruction DBF graft on #4 TL ORIF F USD cage insertion L4 5 right #5 TL ORIF fuse cage insertion L5-S1 right As secondary #6 removal of X-Stop hardware L3 4 L4 5 and #7 left hemilaminotomy L3 4 with foraminotomy and facetectomy #8 preparation of space for fusion L3 4 left #9 insertion of TL ORIF fuse cage L3 4 left #10 left hemilaminotomy L4 5 with medial facetectomy and foraminotomy #11 installation of Depo-Medrol left L4 5 #12 stealth registration #13 pedicle screw insertion L3-L4 L5-S1 bilateral #14 arthrodesis O2 and allograft bilateral L3-L4 L5-S1 Surgery Date: 06/10/18 Name of Procedure: 1) L3-L4 And L4-L5 Removal Of Two Distinct And Separate Level Interspinous Distractive Stabilization And Arthrodesis Devices (Blechner/Opalak) 2) L3-L5 Posterior Midline And Posterobilateral Lumbar Region Fusion Mass Exploration With Visual, Palpation And Mechanical Evaluation To Evaluate For And Ultimately Confirm Pseudoarthrosis Which Could Not Be Otherwise Definitively Determined By Other Noninvasive Methods (Blechner/[place]) 3) L3-L4 Single Column Osteotomy Of Midline And Left Posterolateral Pseudoarthrosis Required To Safely Achieve Clinically Necessary Left Posterolateral Lateral Recess And Unroofing Foraminal Decompression And Without Which The Remainder Of The Procedure Could Not Have Been Performed. (Blechner/ [place]) 4) L4-L5 Single Column Osteotomy Of Midline And Right Posterolateral Pseudoarthrosis Required To Safely Achieve Clinically Necessary Right Posterolateral Lateral Recess And Unroofing Foraminal Decompression And Without Which The Remainder Of The Procedure Could Not Have Been Performed. 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 (Opalak/Blechner) 6) L4 Bilateral Hemilaminotomies With L4-L5 Decompressive Posterolateral Osseous Element Resection (Including Decompressive Right Subtotal And Left Partial Medial Facetectomies As Well As Decompressive Right Unroofing And Left Medial Expanding Foraminotomies), Intraforaminal Osteophytectomies, Moderate Epidural Neurolysis, Neurodecompressive Discectomy Of Bilateral Extruded And Impinging Intracanal And Intraforaminal Herniated Disk Fragment And 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 (Opalak/Blechner ) 7) L5 Right Hemilaminotomy With L5-S1 Decompressive Posterolateral Osseous Element Resection (Including Decompressive Subtotal Facetectomy And Decompressive Unroofing Foraminotomy), Intraforaminal Osteophytectomies, Epidural Neurolysis, Neurodecompressive Discectomy Of Extruded Intracanal And Intraforaminal Herniated Disk Fragment And 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 ([place]alak/Blechner) 8) L3-L4 Revision Multicolumn (New Anterior Column Interbody And Revision Posterobilateral Column Osteoarticular Element And Intertransverse Process) Instrumented Fusion (Blechmark-[facility]) 9) L4-L5 Revision Multicolumn (New Anterior Column Interbody And Revision Posterobilateral Column Osteoarticular Element And Intertransverse Process) Instrumented Fusion ([place]ela[facility]) 10) L5-S1 Multicolumn (Anterior Column Interbody And Posterobilateral Column Osteoarticular Element And Intertransverse Process) Instrumented Fusion ( [place]achmark[facility]) 11) L3-L4 Left Posterolateral Implantation Of Left Paramedian To Midline Oblique Interbody Cage Instrumentation (Mohan/Amrikk) 12) L4-L5 Right Posterolateral Implantation Of Right Paramedian To Left Paramedian Midline Oblique Interbody Cage Instrumentation (Mohan/Tiara) 13) L5-S1 Right Posterolateral Implantation Of Right Paramedian To Midline Oblique Interbody Cage Instrumentation (Mohan/Tiara) 14) L3-S1 Implantation Of Posterobilateral Rxntuld-Pjluo-Jdi Segmental Instrumentation (Mohan/Tiara) 15) L3-S1 Stealth Frameless Stereotactic Computer-Assisted Spinal Navigational Placement Of Posterobilateral Pedicle Screw Instrumentation (Mohan) 16) Preparation, Reconstitution And Implantation Of L3-S1 Interbody And Posterobilateral Intertransverse Process Nonstructural Allograft Substitute Osteopromotive Material (Mohan) 17) [place], Preparation, Reconstitution And Implantation Of L3-S1 Interbody And Posterobilateral Intertransverse Process Nonstructural Morselized Local Autograft (Mohan) Pre-Operative Diagnosis: 1) 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 2) L5-S1 Bilateral Lumbosacral Intervertebral Disc Disorder With Radiculopathy 3) L3-L4 And L4-L5 Bilateral Lumbar Spondylosis With Radiculopathy 4) L5-S1 Bilateral Lumbosacral Spondylosis With Radiculopathy 5) L3-L4 And L4-L5 Bilateral Lumbar Region Foraminal Spinal Stenosis 6) L5-S1 Bilateral Lumbosacral Region Foraminal Spinal Stenosis 7) L5 Bilateral Midlumbar Distribution Radiculopathy 8) L3-L4 And L4-L5 Bilateral Broad Based Central And Intraforaminal Neurocompressive Intraforaminal Displacement Of Lumbar Intervertebral Discs 9) L3-L4 And L4-L5 Degeneration Of Lumbar Intervertebral Discs 10) L5-S1 Degeneration Of Lumbosacral Intervertebral Disc 11) L3-L4 And L4-L5 Lumbar Spondylosis 12) L5-S1 Lumbosacral Spondylosis 13) L3-L4 And L4-L5 Pseudoarthrosis 14) L3-S1 Diffuse Multi-Segmental Lumbar And Lumbosacral Spinal Degenerative Arthritis (Spondyloarthropathy) 15) L3-S1 Bilateral Degenerative Lumbar And Lumbosacral Spinal Facet Arthropathy 16) Severe, Activity And Functionally Limiting Lumbar And Lumbosacral Region Lower Back Pain 17) Presence Of L3-L4 And L4-L5 Retained Interspinous Lumbar Spinal Stabilization Instrumentation Implants 18) Status Post L3-L4 And L4-L5 Midline Lumbar Attempted Surgical Arthrodesis Procedure With Suggestion Of Nonunion 19) Borderline Obesity Based On World Health Organization (WHO) Criteria 20) Very High Body Mass Index (BMI = 30.4) Potentially Adversely Affecting Acute And Mcfp Lumbar And Lumbosacral Spine General And Surgical Orthopaedic Treatment As Well As Spine Surgical And Overall Health Outcomes. EDD catheter insertion and removal. Pertinent Lab Results: Laboratory Tests 07/01 0612 Chemistry Sodium (137 - 145 mmol/L) 139 Potassium (3.5 - 5.1 mmol/L) 4.0 Chloride (98 - 107 mmol/L) 99 Carbon Dioxide (22 - 30 mmol/L) 28 Anion Gap (5 - 16) 12 BUN (7 - 17 mg/dL) 36 H Creatinine (0.5 - 1.0 mg/dL) 4.1 H Estimated GFR (>60 ml/min) 11 L BUN/Creatinine Ratio (7 - 25 %) 8.8 Hematology CBC w Diff NO MAN DIFF REQ WBC (4.8 - 10.8 /CUMM) 8.1 RBC (4.20 - 5.40 /CUMM) 2.95 L Hgb (12.0 - 16.0 G/DL) 8.3 L Hct (37 - 47 %) 24.9 L MCV (81.0 - 99.0 FL) 84.4 MCH (27.0 - 31.0 PG) 28.0 MCHC (33.0 - 37.0 G/DL) 33.2 RDW (11.5 - 14.5 %) 14.9 H Plt Count (130 - 400 /CUMM) 471 H MPV (7.4 - 10.4 FL) 8.3 Gran % (42.2 - 75.2 %) 59.9 Lymphocytes % (20.5 - 51.1 %) 20.7 Monocytes % (1.7 - 9.3 %) 12.6 H Eosinophils % (0 - 5 %) 5.6 H Basophils % (0.0 - 2.0 %) 1.2 Absolute Granulocytes (1.4 - 6.5 /CUMM) 4.9 Absolute Lymphocytes (1.2 - 3.4 /CUMM) 1.7 Absolute Monocytes (0.10 - 0.60 /CUMM) 1.0 H Absolute Eosinophils (0.0 - 0.7 /CUMM) 0.5 Absolute Basophils (0.0 - 0.2 /CUMM) 0.1 Disposition Summary Disposition Principal Diagnosis: spinal stenosis needing spinal surgery (L3-S1 laminectomy with hardware removal and placement) ATN/TIFFANIE requiring hemodialysis for oliguria and volume overload. acute blood loss anemia Additional Diagnosis: HTN HLD Hypothyroidism neuropathy Discharge Disposition: home health services Discharge Instructions General Discharge Information Code Status: Full Code Patient's Diet: renal Patient's Activity: as tolerated Follow-Up Instructions/Appts: Please follow up with Dr Brown, Dr Menjivar, Dr Pace, Dr Peck. Please check blood work CBC and BEP, phos on 07/05/18. Medications at Discharge Discharge Medications: Continue taking these medications: Sertraline HCl (Sertraline HCl) 50 MG TABLET 1 Tablet ORAL DAILY Comments: Last Taken: 07/01/18 Time: 0900 AM Levothyroxine Sodium (Levothyroxine Sodium) 100 MCG TABLET 1 Tablet ORAL DAILY Comments: Last Taken: 07/01/18 Time: 0515 AM Omeprazole (Omeprazole) 40 MG CAPSULE.DR 1 Capsule ORAL DAILY Comments: Last Taken: 07/01/18 Time: 0515 AM Atorvastatin Calcium (Atorvastatin Calcium) 10 MG TABLET 1 Tablet ORAL DAILY Comments: Last Taken: 06/30/18 Time: 1640 Amlodipine Besylate (Amlodipine Besylate) 5 MG TABLET 1 Tablet ORAL DAILY Comments: Last Taken: 07/01/18 Time: 1820 PM Start taking the following new medications: Oxycodone HCl/Acetaminophen (Percocet 5-325 MG Tablet) 5 MG-325 MG TABLET 1 Tablet ORAL EVERY SIX HOURS NEEDED as needed for PAIN SCALE 7-10 ( SEVERE) Qty = 12 No Refills Instructions: .. Gabapentin (Gabapentin) 100 MG CAPSULE 1 Tablet ORAL TAKE AT BEDTIME as needed for neuropathy Qty = 10 No Refills Instructions: . Comments: NOT TAKEN IN HOSPITAL Sevelamer Carbonate (Renvela) 800 MG TABLET 800 Milligram ORAL TAKE AT BEDTIME Qty = 15 No Refills Instructions: . Nephro-Vitamins (Nephro-Mainor Tablet) 0.8 MG TABLET 1 Tablet ORAL DAILY Qty = 30 No Refills Instructions: .. Comments: Last Taken: 07/01/18 Time: 0900 AM Docusate Sodium (Docusate Sodium) 100 MG CAPSULE 100 Milligram ORAL TWICE DAILY as needed for CONSTIPATION Qty = 15 No Refills Instructions: . Comments: Last Taken: 07/01/18 Time: 0900 AM Nystatin (Nystatin) 100,000 UNIT/GRAM CREAM..G. 1 Application On the skin TWICE DAILY Qty = 1 No Refills Instructions: . Comments: Last Taken: 07/01/18 Time: 0900 AM Copies To: Mohan HAN,Jonathan Guo; Liv HAN,Tristin Salamanca; Kevin HAN,Cedric Hammond; Tiara HAN,Damien Antonio Attending MD Review Statement Other Findings: Agree with above.
--- NOTE | 2018-07-01 09:53 | PN- Gen Med ---
Delphine Neville 07/01/18 0953: Assessment/Plan Medical Assessment: This is a 73 year old female with PMH of HTN, hypothyroidism, and spinal stenosis admitted for spinal surgery (L3-S1 laminectomy with hardware removal and placement) on 06/10 with intraop EBL of 3500cc and subsequent hypotension. She was managed with peripheral phenylephrine and 2 unit pRBC transfusion, now hospital course complicated by ATN/TIFFANIE requiring hemodialysis for oliguria and volume overload. This POD 21 her renal function is recovering. -- PLAN: Acute blood loss anemia: H/H stable. -s/p 2 units pRBCs -Epogen last given on 06/18 -Will continue trend and transfuse if below 7 ATN 2/2 hemorrhagic shock and intra op blood loss: Her Cr continues to improve daily off HD this week. Her UOP is now normal. - s/p tunneled catheter placed 06/15 will be removing today before discharge -Continue Strict I/O's -Continue phosphate binders Q HS, renal dialysis diet, and nephrovitamins - no fluid restriction L3-S1 laminectomy with hardware removal and placement: -No evidence of surgical site infection -Ambulating well with PT using walker -Continue neurochecks, no new deficits -Chronic left foot drop, continue AFO; improving. -Continue analgesics PRN -Jasvir removed, surgical site is C/D/I healing well -Follow up ortho and neurosurgical recommendations BLE Neuropathy -Start 100mg gabapentin PO Q HS x 1 week -Follow up with Dr Menjivar Leukocytosis Resolved HTN * Con't Amlodipine HLD: * Con't statin Hypothyroidism * Con't levothyroxine Continue PO PPI and bowel regimen Renal diet DVT ppx-ALPs only Problem List: 1. Acute blood loss anemia 2. ATN (acute tubular necrosis) 3. Delay kidney tx func d/t ATN and other reason requiring acute dialysis 4. Hyperphosphatemia 5. Acute renal failure 6. H/O laminectomy 7. Status post laminectomy DVT/Prophylaxis: mechanical Consulting Request: Consulting Specialty: Orthopedics Discharge Plan Discharge Disposition: Will be discharged to home this afternoon with home health services. Subjective Follow-up For: MARISOL Subjective: Interval History: Patient seen and examined this morning. She stated she is feeling well and is excited to be discharged today. She reported having constipation the last two days with small hard stools each morning. Also, new sensation of burning from tops of feet radiating to knees while trying to fall asleep at night for which she has taken percocet with good relief. Otherwise she denies N/V, cough, SOB, pain, F/C, dysuria. Her PO intake is good and she is working with PT daily in addition she is ambulating with her in the hallways using the walker. Review of Systems Constitutional: Denies: no symptoms. Comments: 14 Point ROS negative except as noted in the Interval History Objective Last 24 Hrs of Vital Signs/I&O Vital Signs Date Time Temp Pulse Resp B/P B/P Pulse O2 O2 Flow FiO2 Mean Ox Delivery Rate 07/01 0538 98.6 91 20 140/70 96 Room Air 07/01 0000 Room Air 06/30 2030 98.8 103 16 140/76 96 06/30 1820 100 140/78 06/30 1556 98.5 108 18 144/80 99 Intake & Output 07/01 1600 07/01 0800 07/01 0000 Intake Total 300 200 Output Total 100 650 450 Balance -100 -350 -250 Intake, Oral 300 200 Number 1 Bowel Movements Output, Urine 100 650 450 Patient 86.183 kg Weight Physical Exam General Appearance: Alert, Oriented X3, Cooperative, No Acute Distress Skin: No Breakdown (Surgical site C/D/I healing), Surgical sites is C/D/I, healing well Skin Temp/Moisture Exam: Warm/Dry Sepsis Skin Exam (color): Normal for Ethnicity HEENT: Atraumatic, Mucous Membr. moist/pink Cardiovascular: Regular Rate, Normal S1, Normal S2, No Murmurs Lungs: Clear to Auscultation, Normal Air Movement Abdomen: Normal Bowel Sounds, Soft, No Tenderness Neurological: Normal Gait, Normal Speech, Normal Tone, Sensation Intact Extremities: No Edema, No Tenderness/Swelling Vanessa Cartwright MD 07/01/18 1128: Assessment/Plan Medical Assessment: Patient seen and examined this morning, she feels well. Agree with the note as dictated. She was complaining of some burning sensation in her feet. Discussed with nephrology. Her Roby cath will be taken out today. We will recommend starting gabapentin to be taken at night. I discussed with Dr. Brown about her Renvela. That will be given only for the night at dinnertime. After the Roby cath removal patient will be discharged home with home services today.
--- NOTE | 2018-07-01 10:32 | PN- Nephrology ---
Assessment/Plan Nephrology Assessment: 1. Acute kidney injury. Her urine output remains excellent and her creatinine dropped to 4.1. Clearly no dialysis need. 2. Volume status. No evidence of fluid overload Suggestion: 1. agree with removal of Roby cath 2. Repeat blood work on Thursday 3. [facility]up [facility] 1-2 weeks time Subjective Subjective: Patient feels great and is anxious to leave. Objective Vital Signs and I&Os Vital Signs Date Time Temp Pulse Resp B/P B/P Pulse O2 O2 Flow FiO2 Mean Ox Delivery Rate 07/01 0538 98.6 91 20 140/70 96 Room Air 07/01 0000 Room Air 06/30 2030 98.8 103 16 140/76 96 06/30 1820 100 140/78 06/30 1556 98.5 108 18 144/80 99 Intake & Output 07/01 1600 07/01 0400 06/30 1600 06/30 0400 06/29 1600 06/29 0400 Intake Total 743 351 5766 600 360 Output Total 054 544 6970 700 2200 350 Balance -450 -250 680 -700 -1600 10 Intake, Oral 185 747 7889 600 360 Number 1 3 1 Bowel Movements Output, Urine 565 973 4557 700 2200 350 Patient 190 lb 190 lb 188 lb Weight Physical Exam: General Appearance: well developed/nourished, no apparent distress, alert, awake Head: atraumatic, normocephalic Neck: normal inspection, no masses Respiratory: normal breath sounds, lungs clear, to auscultation and percussion Cardiovascular: regular rate/rhythm, no significant murmurs or rubs Abdomen: normal bowel sounds, soft, non-tender however she was examined sitting up Extremities: normal inspection, normal capillary refill. No edema Neurologic/Psychiatric: awake, alert, oriented x 3, moving all extremities. Results Pertinent Lab Results: Laboratory Tests 07/01 06/30 0612 0610 Chemistry Sodium (137 - 145 mmol/L) 139 139 Potassium (3.5 - 5.1 mmol/L) 4.0 3.6 Chloride (98 - 107 mmol/L) 99 101 Carbon Dioxide (22 - 30 mmol/L) 28 27 Anion Gap (5 - 16) 12 11 BUN (7 - 17 mg/dL) 36 H 35 H Creatinine (0.5 - 1.0 mg/dL) 4.1 H 4.5 H Estimated GFR (>60 ml/min) 11 L 10 L BUN/Creatinine Ratio (7 - 25 %) 8.8 7.8 Phosphorus (2.5 - 4.5 mg/dL) Pending 4.6 H Hematology CBC w Diff NO MAN DIFF REQ NO MAN DIFF REQ WBC (4.8 - 10.8 /CUMM) 8.1 7.4 RBC (4.20 - 5.40 /CUMM) 2.95 L 2.87 L Hgb (12.0 - 16.0 G/DL) 8.3 L 7.8 L Hct (37 - 47 %) 24.9 L 24.2 L MCV (81.0 - 99.0 FL) 84.4 84.5 MCH (27.0 - 31.0 PG) 28.0 27.2 MCHC (33.0 - 37.0 G/DL) 33.2 32.2 L RDW (11.5 - 14.5 %) 14.9 H 15.1 H Plt Count (130 - 400 /CUMM) 471 H 418 H MPV (7.4 - 10.4 FL) 8.3 8.2 Gran % (42.2 - 75.2 %) 59.9 59.8 Lymphocytes % (20.5 - 51.1 %) 20.7 20.9 Monocytes % (1.7 - 9.3 %) 12.6 H 12.8 H Eosinophils % (0 - 5 %) 5.6 H 5.7 H Basophils % (0.0 - 2.0 %) 1.2 0.8 Absolute Granulocytes (1.4 - 6.5 /CUMM) 4.9 4.4 Absolute Lymphocytes (1.2 - 3.4 /CUMM) 1.7 1.6 Absolute Monocytes (0.10 - 0.60 /CUMM) 1.0 H 0.9 H Absolute Eosinophils (0.0 - 0.7 /CUMM) 0.5 0.4 Absolute Basophils (0.0 - 0.2 /CUMM) 0.1 0.1 06/29 06/28 0605 1815 Chemistry Sodium (137 - 145 mmol/L) 139 Potassium (3.5 - 5.1 mmol/L) 3.7 Chloride (98 - 107 mmol/L) 101 Carbon Dioxide (22 - 30 mmol/L) 28 Anion Gap (5 - 16) 10 BUN (7 - 17 mg/dL) 33 H Creatinine (0.5 - 1.0 mg/dL) 4.9 H Estimated GFR (>60 ml/min) 9 L BUN/Creatinine Ratio (7 - 25 %) 6.7 L Hematology CBC w Diff NO MAN DIFF REQ NO MAN DIFF REQ WBC (4.8 - 10.8 /CUMM) 8.3 9.4 RBC (4.20 - 5.40 /CUMM) 2.86 L 2.75 L Hgb (12.0 - 16.0 G/DL) 8.0 L 7.8 L Hct (37 - 47 %) 24.4 L 23.6 L MCV (81.0 - 99.0 FL) 85.3 85.8 MCH (27.0 - 31.0 PG) 28.1 28.2 MCHC (33.0 - 37.0 G/DL) 33.0 32.9 L RDW (11.5 - 14.5 %) 15.4 H 15.3 H Plt Count (130 - 400 /CUMM) 459 H 424 H MPV (7.4 - 10.4 FL) 8.2 8.1 Gran % (42.2 - 75.2 %) 60.6 66.2 Lymphocytes % (20.5 - 51.1 %) 23.2 18.1 L Monocytes % (1.7 - 9.3 %) 10.5 H 11.7 H Eosinophils % (0 - 5 %) 4.8 3.5 Basophils % (0.0 - 2.0 %) 0.9 0.5 Absolute Granulocytes (1.4 - 6.5 /CUMM) 5.0 6.2 Absolute Lymphocytes (1.2 - 3.4 /CUMM) 1.9 1.7 Absolute Monocytes (0.10 - 0.60 /CUMM) 0.9 H 1.1 H Absolute Eosinophils (0.0 - 0.7 /CUMM) 0.4 0.3 Absolute Basophils (0.0 - 0.2 /CUMM) 0.1 0
[2018-07-01] MEDS ORDERED: RENVELA800 M1 PO ×3 (13:20→13:45)
[2018-07-01] MEDS ORDERED: NEPHRO-VITE TA0.8 MG PO ×2 (13:25→13:45)
[2018-07-01] MEDS ORDERED: PERCOCET 5-3251 EACH PO ×2 (13:26→13:45)
[2018-07-01] MEDS ORDERED: DOCUSATE SODIU100 M3 PO ×3 (13:32→13:48)
[2018-07-01] MEDS ORDERED: NYSTATIN15 G1 TOP ×3 (13:32→13:48)
--- NOTE | 2018-07-01 16:19 | INTERVENTIONAL RADIOLOGY RPT ---
PROCEDURE: REMOVAL OF TUNNELED VENOUS CATHETER CLINICAL INFORMATION: 73-year-old female with improving kidney function. MEDICATIONS: None required for today's procedure. IMAGING: None required for today's procedure. PROCEDURE IN DETAIL: Informed consent was obtained from the patient prior to the procedure. During this process, the procedure and potential alternatives was explained, along with the intended outcome and benefits. The risks of the procedure, as well as the risk of not doing the procedure, were discussed. The patient was given the opportunity to ask questions regarding the procedure and appeared competent to make medical decisions. A signed consent form which documents this discussion was placed in the medical record. A final timeout was called. The right chest wall and catheter was prepped in a sterile fashion with maximal barrier protection. Retaining sutures were cut. Gentle pressure was placed on the dialysis catheter and the catheter was removed in its entirety. Pressure was held at the venotomy site for approximately 5 minutes until hemostasis was achieved. The skin was closed with Dermabond. No complications. IMPRESSION: Successful removal of right-sided tunneled catheter.
== END 2018-07-01 16:32 | disposition home health service (06) | DRG 459 ==
LOC: 2NA 01:47 → CRI 01:47 → SDA 01:47 → ENRESERV 18:34 → ENTRNSPT 19:15 → EDTRNSPT 19:32 → EDTRNSPTSTS 19:32 → CMPTRNSPT 19:50 → CRI 20:31 → ENTRNSPT 06-16 20:14 → 1NO 06-16 20:50 → CMPTRNSPT 06-16 20:59 → 1NO 06-17 21:29 → DELTRNSPT 06-18 20:17 → ENTRNSPT 06-18 20:30 → EDTRNSPT 06-18 20:46 → EDTRNSPTSTS 06-18 20:46 → 2NA 06-18 20:56 → CMPTRNSPT 06-18 21:29 → 2NA 06-23 08:32 → ENTRNSPT 07-01 16:04 → CMPTRNSPT 07-01 16:26 → 2NA 07-01 16:32
PROVIDERS: Internal Medicine; Internal Medicine Adolescent Medicine; Internal Medicine Nephrology; Orthopaedic Surgery Orthopaedic Surgery of the Spine; Physical Medicine & Rehabilitation; Preventive Medicine Public Health & General Preventive Medicine; Student in an Organized Health Care Education/Training Program
PROC: 0SG10AJ Fusion of 2 or more Lumbar Vertebral Joints with Interbody Fusion Device, Posterior Approach, Anterior Column, Open Approach (ICD-10-PCS; principal; 2018-06-10)
PROC: 0SB20ZZ Excision of Lumbar Vertebral Disc, Open Approach (ICD-10-PCS; principal; 2018-06-10)
PROC: 8E0WXBZ Computer Assisted Procedure of Trunk Region (ICD-10-PCS; principal; 2018-06-10)
PROC: 0SG30AJ Fusion of Lumbosacral Joint with Interbody Fusion Device, Posterior Approach, Anterior Column, Open Approach (ICD-10-PCS; principal; 2018-06-10)
PROC: 0SP004Z Removal of Internal Fixation Device from Lumbar Vertebral Joint, Open Approach (ICD-10-PCS; principal; 2018-06-10)
PROC: 0SG10A0 Fusion of 2 or more Lumbar Vertebral Joints with Interbody Fusion Device, Anterior Approach, Anterior Column, Open Approach (ICD-10-PCS; principal; 2018-06-10)
PROC: 4A11X4G Monitoring of Peripheral Nervous Electrical Activity, Intraoperative, External Approach (ICD-10-PCS; principal; 2018-06-10)
PROC: 0SG30A0 Fusion of Lumbosacral Joint with Interbody Fusion Device, Anterior Approach, Anterior Column, Open Approach (ICD-10-PCS; principal; 2018-06-10)
PROC: 30233N1 Transfusion of Nonautologous Red Blood Cells into Peripheral Vein, Percutaneous Approach (ICD-10-PCS; 2018-06-12)
PROC: 02H633Z Insertion of Infusion Device into Right Atrium, Percutaneous Approach (ICD-10-PCS; 2018-06-15)
PROC: 5A1D70Z Performance of Urinary Filtration, Intermittent, Less than 6 Hours Per Day (ICD-10-PCS; 2018-06-15)
PROC: 02PAX3Z Removal of Infusion Device from Heart, External Approach (ICD-10-PCS; 2018-06-15)
DX: M51.16 Intervertebral disc disorders with radiculopathy, lumbar region (principal); N17.0 Acute kidney failure with tubular necrosis; I21.A1 Myocardial infarction type 2; T81.19XA Other postprocedural shock, initial encounter; M96.0 Pseudarthrosis after fusion or arthrodesis; D62 Acute posthemorrhagic anemia; E87.2 Acidosis; D69.6 Thrombocytopenia, unspecified; E83.41 Hypermagnesemia; I95.9 Hypotension, unspecified; E83.39 Other disorders of phosphorus metabolism; M48.061 Spinal stenosis, lumbar region without neurogenic claudication; M48.07 Spinal stenosis, lumbosacral region; M47.26 Other spondylosis with radiculopathy, lumbar region; M47.27 Other spondylosis with radiculopathy, lumbosacral region; M51.17 Intervertebral disc disorders with radiculopathy, lumbosacral region; E06.3 Autoimmune thyroiditis; E03.9 Hypothyroidism, unspecified; Y83.8 Other surgical procedures as the cause of abnormal reaction of the patient, or of later complication, without mention of misadventure at the time of the procedure; E78.5 Hyperlipidemia, unspecified; I10 Essential (primary) hypertension; E66.9 Obesity, unspecified; Z68.30 Body mass index [BMI] 30.0-30.9, adult; K59.00 Constipation, unspecified; M21.372 Foot drop, left foot; D72.829 Elevated white blood cell count, unspecified; M54.5 Low back pain; G89.29 Other chronic pain; Z88.8 Allergy status to other drugs, medicaments and biological substances; Z87.891 Personal history of nicotine dependence; Z90.710 Acquired absence of both cervix and uterus; Z88.1 Allergy status to other antibiotic agents
CPT/HCPCS: 04007; 1NSP; 2NASP; CCU; 36415; 36592; 71045; 74018; 76000; 76775; 77001; 81001; 82436; 86803; 86920; 87040; 87070; 87086; 88304; 93005; 93010; 97110-GO; 97116-GO; 97161-GP; 97530-GO; C1713; C1752; C1769; J0131; J0690; J0696; J0885; J1030; J1644; J2001; J2310; J2405; J3370; J3490; J7120; P9016